=== PATIENT | female | born 1955 | race Caucasian/White ===

== ENCOUNTER → 2017-05-07 12:01 | Outpatient (CLI) | payer BC, SELFPAY ==
[2017-05-07 12:42] LABS: Absolute Lymphocyte Count 2.22 X10^3/ul (0.83-4.51); Absolute Neutrophil Count 4.2 X10^3/uL (2.0-7.7); Basophil# 0.06 X10^3/uL; Basophil% 0.8 % (0-1); Eosinophil# 0.27 X10^3/uL; Eosinophils% 3.7 % (0-5); Hematocrit 41.7 % (37-47); Hemoglobin 13.8 g/dl (12.0-15.0); Lymphocyte # 2.22 X10^3/ul (4.0); Lymphocyte % 30.3 % (19-41); Mean Corp Hgb Conc 33.1 g/gl (32-36); Mean Corpuscular Hgb 31.5 pg (27.0-32.0); Mean Corpuscular Volume 95.2 fL (81-99); Mean Platelet Vol. 8.7 fl (6.2-12.0); Monocyte% 8.2 % (0-10); Neutrophil # 4.17 X10^3/uL (2.7-7.7); Neutrophil % 56.9 % (47-70); Platelet Count 313 K/mm3 (150-450); RBC Distribution Width SD 40.8 fl (35.1-43.9); Red Blood Count 4.38 M/mm3 (4.2-5.4); White Blood Count 7.3 K/mm3 (4.4-11.0)
[2017-05-07 13:00] LABS: POSITIVE COUNT NO; POSITIVE DIFFERENTIAL NO; POSITIVE MORPHOLOGY NO
[2017-05-07 13:12] LABS: Vitamin D,25 Hydroxy 28.9 ng/mL (29.95-100.01)
[2017-05-07 13:16] LABS: ALB/GLOB Ratio 1.1 RATIO (0.9-2.4); AST(SGOT) 16 U/L (15-37); Alanine Aminotransfer ALT/SGPT 39 U/L (13-56); Albumin, Serum 4.2 g/dL (3.2-5.0); Alkaline Phosphatase 78 U/L (45-117); Anion Gap 7 (5-15); BUN 14 mg/dL (7-18); BUN/Creat Ratio 19.3 RATIO (10-20); Calcium,Total 8.7 mg/dL (8.5-10.1); Chloride 107 mmol/L (98-107); Creatinine, Serum 0.73 mg/dL (0.55-1.02); EST Glomerular Filtration Rate 86 mL/min (>60); Est Glom Filt Rate - Afr Amer 105 mL/min (>60); Globulin 3.9 g/dL (2.2-4.2); Glucose 124 mg/dL (74-106); Potassium 3.7 mmol/L (3.5-5.1); Protein, Total 8.1 g/dL (6.4-8.2); Sodium Level 140 mmol/L (136-145); Thyroid Stim Hormone (TSH) 2.26 uIU/mL (0.358-3.74)
== END ==
PROVIDERS: Family Provider Family Medicine Geriatric Medicine; PCP Family Medicine Geriatric Medicine; Visit Provider Family Medicine Geriatric Medicine
DX: I10 Essential (primary) hypertension (principal); E11.9 Type 2 diabetes mellitus without complications; E55.9 Vitamin D deficiency, unspecified
CPT/HCPCS: 36415; 80053; 82306; 84443; 85025

== ENCOUNTER → 2017-11-05 12:44 | Outpatient (CLI) | payer BC, SELFPAY ==
[2017-11-05 13:18] LABS: Absolute Lymphocyte Count 2.19 X10^3/ul (0.83-4.51); Absolute Neutrophil Count 3.5 X10^3/uL (2.0-7.7); Basophil# 0.06 X10^3/uL; Basophil% 0.9 % (0-1); Eosinophil# 0.28 X10^3/uL; Eosinophils% 4.3 % (0-5); Hemoglobin 13.1 g/dl (12.0-15.0); Lymphocyte # 2.19 X10^3/ul (4.0); Lymphocyte % 33.6 % (19-41); Mean Corp Hgb Conc 33.6 g/gl (32-36); Mean Corpuscular Hgb 32.2 pg (27.0-32.0); Mean Corpuscular Volume 95.8 fL (81-99); Mean Platelet Vol. 8.5 fl (6.2-12.0); Monocyte# 0.48 X10^3/uL; Monocyte% 7.4 % (0-10); Neutrophil # 3.49 X10^3/uL (2.7-7.7); Neutrophil % 53.6 % (47-70); Platelet Count 297 K/mm3 (150-450); RBC Distribution Width CV 11.6 % (11.6-14.6); RBC Distribution Width SD 40.1 fl (35.1-43.9); Red Blood Count 4.07 M/mm3 (4.2-5.4); White Blood Count 6.5 K/mm3 (4.4-11.0)
[2017-11-05 13:27] LABS: POSITIVE COUNT NO; POSITIVE DIFFERENTIAL NO; POSITIVE MORPHOLOGY NO
[2017-11-05 13:43] LABS: Vitamin D,25 Hydroxy 27.2 ng/mL (29.95-100.01)
[2017-11-05 13:47] LABS: ALB/GLOB Ratio 1.1 RATIO (0.9-2.4); AST(SGOT) 19 U/L (15-37); Alanine Aminotransfer ALT/SGPT 43 U/L (13-56); Albumin, Serum 4.1 g/dL (3.2-5.0); Alkaline Phosphatase 69 U/L (45-117); Anion Gap 8 (5-15); BUN 13 mg/dL (7-18); BUN/Creat Ratio 19.1 RATIO (10-20); Chloride 107 mmol/L (98-107); Creatinine, Serum 0.68 mg/dL (0.55-1.02); EST Glomerular Filtration Rate 93 mL/min (>60); Est Glom Filt Rate - Afr Amer 113 mL/min (>60); Globulin 3.8 g/dL (2.2-4.2); Glucose 94 mg/dL (74-106); Potassium 3.8 mmol/L (3.5-5.1); Protein, Total 7.9 g/dL (6.4-8.2); Sodium Level 143 mmol/L (136-145); Thyroid Stim Hormone (TSH) 2.54 uIU/mL (0.358-3.74)
== END ==
PROVIDERS: Family Provider Family Medicine Geriatric Medicine; PCP Family Medicine Geriatric Medicine; Visit Provider Family Medicine Geriatric Medicine
DX: I10 Essential (primary) hypertension (principal); E11.9 Type 2 diabetes mellitus without complications; E55.9 Vitamin D deficiency, unspecified
CPT/HCPCS: 36415; 80053; 82306; 84443; 85025

== ENCOUNTER → 2018-01-29 14:34 | Outpatient (CLI) | payer BC, SELFPAY ==
[2018-01-29 17:39] LABS: Absolute Lymphocyte Count 2.11 X10^3/ul (0.83-4.51); Absolute Neutrophil Count 3.2 X10^3/uL (2.0-7.7); Basophil# 0.06 X10^3/uL; Eosinophil# 0.32 X10^3/uL; Eosinophils% 5.1 % (0-5); Hematocrit 38.3 % (37-47); Hemoglobin 12.6 g/dl (12.0-15.0); Lymphocyte # 2.11 X10^3/ul (4.0); Lymphocyte % 33.7 % (19-41); Mean Corp Hgb Conc 32.9 g/gl (32-36); Mean Corpuscular Hgb 31.9 pg (27.0-32.0); Mean Platelet Vol. 8.6 fl (6.2-12.0); Monocyte# 0.59 X10^3/uL; Monocyte% 9.4 % (0-10); Neutrophil # 3.17 X10^3/uL (2.7-7.7); Neutrophil % 50.6 % (47-70); Platelet Count 309 K/mm3 (150-450); RBC Distribution Width CV 12.4 % (11.6-14.6); RBC Distribution Width SD 43.8 fl (35.1-43.9); Red Blood Count 3.95 M/mm3 (4.2-5.4); White Blood Count 6.3 K/mm3 (4.4-11.0)
[2018-01-29 17:43] LABS: POSITIVE COUNT NO; POSITIVE DIFFERENTIAL NO; POSITIVE MORPHOLOGY NO
[2018-01-29 18:02] LABS: Vitamin D,25 Hydroxy 56.4 ng/mL (29.95-100.01)
[2018-01-29 18:05] LABS: ALB/GLOB Ratio 1.1 RATIO (0.9-2.4); AST(SGOT) 18 U/L (15-37); Alanine Aminotransfer ALT/SGPT 38 U/L (13-56); Albumin, Serum 4.2 g/dL (3.2-5.0); Alkaline Phosphatase 68 U/L (45-117); Anion Gap 9 (5-15); BUN 13 mg/dL (7-18); BUN/Creat Ratio 17.8 RATIO (10-20); Calcium,Total 8.7 mg/dL (8.5-10.1); Chloride 104 mmol/L (98-107); Creatinine, Serum 0.73 mg/dL (0.55-1.02); EST Glomerular Filtration Rate 86 mL/min (>60); Est Glom Filt Rate - Afr Amer 104 mL/min (>60); Globulin 3.7 g/dL (2.2-4.2); Glucose 85 mg/dL (74-106); Potassium 3.6 mmol/L (3.5-5.1); Protein, Total 7.9 g/dL (6.4-8.2); Sodium Level 139 mmol/L (136-145); Thyroid Stim Hormone (TSH) 2.16 uIU/mL (0.358-3.74)
--- OUTSIDE RECORDS SUMMARY | 2018-03-26 20:12 | XMS RPT_ITS ---
:1955 Author Organization OH[facility] Care Team Providers Name Role Phone Yamil, Tarik Chi Attending Unavailable Yamil, Tarik Chi Primary Care Unavailable Yamil, Tarik Chi Attending Unavailable Yamil, Tarik Chi Referring Unavailable Yamil, Tarik Chi Primary Care Unavailable Yamil, Tarik Chi Attending Unavailable Yamil, Tarik Chi Primary Care Unavailable PROBLEMS PROBLEMS DATE TYPE CONDITION / CODE ATTENDING STATUS SOURCE 11/05/2017 Unknown E11.9 - Type 2 Yamil, Tarik Chi Active [place] diabetes mellitus Community without Hospital complications / Repository E11.9(ICD-10) 11/05/2017 Unknown E55.9 - Vitamin D Yamil, Tarik Chi Active [place] deficiency, Community unspecified / Hospital E55.9(ICD-10) Repository 11/05/2017 Unknown I10 - Essential Yamil, Tarik Chi Active [place] (primary) Community hypertension / Hospital I10(ICD-10) Repository PROCEDURES PROCEDURES No Procedure Records FoundRESULTS RESULTS CBC W/DIFF, AUTOMATED Collected: 01/29/2018 Status: F Source: [place] [facility] TYPE CODE TESTS RESULT OUT OF RANGE REFERENCE UNITS LAB L100.1000 4.4-11.0 K/mm3 Normal WBC 6.3 LAB L100.1200 4.2-5.4 M/mm3 Low RBC 3.95 LAB L100.1300 12.0-15.0 g/dl Normal HGB 12.6 LAB L100.1400 37-47 % Normal HCT 38.3 LAB L100.1500 81-99 fL Normal MCV 97.0 LAB L100.1600 27.0-32.0 pg Normal MCH 31.9 LAB L100.1700 32-36 g/gl Normal MCHC 32.9 LAB L100.1810 11.6-14.6 % Normal RDW CV 12.4 LAB L100.1820 35.1-43.9 fl Normal RDW SD 43.8 LAB L100.1900 150-450 K/mm3 Normal PLT 309 LAB L100.2000 6.2-12.0 fl Normal MPV 8.6 LAB L100.2100 47-70 % Normal NEUT% 50.6 LAB L100.2200 19-41 % Normal LY% 33.7 LAB L100.2300 0-10 % Normal MONO% 9.4 LAB L100.2400 0-5 % High EO% 5.1 LAB L100.2500 0-1 % Normal BASO% 1.0 LAB L100.2550 0.0-0.9 % Normal IM GRAN % 0.200 Result Comment: IG% - Immature Granulocytes (promyelocytes, myelocytes and metamyelocytes) > 1% indicates that a LEFT SHIFT is Present. LAB L100.2620 2.0-7.7 X10 3/uL Normal Absolute Neut 3.2 LAB L100.2720 0.83-4.51 X10 3/ul Normal Absolute Lymph 2.11 Performed By: #### L100.0100 #### [facility] [address] [place], [address] VITAMIN D,25 HYDROXY Collected: 01/29/2018 Status: F Source: [place] 2:52 PM [facility] REPOSITORY TYPE CODE TESTS RESULT OUT OF RANGE REFERENCE UNITS LAB L506.1000 29.95-100.01 ng/mL Normal Vitamin D 56.4 25-OH Result Comment: Vitamin D 25(OH) Status Range Deficiency <20 ng/mL (50nmol/L) Insuffciency 20 - 30 ng/mL (50 - 75 nmol/L) Sufficiency 30 - 100 ng/mL (75 - 250 nmol/L) Toxicity >100 ng/mL (>250 nmol/L) Performed By: #### L506.1000 #### [facility] [address] [place], [address] COMPREHENSIVE METABOLIC Collected: 01/29/2018 Status: F Source: [place] 2:52 PM [facility] REPOSITORY TYPE CODE TESTS RESULT OUT OF RANGE REFERENCE UNITS LAB L501.0100 74-106 mg/dL Normal GLU 85 Result Comment: Please note revised GLUCOSE reference range effective 2017. LAB L501.1000 7-18 mg/dL Normal BUN 13 LAB L501.1100 0.55-1.02 mg/dL Normal CREAT,SERUM 0.73 Result Comment: The validity of the calculated GFR AND GFRAA in patients over 70 years has not been determined. Clinical correlation is essential. LAB L501.1110 >60 mL/min Normal EST GFR 86 Result Comment: Non- GFR Calc LAB L501.1115 >60 mL/min Normal EST GFR - AA 104 Result Comment: GFR Calc LAB L501.1300 10-20 RATIO Normal BUN/CRE 17.8 LAB L501.1500 6.4-8.2 g/dL T Normal PROT 7.9 LAB L501.1800 3.2-5.0 g/dL Normal ALB 4.2 LAB L501.1950 2.2-4.2 g/dL Normal GLOB 3.7 LAB L501.2000 0.9-2.4 RATIO Normal A/G 1.1 LAB L501.2200 8.5-10.1 mg/dL CA Normal 8.7 LAB L501.4100 15-37 U/L Normal AST 18 LAB L501.4305 45-117 U/L Normal ALK P 68 LAB L501.4405 13-56 U/L Normal ALT 38 LAB L501.4600 0.20-1.00 mg/dL T Normal BILI 0.30 LAB L501.5300 136-145 mmol/L NA Normal 139 LAB L501.5600 3.5-5.1 mmol/L K Normal 3.6 LAB L501.5900 98-107 mmol/L CL Normal 104 LAB L501.6100 21.0-32.0 mmol/L Normal CO2 26.0 LAB L501.6200 5-15 Normal GAP 9 Performed By: #### L500.4050, L501.9520 #### [facility] [address] [place], [place], [address] THYROID STIM HORMONE Collected: 01/29/2018 Status: F Source: [place] (TSH) 2:52 PM [facility] REPOSITORY TYPE CODE TESTS RESULT OUT OF RANGE REFERENCE UNITS LAB L501.9520 0.358-3.74 uIU/mL Normal TSH 2.16 Performed By: #### L500.4050, L501.9520 #### [facility] [address] [facility] [place], [address] CBC W/DIFF, AUTOMATED Collected: 11/05/2017 Status: F Source: [place] 12:49 PM [facility] REPOSITORY TYPE CODE TESTS RESULT OUT OF RANGE REFERENCE UNITS LAB L100.1000 4.4-11.0 K/mm3 Normal WBC 6.5 LAB L100.1200 4.2-5.4 M/mm3 Low RBC 4.07 LAB L100.1300 12.0-15.0 g/dl Normal HGB 13.1 LAB L100.1400 37-47 % Normal HCT 39.0 LAB L100.1500 81-99 fL Normal MCV 95.8 LAB L100.1600 27.0-32.0 pg High MCH 32.2 LAB L100.1700 32-36 g/gl Normal MCHC 33.6 LAB L100.1810 11.6-14.6 % Normal RDW CV 11.6 LAB L100.1820 35.1-43.9 fl Normal RDW SD 40.1 LAB L100.1900 150-450 K/mm3 Normal PLT 297 LAB L100.2000 6.2-12.0 fl Normal MPV 8.5 LAB L100.2100 47-70 % Normal NEUT% 53.6 LAB L100.2200 19-41 % Normal LY% 33.6 LAB L100.2300 0-10 % Normal MONO% 7.4 LAB L100.2400 0-5 % Normal EO% 4.3 LAB L100.2500 0-1 % Normal BASO% 0.9 LAB L100.2550 0.0-0.9 % Normal IM GRAN % 0.200 Result Comment: IG% - Immature Granulocytes (promyelocytes, myelocytes and metamyelocytes) > 1% indicates that a LEFT SHIFT is Present. LAB L100.2620 2.0-7.7 X10 3/uL Normal Absolute Neut 3.5 LAB L100.2720 0.83-4.51 X10 3/ul Normal Absolute Lymph 2.19 Performed By: #### L100.0100 #### [facility] [address] [facility] [place], [place], [address] VITAMIN D,25 HYDROXY Collected: 11/05/2017 Status: F Source: [place] 12:49 PM [facility] REPOSITORY TYPE CODE TESTS RESULT OUT OF REFERENCE UNITS RANGE LAB L506.1000 29.95-100.01 ng/mL Low Vitamin D 27.2 25-OH Result Comment: Vitamin D 25(OH) Status Range Deficiency <20 ng/mL (50nmol/L) Insuffciency 20 - 30 ng/mL (50 - 75 nmol/L) Sufficiency 30 - 100 ng/mL (75 - 250 nmol/L) Toxicity >100 ng/mL (>250 nmol/L) Performed By: #### L506.1000 #### [facility] [address] [place], [place], [address] COMPREHENSIVE METABOLIC Collected: 11/05/2017 Status: F Source: [facility] 12:49 PM [facility] REPOSITORY TYPE CODE TESTS RESULT OUT OF RANGE REFERENCE UNITS LAB L501.0100 74-106 mg/dL Normal GLU 94 Result Comment: Please note revised GLUCOSE reference range effective 2017. LAB L501.1000 7-18 mg/dL Normal BUN 13 LAB L501.1100 0.55-1.02 mg/dL Normal CREAT,SERUM 0.68 Result Comment: The validity of the calculated GFR AND GFRAA in patients over 70 years has not been determined. Clinical correlation is essential. LAB L501.1110 >60 mL/min Normal EST GFR 93 Result Comment: Non- GFR Calc LAB L501.1115 >60 mL/min Normal EST GFR - AA 113 Result Comment: GFR Calc LAB L501.1300 10-20 RATIO Normal BUN/CRE 19.1 LAB L501.1500 6.4-8.2 g/dL T Normal PROT 7.9 LAB L501.1800 3.2-5.0 g/dL Normal ALB 4.1 LAB L501.1950 2.2-4.2 g/dL Normal GLOB 3.8 LAB L501.2000 0.9-2.4 RATIO Normal A/G 1.1 LAB L501.2200 8.5-10.1 mg/dL CA Normal 9.0 LAB L501.4100 15-37 U/L Normal AST 19 LAB L501.4305 45-117 U/L Normal ALK P 69 LAB L501.4405 13-56 U/L Normal ALT 43 LAB L501.4600 0.20-1.00 mg/dL T Normal BILI 0.30 LAB L501.5300 136-145 mmol/L NA Normal 143 LAB L501.5600 3.5-5.1 mmol/L K Normal 3.8 LAB L501.5900 98-107 mmol/L CL Normal 107 LAB L501.6100 21.0-32.0 mmol/L Normal CO2 28.0 LAB L501.6200 5-15 Normal GAP 8 Performed By: #### L500.4050, L501.9520 #### [facility] [address] [place], [place], [address] THYROID STIM HORMONE Collected: 11/05/2017 Status: F Source: [place] (TSH) 12:49 PM [facility] REPOSITORY TYPE CODE TESTS RESULT OUT OF RANGE REFERENCE UNITS LAB L501.9520 0.358-3.74 uIU/mL Normal TSH 2.54 Performed By: #### L500.4050, L501.9520 #### [facility] [address] [place], [address] CBC W/DIFF, AUTOMATED Collected: 05/07/2017 Status: F Source: [place] 12:08 PM [facility] REPOSITORY TYPE CODE TESTS RESULT OUT OF RANGE REFERENCE UNITS LAB L100.1000 4.4-11.0 K/mm3 Normal WBC 7.3 LAB L100.1200 4.2-5.4 M/mm3 Normal RBC 4.38 LAB L100.1300 12.0-15.0 g/dl Normal HGB 13.8 LAB L100.1400 37-47 % Normal HCT 41.7 LAB L100.1500 81-99 fL Normal MCV 95.2 LAB L100.1600 27.0-32.0 pg Normal MCH 31.5 LAB L100.1700 32-36 g/gl Normal MCHC 33.1 LAB L100.1810 11.6-14.6 % Normal RDW CV 12.0 LAB L100.1820 35.1-43.9 fl Normal RDW SD 40.8 LAB L100.1900 150-450 K/mm3 Normal PLT 313 LAB L100.2000 6.2-12.0 fl Normal MPV 8.7 LAB L100.2100 47-70 % Normal NEUT% 56.9 LAB L100.2200 19-41 % Normal LY% 30.3 LAB L100.2300 0-10 % Normal MONO% 8.2 LAB L100.2400 0-5 % Normal EO% 3.7 LAB L100.2500 0-1 % Normal BASO% 0.8 LAB L100.2550 0.0-0.9 % Normal IM GRAN % 0.100 Result Comment: IG% - Immature Granulocytes (promyelocytes, myelocytes and metamyelocytes) > 1% indicates that a LEFT SHIFT is Present. LAB L100.2620 2.0-7.7 X10 3/uL Normal Absolute Neut 4.2 LAB L100.2720 0.83-4.51 X10 3/ul Normal Absolute Lymph 2.22 Performed By: #### L100.0100 #### [facility] [place], [place], [address] VITAMIN D,25 HYDROXY Collected: 05/07/2017 Status: F Source: [place] 12:08 PM [facility] REPOSITORY TYPE CODE TESTS RESULT OUT OF REFERENCE UNITS RANGE LAB L506.1000 29.95-100.01 ng/mL Low Vitamin D 28.9 25-OH Result Comment: Vitamin D 25(OH) Status Range Deficiency <20 ng/mL (50nmol/L) Insuffciency 20 - 30 ng/mL (50 - 75 nmol/L) Sufficiency 30 - 100 ng/mL (75 - 250 nmol/L) Toxicity >100 ng/mL (>250 nmol/L) Performed By: #### L506.1000 #### [facility] [address] [place], [place], [address] COMPREHENSIVE METABOLIC Collected: 05/07/2017 Status: F Source: [place] [facility] 12:08 PM [facility] REPOSITORY TYPE CODE TESTS RESULT OUT OF RANGE REFERENCE UNITS LAB L501.0100 74-106 mg/dL High GLU 124 Result Comment: Fasting Glucose result from 100 to 125 mg/dL suggests IMPAIRED HOMEOSTASIS per A.D.A. criteria. Please note revised GLUCOSE reference range effective 2017. LAB L501.1000 7-18 mg/dL Normal BUN 14 LAB L501.1100 0.55-1.02 mg/dL Normal CREAT,SERUM 0.73 Result Comment: The validity of the calculated GFR AND GFRAA in patients over 70 years has not been determined. Clinical correlation is essential. LAB L501.1110 >60 mL/min Normal EST GFR 86 Result Comment: Non- GFR Calc LAB L501.1115 >60 mL/min Normal EST GFR - AA 105 Result Comment: GFR Calc LAB L501.1300 10-20 RATIO Normal BUN/CRE 19.3 LAB L501.1500 6.4-8.2 g/dL T Normal PROT 8.1 LAB L501.1800 3.2-5.0 g/dL Normal ALB 4.2 LAB L501.1950 2.2-4.2 g/dL Normal GLOB 3.9 LAB L501.2000 0.9-2.4 RATIO Normal A/G 1.1 LAB L501.2200 8.5-10.1 mg/dL CA Normal 8.7 LAB L501.4100 15-37 U/L Normal AST 16 LAB L501.4305 45-117 U/L Normal ALK P 78 LAB L501.4405 13-56 U/L Normal ALT 39 Result Comment: Please note revised ALT reference range effective 2017. LAB L501.4600 0.20-1.00 mg/dL Normal T BILI 0.30 LAB L501.5300 136-145 mmol/L Normal NA 140 LAB L501.5600 3.5-5.1 mmol/L Normal K 3.7 LAB L501.5900 98-107 mmol/L Normal CL 107 LAB L501.6100 21.0-32.0 mmol/L Normal CO2 26.0 LAB L501.6200 5-15 Normal GAP 7 Performed By: #### L500.4050, L501.9520 #### [facility] [address] [place], [address] THYROID STIM HORMONE Collected: 05/07/2017 Status: F Source: [place] (TSH) 12:08 PM [facility] REPOSITORY TYPE CODE TESTS RESULT OUT OF RANGE REFERENCE UNITS LAB L501.9520 0.358-3.74 uIU/mL Normal TSH 2.26 Performed By: #### L500.4050, L501.9520 #### [facility] [address] [facility] [place], [address] ALLERGIES ALLERGIES No Allergies Records FoundENCOUNTERS ENCOUNTERS ADMIT/DISCHARGE ACCOUNT ADMITTING ENCOUNTER LOCATION SOURCE NUMBER CLASS 01/29/2018 [id number] Ambulatory [place] 1 [facility] ing:POLAB3 Repository 11/05/2017 [id number] Ambulatory [place] 4 [facility] ing:LAB Repository 05/07/2017 [id number] Ambulatory [place] 2 [facility] ing:POLAB3 Repository PAYERS PAYERS ENCOUNTER GUARANTOR PAYER SUBSCRIBER SOURCE 01/29/2018 KARYN D [id number] Primary MIROSLAVA D [place] JACKI Insurance:ANTHEMPolic GOPPDOB: [place] Number: [id number] [address]Biu: 330 [id number] Repository [phone] () Date:[id number] [address]HG: 01/29/2018 Secondary NOT GIVENUNK [place] Insurance:SELF PAY [facility] Number: Effective Repository Date:2018-01-29 11/05/2017 KARYN D [id number] Primary MIROSLAVA D [place] JACKI Insurance:ANTHEMPolic GOPPDOB: [place] Number: [id number] [address]Fsa: 330 [id number] Repository [phone] () Date:[id number], [place] [address]ZP: 11/05/2017 Secondary NOT GIVENUNK [place] Insurance:SELF PAY [facility] Number: Effective Repository Date:2017-11-05 05/07/2017 KARYN Malin [id number] Primary MIROSLAVA Kimo ECHEVERRIA [facility] arturo [place] Number: [id number] [address]Dqn: (258) [id number] Repository [phone] () Date:[id number], [place] [address]RT: 05/07/2017 Secondary NOT GIVENUNK [place] Insurance:SELF PAY [facility] Number: Effective Repository Date:2017-05-07
== END ==
PROVIDERS: Family Provider Family Medicine Geriatric Medicine; PCP Family Medicine Geriatric Medicine; Visit Provider Family Medicine Geriatric Medicine
DX: I10 Essential (primary) hypertension (principal); E11.9 Type 2 diabetes mellitus without complications; E55.9 Vitamin D deficiency, unspecified
CPT/HCPCS: 36415; 80053; 82306; 84443; 85025

== ENCOUNTER → 2018-05-26 12:31 | Outpatient (CLI) | payer BC, SELFPAY ==
--- NOTE | 2018-05-26 12:34 | CT_ITS ---
STUDY: CT BRAIN WITHOUT CONTRAST REASON FOR EXAM: Female, 62 years old. Stroke, bilateral arm numbness and tingling. RADIATION DOSAGE (If Supplied By Facility): CTDIvol = ( 44.99 ) mGy, DLP = ( 779.24 ) mGycm TECHNIQUE: Transaxial CT imaging of the brain was performed without administration of intravenous contrast material. Coronal and sagittal 2-D MPR Individualized dose optimization techniques were used for this CT. COMPARISON: None. FINDINGS: Sinuses clear. Craniofacial osseous structures are intact. The bones appear to be rather dense for the patient's age. This could potentially reflect a disorder of calcium metabolism. Mild symmetric expansion of lateral ventricles and extra axial spaces consistent with mild age-related cerebral atrophy with no significant chronic changes of the white matter and with no evidence of acute intracranial bleed, mass or mass effect nor any specific evidence of acute territorial infarct. CT/Brain/Head without Contrast IMPRESSION: No acute intracranial process. Generalized hyperdensity of the calvarium. Correlate clinically for the possibility of disordered calcium metabolism. Electronically Signed: Bruno Patel MD at 12:54 EDT Tel , Service support ,
== END ==
PROVIDERS: Family Provider Family Medicine Geriatric Medicine; PCP Family Medicine Geriatric Medicine; Referring Provider Family Medicine Geriatric Medicine; Visit Provider Family Medicine Geriatric Medicine
DX: Z86.73 Personal history of transient ischemic attack (TIA), and cerebral infarction without residual deficits (principal)
CPT/HCPCS: 70450

== ENCOUNTER → 2018-06-03 13:24 | Outpatient (CLI) | payer BC, SELFPAY ==
[2018-06-03 15:02] LABS: Calcium,Total 9.1 mg/dL (8.5-10.1); Phosphorus 3.6 mg/dL (2.5-4.9)
[2018-06-03 15:14] LABS: PTHIN 42.8 pg/mL (18.4-80.1)
== END ==
PROVIDERS: Family Provider Family Medicine Geriatric Medicine; PCP Family Medicine Geriatric Medicine; Referring Provider Family Medicine Geriatric Medicine; Visit Provider Family Medicine Geriatric Medicine
DX: E83.50 Unspecified disorder of calcium metabolism (principal)
CPT/HCPCS: 36415; 82310; 83970; 84100

== ENCOUNTER → 2018-07-29 | Outpatient (CLI) | payer BC, SELFPAY ==
--- NOTE | 2018-07-29 10:27 | NEURO ---
NCS and/or EMG Patient Report Ordering Doctor: Tarik Lobo Chi DATE OF SERVICE: 07/29/18 This is a bilateral upper extremity sensory and motor nerve conduction study performed on this 62-year-old female with a history of numbness and tingling as well as pain in the elbows and shoulders present for 3 to 5 years. There is a history of diabetes but hemoglobin A1c appears well-controlled less than 7. Symptoms are worse on the left side. Bilateral upper extremity sensory motor nerve conduction studies performed demonstrate a severe prolongation of the median motor and sensory distal latencies worse on the right side, with preserved amplitudes and mildly slowed conduction velocities. The ulnar motor and sensory and radial sensory responses are normal bilaterally. The median F wave latencies are prolonged bilaterally compared to the ulnar F-wave latencies. Left upper extremity needle electromyography is performed. Muscles evaluate included the first dorsal osseous abductor pollicis brevis brachial radialis biceps triceps and deltoid muscles. The abductor pollicis brevis muscle did demonstrate large motor units with early recruitment and increased insertional activity. 1+ fibrillation potentials were also noted. All other muscles demonstrated normal insertional activity with absence of pathologic spontaneous activity, normal motor unit potential was noted otherwise. Impression: Abnormal electrophysiologic study consistent with severe carpal tunnel syndrome at the wrists bilaterally.
== END | disposition home or self-care (01) ==
LOC: PSN 06:47
PROVIDERS: Family Provider Family Medicine Geriatric Medicine; PCP Family Medicine Geriatric Medicine; Referring Provider Family Medicine Geriatric Medicine; Visit Provider Family Medicine Geriatric Medicine
DX: R20.0 Anesthesia of skin (principal)
CPT/HCPCS: 95886; 95911

== ENCOUNTER → 2018-07-30 | Outpatient (CLI) | payer BC, SELFPAY ==
[2018-07-30 16:41] LABS: Absolute Lymphocyte Count 2.04 X10^3/ul (0.83-4.51); Absolute Neutrophil Count 3.4 X10^3/uL (2.0-7.7); Basophil# 0.05 X10^3/uL; Basophil% 0.8 % (0-1); Eosinophil# 0.34 X10^3/uL; Eosinophils% 5.2 % (0-5); Hemoglobin 12.7 g/dl (12.0-15.0); Lymphocyte # 2.04 X10^3/ul (4.0); Lymphocyte % 31.3 % (19-41); Mean Corp Hgb Conc 32.6 g/gl (32-36); Mean Corpuscular Hgb 31.1 pg (27.0-32.0); Mean Corpuscular Volume 95.6 fL (81-99); Mean Platelet Vol. 9.1 fl (6.2-12.0); Monocyte# 0.68 X10^3/uL; Monocyte% 10.4 % (0-10); Neutrophil % 52.1 % (47-70); Platelet Count 294 K/mm3 (150-450); RBC Distribution Width CV 12.1 % (11.6-14.6); RBC Distribution Width SD 41.4 fl (35.1-43.9); Red Blood Count 4.08 M/mm3 (4.2-5.4); White Blood Count 6.5 K/mm3 (4.4-11.0)
[2018-07-30 16:42] LABS: POSITIVE COUNT NO; POSITIVE DIFFERENTIAL NO; POSITIVE MORPHOLOGY NO
[2018-07-30 17:09] LABS: ALB/GLOB Ratio 1.1 RATIO (0.9-2.4); AST(SGOT) 18 U/L (15-37); Alanine Aminotransfer ALT/SGPT 35 U/L (13-56); Albumin, Serum 4.1 g/dL (3.2-5.0); Alkaline Phosphatase 77 U/L (45-117); Anion Gap 7 (5-15); BUN 14 mg/dL (7-18); BUN/Creat Ratio 18.8 RATIO (10-20); Chloride 105 mmol/L (98-107); Creatinine, Serum 0.74 mg/dL (0.55-1.02); EST Glomerular Filtration Rate 84 mL/min (>60); Est Glom Filt Rate - Afr Amer 101 mL/min (>60); Globulin 3.7 g/dL (2.2-4.2); Glucose 126 mg/dL (74-106); Potassium 4.1 mmol/L (3.5-5.1); Protein, Total 7.8 g/dL (6.4-8.2); Sodium Level 139 mmol/L (136-145); Thyroid Stim Hormone (TSH) 2.65 uIU/mL (0.358-3.74)
== END | disposition home or self-care (01) ==
LOC: POLAB3 13:24
PROVIDERS: Family Provider Family Medicine Geriatric Medicine; PCP Family Medicine Geriatric Medicine; Visit Provider Family Medicine Geriatric Medicine
DX: E11.9 Type 2 diabetes mellitus without complications (principal); E55.9 Vitamin D deficiency, unspecified; I10 Essential (primary) hypertension
CPT/HCPCS: 36415; 80053; 82306; 84443; 85025

== ENCOUNTER → 2018-09-28 | Outpatient (CLI) | payer BC, SELFPAY ==
[2018-09-28 15:26] LABS: Absolute Lymphocyte Count 2.11 X10^3/uL (0.83-4.51); Basophil# 0.08 X10^3/uL; Basophil% 1.1 % (0-1); Eosinophil# 0.48 X10^3/uL; Eosinophils% 6.5 % (0-5); Hematocrit 37.9 % (37-47); Hemoglobin 12.5 g/dL (12.0-15.0); Lymphocyte # 2.11 X10^3/ul (4.0); Lymphocyte % 28.7 % (19-41); Mean Corpuscular Hgb 31.6 pg (27.0-32.0); Mean Corpuscular Volume 95.7 fL (81-99); Mean Platelet Vol. 8.8 fl (6.2-12.0); Monocyte# 0.64 X10^3/uL; Monocyte% 8.7 % (0-10); NRBC Flagged by Analyzer 0 % (0-5); Neutrophil # 4.02 X10^3/uL (2.7-7.7); Neutrophil % 54.7 % (47-70); Platelet Count 271 K/mm3 (150-450); RBC Distribution Width CV 11.6 % (11.6-14.6); RBC Distribution Width SD 40.5 fl (35.1-43.9); Red Blood Count 3.96 M/mm3 (4.2-5.4); White Blood Count 7.4 K/mm3 (4.4-11.0)
[2018-09-28 15:54] LABS: ALB/GLOB Ratio 1.1 RATIO (0.9-2.4); AST(SGOT) 15 U/L (15-37); Alanine Aminotransfer ALT/SGPT 32 U/L (13-56); Alkaline Phosphatase 82 U/L (45-117); Anion Gap 6 (5-15); BUN 13 mg/dL (7-18); BUN/Creat Ratio 19.2 RATIO (10-20); Calcium,Total 9.3 mg/dL (8.5-10.1); Chloride 105 mmol/L (98-107); Creatinine, Serum 0.68 mg/dL (0.55-1.02); EST Glomerular Filtration Rate 93 mL/min (>60); Est Glom Filt Rate - Afr Amer 113 mL/min (>60); Globulin 3.7 g/dL (2.2-4.2); Glucose 99 mg/dL (74-106); Potassium 3.7 mmol/L (3.5-5.1); Protein, Total 7.7 g/dL (6.4-8.2); Sodium Level 138 mmol/L (136-145); Thyroid Stim Hormone (TSH) 2.54 uIU/mL (0.358-3.74)
[2018-09-29 09:49] LABS: Vitamin B12 572 pg/mL (211-911)
== END | disposition home or self-care (01) ==
LOC: POLAB3 13:34
PROVIDERS: Family Provider Family Medicine Geriatric Medicine; PCP Family Medicine Geriatric Medicine; Visit Provider Family Medicine Geriatric Medicine
DX: R53.83 Other fatigue (principal)
CPT/HCPCS: 36415; 80053; 82607; 84443; 85025

== ENCOUNTER → 2019-01-04 | Outpatient (CLI) | payer BC, SELFPAY | END | disposition home or self-care (01) | LOC: PSN 15:55 | PROVIDERS: Family Provider Family Medicine Geriatric Medicine; PCP Family Medicine Geriatric Medicine; Referring Provider Family Medicine Geriatric Medicine; Visit Provider Family Medicine Geriatric Medicine | DX: R50.9 Fever, unspecified (principal) | CPT/HCPCS: 87633 ==

== ENCOUNTER → 2019-01-22 12:05 | Outpatient (CLI) | payer BC, SELFPAY | PROVIDERS: Family Provider Family Medicine Geriatric Medicine; PCP Family Medicine Geriatric Medicine; Referring Provider Family Medicine Geriatric Medicine; Visit Provider Family Medicine Geriatric Medicine | DX: R68.83 Chills (without fever) (principal) | CPT/HCPCS: 87633 ==

== ENCOUNTER → 2019-02-03 14:15 | Outpatient (CLI) | payer BC, SELFPAY ==
[2019-02-03 16:57] LABS: Absolute Lymphocyte Count 2.69 X10^3/uL (0.83-4.51); Absolute Neutrophil Count 5.6 X10^3/uL (2.0-7.7); Basophil# 0.08 X10^3/uL; Basophil% 0.9 % (0-1); Eosinophil# 0.23 X10^3/uL; Eosinophils% 2.5 % (0-5); Hematocrit 38.4 % (37-47); Hemoglobin 12.4 g/dL (12.0-15.0); Lymphocyte # 2.69 X10^3/ul (4.0); Lymphocyte % 28.8 % (19-41); Mean Corp Hgb Conc 32.3 g/dL (32-36); Mean Corpuscular Hgb 31.1 pg (27.0-32.0); Mean Corpuscular Volume 96.2 fL (81-99); Mean Platelet Vol. 8.7 fl (6.2-12.0); Monocyte# 0.76 X10^3/uL; Monocyte% 8.1 % (0-10); NRBC Flagged by Analyzer 0 % (0-5); Neutrophil # 5.56 X10^3/uL (2.7-7.7); Neutrophil % 59.4 % (47-70); Platelet Count 333 K/mm3 (150-450); RBC Distribution Width CV 12.1 % (11.6-14.6); RBC Distribution Width SD 42.7 fl (35.1-43.9); Red Blood Count 3.99 M/mm3 (4.2-5.4); White Blood Count 9.4 K/mm3 (4.4-11.0)
[2019-02-03 17:17] LABS: Vitamin D,25 Hydroxy 40.7 ng/mL (29.95-100.01)
[2019-02-03 17:18] LABS: ALB/GLOB Ratio 1.1 RATIO (0.9-2.4); AST(SGOT) 18 U/L (15-37); Alanine Aminotransfer ALT/SGPT 39 U/L (13-56); Albumin, Serum 4.2 g/dL (3.2-5.0); Alkaline Phosphatase 79 U/L (45-117); Anion Gap 8 (5-15); BUN 14 mg/dL (7-18); BUN/Creat Ratio 19.5 RATIO (10-20); Calcium,Total 8.9 mg/dL (8.5-10.1); Chloride 103 mmol/L (98-107); Creatinine, Serum 0.72 mg/dL (0.55-1.02); EST Glomerular Filtration Rate 87 mL/min (>60); Est Glom Filt Rate - Afr Amer 105 mL/min (>60); Globulin 3.7 g/dL (2.2-4.2); Glucose 109 mg/dL (74-106); Potassium 3.8 mmol/L (3.5-5.1); Protein, Total 7.9 g/dL (6.4-8.2); Sodium Level 138 mmol/L (136-145); Thyroid Stim Hormone (TSH) 1.66 uIU/mL (0.358-3.74)
== END ==
PROVIDERS: Family Provider Family Medicine Geriatric Medicine; PCP Family Medicine Geriatric Medicine; Visit Provider Family Medicine Geriatric Medicine
DX: E11.9 Type 2 diabetes mellitus without complications (principal); E55.9 Vitamin D deficiency, unspecified; I10 Essential (primary) hypertension
CPT/HCPCS: 36415; 80053; 82306; 84443; 85025

== ENCOUNTER → 2019-08-04 | Outpatient (CLI) | payer BC, SELFPAY ==
[2019-08-04 15:45] LABS: Absolute Lymphocyte Count 1.55 X10^3/uL (0.83-4.51); Absolute Neutrophil Count 3.1 X10^3/uL (2.0-7.7); Basophil# 0.08 X10^3/uL; Basophil% 1.4 % (0-1); Eosinophil# 0.42 X10^3/uL; Eosinophils% 7.4 % (0-5); Hematocrit 38.2 % (37-47); Hemoglobin 12.3 g/dL (12.0-15.0); Lymphocyte # 1.55 X10^3/ul (4.0); Lymphocyte % 27.1 % (19-41); Mean Corp Hgb Conc 32.2 g/dL (32-36); Mean Corpuscular Hgb 30.8 pg (27.0-32.0); Mean Corpuscular Volume 95.7 fL (81-99); Monocyte# 0.51 X10^3/uL; Monocyte% 8.9 % (0-10); NRBC Flagged by Analyzer 0 % (0-5); Neutrophil # 3.14 X10^3/uL (2.7-7.7); Platelet Count 308 K/mm3 (150-450); RBC Distribution Width CV 11.8 % (11.6-14.6); RBC Distribution Width SD 41.1 fl (35.1-43.9); Red Blood Count 3.99 M/mm3 (4.2-5.4); White Blood Count 5.7 K/mm3 (4.4-11.0)
[2019-08-04 15:58] LABS: Vitamin D,25 Hydroxy 33.8 ng/mL
[2019-08-04 16:03] LABS: ALB/GLOB Ratio 1.1 RATIO (0.9-2.4); AST(SGOT) 19 U/L (15-37); Alanine Aminotransfer ALT/SGPT 46 U/L (13-56); Alkaline Phosphatase 75 U/L (45-117); Anion Gap 8 (5-15); BUN 14 mg/dL (7-18); BUN/Creat Ratio 17.5 RATIO (10-20); Calcium,Total 8.9 mg/dL (8.5-10.1); Chloride 105 mmol/L (98-107); EST Glomerular Filtration Rate 77 mL/min (>60); Est Glom Filt Rate - Afr Amer 93 mL/min (>60); Globulin 3.6 g/dL (2.2-4.2); Glucose 138 mg/dL (74-106); Potassium 4.1 mmol/L (3.5-5.1); Protein, Total 7.6 g/dL (6.4-8.2); Sodium Level 142 mmol/L (136-145); Thyroid Stim Hormone (TSH) 1.69 uIU/mL (0.358-3.74)
== END | disposition home or self-care (01) ==
LOC: POLAB3 13:34
PROVIDERS: PCP Family Medicine Geriatric Medicine; Visit Provider Family Medicine Geriatric Medicine
DX: E11.9 Type 2 diabetes mellitus without complications (principal); E55.9 Vitamin D deficiency, unspecified; I10 Essential (primary) hypertension
CPT/HCPCS: 36415; 80053; 82306; 84443; 85025

== ENCOUNTER → 2019-12-28 | Outpatient (CLI) | payer OTHER, SELFPAY | END | disposition home or self-care (01) | LOC: MTDU 10:17 | PROVIDERS: PCP Family Medicine Geriatric Medicine; Referring Provider Family Medicine Geriatric Medicine; Visit Provider Family Medicine Geriatric Medicine | DX: U07.1 COVID-19 (principal) | CPT/HCPCS: 87633; 87635; C9803; U0003 ==

== ENCOUNTER → 2020-01-18 10:05 | Outpatient (CLI) | payer OTHER, SELFPAY | PROVIDERS: PCP Family Medicine Geriatric Medicine; Referring Provider Family Medicine Geriatric Medicine; Visit Provider Family Medicine Geriatric Medicine | DX: R06.89 Other abnormalities of breathing (principal) | CPT/HCPCS: 87633; 87635; C9803; U0003 ==

== ENCOUNTER → 2020-02-08 12:59 | Outpatient (CLI) | payer OTHER, SELFPAY ==
[2020-02-08 14:37] LABS: Absolute Lymphocyte Count 1.54 X10^3/uL (0.83-4.51); Absolute Neutrophil Count 4.1 X10^3/uL (2.0-7.7); Basophil# 0.04 X10^3/uL; Basophil% 0.6 % (0-1); Eosinophil# 0.04 X10^3/uL; Eosinophils% 0.6 % (0-5); Hematocrit 39.2 % (37-47); Hemoglobin 12.4 g/dL (12.0-15.0); Lymphocyte # 1.54 X10^3/ul (4.0); Lymphocyte % 24.9 % (19-41); Mean Corp Hgb Conc 31.6 g/dL (32-36); Mean Corpuscular Hgb 30.4 pg (27.0-32.0); Mean Corpuscular Volume 96.1 fL (81-99); Mean Platelet Vol. 8.7 fl (6.2-12.0); Monocyte# 0.42 X10^3/uL; Monocyte% 6.8 % (0-10); NRBC Flagged by Analyzer 0 % (0-5); Neutrophil # 4.13 X10^3/uL (2.7-7.7); Neutrophil % 66.9 % (47-70); Platelet Count 307 K/mm3 (150-450); RBC Distribution Width CV 12.3 % (11.6-14.6); RBC Distribution Width SD 43.1 fl (35.1-43.9); Red Blood Count 4.08 M/mm3 (4.2-5.4); White Blood Count 6.2 K/mm3 (4.4-11.0)
[2020-02-08 14:52] LABS: Vitamin D,25 Hydroxy 31.7 ng/mL
[2020-02-08 15:02] LABS: ALB/GLOB Ratio 1.1 RATIO (0.9-2.4); AST(SGOT) 8 U/L (15-37); Alanine Aminotransfer ALT/SGPT 22 U/L (13-56); Albumin, Serum 4.1 g/dL (3.2-5.0); Alkaline Phosphatase 74 U/L (45-117); Anion Gap 7 (5-15); BUN 13 mg/dL (7-18); BUN/Creat Ratio 12.9 RATIO (10-20); Calcium,Total 8.9 mg/dL (8.5-10.1); Chloride 109 mmol/L (98-107); Creatinine, Serum 1.01 mg/dL (0.55-1.02); EST Glomerular Filtration Rate 59 mL/min (>60); Est Glom Filt Rate - Afr Amer 71 mL/min (>60); Globulin 3.8 g/dL (2.2-4.2); Glucose 111 mg/dL (74-106); Potassium 3.4 mmol/L (3.5-5.1); Protein, Total 7.9 g/dL (6.4-8.2); Sodium Level 141 mmol/L (136-145); Thyroid Stim Hormone (TSH) 2.01 uIU/mL (0.358-3.74)
== END ==
LOC: POLAB3 13:01
PROVIDERS: PCP Family Medicine Geriatric Medicine; Visit Provider Family Medicine Geriatric Medicine
DX: E11.9 Type 2 diabetes mellitus without complications (principal); I10 Essential (primary) hypertension; E55.9 Vitamin D deficiency, unspecified
CPT/HCPCS: 36415; 80053; 82306; 84443; 85025

== ENCOUNTER → 2020-08-18 12:28 | Outpatient (CLI) | payer BC, SELFPAY ==
[2020-08-18 13:02] LABS: Absolute Lymphocyte Count 1.25 X10^3/uL (0.83-4.51); Absolute Neutrophil Count 2.2 X10^3/uL (2.0-7.7); Basophil# 0.05 X10^3/uL; Basophil% 1.2 % (0-1); Eosinophil# 0.15 X10^3/uL; Eosinophils% 3.6 % (0-5); Hematocrit 36.2 % (37-47); Hemoglobin 11.7 g/dL (12.0-15.0); Lymphocyte # 1.25 X10^3/ul (0.83-4.51); Lymphocyte % 29.9 % (19-41); Mean Corp Hgb Conc 32.3 g/dL (32-36); Mean Corpuscular Hgb 31.5 pg (27.0-32.0); Mean Corpuscular Volume 97.6 fL (81-99); Mean Platelet Vol. 8.7 fl (6.2-12.0); Monocyte# 0.54 X10^3/uL; Monocyte% 12.9 % (0-10); NRBC Flagged by Analyzer 0 % (0-5); Neutrophil # 2.18 X10^3/uL (2.7-7.7); Neutrophil % 52.2 % (47-70); Platelet Count 234 K/mm3 (150-450); RBC Distribution Width SD 42.9 fl (35.1-43.9); Red Blood Count 3.71 M/mm3 (4.2-5.4); White Blood Count 4.2 K/mm3 (4.4-11.0)
[2020-08-18 13:31] LABS: BNP,B-Type NATRIURETIC PEPTIDE 35.6 pg/mL (0-100)
[2020-08-18 13:35] LABS: Anion Gap 5 (5-15); BUN 12 mg/dL (7-18); BUN/Creat Ratio 15.3 RATIO (10-20); CPK Total, Creatine Kinase 51 U/L (26-192); Calcium,Total 8.9 mg/dL (8.5-10.1); Chloride 111 mmol/L (98-107); Creatinine, Serum 0.78 mg/dL (0.55-1.02); EST Glomerular Filtration Rate 79 mL/min (>60); Est Glom Filt Rate - Afr Amer 95 mL/min (>60); Glucose 88 mg/dL (74-106); Sodium Level 144 mmol/L (136-145)
[2020-08-19 15:04] LABS: Myoglobin, Serum 22 ng/mL (25-58)
== END ==
LOC: POLAB3 12:32
PROVIDERS: PCP Family Medicine Geriatric Medicine; Visit Provider Family Medicine Geriatric Medicine
DX: R07.9 Chest pain, unspecified (principal)
CPT/HCPCS: 36415; 80048; 82550; 83874; 83880; 84484; 85025

== ENCOUNTER → 2020-09-11 09:34 | Outpatient (CLI) | payer BC, SELFPAY ==
[2020-09-11 12:17] LABS: Absolute Lymphocyte Count 1.54 X10^3/uL (0.83-4.51); Absolute Neutrophil Count 2.5 X10^3/uL (2.0-7.7); Basophil# 0.08 X10^3/uL; Basophil% 1.6 % (0-1); Hematocrit 37.6 % (37-47); Hemoglobin 12.4 g/dL (12.0-15.0); Lymphocyte # 1.54 X10^3/ul (0.83-4.51); Lymphocyte % 30.9 % (19-41); Mean Corpuscular Hgb 31.6 pg (27.0-32.0); Mean Corpuscular Volume 95.9 fL (81-99); Monocyte# 0.42 X10^3/uL; Monocyte% 8.4 % (0-10); NRBC Flagged by Analyzer 0 % (0-5); Neutrophil # 2.53 X10^3/uL (2.7-7.7); Neutrophil % 50.9 % (47-70); Platelet Count 250 K/mm3 (150-450); RBC Distribution Width CV 11.9 % (11.6-14.6); RBC Distribution Width SD 41.3 fl (35.1-43.9); Red Blood Count 3.92 M/mm3 (4.2-5.4)
[2020-09-11 12:44] LABS: ALB/GLOB Ratio 1.1 RATIO (0.9-2.4); AST(SGOT) 14 U/L (15-37); Alanine Aminotransfer ALT/SGPT 28 U/L (13-56); Albumin, Serum 3.7 g/dL (3.2-5.0); Alkaline Phosphatase 75 U/L (45-117); Anion Gap 7 (5-15); BUN 14 mg/dL (7-18); BUN/Creat Ratio 18.9 RATIO (10-20); Calcium,Total 8.4 mg/dL (8.5-10.1); Chloride 108 mmol/L (98-107); Creatinine, Serum 0.74 mg/dL (0.55-1.02); EST Glomerular Filtration Rate 84 mL/min (>60); Est Glom Filt Rate - Afr Amer 101 mL/min (>60); Globulin 3.4 g/dL (2.2-4.2); Glucose 129 mg/dL (74-106); Potassium 3.7 mmol/L (3.5-5.1); Protein, Total 7.1 g/dL (6.4-8.2); Sodium Level 138 mmol/L (136-145); Thyroid Stim Hormone (TSH) 1.94 uIU/mL (0.358-3.74)
== END ==
LOC: POLAB3 09:34
PROVIDERS: PCP Family Medicine Geriatric Medicine; Visit Provider Family Medicine Geriatric Medicine
DX: E11.9 Type 2 diabetes mellitus without complications (principal); E55.9 Vitamin D deficiency, unspecified; I10 Essential (primary) hypertension
CPT/HCPCS: 36415; 80053; 82306; 84443; 85025

== ENCOUNTER → 2020-11-09 16:34 | Outpatient (CLI) | payer BC, SELFPAY ==
[2020-11-09 17:01] LABS: Absolute Lymphocyte Count 2.22 X10^3/uL (0.83-4.51); Absolute Neutrophil Count 4.6 X10^3/uL (2.0-7.7); Basophil# 0.07 X10^3/uL; Basophil% 0.9 % (0-1); Eosinophil# 0.15 X10^3/uL; Eosinophils% 1.9 % (0-5); Hematocrit 39.8 % (37-47); Hemoglobin 13.2 g/dL (12.0-15.0); Lymphocyte # 2.22 X10^3/ul (0.83-4.51); Lymphocyte % 28.7 % (19-41); Mean Corp Hgb Conc 33.2 g/dL (32-36); Mean Corpuscular Hgb 32.3 pg (27.0-32.0); Mean Corpuscular Volume 97.3 fL (81-99); Mean Platelet Vol. 8.5 fl (6.2-12.0); Monocyte# 0.68 X10^3/uL; Monocyte% 8.8 % (0-10); NRBC Flagged by Analyzer 0 % (0-5); Neutrophil % 59.6 % (47-70); Platelet Count 268 K/mm3 (150-450); RBC Distribution Width CV 11.9 % (11.6-14.6); RBC Distribution Width SD 42.9 fl (35.1-43.9); Red Blood Count 4.09 M/mm3 (4.2-5.4); White Blood Count 7.7 K/mm3 (4.4-11.0)
[2020-11-09 17:34] LABS: AST(SGOT) 15 U/L (15-37); Alanine Aminotransfer ALT/SGPT 27 U/L (13-56); Albumin, Serum 3.8 g/dL (3.2-5.0); Alkaline Phosphatase 78 U/L (45-117); Anion Gap 6 (5-15); BUN 19 mg/dL (7-18); BUN/Creat Ratio 28.8 RATIO (10-20); Calcium,Total 8.6 mg/dL (8.5-10.1); Chloride 110 mmol/L (98-107); Creatinine, Serum 0.66 mg/dL (0.55-1.02); EST Glomerular Filtration Rate 96 mL/min (>60); Est Glom Filt Rate - Afr Amer 116 mL/min (>60); Globulin 3.7 g/dL (2.2-4.2); Glucose 147 mg/dL (74-106); Potassium 3.7 mmol/L (3.5-5.1); Protein, Total 7.5 g/dL (6.4-8.2); Sodium Level 143 mmol/L (136-145); Thyroid Stim Hormone (TSH) 1.54 uIU/mL (0.358-3.74)
== END ==
PROVIDERS: PCP Family Medicine Geriatric Medicine; Referring Provider Family Medicine Geriatric Medicine; Visit Provider Family Medicine Geriatric Medicine
DX: I10 Essential (primary) hypertension (principal); E55.9 Vitamin D deficiency, unspecified; E11.9 Type 2 diabetes mellitus without complications
CPT/HCPCS: 36415; 80053; 82306; 84443; 85025

== ENCOUNTER → 2021-01-12 08:44 | Outpatient (CLI) | payer MEDICARE, OTHER, SELFPAY | PROVIDERS: PCP Family Medicine Geriatric Medicine; Referring Provider Family Medicine Geriatric Medicine; Visit Provider Family Medicine Geriatric Medicine | DX: R68.83 Chills (without fever) (principal) | CPT/HCPCS: 87635; 87804; 87807; C9803; U0005; U0003 ==

== ENCOUNTER → 2021-02-12 16:30 | Outpatient (CLI) | payer MEDICARE, OTHER, SELFPAY ==
[2021-02-12 18:40] LABS: Absolute Lymphocyte Count 2.37 X10^3/uL (0.83-4.51); Basophil# 0.07 X10^3/uL; Basophil% 0.8 % (0-1); Eosinophils% 1.2 % (0-5); Hematocrit 41.2 % (37-47); Hemoglobin 13.5 g/dL (12.0-15.0); Lymphocyte # 2.37 X10^3/ul (0.83-4.51); Lymphocyte % 28.2 % (19-41); Mean Corp Hgb Conc 32.8 g/dL (32-36); Mean Corpuscular Hgb 31.9 pg (27.0-32.0); Mean Corpuscular Volume 97.4 fL (81-99); Mean Platelet Vol. 8.7 fl (6.2-12.0); Monocyte# 0.81 X10^3/uL; Monocyte% 9.6 % (0-10); NRBC Flagged by Analyzer 0 % (0-5); Neutrophil # 5.02 X10^3/uL (2.7-7.7); Neutrophil % 59.8 % (47-70); Platelet Count 295 K/mm3 (150-450); RBC Distribution Width CV 11.9 % (11.6-14.6); RBC Distribution Width SD 42.8 fl (35.1-43.9); Red Blood Count 4.23 M/mm3 (4.2-5.4); White Blood Count 8.4 K/mm3 (4.4-11.0)
[2021-02-12 18:54] LABS: Vitamin D,25 Hydroxy 31.7 ng/mL
[2021-02-12 19:10] LABS: ALB/GLOB Ratio 1.1 RATIO (0.9-2.4); AST(SGOT) 14 U/L (15-37); Alanine Aminotransfer ALT/SGPT 27 U/L (13-56); Albumin, Serum 4.1 g/dL (3.2-5.0); Alkaline Phosphatase 86 U/L (45-117); Anion Gap 7 (5-15); BUN 13 mg/dL (7-18); BUN/Creat Ratio 17.9 RATIO (10-20); Calcium,Total 9.1 mg/dL (8.5-10.1); Chloride 107 mmol/L (98-107); Creatinine, Serum 0.73 mg/dL (0.55-1.02); EST Glomerular Filtration Rate 85 mL/min (>60); Est Glom Filt Rate - Afr Amer 103 mL/min (>60); Globulin 3.9 g/dL (2.2-4.2); Glucose 114 mg/dL (74-106); Potassium 3.2 mmol/L (3.5-5.1); Sodium Level 141 mmol/L (136-145)
== END ==
PROVIDERS: PCP Family Medicine Geriatric Medicine; Visit Provider Family Medicine Geriatric Medicine
DX: E11.9 Type 2 diabetes mellitus without complications (principal); E55.9 Vitamin D deficiency, unspecified; I10 Essential (primary) hypertension
CPT/HCPCS: 36415; 80053; 82306; 84443; 85025

== ENCOUNTER → 2021-02-21 13:57 | Outpatient (CLI) | payer MEDICARE, OTHER, SELFPAY | PROVIDERS: PCP Family Medicine Geriatric Medicine; Referring Provider Family Medicine Geriatric Medicine; Visit Provider Family Medicine Geriatric Medicine | DX: R68.83 Chills (without fever) (principal) | CPT/HCPCS: 87635; C9803; U0005; U0003 ==

== ENCOUNTER 2021-05-21 15:09 | Outpatient (CLI) | payer MEDICARE, OTHER, SELFPAY ==
[2021-05-21 16:42] LABS: Absolute Lymphocyte Count 2.33 X10^3/uL (0.83-4.51); Absolute Neutrophil Count 4.3 X10^3/uL (2.0-7.7); Basophil# 0.07 X10^3/uL; Basophil% 0.9 % (0-1); Eosinophil# 0.13 X10^3/uL; Eosinophils% 1.7 % (0-5); Hematocrit 39.4 % (37-47); Hemoglobin 13.6 g/dL (12.0-15.0); Lymphocyte # 2.33 X10^3/ul (0.83-4.51); Lymphocyte % 30.5 % (19-41); Mean Corp Hgb Conc 34.5 g/dL (32-36); Mean Corpuscular Hgb 33.2 pg (27.0-32.0); Mean Corpuscular Volume 96.1 fL (81-99); Mean Platelet Vol. 8.9 fl (6.2-12.0); Monocyte# 0.83 X10^3/uL; Monocyte% 10.8 % (0-10); NRBC Flagged by Analyzer 0 % (0-5); Neutrophil # 4.26 X10^3/uL (2.7-7.7); Neutrophil % 55.7 % (47-70); Platelet Count 282 K/mm3 (150-450); RBC Distribution Width CV 11.6 % (11.6-14.6); RBC Distribution Width SD 40.8 fl (35.1-43.9); White Blood Count 7.7 K/mm3 (4.4-11.0)
[2021-05-21 17:03] LABS: Vitamin D,25 Hydroxy 31.2 ng/mL
[2021-05-21 17:11] LABS: ALB/GLOB Ratio 1.1 RATIO (0.9-2.4); AST(SGOT) 15 U/L (15-37); Alanine Aminotransfer ALT/SGPT 34 U/L (13-56); Albumin, Serum 4.2 g/dL (3.2-5.0); Alkaline Phosphatase 78 U/L (45-117); Anion Gap 3 (5-15); BUN 15 mg/dL (7-18); BUN/Creat Ratio 18.1 RATIO (10-20); Calcium,Total 9.4 mg/dL (8.5-10.1); Chloride 103 mmol/L (98-107); Creatinine, Serum 0.83 mg/dL (0.55-1.02); EST Glomerular Filtration Rate 73 mL/min (>60); Est Glom Filt Rate - Afr Amer 89 mL/min (>60); Globulin 3.8 g/dL (2.2-4.2); Glucose 124 mg/dL (74-106); Potassium 3.9 mmol/L (3.5-5.1); Sodium Level 139 mmol/L (136-145); Thyroid Stim Hormone (TSH) 2.18 uIU/mL (0.358-3.74)
== END 2021-05-21 23:59 | disposition home or self-care (01) ==
LOC: POLAB3 15:10
PROVIDERS: PCP Family Medicine Geriatric Medicine; Visit Provider Family Medicine Geriatric Medicine
DX: E11.9 Type 2 diabetes mellitus without complications (principal); E55.9 Vitamin D deficiency, unspecified; I10 Essential (primary) hypertension
CPT/HCPCS: 36415; 80053; 82306; 84443; 85025

== ENCOUNTER → 2021-08-08 | Outpatient (CLI) | payer MEDICARE, OTHER, SELFPAY | END | disposition home or self-care (01) | LOC: PSN 12:28 | PROVIDERS: PCP Family Medicine Geriatric Medicine; Referring Provider Family Medicine Geriatric Medicine; Visit Provider Family Medicine Geriatric Medicine | DX: R68.83 Chills (without fever) (principal); Z20.822 Contact with and (suspected) exposure to COVID-19 | CPT/HCPCS: 87635; C9803; U0003; U0005 ==

== ENCOUNTER 2021-08-17 11:20 | Emergency (ER) | payer MEDICARE, OTHER, SELFPAY ==
[2021-08-17 11:20] VITALS: BP 139/75; PULSE 77; RESP 18; TEMP 36.4; O2SAT 98; BMI 27.4
--- NOTE | 2021-08-17 11:55 | RAD_ITS ---
STUDY: X-RAY - RIGHT ANKLE REASON FOR EXAM: Female, 65 years old. Swelling of the right foot and ankle. Recent surgery. TECHNIQUE: 3 view(s) of the ankle. COMPARISON: None. FINDINGS: Normal visualized distal tibia and fibula. Normal medial and lateral malleoli. Normal tibiotalar articulation and ankle mortise. Small calcaneal spur. The visualized subtalar, talonavicular, calcaneocuboid and tarsal articulations are normal. Mild soft tissue swelling RAD/Ankle min 3 Views IMPRESSION: Mild degree of soft tissue swelling Electronically Signed: Dominic White MD at 12:08 EDT ,
--- NOTE | 2021-08-17 12:56 | VDLE_ITS ---
Reason For Study: Swelling RIGHT GSV is normal. CFV is compressible, spontaneous, phasic, competent and demonstrates normal augmentation. FV is compressible, spontaneous, phasic, competent and demonstrates normal augmentation. POP V is compressible, spontaneous, phasic, competent and demonstrates normal augmentation. T/P Trunk is compressible. PTV is compressible. RT PerV is compressible. Procedure This is a venous duplex using B-mode, color flow and spectral Doppler. Exam performed portable in ED. A preliminary report was called and/or faxed to [facility]. VL/Venous Duplex US, Unilateral Interpretation Summary There is no evidence of right lower extremity deep vein thrombosis. Right great saphenous vein appears patent and compressible segmentally. Ordering Physician: Rei Lund Referring Physician: Tarik Lobo Chi Performed By: Anyi Faria RVT
--- NOTE | 2021-08-17 13:00 | EDS_ITS ---
HPI History of Present Illness Chief Complaint: Lower Extremity Injury Informant: patient Narrative Narrative: 65-year-old female underwent gynecologic surgery about 2 weeks ago. On Friday she was out in the yard picking up after the storm. She believes she twisted her ankle. She has been noticing some pain and swelling over the lateral aspect of the foot and ankle. She called her surgeon's office because of the swelling and they wanted her seen for possible DVT. [facility] Medical History Alcohol use Anemia Anxiety Asthma Cancer Depression Diabetes Gastric reflux High cholesterol History of IBS History of steroid therapy Hypertension Injury of head and neck Loss of consciousness Non-smoker Post-menopausal Thyroid disease Wears glasses Home Medications atorvastatin 20 mg tablet 20 mg PO DAILY 04/19/21 [History Last Taken Unknown] estradiol 1 applic vaginal .2 TIMES WEEKLY 04/19/21 [History Last Taken Unknown] famotidine 40 mg tablet 40 mg PO DAILY 04/19/21 [History Last Taken Unknown] levothyroxine 25 mcg tablet 25 mcg PO DAILY 04/19/21 [History Last Taken Unk nown] lisinopril 20 mg tablet 20 mg PO DAILY 04/19/21 [History Last Taken Unknown] metformin 500 mg tablet,extended release 24 hr 500 mg PO DAILY 04/19/21 [History Last Taken Unknown] paroxetine HCl 20 mg tablet 20 mg PO DAILY 04/19/21 [History Last Taken Unknown] potassium chloride 20 mEq tablet,extended release(part/cryst) 20 meq PO DAILY 04/19/21 [History Last Taken Unknown] Allergy/AdvReac Type Severity Reaction Status Date / Time azithromycin [From Zithromax] Allergy Swelling Verified 08/17/21 11:22 codeine Allergy Other Verified 08/17/21 11:22 minocycline [From Dynacin] Allergy Other Verified 08/17/21 11:22 Penicillins [PCN] Allergy Other Verified 08/17/21 11:22 Surgical History Hx of colonoscopy Hx of laparoscopy Hx of oral surgery Social History Smoking Status: Never smoker ROS ROS ED Constitutional Constitutional ED: Denies chills or weight loss Eyes Eyes: Denies change in vision or diplopia ENT ENT ED: Denies ear pain, rhinorrhea or sore throat Cardiovascular Cardiovascular: Denies chest pain, orthopnea, palpitations or racing heartbeat Respiratory/Chest Respiratory/Chest: Denies cough, dyspnea or orthopnea Gastrointestinal Gastrointestinal: Denies abdominal pain, diarrhea, nausea or vomiting Genitourinary Genitourinary ED: Denies dysuria, hematuria or urinary frequency Musculoskeletal Musculoskeletal: Reports other Details: See history of present illness ; Denies arthralgias or myalgias Integumentary Denies abscess or rash Neurologic Neurologic: Denies headache(s) or weakness Psychiatric Psychiatric: Denies anxiety, depression, suicidal ideation or suicidal thoughts Endocrine Endocrinology: Denies polydipsia, polyphagia or polyuria Allergic/Immunologic Allergic/Immunologic ED: Denies mouth swelling, tongue swelling or urticaria EXAM Physical Exam Const Vital Signs: 08/17/21 11:20 Temperature 97.5 F L Temperature Source Temporal Pulse Rate 77 Respiratory Rate 18 Blood Pressure 139/75 H Blood Pressure Mean 96 Pulse Ox 98 Oxygen Delivery Method Room Air Positive well nourished and well developed General Appearance ED: well developed HEENT Reports normocephalic, head/scalp atraumatic and moist mucous membranes Eyes PERRL and EOMs intact bilaterally Neck no lymphadenopathy, supple and no JVD Resp normal respiratory effort and clear to auscultation bilaterally Cardio regular rate, regular rhythm and no murmurs GI normal to inspection, nondistended, normoactive bowel sounds and non-tender Palpation: soft Back/Spine no CVA tenderness and normal ROM Extremity Extremity Narrative: There is some painless swelling over the lateral malleolus and along the fifth metatarsal. No deformities. Full range of motion. Neurovascular intact. The calf is soft nontender. There is no palpable cords. General Extremety ED: Negative for edema General Extremity: Negative for edema Neuro oriented x3 and CN's II-XII intact bilaterally Sensorium / Orientation: alert Motor Exam: strength 5/5 throughout Psych mental status grossly normal Mood & Affect: Negative for depressed or tearful Skin no rashes or lesions noted and no wounds MDM MDM MDM Narrative Medical decision making narrative: My interpretation of the plain films of the left ankle is no acute fracture. Duplex ultrasound was negative. She will use Ad wrap. Return if worsening or concerns Radiography Diagnostic Testing: Clinical Impression(s) from Imaging Studies Ankle X-Ray 08/17/21 11:55 IMPRESSION: Mild degree of soft tissue swelling Electronically Signed: Dominic White MD at 12:08 EDT , Discharge Plan Triage Chief Complaint: Lower Extremity Injury ED Provider: Rei Lund Dx/Rx/DC Orders Clinical Impression: Pain and swelling of right ankle Instructions: Understanding Ankle Sprain Prescriptions: No Action atorvastatin 20 mg tablet 20 mg PO DAILY Label Comments: TAKE 1 TABLET BY MOUTH AT BEDTIME lisinopril 20 mg tablet 20 mg PO DAILY Label Comments: Take 1 Tablet orally once per Day for 90 Days famotidine 40 mg tablet 40 mg PO DAILY Label Comments: Take 1 Tablet orally once per Day for 90 Days levothyroxine 25 mcg tablet 25 mcg PO DAILY Label Comments: TAKE 1 TABLET ORALLY ONCE PER DAY FOR 90 DAYS potassium chloride 20 mEq tablet,ER particles/crystals 20 meq PO DAILY Label Comments: TAKE 1 TABLET BY MOUTH DAILY FOR 90 DAYS paroxetine HCl 20 mg tablet 20 mg PO DAILY Label Comments: TAKE 1 TABLET BY MOUTH AT BEDTIME estradiol 0.01 % (0.1 mg/gram) cream 1 applic VAGINAL .2 TIMES WEEKLY Label Comments: Use 1 g vaginally two times a week. After using nightly for 2 weeks. metformin 500 mg tablet extended release 24 hr 500 mg PO DAILY Label Comments: TAKE 1 TABLET ORALLY ONCE PER DAY FOR 90 DAYS Primary Care Provider: Tarik Lobo Chi Referrals: Tarik Lobo Chi, MD [Primary Care Provider] - 10-14 Days if not better Disposition Disposition: Home, Self Care
== END 2021-08-17 13:55 | disposition home or self-care (01) ==
PROVIDERS: Emergency Provider Emergency Medicine; PCP Family Medicine Geriatric Medicine; Visit Provider Emergency Medicine
DX: M25.571 Pain in right ankle and joints of right foot (principal); M79.89 Other specified soft tissue disorders
CPT/HCPCS: 73610; 93971; 99282

== ENCOUNTER → 2021-08-23 | Outpatient (CLI) | payer MEDICARE, OTHER, SELFPAY ==
[2021-08-23 16:16] LABS: Absolute Lymphocyte Count 2.55 X10^3/uL (0.83-4.51); Absolute Neutrophil Count 4.9 X10^3/uL (2.0-7.7); Basophil# 0.09 X10^3/uL; Basophil% 1.1 % (0-1); Eosinophil# 0.16 X10^3/uL; Eosinophils% 1.9 % (0-5); Hematocrit 38.6 % (37-47); Lymphocyte # 2.55 X10^3/ul (0.83-4.51); Lymphocyte % 30.4 % (19-41); Mean Corp Hgb Conc 33.7 g/dL (32-36); Mean Corpuscular Hgb 31.3 pg (27.0-32.0); Mean Platelet Vol. 8.9 fl (6.2-12.0); Monocyte# 0.69 X10^3/uL; Monocyte% 8.2 % (0-10); NRBC Flagged by Analyzer 0 % (0-5); Neutrophil # 4.89 X10^3/uL (2.7-7.7); Neutrophil % 58.3 % (47-70); Platelet Count 267 K/mm3 (150-450); RBC Distribution Width CV 11.6 % (11.6-14.6); RBC Distribution Width SD 39.6 fl (35.1-43.9); Red Blood Count 4.15 M/mm3 (4.2-5.4); White Blood Count 8.4 K/mm3 (4.4-11.0)
[2021-08-23 16:31] LABS: Vitamin D,25 Hydroxy 32.5 ng/mL
[2021-08-23 16:46] LABS: AST(SGOT) 19 U/L (15-37); Alanine Aminotransfer ALT/SGPT 38 U/L (13-56); Albumin, Serum 3.9 g/dL (3.2-5.0); Alkaline Phosphatase 86 U/L (45-117); Anion Gap 7 (5-15); BUN 17 mg/dL (7-18); BUN/Creat Ratio 20.9 RATIO (10-20); Chloride 106 mmol/L (98-107); Creatinine, Serum 0.81 mg/dL (0.55-1.02); EST Glomerular Filtration Rate 75 mL/min (>60); Est Glom Filt Rate - Afr Amer 91 mL/min (>60); Globulin 3.8 g/dL (2.2-4.2); Glucose 182 mg/dL (74-106); Potassium 3.8 mmol/L (3.5-5.1); Protein, Total 7.7 g/dL (6.4-8.2); Sodium Level 138 mmol/L (136-145)
== END | disposition home or self-care (01) ==
LOC: POLAB3 13:44
PROVIDERS: PCP Family Medicine Geriatric Medicine; Visit Provider Family Medicine Geriatric Medicine
DX: I10 Essential (primary) hypertension (principal); E11.9 Type 2 diabetes mellitus without complications; E55.9 Vitamin D deficiency, unspecified
CPT/HCPCS: 36415; 80053; 82306; 84443; 85025

== ENCOUNTER → 2021-10-22 | Outpatient (CLI) | payer MEDICARE, OTHER, SELFPAY | END | disposition home or self-care (01) | LOC: PSN 08:14 | PROVIDERS: PCP Family Medicine Geriatric Medicine; Referring Provider Family Medicine Geriatric Medicine; Visit Provider Family Medicine Geriatric Medicine | DX: R68.83 Chills (without fever) (principal) | CPT/HCPCS: 87804; 87807; C9803 ==

== ENCOUNTER → 2021-11-27 | Outpatient (CLI) | payer MEDICARE, OTHER, SELFPAY ==
[2021-11-27 16:50] LABS: Absolute Lymphocyte Count 2.43 X10^3/uL (0.83-4.51); Absolute Neutrophil Count 4.1 X10^3/uL (2.0-7.7); Basophil# 0.08 X10^3/uL; Eosinophil# 0.58 X10^3/uL; Eosinophils% 7.4 % (0-5); Hematocrit 39.2 % (37-47); Hemoglobin 13.4 g/dL (12.0-15.0); Lymphocyte # 2.43 X10^3/ul (0.83-4.51); Lymphocyte % 30.8 % (19-41); Mean Corp Hgb Conc 34.2 g/dL (32-36); Mean Corpuscular Hgb 32.4 pg (27.0-32.0); Mean Corpuscular Volume 94.9 fL (81-99); Mean Platelet Vol. 8.7 fl (6.2-12.0); Monocyte# 0.67 X10^3/uL; Monocyte% 8.5 % (0-10); NRBC Flagged by Analyzer 0 % (0-5); Neutrophil # 4.12 X10^3/uL (2.7-7.7); Neutrophil % 52.2 % (47-70); Platelet Count 280 K/mm3 (150-450); RBC Distribution Width CV 11.8 % (11.6-14.6); RBC Distribution Width SD 40.9 fl (35.1-43.9); Red Blood Count 4.13 M/mm3 (4.2-5.4); White Blood Count 7.9 K/mm3 (4.4-11.0)
[2021-11-27 17:30] LABS: Vitamin D,25 Hydroxy 28.9 ng/mL
[2021-11-27 17:38] LABS: ALB/GLOB Ratio 1.1 RATIO (0.9-2.4); AST(SGOT) 21 U/L (15-37); Alanine Aminotransfer ALT/SGPT 31 U/L (13-56); Albumin, Serum 4.1 g/dL (3.2-5.0); Alkaline Phosphatase 82 U/L (45-117); Anion Gap 8 (5-15); BUN 15 mg/dL (7-18); BUN/Creat Ratio 18.1 RATIO (10-20); Calcium,Total 9.2 mg/dL (8.5-10.1); Chloride 105 mmol/L (98-107); Creatinine, Serum 0.83 mg/dL (0.55-1.02); EST Glomerular Filtration Rate 73 mL/min (>60); Est Glom Filt Rate - Afr Amer 88 mL/min (>60); Globulin 3.9 g/dL (2.2-4.2); Glucose 108 mg/dL (74-106); Potassium 3.8 mmol/L (3.5-5.1); Sodium Level 141 mmol/L (136-145); Thyroid Stim Hormone (TSH) 1.71 uIU/mL (0.358-3.74)
== END | disposition home or self-care (01) ==
LOC: POLAB3 13:57
PROVIDERS: PCP Family Medicine Geriatric Medicine; Visit Provider Family Medicine Geriatric Medicine
DX: I10 Essential (primary) hypertension (principal); E11.9 Type 2 diabetes mellitus without complications; E55.9 Vitamin D deficiency, unspecified
CPT/HCPCS: 36415; 80053; 82306; 84443; 85025

== ENCOUNTER → 2021-12-27 | Outpatient (CLI) | payer MEDICARE, OTHER, SELFPAY | END | disposition home or self-care (01) | LOC: PSN 08:30 | PROVIDERS: PCP Family Medicine Geriatric Medicine; Referring Provider Family Medicine Geriatric Medicine; Visit Provider Family Medicine Geriatric Medicine | DX: R68.83 Chills (without fever) (principal); Z20.822 Contact with and (suspected) exposure to COVID-19 | CPT/HCPCS: 87635; 87804; 87807; C9803; U0003; U0005 ==

== ENCOUNTER → 2022-03-20 | Outpatient (CLI) | payer MEDICARE, OTHER, SELFPAY ==
[2022-03-20 14:02] LABS: Absolute Lymphocyte Count 1.93 X10^3/uL (0.83-4.51); Basophil# 0.06 X10^3/uL; Basophil% 1.1 % (0-1); Eosinophil# 0.11 X10^3/uL; Hematocrit 38.2 % (37-47); Hemoglobin 12.6 g/dL (12.0-15.0); Lymphocyte # 1.93 X10^3/ul (0.83-4.51); Lymphocyte % 34.3 % (19-41); Mean Corpuscular Hgb 31.4 pg (27.0-32.0); Mean Corpuscular Volume 95.3 fL (81-99); Mean Platelet Vol. 9.2 fl (6.2-12.0); Monocyte# 0.48 X10^3/uL; Monocyte% 8.5 % (0-10); NRBC Flagged by Analyzer 0 % (0-5); Neutrophil # 3.02 X10^3/uL (2.7-7.7); Neutrophil % 53.7 % (47-70); Platelet Count 241 K/mm3 (150-450); RBC Distribution Width SD 41.9 fl (35.1-43.9); Red Blood Count 4.01 M/mm3 (4.2-5.4); Vitamin D,25 Hydroxy 29.7 ng/mL; White Blood Count 5.6 K/mm3 (4.4-11.0)
[2022-03-20 14:21] LABS: AST(SGOT) 17 U/L (15-37); Alanine Aminotransfer ALT/SGPT 30 U/L (13-56); Alkaline Phosphatase 81 U/L (45-117); Anion Gap 7 (5-15); BUN 12 mg/dL (7-18); BUN/Creat Ratio 16.7 RATIO (10-20); Calcium,Total 8.9 mg/dL (8.5-10.1); Chloride 105 mmol/L (98-107); Creatinine, Serum 0.72 mg/dL (0.55-1.02); EST Glomerular Filtration Rate 86 mL/min (>60); Est Glom Filt Rate - Afr Amer 105 mL/min (>60); Globulin 3.9 g/dL (2.2-4.2); Glucose 214 mg/dL (74-106); Potassium 3.8 mmol/L (3.5-5.1); Protein, Total 7.9 g/dL (6.4-8.2); Sodium Level 139 mmol/L (136-145); Thyroid Stim Hormone (TSH) 2.14 uIU/mL (0.358-3.74)
== END | disposition home or self-care (01) ==
LOC: POLAB3 11:00
PROVIDERS: PCP Family Medicine Geriatric Medicine; Visit Provider Family Medicine Geriatric Medicine
DX: I10 Essential (primary) hypertension (principal); E11.65 Type 2 diabetes mellitus with hyperglycemia; E55.9 Vitamin D deficiency, unspecified
CPT/HCPCS: 36415; 80053; 82306; 84443; 85025

== ENCOUNTER → 2022-04-05 | Outpatient (CLI) | payer MEDICARE, OTHER, SELFPAY | END | disposition home or self-care (01) | LOC: PSN 07:04 | PROVIDERS: PCP Family Medicine Geriatric Medicine; Visit Provider Family Medicine Geriatric Medicine | DX: R68.83 Chills (without fever) (principal) | CPT/HCPCS: 87635; 87804; 87807; C9803; U0003; U0005 ==

== ENCOUNTER → 2022-06-14 | Outpatient (CLI) | payer MEDICARE, OTHER, SELFPAY | END | disposition home or self-care (01) | LOC: PSN 11:58 | PROVIDERS: PCP Family Medicine Geriatric Medicine; Visit Provider Family Medicine Geriatric Medicine | DX: R68.83 Chills (without fever) (principal) | CPT/HCPCS: 87635; 87804; 87807; U0003; U0005 ==

== ENCOUNTER → 2022-08-06 | Outpatient (CLI) | payer MEDICARE, OTHER, SELFPAY ==
[2022-08-06 16:35] LABS: Absolute Lymphocyte Count 2.45 X10^3/uL (0.83-4.51); Absolute Neutrophil Count 2.4 X10^3/uL (2.0-7.7); Basophil# 0.06 X10^3/uL; Basophil% 1.1 % (0-1); Eosinophils% 1.8 % (0-5); Hematocrit 40.9 % (37-47); Hemoglobin 13.4 g/dL (12.0-15.0); Lymphocyte # 2.45 X10^3/ul (0.83-4.51); Lymphocyte % 44.1 % (19-41); Mean Corp Hgb Conc 32.8 g/dL (32-36); Mean Corpuscular Hgb 31.5 pg (27.0-32.0); Mean Platelet Vol. 8.7 fl (6.2-12.0); Monocyte# 0.51 X10^3/uL; Monocyte% 9.2 % (0-10); NRBC Flagged by Analyzer 0 % (0-5); Neutrophil # 2.42 X10^3/uL (2.7-7.7); Neutrophil % 43.6 % (47-70); Platelet Count 286 K/mm3 (150-450); RBC Distribution Width CV 11.9 % (11.6-14.6); RBC Distribution Width SD 41.4 fl (35.1-43.9); Red Blood Count 4.26 M/mm3 (4.2-5.4); White Blood Count 5.6 K/mm3 (4.4-11.0)
[2022-08-06 17:23] LABS: Vitamin D,25 Hydroxy 32.6 ng/mL
[2022-08-06 17:44] LABS: AST(SGOT) 16 U/L (15-37); Alanine Aminotransfer ALT/SGPT 33 U/L (13-56); Alkaline Phosphatase 99 U/L (45-117); Anion Gap 7 (5-15); BUN 13 mg/dL (7-18); BUN/Creat Ratio 18.1 RATIO (10-20); Calcium,Total 9.8 mg/dL (8.5-10.1); Chloride 105 mmol/L (98-107); Creatinine, Serum 0.72 mg/dL (0.55-1.02); EST Glomerular Filtration Rate 86 mL/min (>60); Est Glom Filt Rate - Afr Amer 105 mL/min (>60); Globulin 4.2 g/dL (2.2-4.2); Glucose 176 mg/dL (74-106); Potassium 3.9 mmol/L (3.5-5.1); Protein, Total 8.2 g/dL (6.4-8.2); Sodium Level 140 mmol/L (136-145)
== END | disposition home or self-care (01) ==
LOC: LAB 15:48
PROVIDERS: PCP Family Medicine Geriatric Medicine; Referring Provider Family Medicine Geriatric Medicine; Visit Provider Family Medicine Geriatric Medicine
DX: E11.65 Type 2 diabetes mellitus with hyperglycemia (principal); I10 Essential (primary) hypertension; E55.9 Vitamin D deficiency, unspecified
CPT/HCPCS: 36415; 80053; 82306; 84443; 85025

== ENCOUNTER → 2022-11-07 | Outpatient (CLI) | payer MEDICARE, OTHER, SELFPAY ==
[2022-11-07 15:16] LABS: Absolute Lymphocyte Count 1.84 X10^3/uL (0.83-4.51); Basophil# 0.04 X10^3/uL; Basophil% 0.6 % (0-1); Eosinophil# 0.08 X10^3/uL; Eosinophils% 1.2 % (0-5); Hematocrit 35.9 % (37-47); Hemoglobin 11.9 g/dL (12.0-15.0); Lymphocyte # 1.84 X10^3/ul (0.83-4.51); Lymphocyte % 28.5 % (19-41); Mean Corp Hgb Conc 33.1 g/dL (32-36); Mean Corpuscular Hgb 32.4 pg (27.0-32.0); Mean Corpuscular Volume 97.8 fL (81-99); Monocyte# 0.51 X10^3/uL; Monocyte% 7.9 % (0-10); NRBC Flagged by Analyzer 0 % (0-5); Neutrophil # 3.97 X10^3/uL (2.7-7.7); Neutrophil % 61.6 % (47-70); Platelet Count 235 K/mm3 (150-450); RBC Distribution Width CV 12.1 % (11.6-14.6); RBC Distribution Width SD 43.5 fl (35.1-43.9); Red Blood Count 3.67 M/mm3 (4.2-5.4); White Blood Count 6.5 K/mm3 (4.4-11.0)
[2022-11-07 15:29] LABS: Vitamin D,25 Hydroxy 31.6 ng/mL
[2022-11-07 15:37] LABS: ALB/GLOB Ratio 1.1 RATIO (0.9-2.4); AST(SGOT) 17 U/L (15-37); Alanine Aminotransfer ALT/SGPT 36 U/L (13-56); Albumin, Serum 3.7 g/dL (3.2-5.0); Alkaline Phosphatase 72 U/L (45-117); Anion Gap 5 (5-15); BUN 15 mg/dL (7-18); BUN/Creat Ratio 20.8 RATIO (10-20); Calcium,Total 8.7 mg/dL (8.5-10.1); Chloride 107 mmol/L (98-107); Creatinine, Serum 0.72 mg/dL (0.55-1.02); EST Glomerular Filtration Rate 86 mL/min (>60); Est Glom Filt Rate - Afr Amer 104 mL/min (>60); Globulin 3.5 g/dL (2.2-4.2); Glucose 206 mg/dL (74-106); Potassium 3.9 mmol/L (3.5-5.1); Protein, Total 7.2 g/dL (6.4-8.2); Sodium Level 139 mmol/L (136-145); Thyroid Stim Hormone (TSH) 2.28 uIU/mL (0.358-3.74)
== END | disposition home or self-care (01) ==
LOC: POLAB3 09:40
PROVIDERS: PCP Family Medicine Geriatric Medicine; Visit Provider Family Medicine Geriatric Medicine
DX: E11.65 Type 2 diabetes mellitus with hyperglycemia (principal); E55.9 Vitamin D deficiency, unspecified; I10 Essential (primary) hypertension
CPT/HCPCS: 36415; 80053; 82306; 84443; 85025

== ENCOUNTER → 2022-11-27 | Outpatient (CLI) | payer MEDICARE, OTHER, SELFPAY | END | disposition home or self-care (01) | LOC: PSN 08:42 | PROVIDERS: PCP Family Medicine Geriatric Medicine; Referring Provider Family Medicine Geriatric Medicine; Visit Provider Family Medicine Geriatric Medicine | DX: R68.83 Chills (without fever) (principal) | CPT/HCPCS: 87635; 87804; 87807; C9803 ==

== ENCOUNTER → 2023-01-21 | Outpatient (CLI) | payer MEDICARE, OTHER, SELFPAY | END | disposition home or self-care (01) | PROVIDERS: PCP Family Medicine Geriatric Medicine; Referring Provider Family Medicine Geriatric Medicine; Visit Provider Family Medicine Geriatric Medicine | DX: R68.83 Chills (without fever) (principal) | CPT/HCPCS: 87635; 87804; 87807 ==

== ENCOUNTER → 2023-03-25 | Outpatient (CLI) | payer MEDICARE, OTHER, SELFPAY ==
--- OUTSIDE RECORDS SUMMARY | 2023-03-25 13:26 | XMS RPT_ITS | CCD ---
Author Name Unknown Address [address] [place] [address] Organization [facility] Care Team Providers Care Block Splitter Operator Name Role Phone Tarik Lobo Chi Primary Care Provider [phone] Allergies Allergy Classification Reported Allergen(s) Allergy Type Date of Onset Reaction(s) Facility (9 sources) Azithromycin Drug Allergy 6 [facility] Work Phone: (9 sources) Codeine Drug Allergy 9 Other: See Comments [facility] (9 sources) Minocycline Drug Allergy 9 Other: See Comments [facility] (9 sources) Penicillin G Drug Allergy 6 [facility] Work Phone: Medications Current Medications Medication Drug Class(es) Dates Sig (Normalized) Sig (Original) ibuprofen 600 mg oral tablet (1 source) Nonsteroidal Anti-inflammatory Drug Start: 08-03-2021 End: 08-10-2021 take 1 tablet by mouth every six hours as needed for pain ibuprofen (MOTRIN) 600 mg tablet Indications: Postoperative pain Take 1 tablet by mouth every 6 hours as needed for pain for up to 30 doses. 30 tablet 0 08/03/2021 08/10/2021 Active Completed/Discontinued Medications Medication Drug Class(es) Dates Sig (Normalized) Sig (Original) atorvastatin 20 mg oral tablet (8 sources) HMG-CoA Reductase Inhibitor Start: 04-30-2021 take 1 tablet by mouth once daily at bedtime atorvastatin (LIPITOR) 20 mg tablet Take 20 mg by mouth daily at bedtime. 0 04/30/2021 Active Problems Problem Classification Problem Date Documented Date Episodic/Chronic Administrative/social admission (1 source) Education and/or schooling finding; Translations: [Problems related to education and literacy, unspecified] Episodic Anxiety disorders (10 sources) Anxiety state; Translations: [Generalized anxiety disorder] Onset: 03-29-2008 03-29-2008 Chronic Asthma (9 sources) Childhood asthma; Translations: [Unspecified asthma, uncomplicated] Onset: 07-23-2021 Chronic Diabetes mellitus without complication (3 sources) Diabetes mellitus; Translations: [Type 2 diabetes mellitus without complications] 08-03-2021 Chronic Disorders of lipid metabolism (9 sources) Hyperlipidemia; Translations: [Hyperlipidemia, unspecified] Onset: 04-01-2008 07-05-2008 Chronic Essential hypertension (10 sources) Essential hypertension; Translations: [Essential (primary) hypertension] Onset: 03-29-2008 10-17-2008 Chronic Menopausal disorders (10 sources) Postmenopausal bleeding; Translations: [Postmenopausal bleeding] Onset: 07-23-2021 Chronic Nutritional deficiencies (9 sources) Vitamin D deficiency; Translations: [Vitamin D deficiency, unspecified] Onset: 07-08-2008 10-06-2008 Chronic Other non-epithelial cancer of skin (9 sources) Basal cell carcinoma of skin; Translations: [Basal cell carcinoma of skin, unspecified] Onset: 07-23-2021 Episodic Other nutritional; endocrine; and metabolic disorders (9 sources) Obesity; Translations: [Obesity, unspecified] Onset: 03-29-2008 10-04-2008 Chronic Other screening for suspected conditions (not mental disorders or infectious disease) (1 source) Patient encounter status; Translations: [Encounter for screening mammogram for malignant neoplasm of breast] Episodic Residual codes; unclassified (10 sources) Sleep apnea; Translations: [Sleep apnea, unspecified] Onset: 03-29-2008 03-29-2008 Chronic Thyroid disorders (9 sources) Hypothyroidism; Translations: [Hypothyroidism, unspecified] Onset: 07-23-2021 Chronic Results Test Name Value Interpretation Reference Range Facil ity Vital Signs Date Time Vital Sign Value Performing Clinician Kristi rodriguez 07-20-2021 12:30-0400 Body height 160 cm Pacc 1 Work Phone: [facility] 07-20-2021 12:30-0400 Body temperature 97.59 [degF] Pacc 1 Work Phone: [facility] 07-20-2021 12:30-0400 Body weight 65.77 kg Pacc 1 Work Phone: [facility] 07-20-2021 12:30-0400 Diastolic blood pressure 70 mm[Hg] Pacc 1 Work Phone: [facility] 07-20-2021 12:30-0400 Heart rate 70 /min Pacc 1 Work Phone: [facility] 07-20-2021 12:30-0400 Systolic blood pressure 120 mm[Hg] Pacc 1 Work Phone: [facility] 05-23-2021 08:49-0400 Body height 160 cm Aydee Caldera MD Work Phone: [facility] 05-23-2021 08:49-0400 Body weight 65.77 kg Aydee Caldera MD Work Phone: [facility] 05-23-2021 08:49-0400 Diastolic blood pressure 74 mm[Hg] Aydee Caldera MD Work Phone: [facility] 05-23-2021 08:49-0400 Systolic blood pressure 126 mm[Hg] Aydee Caldera MD Work Phone: [facility] Encounters Encounter Date Encounter Type Care Provider Facility Start: 09-10-2021 End: 09-10-2021 ambulatory Aydee Caldera MD Work Phone: Gynecology Procedures Date Procedure Procedure Detail Performing Clinician Start: 07-20-2021 Antibody screen Plan of Treatment Date Care Activity Detail Author Start: 07-20-2024 DIABETES SCREEN DIABETES SCREEN [facility] Start: 07-20-2022 BP CONTROLLED (<130/80) BP CONTROLLE D (<130/80) [facility] Start: 05-23-2022 BP CONTROLLED (<130/80) BP CONTROLLE D (<130/80) [facility] Start: 03-23-2022 COLOGUARD (FIT-DNA) COLOGUARD (FIT-D NA) [facility] Start: 03-23-2022 COLORECTAL CANCER SCREENING COLORECTAL CANCER SCREENING [facility] Start: 11-23-2021 End: 05-23-2022 TYPE AND SCREEN,30 DAY TYPE AND SCREEN,30 DAY Blood Bank Routine PMB (postmenopausal bleeding) Expected: 11/23/2021, Expires: 05/23/2022 [facility] Work Phone: Immunizations Immunization Date Immunization Notes Care Provider Fa cility 03-29-2008 tetanus and diphther ia toxoids, adsorbed, preservative free, for adult use (2 Lf of tetanus toxoid and 2 Lf of diphtheria toxoid) Aydee Caldera MD Work Phone: [facility] Payers Date Payer Category Payer Medicare MEDICARE MEDICAR E A AND B [id number] 2020-Present [phone] [place] [address] Medicare [id number] 2020 Unknown [employer] MEDIC[employer] SUPPLEMENT [id number] 2020-Present [phone] [id number] [place] [address] [facility] [id number] Social History Date Type Detail Facility Tobacco smoking stat [facility] Never smoked tobacco [facility] Work Phone: Start: 04-20-2021 End: 09-06-2021 Alcohol intake Current drinker of alcohol (finding) [facility] Start: 1955 Sex Assigned At Not on file [facility] Start: 05-13-2021 End: 08-03-2021 Exposure to SARS-CoV-2 (event) Not sure [facility] Clinical Notes 01-26-2021 to 09-10-2021 Aydee Caldera MD - 09/10/2021 2:13 PM EDTTelephone Encounter - Yovana Campo RN - 08/17/2021 10:07 AM EDTTelephone Encounter - Yovana Campo RN - 08/17/2021 9:18 AM EDTPatient Instructions Note Date & Type Note Facility 09-10-2021 Note HNO ID: [id number] Author: Aydee Caldera MD Service: ? Author Type: Physician Type: Progress Notes Filed: 09/10/2021 4:35 PM Note Text: This is a 65-year-old who was first evaluated by me for postmenopausal bleeding and thickened endometrium. As a part of her work-up she underwent a transvaginal ultrasound revealing an endometrial echo of approximately 6.8 mm. She had had a preoperative ultrasound revealing a small 5 mm x 4 mm x 4 mm intramural fibroid. It was thought that her bleeding was due to a polyp, intracavitary. For this reason patient underwent outpatient hysteroscopy visually directed polypectomy [facility] under general anesthesia with the final results as noted below but revealing benign endometrial polyp. She had a uncomplicated intraoperative and postoperative state. 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 Of note she denies vaginal bleeding staining or spotting. Her past medical history as obtained at the first visit is as follows; This is a 65-year-old 0 para 0 referred for evaluation of thickened endometrium of 6.8 mm, abnormal uterine bleeding and cystic lesions noted on ultrasound. Patient has no family history of uterine cancer. Denies leukorrhea uses Vagifem for atrophic vaginitis. Her last episode of bleeding was several months ago. Her previous biopsy was 2014 and her previous Pap was 2019. Patient states that in the past prior to menopause she had excessively heavy menstrual cycles. Patient referred today for hysteroscopy and endometrial biopsy. ? Ultrasound 04/16/21 Indication follow up ultrasound Impression Normal appearing anteverted uterus that measures 70 mm x 30 mm x 53 mm. There is a small, intramural fibroid present: Fibroid(s): Size 5 mm x 4 mm x 4 mm. Mean 4.3 mm. Vol 0.042 cm?. Cystic, anterior. The central endometrial complex measures 6.8 mm in combined thickness. Endometrial ?pathology cannot be excluded as the endometrium appears cystic and is thickened in a postmenopausal woman with bleeding. Both ovaries are visualized and appear normal. No adnexal masses were observed. There is no free fluid visualized in the peritoneal cavity. Recommendations Recommend further evaluation of the endometrium. Clinical correlation recommended. Method Transvaginal, 3D ultrasound examination. Uterus Uterus: Visualized Uterus position: anteverted Myometrium: heterogeneous Endometrium: thickened, cystic Uterus long 70 mm Uterus ap 30 mm Uterus tr 53 mm Uterus Vol 58.1 cm? Endometrial thickness, total 6.8 mm Uterine fibroid D1 5 mm Uterine fibroid D2 4 mm Uterine fibroid D3 4 mm Uterine fibroid mean 4.3 mm Uterine fibroid vol 0.042 cm? Uterine fibroids findings: cystic, anterior Right Ovary Rt ovary: Visualized Rt ovary D1 34 mm Rt ovary D2 13 mm Rt ovary D3 15 mm Rt ovary Vol 3.4 cm? Left Ovary Lt ovary: Visualized Lt ovary D1 26 mm Lt ovary D2 23 mm Lt ovary D3 20 mm Lt ovary Vol 6.1 cm? Cul de Sac Visualized. no free fluid visualized Performed By: Annika De Souza, WILFRED, RVT Read By: ?Cinthya Sales M.D. ? Age: [age] year old LMP: Patient's last menstrual period was 11/04/2010. Contraception: none test: not needed VS: LMP 11/04/2010 ? UNIVERSAL PROTOCOL / SAFETY CHECKLIST ? Procedure to be Performed: office hysteroscopy with possible endometrial biopsy ? Sign In: A Moment of CARE was completed. Personnel directly involved with the procedure wore the appropriate PPE (Personal Protective Equipment). ? Patient/Surrogate Stated/Verified: PATIENT VERIFIED(optional for EMERGENT procedures): Patient name, Date of , Relevant allergies and The intended procedure ? Time Out Communication: Intended patient and procedure match the source documents. Consent documented and matches the intended procedure. ? Sign Out: SIGN OUT (optional for EMERGENT procedures): All specimen containers correctly labeled. ? [facility] ? OBJECTIVE: Cervix was dilated. Under sterile conditions, using 120 mL normal saline as distention, 3.1mm flexible hysteroscopy performed without incident. No endocervical lesions seen. Endometrial lining is irregular with 2 endometrial polyps noted 1 about 1-1/2 cm near the right lateral wall and a lower polyp that was clear in its appearance about 2-1/2 cm and extending to the lower uterine segment. The surrounding endometrium was atrophic the tubal ostia on the left could be seen and could not be seen on the right due to blockage from the polyp as described above. The endocervix is normal. Endometrial polyp x 2 Tubal ostia visualized and normal. Endometrial biopsy performed x 2 and pap test done ? PROCEDURE SUMMARY: Patient tolerated procedure well. ? ASSESMENT: Postmenopausal bleeding with (more content not included)... [facility] 09-10-2021 History of Present illness Narrative This is a 65-year-old who was first evaluated by me for postmenopausal bleeding and thickened endometrium. As a part of her work-up she underwent a transvaginal ultrasound revealing an endometrial echo of approximately 6.8 mm. She had had a preoperative ultrasound revealing a small 5 mm x 4 mm x 4 mm intramural fibroid. It was thought that her bleeding was due to a polyp, intracavitary. For this reason patient underwent outpatient hysteroscopy visually directed polypectomy D&C under general anesthesia with the final results as noted below but revealing benign endometrial polyp. She had a uncomplicated intraoperative and postoperative state. 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 Of note she denies vaginal bleeding staining or spotting. Her past medical history as obtained at the first visit is as follows; This is a 65-year-old 0 para 0 referred for evaluation of thickened endometrium of 6.8 mm, abnormal uterine bleeding and cystic lesions noted on ultrasound. Patient has no family history of uterine cancer. Denies leukorrhea uses Vagifem for atrophic vaginitis. Her last episode of bleeding was several months ago. Her previous biopsy was 2014 and her previous Pap was 2019. Patient states that in the past prior to menopause she had excessively heavy menstrual cycles. Patient referred today for hysteroscopy and endometrial biopsy. Ultrasound 04/16/21 Indication follow up ultrasound Impression Normal appearing anteverted uterus that measures 70 mm x 30 mm x 53 mm. There is a small, intramural fibroid present: Fibroid(s): Size 5 mm x 4 mm x 4 mm. Mean 4.3 mm. Vol 0.042 cm . Cystic, anterior. The central endometrial complex measures 6.8 mm in combined thickness. Endometrial pathology cannot be excluded as the endometrium appears cystic and is thickened in a postmenopausal woman with bleeding. Both ovaries are visualized and appear normal. No adnexal masses were observed. There is no free fluid visualized in the peritoneal cavity. Recommendations Recommend further evaluation of the endometrium. Clinical correlation recommended. Method Transvaginal, 3D ultrasound examination. Uterus Uterus: Visualized Uterus position: anteverted Myometrium: heterogeneous Endometrium: thickened, cystic Uterus long 70 mm Uterus ap 30 mm Uterus tr 53 mm Uterus Vol 58.1 cm Endometrial thickness, total 6.8 mm Uterine fibroid D1 5 mm Uterine fibroid D2 4 mm Uterine fibroid D3 4 mm Uterine fibroid mean 4.3 mm Uterine fibroid vol 0.042 cm Uterine fibroids findings: cystic, anterior Right Ovary Rt ovary: Visualized Rt ovary D1 34 mm Rt ovary D2 13 mm Rt ovary D3 15 mm Rt ovary Vol 3.4 cm Left Ovary Lt ovary: Visualized Lt ovary D1 26 mm Lt ovary D2 23 mm Lt ovary D3 20 mm Lt ovary Vol 6.1 cm Cul de Sac Visualized. no free fluid visualized Performed By: Annika De Souza, WILFRED, RVT Read By: Cinthya Sales M.D. Age: [age] year old LMP: Patient's last menstrual period was 11/04/2010. Contraception: none test: not needed VS: LMP 11/04/2010 UNIVERSAL PROTOCOL / SAFETY CHECKLIST Procedure to be Performed: office hysteroscopy with possible endometrial biopsy Sign In: A Moment of CARE was completed. Personnel directly involved with the procedure wore the appropriate PPE (Personal Protective Equipment). Patient/Surrogate Stated/Verified: PATIENT VERIFIED(optional for EMERGENT procedures): Patient name, Date of , Relevant allergies and The intended procedure Time Out Communication: Intended patient and procedure match the source documents. Consent documented and matches the intended procedure. Sign Out: SIGN OUT (optional for EMERGENT procedures): All specimen containers correctly labeled. Azra Bolivar Ma OBJECTIVE: Cervix was dilated. Under sterile conditions, using 120 mL normal saline as distention, 3.1mm flexible hysteroscopy performed without incident. No endocervical lesions seen. Endometrial lining is irregular with 2 endometrial polyps noted 1 about 1-1/2 cm near the right lateral wall and a lower polyp that was clear in its appearance about 2-1/2 cm and extending to the lower uterine segment. The surrounding endometrium was atrophic the tubal ostia on the left could be seen and could not be seen on the right due to blockage from the polyp as described above. The endocervix is normal. Endometrial polyp x 2 Tubal ostia visualized and normal. Endometrial biopsy performed x 2 and pap test done PROCEDURE SUMMARY: Patient tolerated procedure well. ASSESMENT: Postmenopausal bleeding with polyp lesions on hysteroscopy. PLAN: Hysteroscopic polypectomy, D&C in the OR. Recommend Cytotec 400 mcg by mouth to take 2 days prior to surgery and at bedtime prior to surgery. Patient should remain on primrose oil until surgery is scheduled. INFORMED CONSENT Procedure: Examination under anesthesia, hysteroscopy, polypectomy dilation and curettage Service: Gynecology Indication: Postmenopausal bleeding, thickened endometrium and suspected endometrial polyps. The risks, benefits and anticipated outcomes of the procedure, the risks and benefits of the alternatives to the procedure and the roles and tasks of the personnel to be involved were discussed with the patient and she consents to the procedure and agrees to proceed. The risks, benefits and anticipated outcomes of the hysteroscopic procedure, the risks and benefits of the alternatives to the procedure and the roles and tasks of the personnel to be involved were discussed with the patient and she additional risks benefits have also been reviewed with the patient including potential for blood transfusion, deep venous vein thrombosis, respiratory infections, infectious morbidity, anesthetic complications, injury to bowel bladder, intra-abdominal organs, and . Risk of a 2 stage procedure incomplete hysteroscopic resection, fluid overload, uterine perforation, hysterectomy, and recurrence of her current medical problem. The patient also understands that the procedure may require additional intra-operative consultation or additional intraoperative surgical procedures.The patient was also informed of the ancillary staff that would work with me which might include medical students, residents, nursing staff, and anesthesia staff.The patient consents to the procedure and agrees to proceed. I verify that I personally obtained the consent. Aydee Caldera MD Her surgical pathology revealed FINAL DIAGNOSIS A. Endometrium, polyp, excision - Benign endometrial polyp. Gross Description A. ENDOMETRIUM POLYP. Received in formalin in a sock are multiple hill-red, soft feathery segments of tissue aggregating to 2.5 x 0.5 x 0.1 cm. Totally submitted in one cassette. Her brief op note: Surgery Date: 08/03/2021 Incision/Procedure Start Time: 11:50 AM Incision Close/Procedure End Time: 12:11 PM Surgeon(s) and Plate Glass Installer Helper(s): Surgeon(s) and Role: * Aydee Caldera MD - Primary Procedure(s): Exam under anesthesia, hysteroscopy, dilation of the cervix, visually directed curettage, polypectomy Anesthesia: General Findings: Irregular right anterior polyp with bridging, variegated colors and increased vascularity. Smooth, regular sessile posterior lower uterine segment polyp Friable polypoid endometrium Estimated Blood Loss: 5 mls Hysteroscopic fluid deficit: 310 mL normal saline IV fluids: 400 mL lactated ringers Vital signs were not taken as this is a telephone postop visit Assessment; 65-year-old status post hysteroscopic lead directed and visually directed polypectomy dilation curettage for removal of the benign endometrial polyp. Vague lower abdominal discomfort today since intercourse. Plans; I reassured the patient regarding her pelvic concerns also rechecking ultrasound done prior to surgery showing no adnexal masses or intraperitoneal fluid. Reassured her about these findings and could reevaluate the patient with imaging and pelvic exam if it persisted. Patient may resume all activities. She was informed that she does not need additional Pap test and could assume her well woman checkups with her boat mechanic. This is a telephone postop visit. Aydee Caldera MD Cc: send copy to patient and requested to send to Dr. Elenita Lobo, [address] , [place] [address] documented in this encounter [facility] 08-17-2021 Miscellaneous Notes Yes, this is the correct advice to provide. I will follow up with her this weekend. Aydee Caldera MD Message text Noted. Yovana Campo RN Postop Dr. Caldera reports left ankle/foot swelling, pain. s/p 08/03/2021 Procedure(s): Exam under anesthesia, hysteroscopy, dilation of the cervix, visually directed curettage, polypectomy POD# 14 Reports that the outside of right ankle/foot is painful and swollen for last 3 days or longer. No redness or warmth. Concern for DVT being right side only, left side normal. Advised to go to local ED (lives in [place]). Advised to call office back with update. Sending to Dr. Caldera for FYI. Gives verbal understanding. Yovana Campo RN Patient of Dr. Caldera, Pain Patient status post surgery concerned one side of her body the leg and foot is swollen and painful. Please call and advise the patient at [phone] Thank you Gema Yeboah documented in this encounter [facility] 08-03-2021 Note HNO ID: [id number] Author: Mela Yang DO Service: Anesthesiology Author Type: Resident Type: Anesthesia Procedure Notes Filed: 08/03/2021 11:46 AM Note Text: ANESTHESIOLOGY PROCEDURE NOTE Airway General Information Procedure Start Time/Medication Administration: 08/03/2021 11:41 AM Patient location during procedure: OR Timeout Performed Pre-procedure: timeout performed Consent Obtained: Yes Patient identity confirmed: arm band, care team facilitator and patient Staffing Resident: Mela Yang DO Performed by: resident Indications and Patient Condition Preoxygenated: yes Patient position: sniffing Indications for airway management: anesthesia anesthesia circuit Method: asleep Final Airway Details Final airway type: supraglottic airway Number of attempts at approach: 1 Ventilation between attempts: none Final Supraglottic Airway: i-gel Size 4 Seal Adequate: yes Airway trauma: lip Airway not difficult SIGNATURE: Mela Yang DO PATIENT NAME: Kira Asif DATE: August 03, 2021 TIME: 11:46 AM CSN: [id number] [facility] 07-27-2021 Miscellaneous Notes Pre-op Dr. Caldera - hysteroscopy polypectomy 08/03. Patient on estrace cream twice weekly and primrose oil. Please advise nursing if she should stop or continue. Yovana Campo RN Triage voicemail - Has surgery with Dr. Caldera on 08/03. Is asking when or if needs to stop estrace vaginal cream. Called patient, verified name/. Informed patient that I sent information in a direct message to her my chart. Waited as patient confirmed that she received the information. Patient thankful for the call. Lacey Blackwood RN July 27, 2021 11:19 AM Pt called in stating that she had a telephone visit with Lacey Blackwood RN yesterday and was supposed to receive additional information from Lacey after the visit about her upcoming surgery. Pt claims she never received this information and is asking if it can be sent through a new [employer] message. Roslyn Barclay documented in this encounter [facility] 07-26-2021 Miscellaneous Notes Patient needs estrogen cream to be transferred to new pharmacy. Please order in Dr. Brett esqueda if appropriate. Annika Donato RN documented in this encounter [facility] 07-26-2021 Note HNO ID: [id number] Author: Lacey Blackwood RN Service: ? Author Type: Registered Nurse Type: Progress Notes Filed: 07/26/2021 2:34 PM Note Text: DATE OF SERVICE: 07/26/2021 PROBLEM: Kira Asif presents for pre-op teaching. PRE-OP DIAGNOSIS: Postmenopausal bleeding SCHEDULED SURGERY AND DATE: HYSTEROSCOPY W/ POLYPECTOMY W/ DANDC on 08/03/2021 PRIMARY SURGEON: Aydee Caldera MD NURSING PREOP ASSESSMENT: Fevers, chills, cough, or nasal congestion: No Vaginal itching, burning, discharge, or odor: No Pain with urination, frequency, urgency, cloudy or foul smelling urine: No If yes to any of the above then MD notified: Not Applicable ADVANCED CARE PLANNING: Does the patient have an advanced directive: No Does [facility] have a copy of the patient's advanced directive: No Was advanced directive given to the patient: No PATIENT LEARNING ASSESSMENT: Individual patient/family learning needs evaluated and addressed: Yes Cognitive ability: Alert and oriented Motivation to learn: Eager Interested Factors affecting learning: None Physical limitations affecting learning: None Patient learns best by: Individual Instruction Verbal Instruction Method of instruction: Teach Back asks appropraiteq eustions Individual instruction Verbal instruction Instructions provided to: Patient via telephone. Written material provided prior to education appointment. Family support: High - Very involved in pt care PRE- AND POST-OPERATIVE TEACHING Pre-operative teaching and supplemental material provided and reviewed with patient: Your Surgical Guide Book Map Written pre-op and post-op instructions Antibacterial soap: patient declined, will use own Pre-operative instructions provided and reviewed with patient/family: No eating, drinking, or smoking after midnight prior to surgery unless otherwise directed No alcohol the day before surgery Medications as prescribed by anesthesia, internal medicine, surgeon, or PHP WEBSITE DEVELOPER Stop NSAIDs, Aspirin (ASA), vitamins, herbal supplements, herbal teas, and diet pills 7-10 days prior to surgery OK to take tylenol prn pain unless otherwise directed by physician Call surgery coordinators if any other questions about surgery date or pre-op appointments Bowel prep instructions: NPO after midnight Day of surgery instructions provided and reviewed with patient/family: Arrival time (call surgical coordinators on the office day prior to surgery for verification) No jewelry, body piercing, makeup, contacts, lotions, nail samoan on fingers, or anything in hair on arrival to surgery Wear low healed shoes and loose fitting clothing Leave all valuables at home or with a family member Directions to [facility] and [facility] Parking/parking validation on the day prior to surgery Admission/check in (Report to DESK J1-9 for surgery) Holding area Placement of IV Surgical positioning Family waiting area Surgical recovery room Post-operative instructions provided and reviewed with patient/family: SEE PATIENT INSTRUCTION SECTION FOR DETAILS. SYMPTOMS TO NOTIFY MD - Fever, chills, nausea, vomiting, increased or severe pain, heavy vaginal bleeding, foul smelling vaginal drainage, pain or swelling in extremities. URGENT SYMPTOMS - Call 911 or go to ER if any shortness of breath, difficulty breathing, or chest pain. HOW TO CONTACT PHYSICIAN - Physician's office phone number given to patient, if after hours patient instructed to call routing machine operator and ask for preparation plant repairer underbaster onc resident. SATINDER program offered to patient: Yes Additional teaching as indicated by patient/family learning needs. PATIENT LEARNING EVALUATION AND FOLLOW UP PLAN: Patient and/or family express understanding of upcoming surgery, pre-operative preparation, the operative process, and post-operative instructions. Follow up plan: Patient instructed to call with any further issues Patient has a post-op appointment scheduled: Yes, 08/29/2021. Referral (recommentation): None Educator: Lacey Blackwood RN [facility] 07-26-2021 History of Present illness Narrative DATE OF SERVICE: 07/26/2021 PROBLEM: Kira Asif presents for pre-op teaching. PRE-OP DIAGNOSIS: Postmenopausal bleeding SCHEDULED SURGERY AND DATE: HYSTEROSCOPY W/ POLYPECTOMY W/ D&C on 08/03/2021 PRIMARY SURGEON: Aydee Caldera MD NURSING PREOP ASSESSMENT: Fevers, chills, cough, or nasal congestion: No Vaginal itching, burning, discharge, or odor: No Pain with urination, frequency, urgency, cloudy or foul smelling urine: No If yes to any of the above then MD notified: Not Applicable ADVANCED CARE PLANNING: Does the patient have an advanced directive: No Does [facility] have a copy of the patient's advanced directive: No Was advanced directive given to the patient: No PATIENT LEARNING ASSESSMENT: Individual patient/family learning needs evaluated and addressed: Yes Cognitive ability: Alert and oriented Motivation to learn: Eager Interested Factors affecting learning: None Physical limitations affecting learning: None Patient learns best by: Individual Instruction Verbal Instruction Method of instruction: Teach Back asks appropraiteq eustions Individual instruction Verbal instruction Instructions provided to: Patient via telephone. Written material provided prior to education appointment. Family support: High - Very involved in pt care PRE- AND POST-OPERATIVE TEACHING Pre-operative teaching and supplemental material provided and reviewed with patient: Your Surgical Guide Book Map Written pre-op and post-op instructions Antibacterial soap: patient declined, will use own Pre-operative instructions provided and reviewed with patient/family: No eating, drinking, or smoking after midnight prior to surgery unless otherwise directed No alcohol the day before surgery Medications as prescribed by anesthesia, internal medicine, surgeon, or PHP WEBSITE DEVELOPER Stop NSAIDs, Aspirin (ASA), vitamins, herbal supplements, herbal teas, and diet pills 7-10 days prior to surgery OK to take tylenol prn pain unless otherwise directed by physician Call surgery coordinators if any other questions about surgery date or pre-op appointments Bowel prep instructions: NPO after midnight Day of surgery instructions provided and reviewed with patient/family: Arrival time (call surgical coordinators on the office day prior to surgery for verification) No jewelry, body piercing, makeup, contacts, lotions, nail samoan on fingers, or anything in hair on arrival to surgery Wear low healed shoes and loose fitting clothing Leave all valuables at home or with a family member Directions to [facility] and the [facility] Parking/parking validation on the day prior to surgery Admission/check in (Report to DESK J1-9 for surgery) Holding area Placement of IV Surgical positioning Family waiting area Surgical recovery room Post-operative instructions provided and reviewed with patient/family: SEE PATIENT INSTRUCTION SECTION FOR DETAILS. SYMPTOMS TO NOTIFY MD - Fever, chills, nausea, vomiting, increased or severe pain, heavy vaginal bleeding, foul smelling vaginal drainage, pain or swelling in extremities. URGENT SYMPTOMS - Call 911 or go to ER if any shortness of breath, difficulty breathing, or chest pain. HOW TO CONTACT PHYSICIAN - Physician's office phone number given to patient, if after hours patient instructed to call routing machine operator and ask for preparation plant repairer underbaster onc resident. SATINDER program offered to patient: Yes Additional teaching as indicated by patient/family learning needs. PATIENT LEARNING EVALUATION & FOLLOW UP PLAN: Patient and/or family express understanding of upcoming surgery, pre-operative preparation, the operative process, and post-operative instructions. Follow up plan: Patient instructed to call with any further issues Patient has a post-op appointment scheduled: Yes, 08/29/2021. Referral (recommentation): None Educator: Lacey Blackwood RN [facility] documented in this encounter [facility] 07-25-2021 Instructions Lacey Blackwood RN - 07/25/2021 3:22 PM EDT Images from the original note were not included. MINIMALLY INVASIVE GYNECOLOGIC SURGERY (MIGS)/BENIGN GYNECOLOGY CONTACTS: Surgeons: Dr. Aydee Caldera Dr. Selina Nguyen Dr. Irma Stover Dr. Mitchel Mcknight Dr. Milana Peralta Dr. Tamar Lane Dr. Annika Carney [facility] Nurse Practitioners: Jenn Rankin, MANAGER PROGRAMS.AIRPLANE TECHNICIAN Abby Wright MANAGER PROGRAMS.AIRPLANE TECHNICIAN Kaycee Gore, MANAGER PROGRAMS.AIRPLANE TECHNICIAN Philly Watson, MANAGER PROGRAMS.AIRPLANE TECHNICIAN Surgery Scheduling Office: Call the day before surgery after 2pm for your surgery arrival time After hours phone number: or toll free Ask the routing machine operator to page the underbaster preparation plant repairer.' Business hours are Friday - Friday from 8:00am - 4:30pm. We are closed on weekends and major holidays. PRE-OPERATIVE CHECKLIST: PATIENT INSTRUCTIONS PRIOR TO SURGERY Our guidelines have changed, so please read these instructions carefully. Your surgery may be cancelled if you do not follow these instructions. MY ARRIVAL TIME IS: I have been instructed not to have any solid food to eat after midnight prior to my surgery (this includes no gum, mints, smoking). I am allowed to drink small amounts (up to 12 oz) of clear liquids up until 2 hours prior to my arrival time. Clear liquids include water, fruit juices without pulp, carbonated beverages (i.e. nava herminia), electrolyte beverages (i.e. Gatorade), clear tea and black coffee, clear broth, popsicles and jello. (No milk). No alcohol the day before or day of surgery. I will bring this binder to all pre and post-operative appointments AND day of surgery. MEDICATION STOPPAGE: Unless my surgeon tells me differently, I will STOP THESE MEDICATIONS 7 DAYS PRIOR TO SURGERY: (Motrin/ibuprofen/Naproxen/Aleve /Advil), Aspirin, vitamin E, herbal medications, diet pills, and wsmr-fri-yldbikp medications. Tylenol (acetaminophen) is okay. I will not wear jewelry, body piercing(s), makeup, nail samoan, hairpins, or contacts on the day of surgery. I am to leave valuables and money at home or with family members. If I am prescribed inhalers for breathing, I will use them and bring them to the hospital. Medication(s) to be taken on the morning of surgery with a few sips of water: If I am taking any of the following blood thinning medications Aspirin, clopidogrel (Plavix), ticagrelor (Brilinta), prasugrel (Efficient), ticlodipine (Ticlid), warfarin (Coumadin), dibigatran (Pradaxa) or rivaroxaban (Xarelto) - I will discuss whether or not I should stop them before surgery with my surgeon. Discuss medication changes with your record keeper or primary care physician as well. If I stopped taking my blood-thinning medication, I will ask the surgeon when to resume taking it. If I am an outpatient, a responsible person will drive me home and it was suggested that someone stay with me for 24 hours. I understand that a furnace combustion tester or cabdriver is NOT a responsible caregiver. Patients with diabetes, I will not take my morning diabetes medication (pills) on the morning of surgery. If I am on insulin, someone has gone over those instructions with me for the morning of surgery. I understand if my surgery is delayed, I will notify the check in desk that I have diabetes. See the Diabetic Guidelines Before Surgery in the patient education section. If I have Obstructive Sleep Apnea and use a CPAP/BiPAP machine, I will bring my mask, tubing, and machine with me on the day of surgery. Pain management education material found in Your Surgical Guide was reviewed with me. To find out my arrival time for surgery, I must call my boat cleaner after 2pm the day before surgery. Pre-operative instructions given by: PREOP INSTRUCTIONS THE DAY OF SURGERY/CHECK IN - [facility] [place], [address] INFECTION PREVENTION - Please notify your doctor if you have any signs of an infection (i.e. fever, severe cough, nasal congestion, pain with urination, abnormal vaginal discharge, diarrhea, etc). - Your surgeon will let you know if a bowel prep is needed before your surgery. If so, please see the attached instructions. - Shower the night before surgery AND the morning of surgery with Hibiclens (provided by your surgeon). If you are allergic to Hibiclens or unable to obtain the Hibiclens, please wash with antibacterial soap. Wash your body from the neck down, focusing on your abdomen, belly button and external genitalia. Do not forget to scrub any skin folds and creases. - No lotions, oils, creams, or powders after your shower. Underarm deodorant is okay. - No shaving (abdominal or pubic hair) or douching the day before surgery. - You may be asked to apply an antiseptic solution called Chlorhexidine Gluconate (CHG) which will be provided to you on arrival to the preop area. - Hand washing is extremely important in preventing infection (for both you as the patient and for the caregivers). HOSPITALIZATION - Before you leave the hospital, you typically need to be able to eat/drink, urinate, and have your pain controlled with oral medication. Your surgeon or other members of your surgeon s team will discuss any other specific medical issues related to your discharge with you. - Your surgeon may order intermittent compression sleeves. These are massaging leg pumps to help prevent blood clots after surgery. See Your Surgical Guide Book for more information. - It is also very important that you walk as soon as possible and as frequently as possible after surgery. This will help decrease your risk of blood clots, exercise your lungs and speed up your recovery after surgery. - If you are admitted to the hospital overnight, you will be given an incentive spirometer, which is a breathing machine that will help make sure that you are taking deep breaths and expanding your lungs while in the hospital. See Your Surgical Guide Book for more information. [facility] TEAM - At the [facility], we have a multidisciplinary team of caregivers that includes fellows, residents, nurse practitioners, physician assistants, clinical nurse specialists, nurses, medical assistants, patient care nursing assistants, social workers, case technician and many others. We all have different roles and responsibilities but we are all here to help. HYSTEROSCOPY PREOP INSTRUCTIONS PREOP - Medications to stop at least 7 days before surgery: Aspirin, over the counter pain medications (i.e. motrin, aleve, advil, etc), vitamins, supplements, herbal medications. - If you are taking any control pills, hormones or blood thinners (i.e. coumadin, plavix, etc) please discuss with your doctor to see if these need to be stopped before surgery. - You may take Tylenol (aka acetaminophen) for pain. - Please notify your doctor if you have any signs of an infection (i.e. fever, severe cough, nasal congestion, pain with urination, abnormal vaginal discharge, etc). THE DAY BEFORE SURGERY - Please call for your arrival time between 2:00 - 4:00pm on the day prior to surgery. Phone number: or ext [phone]. - No alcohol on the day before surgery. - Please take a shower the night before surgery and the morning of surgery. Use an antibacterial soap (i.e. Dial) and wash your entire body with special emphasis on your abdomen, belly button, and external genitalia. - Do not shave the day before your surgery. THE DAY OF SURGERY - Report to DESK P20 (unless instructed to go to J1-1). Map in surgical guide book. - If you were instructed to take your medication on the day of surgery you may do so with a small sip of water. - Do not wear any jewelry, nail samoan, makeup, lotions, contact lenses, or anything in your hair. POST-OP INSTRUCTIONS - You must have a responsible adult drive you home and stay with you for the first 24 hours. - Do not drive a car or drink any alcohol for 24 hours after surgery. - You may have mild nausea, a sore throat or raspy voice for a few days. - Nothing in the vagina for 1 week after surgery unless otherwise instructed by your doctor. - You may shower and/or take a bath after surgery unless otherwise instructed by your doctor. - You may resume exercise 48 hours after surgery as tolerated. WHEN TO CALL YOUR DOCTOR: - Fever (>100.4 F) or chills. - Incision redness or foul smelling drainage. - Severe nausea or persistent vomiting. - Bright red vaginal bleeding heavier than a normal period or foul smelling vaginal drainage. - Severe pain not relieved with pain medication. - Pain and swelling in your legs, especially if it is only on one side and not the other. - Pain with urination, cloudy urine, or foul smelling urine. - Or if you have any other problems or questions. CALL 911 OR GO TO THE ER IF YOU HAVE: Any shortness of breath or chest pain. documented in this encounter [facility] 07-20-2021 History and physical note HISTORY AND PHYSICAL EXAMINATION SERVICE DATE: 07/20/2021 SERVICE TIME: 10:23 AM PRIMARY CARE PHYSICIAN: Tarik Lobo MD REASON FOR VISIT: Kira Asif is a 65 year old female who is scheduled for Procedure(s): HYSTEROSCOPY W/ POLYPECTOMY W/ D&C (N/A) at the request of Dr. Aydee Caldera for consultation. My final recommendation will be communicated back to the requesting physician by way of shared medical record or letter. Subjective The patient has the following: ACTIVE PROBLEM LIST Essential hypertension, benign Obesity, Unspecified Unspecified Sleep Apnea Anxiety and Depression Other and Unspecified Hyperlipidemia Unspecified Vitamin D Deficiency Hypothyroidism Bcc (Basal Cell Carcinoma of Skin) Childhood Asthma Pmb (Postmenopausal Bleeding) COVID-19 Immunization Status Overdue - COVID-19 VACCINE (3 - Booster for Pfizer series) Overdue since 01/16/2021 08/16/2020 Imm Admin: COVID-19 vaccine, age 12+ yr (PFIZER-BIONTECH - PURPLE TOP) 07/26/2020 Imm Admin: COVID-19 vaccine, age 12+ yr (PFIZER-BIONTECH - PURPLE TOP) CHIEF COMPLAINT: Pre-op exam HPI: KG is a 65 yo seen for PAC due to scheduled above surgery because of PMB. 05/23/2021 Dr. Aydee Caldera This is a 65-year-old 0 para 0 referred for evaluation of thickened endometrium of 6.8 mm, abnormal uterine bleeding and cystic lesions noted on ultrasound. Patient has no family history of uterine cancer. Denies leukorrhea uses Vagifem for atrophic vaginitis. Her last episode of bleeding was several months ago. Her previous biopsy was 2014 and her previous Pap was 2019. Patient states that in the past prior to menopause she had excessively heavy menstrual cycles. Patient referred today for hysteroscopy and endometrial biopsy. Ultrasound 04/16/21 Indication follow up ultrasound Impression Normal appearing anteverted uterus that measures 70 mm x 30 mm x 53 mm. There is a small, intramural fibroid present: Fibroid(s): Size 5 mm x 4 mm x 4 mm. Mean 4.3 mm. Vol 0.042 cm . Cystic, anterior. The central endometrial complex measures 6.8 mm in combined thickness. Endometrial pathology cannot be excluded as the endometrium appears cystic and is thickened in a postmenopausal woman with bleeding. Both ovaries are visualized and appear normal. No adnexal masses were observed. There is no free fluid visualized in the peritoneal cavity. Recommendations Recommend further evaluation of the endometrium. Clinical correlation recommended. REVIEW OF SYSTEMS: General: No weight loss, malaise or fevers. Neurological: No history of TIA's, stroke, PAN PULLER tumor, impaired sensorium, hemiplegia, paraplegia or quadraplegia. No neurological symptoms or problems. Respiratory: Positive for: asthma (childhood). Cardiovascular: Positive for: hyperlipidemia (on rx) and hypertension (on rx) Negative for: anticoagulation therapy, arrhythmia, atrial fibrillation, CAD, chest pain, CHF, congenital heart defect, DVT/PE, recent [place], murmur/valvular heart disease, open heart surgery and valve surgery. GI: Positive for: GERD (on rx) and irritable bowel syndrome Negative for: abdominal pain, dysphagia, hepatitis, inflammatory bowel disease, liver disease, nausea, pancreatitis, vomiting and ETOH >2 drinks/day. : No history of dysuria, frequency or incontinence, stones or chronic kidney disease. No difficulty urinating, nocturia > 1 time per night or hematuria. BUCK PRESSER: See HPI. Endocrine: Positive for: diabetes mellitus and hypothyroidism (on rx). Patient's diabetes mellitus is controlled by oral agents. Hematology: No history of bleeding or clotting disorder. Patient is not taking anti-coagulation or platelet medications. No history of hematological symptoms or problems. Oncology: BCC s/p excision Psych: Positive for: anxiety (on rx) and depression (on rx). Musculoskeletal: Negative for joint pain or swelling, back pain or muscle pain. Skin: +psorasis PAST MEDICAL HISTORY Diagnosis Date Carpal tunnel syndrome Dehydration Diabetes mellitus (HCC) hypertension Mixed hyperlipidemia Hyperlipidemia PAST SURGICAL HISTORY Procedure Laterality Date LAPS ABD PRTM&OMENTUM DX W/WO SPEC BR/WA SPX 1988 Laparoscopy- to remove ovarian cysts FAMILY HISTORY Problem Relation Age of Onset Hypertension Mother Lipids Mother Stroke Mother Heart Father pace maker other (Other) Father Parkinson's disease Social History Tobacco Use Smoking status: Never Smoker Smokeless tobacco: Never Used Vaping Use Vaping Use: Never used Substance Use Topics Alcohol use: Yes Comment: rarely- one time a year approx. Drug use: No Prior to Admission medications as of 07/20/21 1022 Medication Sig Last Dose Taking calcium carbonate (TUMS 500 ORAL) Take by mouth. Yes rutin/quercetin/bioflav/bilber (BILBERRY EXTRACT ORAL) Take by mouth. Yes omega-3/dha/epa/dpa/fish oil (OMEGA-3 2100 ORAL) Take by mouth. Yes biotin 5 mg tab Take 5 mg by mouth once daily. Yes ZINC ACETATE ORAL Take by mouth. Yes BIOTIN ORAL Take 3 mg by mouth. Plus zinc Yes miSOPROStol (CYTOTEC) 200 mcg tablet Take 2 tablets by mouth at bedtime 2 nights prior to procedure and take 2 tablets by mouth at bedtime the night before procedure Taking Yes potassium chloride ER (K-DUR, KLOR-CON) 20 mEq tablet Take 1 tablet by mouth once daily. Taking Yes evening primrose oil (EVENING PRIMROSE ORAL) Take by mouth. Taking Yes estradiol (ESTRACE) 0.01 % (0.1 mg/gram) vaginal cream Use 1 g vaginally two times a week. After using nightly for 2 weeks. Taking Yes empty bottle (NASAL SPRAY BOTTLE) botl by MISCELLANEOUS route. Taking Yes cetirizine HCl (ZYRTEC ORAL) Take by mouth. Taking Yes CALCIUM-MAGNESIUM ORAL Take by mouth. Taking Yes FAMOTIDINE ORAL Take by mouth. Taking Yes PAROXETINE HCL ORAL Take 20 mg by mouth. Taking Yes levothyroxine (SYNTHROID) 25 MCG/ML susp Take 12.5 mcg by mouth once daily. Taking Yes docusate sodium (COLACE ORAL) Take by mouth. Taking Yes povidone (SOOTHE HYDRATION) 1.25 % drop Use in eyes. Taking Yes VITAMIN B COMPLEX ORAL Take by mouth. Taking Yes cholecalciferol, vitamin D3, (VITAMIN D3 ORAL) Take by mouth. Taking Yes lisinopril (ZESTRIL) 20 mg ORAL tablet Take 1 tablet by mouth once daily. Taking Yes atorvastatin (LIPITOR) 20 mg tablet Take 20 mg by mouth daily at bedtime. metFORMIN ER (GLUCOPHAGE XR) 500 mg 24 hr tablet Medication Comments documented by Mai Carpenter MA on 11/07/2009 at 1007. Patient unsure of the strenths of medcations today. Mai Alcaraz Direct Support Staff Member ALLERGIES Allergen Reactions Codeine Other: See Comments Platter out of body Dynacin [Minocyclin* Other: See Comments Seeing animal prints Penicillin G Zithromax [Azithrom* Objective PHYSICAL EXAM: General: alert and oriented (x3) and healthy appearance. Pertinent negatives noted - not distressed. Skin: normal color, no rash or lesions. HEENT: EOM intact and pupils equal round. Pertinent negatives noted - no carotid bruit. Cardiovascular: regular rate and rhythm, normal S1 and S2, no rub, murmurs, or gallop. Respiratory: normal breath sounds, no wheezes or crackles. No chest wall deformity or tenderness. Abdomen: soft. Pertinent negatives noted - not tender. Extremities: no deformity, no edema or tenderness, no joint swelling or clubbing. Neurological: normal cognition and motor skills. Gait normal. No weakness or sensory deficit. PAIN ASSESSMENT: VITALS: BP 120/70 Pulse 70 Temp 97.6 Ht 5' 3 (1.60m) Wt 145 lb (65.8kg) LMP 11/04/2010 BMI 25.69 kg/(m^2). Diagnostic tests reviewed for today's visit: Lab Value Units Date High Low HB No results within date range. HCT No results within date range. WBC No results within date range. PLT No results within date range. NA No results within date range. K No results within date range. GLUC No results within date range. BUN No results within date range. CREAT No results within date range. PTSEC No results within date range. INR No results within date range. APTT No results within date range. ALT No results within date range. AST No results within date range. TBILI No results within date range. TSH No results within date range. Lab Value Units Date High Low HCGQT No results within date range. UHCG No results within date range. HCG, BODY* No results within date range. Lab Value Units Date High Low ABORHD No results within date range. ABSCREEN No results within date range. No results found for: HBA1C No results found for this or any previous visit (from the past 8760 hour(s)). No results found for this or any previous visit (from the past 00113 hour(s)). Assessment Anxiety and depression Assessment: stable on rx per pt HYPERLIPIDEMIA NEC/NOS Assessment: c/w statin Essential hypertension, benign Assessment: controlled on rx Last 14 BP Last 14 Encounter BP Readings: Date: BP: 05/23/2021 126/74 04/20/2021 126/74 04/18/2021 128/70 01/26/2021 124/78 11/11/2019 112/60 08/14/2018 102/56 12/12/2014 140/82 08/05/2011 130/80 03/09/2010 152/80 11/07/2009 150/90 10/17/2008 154/94 07/05/2008 140/90 05/04/2008 170/96 03/29/2008 162/100 SLEEP APNEA NOS Assessment: thought to have, but declined testing Hypothyroidism Assessment: stable on rx BCC (basal cell carcinoma of skin) Assessment: s/p excision Childhood asthma Assessment: hx, no issues during adulthood Lewis Activity Status Index: METS: Climb a flight of stairs or walk up a hill (5.50 METs) DASI Score: 5.5 Patient denies any chest pain or undue shortness of breath with the above physical activity. Clinical Frailty Scale: 3. Well, with treated comorbid disease STOP-Bang Score: Patient over 50 years old Denies snoring loudly Denies feeling tired, fatigued, or sleepy during the daytime Has not been observed to stop breathing or choking/gasping during sleep Denies having high blood pressure BMI less than or equal to 35 kg/m^2 Does not have a large neck Non-male patient STOP-Bang Score: 1 [id number] Score: Age: 65-74 Sex: female CHF history: No Hypertension history: Yes Stroke/TIA/thromboembolism history: No Vascular disease history: No Diabetes history: Yes [id number] Score: 4 ARISCAT Score: Age: 51-80 Preoperative SpO2: >=96% Respiratory infection in the last month: No Preoperative anemia: No Surgical incision: peripheral Duration of surgery: <2 hrs Emergency procedure: No ARISCAT Score: 3 ASA Class: 2 ANESTHESIA FINDINGS: Intubation History: No history of difficult intubation Significant Anesthesia Considerations: none Airway History: No history of difficult airway I - PHYSICAL EVALUATION AIRWAY Tracheostomy tube not present Mallampati: II. TM distance: >3 FB. Neck ROM: full ROM without neurological symptoms. Mouth opening: adequate. Short neck: no. Thick neck: no DENTAL Dental findings: teeth intact. Additional comments: Ney/back. II - ANESTHESIA PLAN ASA Score: 2 Anesthetic Plan: other Anesthetic plan additional comments: *PACC/TCI - anesthesia choice. Informed Consent Anesthetic risks, benefits, alternatives, personnel and consent discussed: yes. Patient / Responsible Republican agrees to proceed: yes Patient / Surrogate agrees to blood products: blood products not planned Prepared for Surgery: optimally prepared for surgery, pending (see comment). Labs CONSULTS: Patient does not require consults for optimization at this time Planned Anesthetic: other anesthesia choice The Following Tests/Procedures Have Been Initiated: Orders Placed This Encounter calcium carbonate (TUMS 500 ORAL) Sig: Take by mouth. atorvastatin (LIPITOR) 20 mg tablet Sig: Take 20 mg by mouth daily at bedtime. metFORMIN ER (GLUCOPHAGE XR) 500 mg 24 hr tablet rutin/quercetin/bioflav/bilber (BILBERRY EXTRACT ORAL) Sig: Take by mouth. omega-3/dha/epa/dpa/fish oil (OMEGA-3 2100 ORAL) Sig: Take by mouth. biotin 5 mg tab Sig: Take 5 mg by mouth once daily. ZINC ACETATE ORAL Sig: Take by mouth. BIOTIN ORAL Sig: Take 3 mg by mouth. Plus zinc Instructions Given to Patient: Instructions located in the after visit summary. Patient given verbal and written preop instructions and voices comprehension and compliance. SIGNATURE: Jacinda Ramirez APRN.CNP PATIENT NAME: Kira Malin [facility] DATE: July 20, 2021 TIME: 10:23 AM PAGER/CONTACT #: documented in this encounter [facility] 07-20-2021 Instructions Jacinda Ramirez APRN.CNP - 07/20/2021 10:22 AM EDT PATIENT PREOPERATIVE INSTRUCTIONS Aydee Caldera MD has scheduled you for your procedure at this surgery center: [facility] [phone] -- [facility], [facility] [address]. Please read below carefully for your personalized instructions. Dietary Restrictions: - No solid food after midnight. - You may have 12 ounces of clear liquids (water, clear juices such as apple juice or gatorade, carbonated beverages, clear tea, black coffee, jello) until 2 hours before scheduled arrival at facility. No red/purple coloring and no creamer/sugar Medications: Unless instructed differently below, stay on all of your medications until your surgery. Approved medications to take the morning of surgery with a sip of water: Atorvastatin, Zyrtec, Famotidine, Levothyroxine, Paroxetine, Potassium Chloride Do not take Lisinopril day of surgery - No diabetic medication the morning of surgery. - Accucheck day of surgery. If you start any new medications after today's visit, please contact the surgeon's office. Blood Thinning Medications: - Stop NSAIDS (Ibuprofen, Advil, Aleve, Motrin, Celebrex, Mobic, etc.) 7 days before surgery, as directed by your surgeon. - Stop Aspirin 7 days before surgery, as directed by your surgeon. - Stop Vitamin E, ALL multi-vitamins, herbals and dietary supplements 7 days before surgery. - You may take Tylenol (Acetaminophen) or any of your pain medications that do not contain aspirin or NSAIDS as needed. Important Reminders: - If you use CPAP/BIPAP, bring the machine with you to the surgery center. - If you are prescribed inhalers for breathing, continue using them. - Candy, mints, and tobacco products are NOT permitted the morning of surgery. - Hearing aids, dentures and glasses may be worn the morning of surgery. - NO jewelry, body piercings, makeup, hairpins or contacts are to be worn the day of surgery. If you develop symptoms such as a fever, cold, or flu, or have other changes to your health within TWO DAYS of scheduled surgery or the morning of surgery, please contact the surgery center above. Personal Belongings: -Please have photo ID and insurance cards. -If you do not have a copy of advance directives on file with us, please bring a copy with you on the day of surgery. - Leave ALL valuables and money at home or with family members. For Outpatient Procedures: - YOU MUST HAVE A RESPONSIBLE ETHYLBENZENE CONVERTER HELPER TAKE YOU HOME. A MANAGER MANAGED BACKUP SERVICES OR NUTRIENT MANAGEMENT SPECIALIST CANNOT BE MADE A RESPONSIBLE ETHYLBENZENE CONVERTER HELPER. - We recommend that a responsible person stays with you overnight to take care of you. - You cannot stay in a hotel alone after outpatient surgery. You will not be permitted to have your surgery, if you do not have someone to take care of you. Arrival Time for Surgery: - The Surgery Center or hospital where you are having surgery will call the afternoon before surgery (or Friday for Friday surgery) with a scheduled arrival time. - If you have not heard by 4 pm, please contact the surgery center above. Please be aware that emergency situations arise, which may delay or change your surgical time. If this happens, we will notify you as soon as possible and regret any inconvenience. If you already have an Advance Directive, please fax a copy to [phone] or email to for it to be added to your chart. If you do not have an Advance Directive, you can find the appropriate form and more information at [email or web address]. We recommend that you complete the Advance Directive form found on the website and bring it with you the day of your surgery. It can be witnessed and scanned into your chart that day. Jacinda Ramirez APRN.BRIELLE documented in this encounter [facility] 05-23-2021 Note HNO ID: [id number] Author: Aydee Caldera MD Service: ? Author Type: Physician Type: Progress Notes Filed: 05/23/2021 10:24 AM Note Text: Kira Kimo Asif presents for hysteroscopy. Indication: Postmenopausal bleeding. This is a 65-year-old 0 para 0 referred for evaluation of thickened endometrium of 6.8 mm, abnormal uterine bleeding and cystic lesions noted on ultrasound. Patient has no family history of uterine cancer. Denies leukorrhea uses Vagifem for atrophic vaginitis. Her last episode of bleeding was several months ago. Her previous biopsy was 2014 and her previous Pap was 2019. Patient states that in the past prior to menopause she had excessively heavy menstrual cycles. Patient referred today for hysteroscopy and endometrial biopsy. Ultrasound 04/16/21 Indication follow up ultrasound Impression Normal appearing anteverted uterus that measures 70 mm x 30 mm x 53 mm. There is a small, intramural fibroid present: Fibroid(s): Size 5 mm x 4 mm x 4 mm. Mean 4.3 mm. Vol 0.042 cm?. Cystic, anterior. The central endometrial complex measures 6.8 mm in combined thickness. Endometrial ?pathology cannot be excluded as the endometrium appears cystic and is thickened in a postmenopausal woman with bleeding. Both ovaries are visualized and appear normal. No adnexal masses were observed. There is no free fluid visualized in the peritoneal cavity. Recommendations Recommend further evaluation of the endometrium. Clinical correlation recommended. Method Transvaginal, 3D ultrasound examination. Uterus Uterus: Visualized Uterus position: anteverted Myometrium: heterogeneous Endometrium: thickened, cystic Uterus long 70 mm Uterus ap 30 mm Uterus tr 53 mm Uterus Vol 58.1 cm? Endometrial thickness, total 6.8 mm Uterine fibroid D1 5 mm Uterine fibroid D2 4 mm Uterine fibroid D3 4 mm Uterine fibroid mean 4.3 mm Uterine fibroid vol 0.042 cm? Uterine fibroids findings: cystic, anterior Right Ovary Rt ovary: Visualized Rt ovary D1 34 mm Rt ovary D2 13 mm Rt ovary D3 15 mm Rt ovary Vol 3.4 cm? Left Ovary Lt ovary: Visualized Lt ovary D1 26 mm Lt ovary D2 23 mm Lt ovary D3 20 mm Lt ovary Vol 6.1 cm? Cul de Sac Visualized. no free fluid visualized Performed By: Annika De Souza RDMS, RVT Read By: ?Cinthya Sales M.D. Age: [age] year old LMP: Patient's last menstrual period was 11/04/2010. Contraception: none test: not needed VS: LMP 11/04/2010 UNIVERSAL PROTOCOL / SAFETY CHECKLIST Procedure to be Performed: office hysteroscopy with possible endometrial biopsy Sign In: A Moment of CARE was completed. Personnel directly involved with the procedure wore the appropriate PPE (Personal Protective Equipment). Patient/Surrogate Stated/Verified: PATIENT VERIFIED(optional for EMERGENT procedures): Patient name, Date of , Relevant allergies and The intended procedure Time Out Communication: Intended patient and procedure match the source documents. Consent documented and matches the intended procedure. Sign Out: SIGN OUT (optional for EMERGENT procedures): All specimen containers correctly labeled. Azra Bolivar Ma OBJECTIVE: Cervix was dilated. Under sterile conditions, using 120 mL normal saline as distention, 3.1mm flexible hysteroscopy performed without incident. No endocervical lesions seen. Endometrial lining is irregular with 2 endometrial polyps noted 1 about 1-1/2 cm near the right lateral wall and a lower polyp that was clear in its appearance about 2-1/2 cm and extending to the lower uterine segment. The surrounding endometrium was atrophic the tubal ostia on the left could be seen and could not be seen on the right due to blockage from the polyp as described above. The endocervix is normal. Endometrial polyp x 2 Tubal ostia visualized and normal. Endometrial biopsy performed x 2 and pap test done PROCEDURE SUMMARY: Patient tolerated procedure well. ASSESMENT: Postmenopausal bleeding with polyp lesions on hysteroscopy. PLAN: Hysteroscopic polypectomy, DANDC in the OR. Recommend Cytotec 400 mcg by mouth to take 2 days prior to surgery and at bedtime prior to surgery. Patient should remain on primrose oil until surgery is scheduled. INFORMED CONSENT Procedure: Examination under anesthesia, hysteroscopy, polypectomy dilation and curettage Service: Gynecology Indication: Postmenopausal bleeding, thickened endometrium and suspected endometrial polyps. The risks, benefits and anticipated outcomes of the procedure, the risks and benefits of the alternatives to the procedure and the roles and tasks of the personnel to be involved were discussed with the patient and she consents to the procedure and agrees to proceed. The risks, benefits and anticipated outcomes of the hysteroscopic procedure, the risks and benefits of the alternatives to the procedure and the roles and tasks of (more content not included)... [facility] 05-23-2021 History of Present illness Narrative Kira Asif presents for hysteroscopy. Indication: Postmenopausal bleeding. This is a 65-year-old 0 para 0 referred for evaluation of thickened endometrium of 6.8 mm, abnormal uterine bleeding and cystic lesions noted on ultrasound. Patient has no family history of uterine cancer. Denies leukorrhea uses Vagifem for atrophic vaginitis. Her last episode of bleeding was several months ago. Her previous biopsy was 2014 and her previous Pap was 2019. Patient states that in the past prior to menopause she had excessively heavy menstrual cycles. Patient referred today for hysteroscopy and endometrial biopsy. Ultrasound 04/16/21 Indication follow up ultrasound Impression Normal appearing anteverted uterus that measures 70 mm x 30 mm x 53 mm. There is a small, intramural fibroid present: Fibroid(s): Size 5 mm x 4 mm x 4 mm. Mean 4.3 mm. Vol 0.042 cm . Cystic, anterior. The central endometrial complex measures 6.8 mm in combined thickness. Endometrial pathology cannot be excluded as the endometrium appears cystic and is thickened in a postmenopausal woman with bleeding. Both ovaries are visualized and appear normal. No adnexal masses were observed. There is no free fluid visualized in the peritoneal cavity. Recommendations Recommend further evaluation of the endometrium. Clinical correlation recommended. Method Transvaginal, 3D ultrasound examination. Uterus Uterus: Visualized Uterus position: anteverted Myometrium: heterogeneous Endometrium: thickened, cystic Uterus long 70 mm Uterus ap 30 mm Uterus tr 53 mm Uterus Vol 58.1 cm Endometrial thickness, total 6.8 mm Uterine fibroid D1 5 mm Uterine fibroid D2 4 mm Uterine fibroid D3 4 mm Uterine fibroid mean 4.3 mm Uterine fibroid vol 0.042 cm Uterine fibroids findings: cystic, anterior Right Ovary Rt ovary: Visualized Rt ovary D1 34 mm Rt ovary D2 13 mm Rt ovary D3 15 mm Rt ovary Vol 3.4 cm Left Ovary Lt ovary: Visualized Lt ovary D1 26 mm Lt ovary D2 23 mm Lt ovary D3 20 mm Lt ovary Vol 6.1 cm Cul de Sac Visualized. no free fluid visualized Performed By: Annika De Souza RDMS, RVT Read By: Cinthya Sales M.D. Age: [age] year old LMP: Patient's last menstrual period was 11/04/2010. Contraception: none test: not needed VS: LMP 11/04/2010 UNIVERSAL PROTOCOL / SAFETY CHECKLIST Procedure to be Performed: office hysteroscopy with possible endometrial biopsy Sign In: A Moment of CARE was completed. Personnel directly involved with the procedure wore the appropriate PPE (Personal Protective Equipment). Patient/Surrogate Stated/Verified: PATIENT VERIFIED(optional for EMERGENT procedures): Patient name, Date of , Relevant allergies and The intended procedure Time Out Communication: Intended patient and procedure match the source documents. Consent documented and matches the intended procedure. Sign Out: SIGN OUT (optional for EMERGENT procedures): All specimen containers correctly labeled. Azra Bolivar Ma OBJECTIVE: Cervix was dilated. Under sterile conditions, using 120 mL normal saline as distention, 3.1mm flexible hysteroscopy performed without incident. No endocervical lesions seen. Endometrial lining is irregular with 2 endometrial polyps noted 1 about 1-1/2 cm near the right lateral wall and a lower polyp that was clear in its appearance about 2-1/2 cm and extending to the lower uterine segment. The surrounding endometrium was atrophic the tubal ostia on the left could be seen and could not be seen on the right due to blockage from the polyp as described above. The endocervix is normal. Endometrial polyp x 2 Tubal ostia visualized and normal. Endometrial biopsy performed x 2 and pap test done PROCEDURE SUMMARY: Patient tolerated procedure well. ASSESMENT: Postmenopausal bleeding with polyp lesions on hysteroscopy. PLAN: Hysteroscopic polypectomy, D&C in the OR. Recommend Cytotec 400 mcg by mouth to take 2 days prior to surgery and at bedtime prior to surgery. Patient should remain on primrose oil until surgery is scheduled. INFORMED CONSENT Procedure: Examination under anesthesia, hysteroscopy, polypectomy dilation and curettage Service: Gynecology Indication: Postmenopausal bleeding, thickened endometrium and suspected endometrial polyps. The risks, benefits and anticipated outcomes of the procedure, the risks and benefits of the alternatives to the procedure and the roles and tasks of the personnel to be involved were discussed with the patient and she consents to the procedure and agrees to proceed. The risks, benefits and anticipated outcomes of the hysteroscopic procedure, the risks and benefits of the alternatives to the procedure and the roles and tasks of the personnel to be involved were discussed with the patient and she additional risks benefits have also been reviewed with the patient including potential for blood transfusion, deep venous vein thrombosis, respiratory infections, infectious morbidity, anesthetic complications, injury to bowel bladder, intra-abdominal organs, and . Risk of a 2 stage procedure incomplete hysteroscopic resection, fluid overload, uterine perforation, hysterectomy, and recurrence of her current medical problem. The patient also understands that the procedure may require additional intra-operative consultation or additional intraoperative surgical procedures.The patient was also informed of the ancillary staff that would work with me which might include medical students, residents, nursing staff, and anesthesia staff.The patient consents to the procedure and agrees to proceed. I verify that I personally obtained the consent. MD Aydee Vanessa MD documented in this encounter [facility] 04-20-2021 Note HNO ID: [id number] Author: Holden West MD Service: ? Author Type: Physician Type: Progress Notes Filed: 04/26/2021 1:00 PM Note Text: Kira Asif is a 65 year old female who presents for questions, HPI: Patient presents with questions about her surgery. OB History T0 L0 SAB0 IAB0 Ectopic0 Multiple0 Live Births0 [facility] History LMP: 11/04/2010, Postmenopausal Age at Menarche: Age at First : Age at Menopause: [facility] History Comments: Sexual Activity: Not Asked; Male Contraception: No contraception data on record PAST MEDICAL HISTORY Diagnosis Date - Carpal tunnel syndrome - Dehydration - Diabetes mellitus (HCC) - hypertension - Mixed hyperlipidemia Hyperlipidemia PAST SURGICAL HISTORY Procedure Laterality Date - LAPS ABD PRTMANDOMENTUM DX W/WO SPEC BR/WA SPX 1988 Laparoscopy- to remove ovarian cysts FAMILY HISTORY Problem Relation Age of Onset - Hypertension Mother - Lipids Mother - Stroke Mother - Heart Father pace maker - other (Other) Father Parkinson's disease Social History Tobacco Use - Smoking status: Never Smoker - Smokeless tobacco: Never Used Vaping Use - Vaping Use: Never used Substance Use Topics - Alcohol use: Yes Comment: rarely- one time a year approx. - Drug use: No Current Outpatient Medications Medication Sig - potassium chloride ER (K-DUR, KLOR-CON) 20 mEq tablet Take 1 tablet by mouth once daily. - MEDICATION, NON-DATABASE Rehydration - evening primrose oil (EVENING PRIMROSE ORAL) Take by mouth. - estradiol (ESTRACE) 0.01 % (0.1 mg/gram) vaginal cream Use 1 g vaginally two times a week. After using nightly for 2 weeks. - empty bottle (NASAL SPRAY BOTTLE) botl by MISCELLANEOUS route. - cetirizine HCl (ZYRTEC ORAL) Take by mouth. - psyllium seed, with dextrose, (FIBER ORAL) Take by mouth. - MEDICATION, NON-DATABASE Greens, Digestion Plus, Herbal DeTox Tea - CALCIUM-MAGNESIUM ORAL Take by mouth. - FAMOTIDINE ORAL Take by mouth. - atorvastatin (LIPITOR) 40 mg tablet Take 40 mg by mouth once daily. - sitaGLIPtin-metFORMIN (JANUMET) 50-1,000 mg per tablet Take 1 tablet by mouth twice daily with meals. (Patient not taking: Reported on 01/26/2021 ) - dulaglutide (TRULICITY SUBCUTANEOUS) Inject subcutaneously. (Patient not taking: Reported on 01/26/2021 ) - pioglitazone (ACTOS) 30 mg tablet Take 30 mg by mouth once daily. (Patient not taking: Reported on 01/26/2021 ) - PAROXETINE HCL ORAL Take 20 mg by mouth. - levothyroxine (SYNTHROID) 25 MCG/ML susp Take 12.5 mcg by mouth once daily. - FLUTICASONE PROPIONATE NASAL Use in the nose. (Patient not taking: Reported on 01/26/2021 ) - docusate sodium (COLACE ORAL) Take by mouth. - povidone (SOOTHE HYDRATION) 1.25 % drop Use in eyes. (Patient not taking: Reported on 04/18/2021 ) - VITAMIN B COMPLEX ORAL Take by mouth. - buffers/ascorbic acid (BUFFERED C POWDER ORAL) Take by mouth. - cholecalciferol, vitamin D3, (VITAMIN D3 ORAL) Take by mouth. - nystatin (MYCOSTATIN) cream Apply 1 application to affected area four times daily. (Patient not taking: Reported on 11/11/2019 ) - triamcinolone (KENALOG) 0.025 % cream Apply 1 application to affected area twice daily. As needed for itching. (Patient not taking: Reported on 11/11/2019 ) - metroNIDAZOLE (FLAGYL) 500 mg tablet Take 1 tablet by mouth twice daily. FOR 7 DAYS. (Patient not taking: Reported on 08/14/2018 ) - dapagliflozin-metformin 5-500 mg TBph Take by mouth twice daily. Metformin ER 500 BID - RANITIDINE HCL ORAL Take by mouth. (Patient not taking: Reported on 01/26/2021 ) - MULTIVITAMIN ORAL Take by mouth. (Patient not taking: Reported on 04/18/2021 ) - MEDICATION, NON-DATABASE Vitamins B, C, D, CalMag, Caltrate + D, CO Q 10 - lisinopril (ZESTRIL) 20 mg ORAL tablet Take 1 tablet by mouth once daily. - simvastatin(ZOCOR 40 MG TAB) Take one(1) tablet daily at bedtime. (Patient not taking: No sig reported) No current facility-administered medications for this visit. Allergies As of Date: 04/20/2021 Allergen Noted Reaction CODEINE 08/14/2018 Other: See Comments DYNACIN [MINOCYCLINE] 08/14/2018 Other: See Comments PENICILLIN G 04/04/2005 ZITHROMAX [AZITHROMYCIN] 04/04/2005 Fully Assessed 04/20/2021 Allergies and current medication updated:Yes EXAM: BP 126/74 Wt 145 lb (65.8kg) LMP 11/04/2010 GENERAL: pleasant, female in no apparent distress ASSESSMENT AND PLAN: 65yo female with thickened endometrium Reviewed R/B/A of hysteroscopy. All questions answered. Patient strongly desires a hysteroscopic specialist. messaged. I spent a total of 21 minutes on the date of the service which included preparing to see the patient, [id number] patient care, completing clinical documentation, counseling and educating the patient/family/caregiver and communicating with other HCPs (not separately reported). Holden West MD [place] [facility]2021 Note HNO ID: [id number] Author: Cinthya Sales MD Service: ? Author Type: Physician Type: Progress Notes Filed: 04/19/2021 1:11 PM Note Text: Kira Asif is a 65 year old female who presents to discuss surgery. HPI: Scheduled for hysteroscopy [facility] for PMB and thickened endometrium on pelvic ultrasound. Patient presents today with a friend with questions regarding the surgical procedure. She reports a few episodes of light PMB. Pelvic US as noted below: Indication follow up ultrasound Impression Normal appearing anteverted uterus that measures 70 mm x 30 mm x 53 mm. There is a small, intramural fibroid present: Fibroid(s): Size 5 mm x 4 mm x 4 mm. Mean 4.3 mm. Vol 0.042 cm?. Cystic, anterior. The central endometrial complex measures 6.8 mm in combined thickness. Endometrial ?pathology cannot be excluded as the endometrium appears cystic and is thickened in a postmenopausal woman with bleeding. Both ovaries are visualized and appear normal. No adnexal masses were observed. There is no free fluid visualized in the peritoneal cavity. Recommendations Recommend further evaluation of the endometrium. Clinical correlation recommended. OB History T0 L0 SAB0 IAB0 Ectopic0 Multiple0 Live Births0 [facility] History LMP: 11/04/2010, Postmenopausal Age at Menarche: Age at First : Age at Menopause: [facility] History Comments: Sexual Activity: Not Asked; Male Contraception: No contraception data on record PAST MEDICAL HISTORY Diagnosis Date - Carpal tunnel syndrome - Dehydration - Diabetes mellitus (HCC) - hypertension - Mixed hyperlipidemia Hyperlipidemia PAST SURGICAL HISTORY Procedure Laterality Date - L'SCOPE DX W/WO BRUSHINGS/WASHINGS 1988 Laparoscopy- to remove ovarian cysts FAMILY HISTORY Problem Relation Age of Onset - Hypertension Mother - Lipids Mother - Stroke Mother - Heart Father pace maker - other (Other) Father Parkinson's disease Social History Tobacco Use - Smoking status: Never Smoker - Smokeless tobacco: Never Used Vaping Use - Vaping Use: Never used Substance Use Topics - Alcohol use: Yes Comment: rarely- one time a year approx. - Drug use: No Current Outpatient Medications Medication Sig - potassium chloride ER (K-DUR, KLOR-CON) 20 mEq tablet Take 1 tablet by mouth once daily. - MEDICATION, NON-DATABASE Rehydration - evening primrose oil (EVENING PRIMROSE ORAL) Take by mouth. - estradiol (ESTRACE) 0.01 % (0.1 mg/gram) vaginal cream Use 1 g vaginally two times a week. After using nightly for 2 weeks. - empty bottle (NASAL SPRAY BOTTLE) botl by MISCELLANEOUS route. - cetirizine HCl (ZYRTEC ORAL) Take by mouth. - CALCIUM-MAGNESIUM ORAL Take by mouth. - FAMOTIDINE ORAL Take by mouth. - PAROXETINE HCL ORAL Take 20 mg by mouth. - levothyroxine (SYNTHROID) 25 MCG/ML susp Take 12.5 mcg by mouth once daily. - docusate sodium (COLACE ORAL) Take by mouth. - VITAMIN B COMPLEX ORAL Take by mouth. - buffers/ascorbic acid (BUFFERED C POWDER ORAL) Take by mouth. - cholecalciferol, vitamin D3, (VITAMIN D3 ORAL) Take by mouth. - dapagliflozin-metformin 5-500 mg TBph Take by mouth twice daily. Metformin ER 500 BID - lisinopril (ZESTRIL) 20 mg ORAL tablet Take 1 tablet by mouth once daily. - psyllium seed, with dextrose, (FIBER ORAL) Take by mouth. - MEDICATION, NON-DATABASE Greens, Digestion Plus, Herbal DeTox Tea - atorvastatin (LIPITOR) 40 mg tablet Take 40 mg by mouth once daily. - sitaGLIPtin-metFORMIN (JANUMET) 50-1,000 mg per tablet Take 1 tablet by mouth twice daily with meals. (Patient not taking: Reported on 01/26/2021 ) - dulaglutide (TRULICITY SUBCUTANEOUS) Inject subcutaneously. (Patient not taking: Reported on 01/26/2021 ) - pioglitazone (ACTOS) 30 mg tablet Take 30 mg by mouth once daily. (Patient not taking: Reported on 01/26/2021 ) - FLUTICASONE PROPIONATE NASAL Use in the nose. (Patient not taking: Reported on 01/26/2021 ) - povidone (SOOTHE HYDRATION) 1.25 % drop Use in eyes. (Patient not taking: Reported on 04/18/2021 ) - nystatin (MYCOSTATIN) cream Apply 1 application to affected area four times daily. (Patient not taking: Reported on 11/11/2019 ) - triamcinolone (KENALOG) 0.025 % cream Apply 1 application to affected area twice daily. As needed for itching. (Patient not taking: Reported on 11/11/2019 ) - metroNIDAZOLE (FLAGYL) 500 mg tablet Take 1 tablet by mouth twice daily. FOR 7 DAYS. (Patient not taking: Reported on 08/14/2018 ) - RANITIDINE HCL ORAL Take by mouth. (Patient not taking: Reported on 01/26/2021 ) - MULTIVITAMIN ORAL Take by mouth. (Patient not taking: Reported on 04/18/2021 ) - MEDICATION, NON-DATABASE Vitamins B, C, D, CalMag, Caltrate + D, CO Q 10 - simvastatin(ZOCOR 40 MG TAB) Take one(1) tablet daily at bedtime. (Patient not taking: No sig reported) No current facility-administered medications for this visit. Allergie (more content not included)... [facility] 01-26-2021 Note HNO ID: [id number] Author: Holden West MD Service: ? Author Type: Physician Type: Progress Notes Filed: 01/26/2021 5:06 PM Note Text: Kira Asif is a 65 year old female who presents for concerns. HPI: Patient presents with concerns. She reports vaginal dryness AND pain. Patient had some vaginal bleeding (just a few drops) with sexual activity (denies other vaginal bleeding. Also she reports vaginal AND anal itching. She is dating a new partner and would like to be checked for STD's. (Her over a year ago.) Patient had her urine checked with her pcp 2 weeks ago. She reports intermittent pelvic pains that she's had since her last visit. OB History T0 L0 SAB0 IAB0 Ectopic0 Multiple0 Live Births0 [facility] History LMP: 11/04/2010, Postmenopausal Age at Menarche: Age at First : Age at Menopause: [facility] History Comments: Sexual Activity: Not Asked; Male Contraception: No contraception data on record PAST MEDICAL HISTORY Diagnosis Date - Carpal tunnel syndrome - Dehydration - Diabetes mellitus (HCC) - hypertension - Mixed hyperlipidemia Hyperlipidemia PAST SURGICAL HISTORY Procedure Laterality Date - L'SCOPE DX W/WO BRUSHINGS/WASHINGS 1988 Laparoscopy- to remove ovarian cysts FAMILY HISTORY Problem Relation Age of Onset - Hypertension Mother - Lipids Mother - Stroke Mother - Heart Father pace maker - other (Other) Father Parkinson's disease Social History Tobacco Use - Smoking status: Never Smoker - Smokeless tobacco: Never Used Vaping Use - Vaping Use: Never used Substance Use Topics - Alcohol use: Yes Comment: rarely- one time a year approx. - Drug use: No Current Outpatient Medications Medication Sig - MEDICATION, NON-DATABASE Rehydration - evening primrose oil (EVENING PRIMROSE ORAL) Take by mouth. - empty bottle (NASAL SPRAY BOTTLE) botl by MISCELLANEOUS route. - cetirizine HCl (ZYRTEC ORAL) Take by mouth. - psyllium seed, with dextrose, (FIBER ORAL) Take by mouth. - MEDICATION, NON-DATABASE Greens, Digestion Plus, Herbal DeTox Tea - CALCIUM-MAGNESIUM ORAL Take by mouth. - FAMOTIDINE ORAL Take by mouth. - atorvastatin (LIPITOR) 40 mg tablet Take 40 mg by mouth once daily. - PAROXETINE HCL ORAL Take 20 mg by mouth. - levothyroxine (SYNTHROID) 25 MCG/ML susp Take 12.5 mcg by mouth once daily. - docusate sodium (COLACE ORAL) Take by mouth. - povidone (SOOTHE HYDRATION) 1.25 % drop Use in eyes. - VITAMIN B COMPLEX ORAL Take by mouth. - buffers/ascorbic acid (BUFFERED C POWDER ORAL) Take by mouth. - cholecalciferol, vitamin D3, (VITAMIN D3 ORAL) Take by mouth. - dapagliflozin-metformin 5-500 mg TBph Take by mouth twice daily. Metformin ER 500 BID - MULTIVITAMIN ORAL Take by mouth. - MEDICATION, NON-DATABASE Vitamins B, C, D, CalMag, Caltrate + D, CO Q 10 - lisinopril (ZESTRIL) 20 mg ORAL tablet Take 1 tablet by mouth once daily. - sitaGLIPtin-metFORMIN (JANUMET) 50-1,000 mg per tablet Take 1 tablet by mouth twice daily with meals. (Patient not taking: Reported on 01/26/2021 ) - dulaglutide (TRULICITY SUBCUTANEOUS) Inject subcutaneously. (Patient not taking: Reported on 01/26/2021 ) - pioglitazone (ACTOS) 30 mg tablet Take 30 mg by mouth once daily. (Patient not taking: Reported on 01/26/2021 ) - FLUTICASONE PROPIONATE NASAL Use in the nose. (Patient not taking: Reported on 01/26/2021 ) - nystatin (MYCOSTATIN) cream Apply 1 application to affected area four times daily. (Patient not taking: Reported on 11/11/2019 ) - triamcinolone (KENALOG) 0.025 % cream Apply 1 application to affected area twice daily. As needed for itching. (Patient not taking: Reported on 11/11/2019 ) - metroNIDAZOLE (FLAGYL) 500 mg tablet Take 1 tablet by mouth twice daily. FOR 7 DAYS. (Patient not taking: Reported on 08/14/2018 ) - RANITIDINE HCL ORAL Take by mouth. (Patient not taking: Reported on 01/26/2021 ) - simvastatin(ZOCOR 40 MG TAB) Take one(1) tablet daily at bedtime. (Patient not taking: No sig reported) No current facility-administered medications for this visit. Allergies As of Date: 01/26/2021 Allergen Noted Reaction CODEINE 08/14/2018 Other: See Comments DYNACIN [MINOCYCLINE] 08/14/2018 Other: See Comments PENICILLIN G 04/04/2005 ZITHROMAX [AZITHROMYCIN] 04/04/2005 Fully Assessed 01/26/2021 Allergies and current medication updated:Yes EXAM: BP 124/78 Wt 139 lb 9.6 oz (63.3kg) LMP 11/04/2010 GENERAL: pleasant, female in no apparent distress CHEST: Normal inspiratory effort PELVIC: external genitalia normal, no vulvar lesions, no cervical lesions, normal appearing perineal body and perianal region; atrophic vagina ASSESSMENT AND PLAN: 65yo female with pelvic pain, vaginal itching/dryness AND STD concerns Check pelvic US Vaginitis swab AND GC/chlam with trich (declines blood STD tests) Atrophic vaginitis - discussed R/B/A of options and rx (more content not included)... [facility] Pre-operative examination- Primary Preoperative examination, unspecified PMB (postmenopausal bleeding) Postmenopausal bleeding Anxiety and depression Dysthymic disorder Essential hypertension, benign Unspecified sleep apnea Hypothyroidism, unspecified type Basal cell carcinoma (BCC), unspecified site Childhood asthma without complication, unspecified asthma severity, unspecified whether persistent PMB (postmenopausal bleeding) Postmenopausal bleeding [facility] Diagnosis Educational circumstances- Primary Educational circumstance PMB (postmenopausal bleeding) Postmenopausal bleeding [facility] Diagnosis Encounter for screening mammogram for malignant neoplasm of breast- Primary Other screening mammogram documented in this encounter [facility] for referral (narrative)* Diagnostic Procedure Only (Routine) - Pending Review Specialty Diagnoses / Procedures Referred By Will t Referred To Contact [facility] Diagnoses Encounter for screening mammogram for malignant neoplasm of breast Procedures CIERRA SCREENING W SD SCREENING DIGITAL BREAST TOMOSYNTHESIS BI SCREENING MAMMOGRAPHY BI 2-VIEW BREAST INC CAD Aydee Caldera MD [address] [place] [address] [facility] [address] [place] [address] Referral ID Status Reason Start Date Expiration Date Visits Requested Visits Authorized [id number] Pending Review Auto-Generat ed Referral 09/10/2021 10/10/2022 1 1 [facility] Advance Directives No Advanced Directives Records FoundDocuments on File Type Date Recorded Patient Bilingual Speech Language Pathologist Expl anation Advance Directive(s) 07/19/2021 10:29 AM Documents on File Type Date Recorded Patient Bilingual Speech Language Pathologist Expl anation Advance Directive(s) 07/19/2021 10:29 AM Summary Purpose Family History No Family History Records FoundNo Family History Records Found Additional Source Comments Source Comments (unrecognize d section and content) In the event this informatio n is protected by the Federal Confidentiality of Alcohol and Drug Abuse Patient Records regulations: The Federal rules restrict any use of the information to criminally investigate or prosecute any alcohol or drug abuse patient.[facility] the event this information is protected by the Federal Confidentiality of Alcohol and Drug Abuse Patient Records regulations: The Federal rules restrict any use of the information to criminally investigate or prosecute any alcohol or drug abuse patient.[facility] the event this information is protected by the Federal Confidentiality of Alcohol and Drug Abuse Patient Records regulations: The Federal rules restrict any use of the information to criminally investigate or prosecute any alcohol or drug abuse patient.[facility] the event this information is protected by the Federal Confidentiality of Alcohol and Drug Abuse Patient Records regulations: The Federal rules restrict any use of the information to criminally investigate or prosecute any alcohol or drug abuse patient.[facility] the event this information is protected by the Federal Confidentiality of Alcohol and Drug Abuse Patient Records regulations: The Federal rules restrict any use of the information to criminally investigate or prosecute any alcohol or drug abuse patient.[facility] the event this information is protected by the Federal Confidentiality of Alcohol and Drug Abuse Patient Records regulations: The Federal rules restrict any use of the information to criminally investigate or prosecute any alcohol or drug abuse patient.[facility] the event this information is protected by the Federal Confidentiality of Alcohol and Drug Abuse Patient Records regulations: The Federal rules restrict any use of the information to criminally investigate or prosecute any alcohol or drug abuse patient.[facility] the event this information is protected by the Federal Confidentiality of Alcohol and Drug Abuse Patient Records regulations: The Federal rules restrict any use of the information to criminally investigate or prosecute any alcohol or drug abuse patient.[facility] the event this information is protected by the Federal Confidentiality of Alcohol and Drug Abuse Patient Records regulations: The Federal rules restrict any use of the information to criminally investigate or prosecute any alcohol or drug abuse patient.[facility] Reason for Visit (unrecogniz ed section and content) Reason Comments Consult Reason Onset Date Comments Pre-Op Teaching 07/25/2021 Reason Onset Date Comments Refill Request 07/26/2021 Reason Comments Patient Question Reason Comments Pain Reason Comments Post Op Care Teams (unrecognized sec tion and content) Block Splitter Operator Relationship Specialty Start Date End Date Tarik Lobo Chi [address] [place] [address] PCP - General Gerontology 04/20/21 Block Splitter Operator Relationship Specialty Start Date End Date Tarik Lobo Chi [address] [place] [address] PCP - General Gerontology 04/20/21 Block Splitter Operator Relationship Specialty Start Date End Date Tarik Lobo Chi [address] [place] [address] PCP - General Gerontology 04/20/21 Block Splitter Operator Relationship Specialty Start Date End Date Tarik Lobo Chi [address] [place] [address] PCP - General Gerontology 04/20/21 Block Splitter Operator Relationship Specialty Start Date End Date Tarik Lobo Chi [address] [place] [address] PCP - General Gerontology 04/20/21 Block Splitter Operator Relationship Specialty Start Date End Date Tarik Lobo Chi [address] [place] [id number] PCP - General Gerontology 04/20/21 Block Splitter Operator Relationship Specialty Start Date End Date Tarik Lobo Chi [address] [place] [address] PCP - General Gerontology 04/20/21 INFORMATION SOURCE (unrecogn ized section and content) DATE CREATED AUTHOR AUTHOR'S CHELLY ATION 09/11/2021 [facility] FOR RECORDS PERTAINING TO PATIENTS WHO ARE OR HAVE BEEN ENROLLED IN A CHEMICAL DEPENDENCY/SUBSTANCEABUSE PROGRAM, SOME INFORMATION MAY BE OMITTED. This clinical summary was aggregated from multiple sources. Caution should be exercised in using it in the provision of clinical care. This summary normalizes information from multiple sources, and as a consequence, information in this document may materially change the coding, format and clinical context of patient data. In addition, data may be omitted in some cases. CLINICAL DECISIONS SHOULD BE BASED ON THE PRIMARY CLINICAL RECORDS. [employer] [facility]. provides no warranty or guarantee of the accuracy or completeness of information in this document.
[2023-03-25 16:02] LABS: Absolute Lymphocyte Count 1.63 X10^3/uL (0.83-4.51); Absolute Neutrophil Count 3.1 X10^3/uL (2.0-7.7); Basophil# 0.06 X10^3/uL; Basophil% 1.1 % (0-1); Eosinophil# 0.11 X10^3/uL; Hematocrit 41.3 % (37-47); Hemoglobin 13.4 g/dL (12.0-15.0); Lymphocyte # 1.63 X10^3/ul (0.83-4.51); Lymphocyte % 29.7 % (19-41); Mean Corp Hgb Conc 32.4 g/dL (32-36); Mean Corpuscular Hgb 31.5 pg (27.0-32.0); Mean Corpuscular Volume 97.2 fL (81-99); Monocyte# 0.55 X10^3/uL; NRBC Flagged by Analyzer 0 % (0-5); Neutrophil # 3.12 X10^3/uL (2.7-7.7); Platelet Count 290 K/mm3 (150-450); RBC Distribution Width CV 12.4 % (11.6-14.6); RBC Distribution Width SD 44.3 fl (35.1-43.9); Red Blood Count 4.25 M/mm3 (4.2-5.4); White Blood Count 5.5 K/mm3 (4.4-11.0)
[2023-03-25 16:13] LABS: Vitamin D,25 Hydroxy 29.3 ng/mL
[2023-03-25 16:27] LABS: ALB/GLOB Ratio 1.1 RATIO (0.9-2.4); AST(SGOT) 19 U/L (15-37); Alanine Aminotransfer ALT/SGPT 37 U/L (13-56); Alkaline Phosphatase 81 U/L (45-117); Anion Gap 8 (5-15); BUN 17 mg/dL (7-18); BUN/Creat Ratio 21.2 RATIO (10-20); Calcium,Total 9.6 mg/dL (8.5-10.1); Chloride 106 mmol/L (98-107); EST Glomerular Filtration Rate 76 mL/min (>60); Est Glom Filt Rate - Afr Amer 92 mL/min (>60); Globulin 3.6 g/dL (2.2-4.2); Glucose 251 mg/dL (74-106); Potassium 3.8 mmol/L (3.5-5.1); Protein, Total 7.6 g/dL (6.4-8.2); Sodium Level 138 mmol/L (136-145)
== END | disposition home or self-care (01) ==
LOC: POLAB3 13:05
PROVIDERS: PCP Family Medicine Geriatric Medicine; Visit Provider Family Medicine Geriatric Medicine
DX: I10 Essential (primary) hypertension (principal); E11.65 Type 2 diabetes mellitus with hyperglycemia; E55.9 Vitamin D deficiency, unspecified
CPT/HCPCS: 36415; 80053; 82306; 84443; 85025

== ENCOUNTER → 2023-06-25 | Outpatient (CLI) | payer MEDICARE, OTHER, SELFPAY ==
[2023-06-25 14:36] LABS: Absolute Neutrophil Count 4.7 X10^3/uL (2.0-7.7); Basophil# 0.07 X10^3/uL; Basophil% 0.9 % (0-1); Eosinophil# 0.09 X10^3/uL; Eosinophils% 1.2 % (0-5); Hematocrit 39.1 % (37-47); Lymphocyte % 28.3 % (19-41); Mean Corp Hgb Conc 33.2 g/dL (32-36); Mean Corpuscular Hgb 31.3 pg (27.0-32.0); Mean Corpuscular Volume 94.2 fL (81-99); Mean Platelet Vol. 8.8 fl (6.2-12.0); Monocyte# 0.64 X10^3/uL; Monocyte% 8.2 % (0-10); NRBC Flagged by Analyzer 0 % (0-5); Neutrophil # 4.74 X10^3/uL (2.7-7.7); Neutrophil % 60.9 % (47-70); Platelet Count 260 K/mm3 (150-450); RBC Distribution Width CV 11.7 % (11.6-14.6); RBC Distribution Width SD 40.3 fl (35.1-43.9); Red Blood Count 4.15 M/mm3 (4.2-5.4); White Blood Count 7.8 K/mm3 (4.4-11.0)
[2023-06-25 15:08] LABS: Vitamin D,25 Hydroxy 24.5 ng/mL
[2023-06-25 15:29] LABS: ALB/GLOB Ratio 1.1 RATIO (0.9-2.4); AST(SGOT) 17 U/L (15-37); Alanine Aminotransfer ALT/SGPT 43 U/L (13-56); Albumin, Serum 3.8 g/dL (3.2-5.0); Alkaline Phosphatase 89 U/L (45-117); Anion Gap 6 (5-15); BUN 14 mg/dL (7-18); Calcium,Total 8.6 mg/dL (8.5-10.1); Chloride 105 mmol/L (98-107); EST Glomerular Filtration Rate 59 mL/min (>60); Est Glom Filt Rate - Afr Amer 71 mL/min (>60); Globulin 3.6 g/dL (2.2-4.2); Glucose 270 mg/dL (74-106); Potassium 3.7 mmol/L (3.5-5.1); Protein, Total 7.4 g/dL (6.4-8.2); Sodium Level 138 mmol/L (136-145); Thyroid Stim Hormone (TSH) 2.41 uIU/mL (0.358-3.74)
== END | disposition home or self-care (01) ==
LOC: POLAB3 13:41
PROVIDERS: PCP Family Medicine Geriatric Medicine; Visit Provider Family Medicine Geriatric Medicine
DX: E11.65 Type 2 diabetes mellitus with hyperglycemia (principal); E55.9 Vitamin D deficiency, unspecified; I10 Essential (primary) hypertension
CPT/HCPCS: 36415; 80053; 82306; 84443; 85025

== ENCOUNTER 2023-08-05 11:30 | Outpatient (RCR) | payer MEDICARE, OTHER, SELFPAY ==
--- NOTE | 2023-06-12 12:26 | HP.PTEVAL ---
Patient's Visit Information Visit Information Visit Information: MIROSLAVA URIBE is a 67 year old F referred to Physical Therapy by Dr. Rei Kramer DPM with a diagnosis of R peroneal tendonitis. Date of Evaluation: 05/19/23 Physical Therapist: Rafal Contreras, PT, ATC Visit Plan Frequency: 2x /Week Duration: 3 Weeks Plan: R ankle strengthening, R ankle stretching, mobs, balance and proprio, bike, and HEP Subjective Subjective: Pt reports she rolled her R ankle while working in her yard approximately 22 months ago. Pt notes she didn't really notice any major swelling or pain at the time, but notes she has an area of swelling now which is why she is here today. Pt notes she goes to the doctor to get her nails cut, and her doctor noticed the swelling present and thought she should get some therapy for her ankle. Pt reports very minimal pain today. Pt denies tingling or numbness in her R LE at this time. No sleep difficulty at this time secondary to pain. Pt reports she is an avid hiker, and was limited for a while after her injury. Pt notes she was able to hike last summer a couple times. Pt reports she is not really limited with IADL's a this time, but wants to make sure she doesnt have limitations in the future. 1/10 pain while sitting here at rest (Less than one, but not a zero), 3/10 at worst (a brief episode of pain that she experiences once a day.) Pain R foot/ankle: Pain Intensity (Out of 10): 1 Pain Intensity Range: 3 Objective Objective: Neuro: B LE sensation is WNL to light touch. B patellar reflex= 2/3 Palpation: Minor swelling on R lateral foot, superior to the head of the fifth metatarsal. No pain with palpation Girth: R ankle 51 cm, L ankle 48 cm ankle ROM: L ankle DF= 8, PF= 60 degrees; R ankle DF= -2, PF= 45 degrees ankle MMT: L ankle DF= 26, PF= 26, ever= 14 #F; R ankle DF= 24, PF= 28, ever= 24 Balance/Special Test Scores Lower Extremity Functional Score: 71 Goals Goal 1:: Decrease R ankle pain x 50% to aid with ambulation Goal Time Frame: 2-4 Weeks Goal 2:: Increase R ankle DF ROM x 8 degrees to aid with preventing future ankle sprains Goal Time Frame: 2-4 Weeks Goal 3:: I with HEP Goal Time Frame: 2-4 Weeks Rehabilitation Potential Physical Therapy Diagnosis: Pt has R ankle pain, weakness, and limited ROM secondary to chronic R ankle instability Rehabilitation Potential: Good Anticipated Interventions Patient/Client Instruction: Educate patient on: Condition and Plan of Care For the Purpose of:: To improve self management Therapeutic Exercise to Include: Strength training, Endurance training, Balance training, Flexibilty training and Passive ROM For the Purpose of:: To decrease pain, To increase ROM and To improve muscle performance and motor function Cryotherapy (ice pack, ice massage): Yes For the Purpose of:: To decrease pain Text: Thank you for the opportunity to evaluate your patient. For Medicare and Medicare HMO plans, please review the plan of care and approve it. It will need to be FAXED BACK to us at [phone] for Medicare purposes. For Medicare only, by signing this I certify the plan of care. Please let me know if there are questions or concerns regarding this plan of care. Physician Signature: Date:
--- NOTE | 2023-06-12 12:54 | HP.PTREVAL ---
Re-Evaluation Intro: Dr. Rei Kramer, DPM, It has been my pleasure to treat MIROSLAVA URIBE over the last 7 visits for R peroneal tendonitis. Please see the progress note below for an update on the physical therapy plan of care! Subjective Subjective: Pt feels like she has made some improvements. Still limited with hiking type of activity Objective Objective/Function: R lateral ankle pain is 1/10 R ankle DF ROM 2 degrees Pt is progressing well but is still limited functionally with IADL's Plan Plan Plan: R ankle strengthening, R ankle stretching, mobs, balance and proprio, bike, and HEP Balance/Gait/Functional tests Balance/Special Test Scores Lower Extremity Functional Score: 71 Goals Goals Goal 1:: Decrease R ankle pain x 50% to aid with ambulation Goal Time Frame: 2-4 Weeks Goal Progress: Goal Met Goal 2:: Increase R ankle DF ROM x 8 degrees to aid with preventing future ankle sprains Goal Time Frame: 2-4 Weeks Goal Progress: Progressing Goal 3:: I with HEP Goal Time Frame: 2-4 Weeks Goal Progress: Progressing Anticipated Interventions Anticipated Interventions Patient/Client Instruction: Educate patient on: Condition and Plan of Care For the Purpose of:: To improve self management Therapeutic Exercise to Include: Strength training, Endurance training, Balance training, Flexibilty training and Passive ROM For the Purpose of:: To decrease pain, To increase ROM and To improve muscle performance and motor function Cryotherapy (ice pack, ice massage): Yes For the Purpose of:: To decrease pain Re-Evaluation Ending Re-evaluation ending: Please do not hesitate to contact me at [phone] by phone or if you have questions or concerns regarding this new plan of care! Sincerely, Rafal Contreras, PT, ATC
--- NOTE | 2023-07-22 08:38 | HP.PTDCSUM ---
Discharge Summary D/C summary: It has been my pleasure to treat MIROSLAVA URIBE referred by Dr. Rei Kramer DPM, with the diagnosis of R peroneal tendonitis for a total of 11 visit(s). Discharge Date: Please see the following information for a summary of their discharge status. Subjective Subjective: Patient had pain in her foot getting out of the car and when reaching for something at her house. Pain R foot/ankle: Pain Intensity (Out of 10): 1 Overall Improvement % Improvement: 50 Objective Objective/Function: Patient stated less stiffness following manual interventions. Did well with all strengthening with good effort and tolerance t/o. Goals Goal 1:: Decrease R ankle pain x 50% to aid with ambulation Goal Progress: Goal Met Goal 2:: Increase R ankle DF ROM x 8 degrees to aid with preventing future ankle sprains Goal Progress: Progressing Goal 3:: I with HEP Goal Progress: Progressing Plan Plan: R ankle strengthening, R ankle stretching, mobs, balance and proprio, bike, and HEP D/C Information d/c sentence: If there are questions or concerns regarding this patient's physical therapy, please feel free to call me at [phone]. Thank you for the referral of this patient. Sincerely, Hannah Quiroz, PT, Cert MDT Balance/Gait/Functional tests Balance/Special Test Scores Lower Extremity Functional Score: 71 Quick DASH Score: 25.0000 Improvement % Improvement: 50
--- NOTE | 2023-08-05 12:16 | HP.PTDCSUM ---
Discharge Summary D/C summary: It has been my pleasure to treat MIROSLAVA URIBE referred by Dr. Rei Kramer DPM, with the diagnosis of R peroneal tendonitis for a total of 12 visit(s). Discharge Date: 08/05/23 Please see the following information for a summary of their discharge status. Subjective Subjective: Pt. reports feeling stronger, but still has some issues with prolonged walking. She went [place] the zoo and did well. Pain R foot/ankle: Pain Intensity (Out of 10): 0 Overall Improvement % Improvement: 75 Objective Objective/Function: B ankle ROM: DF 20deg RLE and 19deg LLE no pain with over pressure. MMT: 5/5 throughout. Pt. reports no pain with testing. GAIT: pt. has pretty normal gait pattern without increase in symptoms. STAIRS: reciprocal pattern without increase in R ankle pain. Pt. reports overall not much R foot pain, occasional but not consistent with activities. She still feels some soreness with prolonged walking, but not that bad. Pt. does still have marked swelling at R lateral foot. mostly distal to lateral peroneal retinaculum. This is very pliable area. Overall she reports being stronger and has better ROM, but not a marked change in her swelling. I recommended that she continue with her strengthening and stretching, but to follow up with physician to determine if there is any other interventions to aide with her swelling. Goals Goal 1:: Decrease R ankle pain x 50% to aid with ambulation Goal Progress: Goal Met Goal 2:: Increase R ankle DF ROM x 8 degrees to aid with preventing future ankle sprains Goal Progress: Goal Met Goal 3:: I with HEP Goal Progress: Goal Met Plan Plan: pt. to be DC from PT at this point in time. D/C Information d/c sentence: If there are questions or concerns regarding this patient's physical therapy, please feel free to call me at [phone]. Thank you for the referral of this patient. Sincerely, Mumtaz Pedraza, DANYELT Balance/Gait/Functional tests Balance/Special Test Scores Lower Extremity Functional Score: 77 Quick DASH Score: 25.0000 Improvement % Improvement: 75
--- NOTE | 2023-08-05 13:19 | HP.PTDCS(2) ---
Discharge Summary D/C Summary: It has been my pleasure to treat MIROSLAVA URIBE referred by Dr. Rei Kramer DPM, with the diagnosis of Neck and R shoulder pain for a total of 9 visit(s). Discharge Date: 07/22/23 Please see the following information for a summary of their discharge status. Subjective Subjective: PATIENT REPORTS DR. EVANS REFERRED HER TO PT FOR HER NECK AND SHLD PAIN AND ALSO TO DR. BOWIE FOR HER NECK PAIN. SHE REPORTS DR. BOWIE TOLD HER THAT HER NECK WILL NOT GET BETTER. OVER-ALL SHE STATES HER SHLD IS ABOUT 80% BETTER SINCE STARTING PT AND HER NECK IS ABOUT 50% BETTER. SHE REPORTS SHE SAW THE TWO CONNECTED WHEN SHE STARTED THERAPY. SHE REPORTS INTERMITTENT R NECK AND SHLD PAIN RANGING 0-3/10. PATIENT REPORTS STIFFNESS HAS BEEN THE MAIN PROBLEM IN HER NECK. FOLLOW UP PLANNED WITH DR. EVANS IN A FEW WEEKS. STATES SHE HAS DONE HER HEP A COUPLE TIMES BUT NOT CONSISTENTLY - STATES IT IS JUST HARD TO DISCIPLINE HERSELF TO DO IT AT HOME. STATES IT IS STILL HARD TO REACH TO WASH HER BACK WITH HER R HAND IN THE SHOWER BUT OTHERWISE SHE CAN DO PRETTY MUCH EVERYTHING. Overall Improvement % Improvement: 50 Objective Objective/Function/Assessment: THIS PATIENT HAS RESPONDED WELL TO THIS EPISODE OF CARE OF PT FOR HER NECK AND R SHOULDER. UPON EXAM TODAY SHE HAS FULL ACTIVE ROM OF HER R SHLD ALL PLANES AND NECK ROM WNL ALL PLANES. R SHLD STRENGTH IS 5/5 WITH MMT'ING AND SHE IS INDEP WITH A HOME TBAND EX ROUTINE. SHE HOWEVER SELF SCORES HERSELF ONE POINT WORSE ON THE QUICK DASH QUESTIONNAIRE WHILE REPORTING 80% IMPROVEMENT IN HER R SHLD AND 50% IMPROVEMENT IN HER NECK. SHE REPORTS NON COMPLIANCE WITH HER HEP UP TO THIS POINT HOWEVER DEMONSTRATED GOOD TECHNIQUE AND TOLERANCE TO HER HEP TODAY WITH RE-INSTRUCTION AND HAS BEEN EDUCATED ON THE IMPORTANCE OF CONTINUING IT AT HOME TOLERATED. ALL CURRENT GOALS HAVE BEEN MET AND WE WILL DISCHARGE HER AT THIS TIME BUT WOULD BE HAPPY TO RESUME PT IN THE FUTURE NEEDED. Goals Patient Goals: Improve Mobility, Improve Function, Decrease Pain, Improve ROM and Sleep Normal Goal 1:: Decrease R shoulder and neck pain x 50% to aid with sleep Goal Progress: Goal Met Goal 2:: Increase R shoulder flexion and abduction ROM x 20 degrees to aid with overhead activity Goal Progress: Goal Met Goal 3:: Increase R shoulder strength x 5-10 #F to aid with IADL's Goal Progress: Goal Met Goal 4:: I with HEP Goal Progress: Goal Met Plan Plan: R shoulder: rot cuff strengthening, scap stab ex's, UBE, and HEP Cervical spine: DTR, mobs, manual distraction D/C Information d/c sentence: If there are questions or concerns regarding this patient's physical therapy, please feel free to call me at [phone]. Thank you for the referral of this patient. Sincerely, Hannah Quiroz, PT, Cert MDT Balance/Special Test Scores Improvement % Improvement: 50
== END 2023-08-05 17:34 | disposition home or self-care (01) ==
LOC: PT 11:30
PROVIDERS: PCP Family Medicine Geriatric Medicine; Referring Provider Podiatrist; Visit Provider Podiatrist
DX: M76.71 Peroneal tendinitis, right leg (principal)
CPT/HCPCS: 97110; 97112; 97140; 97161; 97530

== ENCOUNTER 2023-08-20 11:31 | Outpatient (RCR) | payer MEDICARE, OTHER, SELFPAY ==
--- NOTE | 2023-08-20 12:20 | HP.PT.NRP ---
Patient Information Patient Information: MIROSLAVA URBIE was seen in my office for initial evaluation on . The following Plan of Care was established for this patient: Last Seen Last Seen: This patient was last seen in our office . Pertinent comments regarding their Physical therapy will appear below: At this point I will be discontinuing this patient from physical therapy. I would be happy to see this patient again in the future if found appropriate by the physician. Thank you! DANYEL MoonT
== END 2023-08-20 19:00 | disposition home or self-care (01) ==
LOC: PT 11:31
PROVIDERS: PCP Family Medicine Geriatric Medicine; Referring Provider Student in an Organized Health Care Education/Training Program; Visit Provider Student in an Organized Health Care Education/Training Program
DX: M75.41 Impingement syndrome of right shoulder (principal); M25.511 Pain in right shoulder; M47.892 Other spondylosis, cervical region
CPT/HCPCS: 97530

== ENCOUNTER → 2023-10-02 | Outpatient (CLI) | payer MEDICARE, OTHER, SELFPAY ==
[2023-10-02 16:20] LABS: Absolute Lymphocyte Count 2.13 X10^3/uL (0.83-4.51); Absolute Neutrophil Count 3.9 X10^3/uL (2.0-7.7); Basophil# 0.05 X10^3/uL; Basophil% 0.7 % (0-1); Eosinophil# 0.09 X10^3/uL; Eosinophils% 1.3 % (0-5); Hemoglobin 12.7 g/dL (12.0-15.0); Lymphocyte # 2.13 X10^3/ul (0.83-4.51); Lymphocyte % 31.2 % (19-41); Mean Corp Hgb Conc 32.6 g/dL (32-36); Mean Corpuscular Hgb 31.4 pg (27.0-32.0); Mean Corpuscular Volume 96.3 fL (81-99); Mean Platelet Vol. 8.7 fl (6.2-12.0); Monocyte# 0.62 X10^3/uL; Monocyte% 9.1 % (0-10); NRBC Flagged by Analyzer 0 % (0-5); Neutrophil # 3.91 X10^3/uL (2.7-7.7); Neutrophil % 57.4 % (47-70); Platelet Count 270 K/mm3 (150-450); RBC Distribution Width CV 11.9 % (11.6-14.6); RBC Distribution Width SD 41.5 fl (35.1-43.9); Red Blood Count 4.05 M/mm3 (4.2-5.4); White Blood Count 6.8 K/mm3 (4.4-11.0)
[2023-10-02 16:46] LABS: Vitamin D,25 Hydroxy 30.5 ng/mL
[2023-10-02 16:54] LABS: ALB/GLOB Ratio 0.9 RATIO (0.9-2.4); AST(SGOT) 29 U/L (15-37); Alanine Aminotransfer ALT/SGPT 52 U/L (13-56); Albumin, Serum 3.7 g/dL (3.2-5.0); Alkaline Phosphatase 81 U/L (45-117); Anion Gap 5 (5-15); BUN 15 mg/dL (7-18); BUN/Creat Ratio 17.5 RATIO (10-20); Calcium,Total 8.8 mg/dL (8.5-10.1); Chloride 107 mmol/L (98-107); Creatinine, Serum 0.86 mg/dL (0.55-1.02); EST Glomerular Filtration Rate 70 mL/min (>60); Est Glom Filt Rate - Afr Amer 85 mL/min (>60); Globulin 3.9 g/dL (2.2-4.2); Glucose 161 mg/dL (74-106); Potassium 4.1 mmol/L (3.5-5.1); Protein, Total 7.6 g/dL (6.4-8.2); Sodium Level 139 mmol/L (136-145); Thyroid Stim Hormone (TSH) 2.36 uIU/mL (0.358-3.74)
== END | disposition home or self-care (01) ==
LOC: LAB 15:28
PROVIDERS: PCP Family Medicine Geriatric Medicine; Referring Provider Family Medicine Geriatric Medicine; Visit Provider Family Medicine Geriatric Medicine
DX: E11.65 Type 2 diabetes mellitus with hyperglycemia (principal); I10 Essential (primary) hypertension; E55.9 Vitamin D deficiency, unspecified
CPT/HCPCS: 36415; 80053; 82306; 84443; 85025

== ENCOUNTER → 2024-02-05 | Outpatient (CLI) | payer MEDICARE, OTHER, SELFPAY ==
[2024-02-05 14:40] LABS: Basophil# 0.07 X10^3/uL; Eosinophil# 0.12 X10^3/uL; Eosinophils% 1.7 % (0-5); Hematocrit 40.2 % (37-47); Hemoglobin 13.4 g/dL (12.0-15.0); Lymphocyte % 30.8 % (19-41); Mean Corp Hgb Conc 33.3 g/dL (32-36); Mean Corpuscular Hgb 31.3 pg (27.0-32.0); Mean Corpuscular Volume 93.9 fL (81-99); Mean Platelet Vol. 8.7 fl (6.2-12.0); Monocyte# 0.73 X10^3/uL; Monocyte% 10.2 % (0-10); NRBC Flagged by Analyzer 0 % (0-5); Neutrophil # 4.01 X10^3/uL (2.7-7.7); Platelet Count 280 K/mm3 (150-450); RBC Distribution Width CV 11.9 % (11.6-14.6); Red Blood Count 4.28 M/mm3 (4.2-5.4); White Blood Count 7.2 K/mm3 (4.4-11.0)
[2024-02-05 15:40] LABS: Vitamin D,25 Hydroxy 25.3 ng/mL
[2024-02-05 16:11] LABS: ALB/GLOB Ratio 1.1 RATIO (0.9-2.4); AST(SGOT) 32 U/L (15-37); Alanine Aminotransfer ALT/SGPT 52 U/L (13-56); Alkaline Phosphatase 82 U/L (45-117); Anion Gap 8 (5-15); BUN 11 mg/dL (7-18); BUN/Creat Ratio 14.6 RATIO (10-20); Calcium,Total 9.5 mg/dL (8.5-10.1); Chloride 103 mmol/L (98-107); Creatinine, Serum 0.75 mg/dL (0.55-1.02); EST Glomerular Filtration Rate 81 mL/min (>60); Est Glom Filt Rate - Afr Amer 99 mL/min (>60); Globulin 3.8 g/dL (2.2-4.2); Glucose 243 mg/dL (74-106); Potassium 3.9 mmol/L (3.5-5.1); Protein, Total 7.8 g/dL (6.4-8.2); Sodium Level 135 mmol/L (136-145)
== END | disposition home or self-care (01) ==
LOC: POLAB3 14:31
PROVIDERS: PCP Family Medicine Geriatric Medicine; Visit Provider Family Medicine Geriatric Medicine
DX: I10 Essential (primary) hypertension (principal); E11.65 Type 2 diabetes mellitus with hyperglycemia; E55.9 Vitamin D deficiency, unspecified
CPT/HCPCS: 36415; 80053; 82306; 84443; 85025

== ENCOUNTER 2024-02-18 15:20 | Outpatient (CLI) | payer MEDICARE, OTHER, SELFPAY | END 2024-02-18 23:59 | disposition home or self-care (01) | LOC: POLAB3 15:21 | PROVIDERS: PCP Family Medicine Geriatric Medicine; Visit Provider Family Medicine Geriatric Medicine | DX: R68.83 Chills (without fever) (principal) | CPT/HCPCS: 87631 ==

== ENCOUNTER → 2024-03-29 | Outpatient (CLI) | payer MEDICARE, OTHER, SELFPAY ==
[2024-03-29 15:26] LABS: Absolute Lymphocyte Count 1.99 X10^3/uL (0.83-4.51); Absolute Neutrophil Count 3.7 X10^3/uL (2.0-7.7); Basophil# 0.04 X10^3/uL; Basophil% 0.6 % (0-1); Eosinophil# 0.11 X10^3/uL; Eosinophils% 1.7 % (0-5); Hematocrit 39.5 % (37-47); Hemoglobin 13.3 g/dL (12.0-15.0); Lymphocyte # 1.99 X10^3/ul (0.83-4.51); Lymphocyte % 31.4 % (19-41); Mean Corp Hgb Conc 33.7 g/dL (32-36); Mean Corpuscular Volume 95.2 fL (81-99); Mean Platelet Vol. 8.8 fl (6.2-12.0); Monocyte# 0.47 X10^3/uL; Monocyte% 7.4 % (0-10); NRBC Flagged by Analyzer 0 % (0-5); Neutrophil % 58.6 % (47-70); Platelet Count 272 K/mm3 (150-450); RBC Distribution Width CV 11.9 % (11.6-14.6); RBC Distribution Width SD 41.3 fl (35.1-43.9); Red Blood Count 4.15 M/mm3 (4.2-5.4); White Blood Count 6.3 K/mm3 (4.4-11.0)
[2024-03-29 15:59] LABS: Vitamin D,25 Hydroxy 29.9 ng/mL
[2024-03-29 16:05] LABS: AST(SGOT) 36 U/L (15-37); Alanine Aminotransfer ALT/SGPT 52 U/L (13-56); Albumin, Serum 3.8 g/dL (3.2-5.0); Alkaline Phosphatase 76 U/L (45-117); Anion Gap 6 (5-15); BUN 15 mg/dL (7-18); BUN/Creat Ratio 15.6 RATIO (10-20); Calcium,Total 9.2 mg/dL (8.5-10.1); Chloride 106 mmol/L (98-107); Creatinine, Serum 0.96 mg/dL (0.55-1.02); EST Glomerular Filtration Rate 61 mL/min (>60); Est Glom Filt Rate - Afr Amer 74 mL/min (>60); Globulin 3.9 g/dL (2.2-4.2); Glucose 256 mg/dL (74-106); Potassium 3.9 mmol/L (3.5-5.1); Protein, Total 7.7 g/dL (6.4-8.2); Sodium Level 137 mmol/L (136-145)
== END | disposition home or self-care (01) ==
LOC: LAB 14:42
PROVIDERS: PCP Family Medicine Geriatric Medicine; Referring Provider Family Medicine Geriatric Medicine; Visit Provider Family Medicine Geriatric Medicine
DX: I10 Essential (primary) hypertension (principal); E11.65 Type 2 diabetes mellitus with hyperglycemia; E55.9 Vitamin D deficiency, unspecified
CPT/HCPCS: 36415; 80053; 82306; 84443; 85025

== ENCOUNTER → 2024-05-25 | Outpatient (CLI) | payer MEDICARE, OTHER, SELFPAY | END | disposition home or self-care (01) | LOC: POLAB3 11:43 | PROVIDERS: PCP Family Medicine Geriatric Medicine; Referring Provider Family Medicine Geriatric Medicine; Visit Provider Family Medicine Geriatric Medicine | DX: J98.8 Other specified respiratory disorders (principal) | CPT/HCPCS: 87631 ==

== ENCOUNTER → 2024-06-02 | Outpatient (CLI) | payer MEDICARE, OTHER, SELFPAY | END | disposition home or self-care (01) | LOC: LABSPEC 16:35 | PROVIDERS: PCP Family Medicine Geriatric Medicine; Visit Provider Family Medicine Geriatric Medicine | DX: N39.0 Urinary tract infection, site not specified (principal) | CPT/HCPCS: 87086 ==

== ENCOUNTER → 2024-06-14 | Outpatient (CLI) | payer MEDICARE, OTHER, SELFPAY ==
--- NOTE | 2024-06-14 16:25 | RAD_ITS ---
PROCEDURE: THORACIC SPINE 3 VIEWS 06/14/2024 REASON FOR EXAM: RADICULOPATHY, THORACIC REGION TECHNIQUE: Two views of the thoracic spine. COMPARISON: None. FINDINGS: Mild reverse S shaped scoliosis. Moderate diffuse spondylosis. Mildly increased dorsal kyphosis. No fracture or dislocation is seen. No lytic or blastic bone lesion. RAD/Thoracic Spine 3 Views IMPRESSION: Diffuse spondylosis. No acute bone abnormality is identified. [place] [facility] [address] [facility] [address]
== END | disposition home or self-care (01) ==
LOC: RAD 16:13
PROVIDERS: PCP Family Medicine Geriatric Medicine; Referring Provider Family Medicine Geriatric Medicine; Visit Provider Family Medicine Geriatric Medicine
DX: M54.14 Radiculopathy, thoracic region (principal)
CPT/HCPCS: 72072

== ENCOUNTER → 2024-06-30 | Outpatient (CLI) | payer MEDICARE, OTHER, SELFPAY ==
[2024-06-30 16:00] LABS: Absolute Lymphocyte Count 2.19 X10^3/uL (0.83-4.51); Absolute Neutrophil Count 3.2 X10^3/uL (2.0-7.7); Basophil# 0.08 X10^3/uL; Basophil% 1.3 % (0-1); Eosinophils% 1.6 % (0-5); Hematocrit 38.9 % (37-47); Hemoglobin 13.2 g/dL (12.0-15.0); Lymphocyte # 2.19 X10^3/ul (0.83-4.51); Lymphocyte % 35.2 % (19-41); Mean Corp Hgb Conc 33.9 g/dL (32-36); Mean Corpuscular Hgb 31.9 pg (27.0-32.0); Mean Platelet Vol. 8.8 fl (6.2-12.0); Monocyte# 0.61 X10^3/uL; Monocyte% 9.8 % (0-10); NRBC Flagged by Analyzer 0 % (0-5); Neutrophil # 3.22 X10^3/uL (2.7-7.7); Neutrophil % 51.8 % (47-70); Platelet Count 275 K/mm3 (150-450); RBC Distribution Width CV 11.6 % (11.6-14.6); RBC Distribution Width SD 39.8 fl (35.1-43.9); Red Blood Count 4.14 M/mm3 (4.2-5.4); White Blood Count 6.2 K/mm3 (4.4-11.0)
[2024-06-30 17:57] LABS: Vitamin D,25 Hydroxy 26.9 ng/mL (30-100)
[2024-06-30 18:05] LABS: ALB/GLOB Ratio 1.4 RATIO (0.9-2.4); AST(SGOT) 36 U/L (<=31); Alanine Aminotransfer ALT/SGPT 55 U/L (<=34); Albumin, Serum 4.5 g/dL (3.4-4.8); Alkaline Phosphatase 90 U/L (35-104); Anion Gap 13 (5-15); BUN 14 mg/dL (4-19); BUN/Creat Ratio 18.3 RATIO (10-20); Calcium,Total 9.9 mg/dL (7.6-11.0); Carbon Dioxide 22.8 mmol/L (21.0-32.0); Chloride 101 mmol/L (98-108); Creatinine, Serum 0.74 mg/dL (0.70-1.20); EST Glomerular Filtration Rate 88 (>60); Globulin 3.2 g/dL (2.2-4.2); Glucose 194 mg/dL (70-99); Protein, Total 7.8 g/dL (5.9-8.4); Sodium Level 136 mmol/L (133-145); Total Bilirubin 0.22 mg/dL (0.00-1.30)
== END | disposition home or self-care (01) ==
LOC: LAB 14:41
PROVIDERS: PCP Family Medicine Geriatric Medicine; Referring Provider Family Medicine Geriatric Medicine; Visit Provider Family Medicine Geriatric Medicine
DX: E11.65 Type 2 diabetes mellitus with hyperglycemia (principal); E55.9 Vitamin D deficiency, unspecified; I10 Essential (primary) hypertension
CPT/HCPCS: 36415; 80053; 82306; 84443; 85025

== ENCOUNTER 2024-09-21 13:00 | Outpatient (RCR) | payer MEDICARE, OTHER, SELFPAY ==
--- NOTE | 2024-06-21 14:03 | HP.PTEVAL_ITS ---
Patient's Visit Information Visit Information Visit Information: MIROSLAVA URIBE is a 68 year old F referred to Physical Therapy by Dr. Tarik Lobo MD with a diagnosis of THORACIC BACK PAIN ,THORACIC DISC DISEASE. Date of Evaluation: 06/21/24 Physical Therapist: Brett Renee, PT, Cert MDT, OCS Visit Plan Frequency: 2x /Week Duration: 4 Weeks Plan: PT INTERVENTIONS POSTURAL EX'S ,THORACIC ROM ,STRENGTHENING ,ACTIVITY MODIFICATION AND MODALITIES Subjective Subjective: This 68 y/o female presents to physical therapy thoracic pain . Patient thoracic pain intermittent for many years. Patient sees chiropractor for ribs.Patient had episodes of increase symptoms after seen chiropractror pain was worse. Patient seen DR recommended PT and provided medication baclofen ,and pain medication. X-rays showed Mild reverse S shaped scoliosis.Moderate diffuse spondylosis.Mildly increased dorsal kyphosis. Location of pain right side . Pain described as sharp. Deep breathing -.Aggravating twisting ,reaching ,bending ,lifting. Alleviating factors medioactions. Coughing/sneezing +. Bowel/bladder- Paresthesia/tingling- Sleeping okay. Patient condition affects QOL and function. Patient goals to decrease pain Pain Right Back: Pain Intensity (Out of 10): 2 Pain Intensity Range: 10 Objective Objective: POSTURE: mild forward posture GAIT: reciprocal pattern PALAPTION: thoracic paraspinals AROM: BUE WFL MMT: grossly 4/5 quads/hams 4/5 ,hip 4-/5 ,ankle 5/5 THORACIC ROM: flexion mod loss pain ,extension min loss pain ,rotation min loss Special Tests Thoracic Sitting: Flexion - Mechanical Response: No effect Thoracic Sitting: Flexion - Symptoms During Testing: Increases Thoracic Sitting: Flexion - Symptoms After Testing: Worse Thoracic Sitting: Extension - Mechanical Response: No effect Thoracic Sitting: Extension - Symptoms During Testing: Decreases Thoracic Sitting: Extension - Symptoms After Testing: Better Thoracic Sitting: Right rotation - Mechanical Response: No effect Thoracic Sitting: Right Rotation - Symptoms During Testing: Increases Thoracic Sitting: Right Rotation - Symptoms After Testing: No effect Thoracic Sitting: Left rotation - Mechanical Response: No effect Thoracic Sitting: Left Rotation - Symptoms During Testing: No effect Thoracic Sitting: Left Rotation - Symptoms After Testing: No effect L/S Slump test left side: Negative L/S Slump test right side: Negative L/S Left Straight Leg Raise: Negative L/S Right Straight Leg Raise: Negative Balance/Special Test Scores Oswestry Low Back Score: 24 Goals Goal 1:: Patient to be I with HEP for thoracic Goal Time Frame: 4-6 Weeks Goal 2:: Patient to improve lumbar ROM for function of recovery for ADLS and housework Goal Time Frame: 4-6 Weeks Goal 3:: Patient to demonstrate 50 % improvement with less pain and improved function Goal Time Frame: 4-6 Weeks Goal 4:: Patient to improve back oswestry score by 5 points to improve QOL and function. Goal Time Frame: 4-6 Weeks Rehabilitation Potential Physical Therapy Diagnosis: This patient has thoracic pain with pain with positioning and motion testing worse with flexion ,lifting and sitting thus benefit from skilled PT Rehabilitation Potential: Good Anticipated Interventions Patient/Client Instruction: Educate patient on: Condition and Plan of Care For the Purpose of:: To decrease pain, To increase ROM, To increase tolerance to activity/condition/position, To decrease level of supervision to perform tasks, To improve health of tissue, To decrease soft tissue restriction, To increase flexibility/ROM, To reduce risk of recurrence and To improve tolerance to ADL's Therapeutic Exercise to Include: Strength training, Body mechanics, Postural training, Flexibilty training, Dynamic Lumbar Stabilization and Scapular Strength/Stabilization Comment: THORACIC For the Purpose of:: To decrease pain, To increase ROM, To improve muscle performance and motor function, To increase tolerance to activity/condition/position, To improve ability of physical actions for home/community/work/leisure, To improve health of tissue, To decrease soft tissue restriction and To increase flexibility/ROM TENS: Yes IF ES: Yes Cryotherapy (ice pack, ice massage): Yes Thermo therapy (hot pack): Yes Ultrasound (thermal/non thermal): Yes For the Purpose of:: To decrease pain, To increase ROM, To improve nutrient delivery to tissue, To increase oxygenation perfusion, To improve health of tissue and To decrease soft tissue restriction Text: Thank you for the opportunity to evaluate your patient. For Medicare and Medicare HMO plans, please review the plan of care and approve it. It will need to be FAXED BACK to us at [phone] for Medicare purposes. For Medicare only, by signing this I certify the plan of care. Please let me know if there are questions or concerns regarding this plan of care. Physician Signature: Date:
--- NOTE | 2024-07-19 12:29 | HP.PTREVAL ---
Re-Evaluation Intro: Dr. Tarik Lobo MD, It has been my pleasure to treat MIROSLAVA URIBE over the last 9 visits for THORACIC BACK PAIN ,THORACIC DISC DISEASE. Please see the progress note below for an update on the physical therapy plan of care! Subjective Subjective: Doing some better , the anti inflammatory helped My flexibility improved Most difficulty with vacuuming Objective Objective/Function: Patient has progressed with decreasing pain and improve function thus goals are appropriate POSTURE: mild forward posture GAIT: reciprocal pattern PALAPTION: mild thoracic paraspinals AROM: BUE WFL MMT: grossly BUE 4/5 quads/hams 4/5 ,hip 4-/5 ,ankle 5/5 THORACIC ROM: flexion min loss ,extension min ,rotation WFL Plan Plan Plan: PT INTERVENTIONS POSTURAL EX'S ,THORACIC ROM ,STRENGTHENING ,ACTIVITY MODIFICATION AND MODALITIES Balance/Gait/Functional tests Balance/Special Test Scores Oswestry Low Back Score: 19 Goals Goals Goal 1:: Patient to be I with HEP for thoracic Goal Time Frame: 4-6 Weeks Goal Progress: Progressing Goal 2:: Patient to improve lumbar ROM for function of recovery for ADLS and housework Goal Time Frame: 4-6 Weeks Goal Progress: Progressing Goal 3:: Patient to demonstrate 50 % improvement with less pain and improved function Goal Time Frame: 4-6 Weeks Goal Progress: Progressing Goal 4:: Patient to improve back oswestry score by 5 points to improve QOL and function.( NEW GOALS) Goal Time Frame: 4-6 Weeks Anticipated Interventions Anticipated Interventions Patient/Client Instruction: Educate patient on: Condition and Plan of Care For the Purpose of:: To decrease pain, To increase ROM, To increase tolerance to activity/condition/position, To decrease level of supervision to perform tasks, To improve health of tissue, To decrease soft tissue restriction, To increase flexibility/ROM, To reduce risk of recurrence and To improve tolerance to ADL's Therapeutic Exercise to Include: Strength training, Body mechanics, Postural training, Flexibilty training, Dynamic Lumbar Stabilization and Scapular Strength/Stabilization Comment: THORACIC For the Purpose of:: To decrease pain, To increase ROM, To improve muscle performance and motor function, To increase tolerance to activity/condition/position, To improve ability of physical actions for home/community/work/leisure, To improve health of tissue, To decrease soft tissue restriction and To increase flexibility/ROM TENS: Yes IF ES: Yes Cryotherapy (ice pack, ice massage): Yes Thermo therapy (hot pack): Yes Ultrasound (thermal/non thermal): Yes For the Purpose of:: To decrease pain, To increase ROM, To improve nutrient delivery to tissue, To increase oxygenation perfusion, To improve health of tissue and To decrease soft tissue restriction Re-Evaluation Ending Re-evaluation ending: Please do not hesitate to contact me at [phone] by phone or if you have questions or concerns regarding this new plan of care! Sincerely, Brett Renee, PT, Cert MDT, OCS
--- NOTE | 2024-08-17 13:51 | HP.PTREVAL_ITS ---
Re-Evaluation Intro: Dr. Tarik Lobo MD, It has been my pleasure to treat MIROSLAVA URIBE over the last 17 visits for THORACIC BACK PAIN ,THORACIC DISC DISEASE. Please see the progress note below for an update on the physical therapy plan of care! Subjective Subjective: Patient reports PT is helping Vacuuming is unable to vacuum Difficulty reaching behind back Able to carry laundry basket Patient has not seen for PCP Objective Objective/Function: Patient has progressed with decreasing pain and improve function thus goals are appropriate POSTURE: mild forward posture GAIT: reciprocal pattern PALAPTION: mild thoracic paraspinals AROM: BUE WFL MMT: grossly BUE 4/5 quads/hams 4/5 ,hip flexion 4-/5 ,ankle 5/5 THORACIC ROM: flexion WFL ,extension min-nil ,rotation WFL pull to left Plan Plan Plan: PT INTERVENTIONS POSTURAL EX'S, THORACIC ROM, STRENGTHENING, ACTIVITY MODIFICATION AND MODALITIES Balance/Gait/Functional tests Balance/Special Test Scores Oswestry Low Back Score: 19 Goals Goals Goal 1:: Patient to be I with HEP for thoracic Goal Time Frame: 4-6 Weeks Goal Progress: Progressing Goal 2:: Patient to improve lumbar ROM for function of recovery for ADLS and housework Goal Time Frame: 4-6 Weeks Goal Progress: Progressing Goal 3:: Patient to demonstrate 60 % improvement with less pain and improved function ( new goal) Goal Time Frame: 4-6 Weeks Goal Progress: Progressing Goal 4:: Patient to improve back oswestry score by 5 points to improve QOL and function.( NEW GOALS) Goal Time Frame: 4-6 Weeks Goal Progress: Progressing Anticipated Interventions Anticipated Interventions Patient/Client Instruction: Educate patient on: Condition and Plan of Care For the Purpose of:: To decrease pain, To increase ROM, To increase tolerance to activity/condition/position, To decrease level of supervision to perform tasks, To improve health of tissue, To decrease soft tissue restriction, To increase flexibility/ROM, To reduce risk of recurrence and To improve tolerance to ADL's Therapeutic Exercise to Include: Strength training, Body mechanics, Postural training, Flexibilty training, Dynamic Lumbar Stabilization and Scapular Strength/Stabilization Comment: THORACIC For the Purpose of:: To decrease pain, To increase ROM, To improve muscle performance and motor function, To increase tolerance to activ ity/condition/position, To improve ability of physical actions for home/community/work/leisure, To improve health of tissue, To decrease soft tissue restriction and To increase flexibility/ROM TENS: Yes IF ES: Yes Cryotherapy (ice pack, ice massage): Yes Thermo therapy (hot pack): Yes Ultrasound (thermal/non thermal): Yes For the Purpose of:: To decrease pain, To increase ROM, To improve nutrient delivery to tissue, To increase oxygenation perfusion, To improve health of tissue and To decrease soft tissue restriction Re-Evaluation Ending Re-evaluation ending: Please do not hesitate to contact me at [phone] by phone or if you have questions or concerns regarding this new plan of care! Sincerely, Brett Renee, PT, Cert MDT, OCS
--- NOTE | 2024-09-21 13:53 | HP.PTDCSUM ---
Discharge Summary D/C summary: It has been my pleasure to treat MIROSLAVA URIBE referred by Dr. Tarik Lobo MD, with the diagnosis of THORACIC BACK PAIN ,THORACIC DISC DISEASE for a total of 24 visit(s). Discharge Date: 09/21/24 Please see the following information for a summary of their discharge status. Subjective Subjective: About 3 weeks ago I had more back pain. Not lifting heavy Able to do most housework not vacuuming Pain Right Back: Pain Intensity (Out of 10): 0 Overall Improvement % Improvement: 50 Objective Objective/Function: POSTURE: mild forward posture GAIT: reciprocal pattern PALAPTION: mild thoracic paraspinals AROM: BUE WFL MMT: grossly BUE 4/5 quads/hams 4/5 ,hip flexion 4-/5 ,ankle 5/5 THORACIC ROM: flexion WFL ,extension min-nil ,rotation WFL pull to left Goals Goal 1:: Patient to be I with HEP for thoracic Goal Progress: Goal Met Goal 2:: Patient to improve lumbar ROM for function of recovery for ADLS and housework Goal Progress: Goal Met Goal 3:: Patient to demonstrate 60 % improvement with less pain and improved function ( new goal) Goal Progress: Progressing Goal 4:: Patient to improve back oswestry score by 5 points to improve QOL and function.( NEW GOALS) Goal Progress: Goal Met Plan Plan: D/C TO HEP D/C Information Discharge Comments: HEP d/c sentence: If there are questions or concerns regarding this patient's physical therapy, please feel free to call me at [phone]. Thank you for the referral of this patient. Sincerely, Brett Renee, PT, Cert MDT, OCS Balance/Gait/Functional tests Balance/Special Test Scores Oswestry Low Back Score: 10 Improvement % Improvement: 50
== END 2024-09-21 19:00 | disposition home or self-care (01) ==
LOC: PT 13:00
PROVIDERS: PCP Family Medicine Geriatric Medicine; Referring Provider Family Medicine Geriatric Medicine; Visit Provider Family Medicine Geriatric Medicine
DX: M54.6 Pain in thoracic spine (principal)
CPT/HCPCS: 97110; 97140; 97162; 97530

== ENCOUNTER → 2024-10-20 | Outpatient (CLI) | payer MEDICARE, OTHER, SELFPAY ==
[2024-10-20 15:23] LABS: Hematocrit 39.1 % (37-47); Hemoglobin 13.6 g/dL (12.0-15.0); Immature Granulocytes Count 0.020 X10^3/uL (0.0-0.0); Mean Corp Hgb Conc 34.8 g/dL (32-36); Mean Corpuscular Volume 93.5 fL (81-99); Mean Platelet Vol. 8.7 fl (6.2-12.0); NRBC Flagged by Analyzer 0 % (0-5); Platelet Count 283 K/mm3 (150-450); RBC Distribution Width CV 11.4 % (11.6-14.6); RBC Distribution Width SD 39.2 fl (35.1-43.9); Red Blood Count 4.18 M/mm3 (4.2-5.4); White Blood Count 7.3 K/mm3 (4.4-11.0)
[2024-10-20 17:31] LABS: AST(SGOT) 34 U/L (<=31); Alanine Aminotransfer ALT/SGPT 53 U/L (<=34); Albumin, Serum 4.5 g/dL (3.4-4.8); Alkaline Phosphatase 81 U/L (35-104); Anion Gap 15 (5-15); BUN 12 mg/dL (4-19); BUN/Creat Ratio 16.1 RATIO (10-20); Calcium,Total 9.6 mg/dL (7.6-11.0); Carbon Dioxide 22.0 mmol/L (21.0-32.0); Chloride 103 mmol/L (98-108); Globulin 3.0 g/dL (2.2-4.2); Glucose 199 mg/dL (70-99); Potassium 3.8 mmol/L (3.3-5.1); Vitamin D,25 Hydroxy 28.1 ng/mL (30-100)
--- OUTSIDE RECORDS SUMMARY | 2024-10-20 20:06 | XMS RPT_ITS | CCD ---
Author Organization [facility] Care Team Providers Care Manager Actuarial Name Role Phone Tarik Lobo Chi Primary Care Provider Dr. Tarik Lobo Chi Primary Care Provider Dr. Gaudencio Méndez Attending Provider [phone]([phone] Dr. Rei Lund Referring Provider [phone]([phone] Dr. Tarik Lobo Chi Primary Care Provider [phone]([phone] Dr. Tarik Lobo Chi Referring Provider [phone]([phone] NAVDEEP Dsouza Attending Provider [phone] Dr. Tarik Lobo MD, Chi Primary Care Provider [phone] Dr. Tarik Lobo MD, Chi Attending Provider Dr. Tarik Lobo MD, Chi Referring Provider [phone] Kaia Benitez Attending Provider [phone] Dr. Tarik Lobo MD, Chi Primary Care Provider [phone]([facility] [phone] Dr. Tarik Lobo MD, Chi Attending Provider [phone] Tarik Lobo Chi Primary Care Provider [phone] TARIK LOBO CHI Primary Care Unavailable Dr. Tarik Lobo MD, Chi Primary Care Provider [phone] Dr. Tarik Loob MD, Chi Attending Provider Dr. Tarik Lobo MD, Chi Referring Provider [phone] Kiaa Benitez Attending Provider [phone] Dr. Heath Pettit MD Attending Provider Tarik Lobo Chi Attending Unavailable Yamil, Tarik Chi Referring Unavailable Yamil, Tarik Chi Primary Care Unavailable Yamil Tarik Chi Attending Unavailable Yamil, Tarik Chi Referring Unavailable Yamil, Tarik Chi Primary Care Unavailable Yamil, Tarik Chi Primary Care Unavailable Yamil, Tarik Chi Attending Unavailable Yamil, Tarik Chi Referring Unavailable Yamil, Tarik Chi Attending Unavailable Yamil, Tarik Chi Primary Care Unavailable Yamil, Tarik Chi Attending Unavailable Yamil, Tarik Chi Referring Unavailable Yamil, Tarik Chi Primary Care Unavailable Yamil, Tarik Chi Attending Unavailable Yamil, Tarik Chi Primary Care Unavailable Yamil, Tarik Chi Referring Unavailable Yamil, Tarik Chi Primary Care Unavailable Kaia Moore Attending Unavailable Yamil, Tarik Chi Referring Unavailable Yamil, Tarik Chi Primary Care Unavailable Kaia Moore Attending Unavailable Yamil, Tarik Chi Referring Unavailable Yamil, Tarik Chi Referring Unavailable Yamil, Tarik Chi Primary Care Unavailable Kaia Moore Attending Unavailable Heath Pettit Attending Unavailable Yamil, Tarik Chi Referring Unavailable [...] Unavailable Yamil, Tarik Chi Primary Care Unavailable Allergies Allergy Classification Reported Allergen(s) Allergy Type Date of Onset Reaction(s) Facility (20 sources) Azithromycin; Translations: [AZITHROMYCIN] Drug Allergy 6 Swelling [facility] Work Phone: (20 sources) Codeine; Translations: [CODEINE] Drug Allergy 9 Other: See Comments [facility] (20 sources) Minocycline; Translations: [MINOCYCLINE] Drug Allergy 9 Other: See Comments [facility] Comment on above: HALLUCINATIONS (11 sources) Penicillin G; Translations: [PENICILLIN G] Drug Allergy 6 [facility] Work Phone: (15 sources) Penicillins; Translations: [Penicillins] Allergy to substance 2 Other [facility] Comment on above: TESTED (+) FOR A CHILD (6 sources) cefdinir Drug Allergy 5 Other: See Comments [facility] (1 source) Azithromycin Drug Allergy 5 [facility] Repository (1 source) cefdinir Drug Allergy 5 [facility] Repository (1 source) Codeine Drug Allergy 5 [facility] Repository (1 source) Minocycline Drug Allergy 5 [facility] Repository Medications Current Medications Medication Drug Class(es) Dates Sig (Normalized) Sig (Original) acetaminophen 500 mg oral capsule (1 source) Start: 08-31-2024 take 1 capsule by mouth every six hours as needed Acetaminophen 500 mg capsule Active 500 mg PO EVERY 6 HOURS as needed August 31, 2024 12:00am albuterol 0.21 mg/ml inhalation solution (5 sources) beta2-Adrenergic Agonist Start: 04-05-2024 take 0.63 mg by inhalation every four to six hours as needed Albuterol Sulfate 0.63 mg/3 mL solution for nebulization Active 0.63 mg INHALATION EVERY 4-6 HOURS as needed April 05, 2024 1:00am ascorbic acid 1500 mg extended release oral tablet (5 sources) Vitamin C Start: 04-05-2024 take 1 tablet by mouth every twelve hours Ascorbic Acid (Vitamin C) 1,500 mg tablet extended release Active 1500 mg PO Q12H April 05, 2024 1:00am atorvastatin 20 mg oral tablet (20 sources) HMG-CoA Reductase Inhibitor Start: 04-19-2021 End: 08-31-2024 take 1 tablet by mouth at bedtime Atorvastatin 20 mg tablet Active 20 mg PO AT BEDTIME August 31, 2024 2:46pm Comment on above: Take 20 mg by mouth daily at bedtime. azelastine hydrochloride 0.137 mg/actuat metered dose nasal spray (6 sources) Histamine-1 Receptor Antagonist Start: 04-05-2024 Azelastine 137 mcg (0.1 %) spray,non-aerosol Active 1 NMA INTRANASAL TWICE A DAY as needed April 05, 2024 1:00am administer into each nostril bacitracin 0.5 unt/mg ophthalmic ointment (5 sources) Start: 04-05-2024 Bacitracin 500 unit/gram ointment Active 1 NMA OPHTHALMIC Q8H April 05, 2024 1:00am biotin 5 mg oral tablet (18 sources) BIOTIN ORAL Take 3 mg by mouth. Plus zinc Active take 1 tablet by mouth once mariluz y biotin 5 mg tab Take 5 mg by mouth once daily. Active Comment on above: Take 5 mg by mouth o nce daily. Take 3 mg by mouth. Plus zinc Blood-Glucose Sensor (Freestyle Rodney 3 Plus Sensor) device (2 sources) Start: 06-22-2024 Blood-Glucose Sensor (Freestyle Rodney 3 Plus Sensor) device Active 0 .Route 2 5 June 22, 2024 12:00am As directed Start: 06-22-2024 Blood-Glucose Sensor (Freestyle Rodney 3 Plus Sensor) device Active 0 .Route 2 June 22, 2024 12:00am As directed calcium acetate 667 mg oral tablet (5 sources) Start: 04-05-2024 take 1 tablet by mouth once Calcium Acetate 667 mg tablet Active 667 mg PO ONCE April 05, 2024 1:00am Calcium Carbonate (9 sources) calcium carbonat e (TUMS 500 ORAL) Take by mouth. Active calcium carbonat e (TUMS 500 ORAL) Take by mouth. 0 Active Comment on above: Take by mouth. CALCIUM-MAGNESIUM ORAL (10 sources) CALCIUM-MAGNESIU M ORAL Take by mouth. Active CALCIUM-MAGNESIU M ORAL Take by mouth. 0 Active Comment on above: Take by mouth. Cetirizine (10 sources) Histamine-1 Receptor Antagonist cetirizine HCl (ZYRTEC ORAL) Take by mouth. Active cetirizine HCl ( ZYRTEC ORAL) Take by mouth. 0 Active Comment on above: Take by mouth. cholecalciferol 0.025 mg oral capsule (5 sources) Vitamin D Start: 04-05-19 take 1 capsule by mouth once daily Cholecalciferol (Vitamin D3) 25 mcg (1,000 unit) capsule Active 25 ug PO daily April 05, 2024 1:00am cholecalciferol, vitamin D3, (VITAMIN D3 ORAL) (10 sources) cholecalciferol, vitamin D3, (VITAMIN D3 ORAL) Take by mouth. Active cholecalciferol, vitamin D3, (VITAMIN D3 ORAL) Take by mouth. 0 Active Comment on above: Take by mouth. clotrimazole 10 mg/ml topical cream (4 sources) Azole Antifungal Start: 06-09-2024 clotrimazole (LOTRIMIN) 1 % cream apply topically 3 times a day 06/09/2024 Active Start: 06-09-2024 Clotrimazole 1 % cream Active 1 NMA TOPICAL THREE TIMES A DAY 45 0 June 09, 2024 12:00am Candidiasis of vagina Acute candidiasis of vulva and vagina Docusate (10 sources) docusate sodium (COLACE ORAL) Take by mouth. Active docusate sodium (COLACE ORAL) Take by mouth. 0 Active Comment on above: Take by mouth. Dulaglutide (13 sources) GLP-1 Receptor Agonist Start: 08-12-2024 Dulaglutide (Trulicity) 3 mg/0.5 mL pen injector Active 3 mg SC EVERY WEEK 2 4 August 12, 2024 12:00am Diabetes mellitus Type 2 diabetes mellitus with hyperglycemia Start: 08-12-2024 Dulaglutide (T rulicity) 3 mg/0.5 mL pen injector Active 3 mg SC EVERY WEEK 2 August 12, 2024 12:00am Start: 04-05-2024 End: 04-05-2024 Dulaglutide (Trulicity) 0.75 mg/0.5 mL pen injector Discontinued 0.75 mg SC EVERY WEEK April 05, 2024 1:00am April 05, 2024 3:48pm Start: 04-05-2024 End: 08-12-2024 Dulaglutide (Trulicity) 1.5 mg/0.5 mL pen injector Discontinued 1.5 mg SC EVERY WEEK 2 4 April 05, 2024 1:00am August 12, 2024 11:06am Diabetes mellitus Type 2 diabetes mellitus without complications econazole nitrate 10 mg/ml topical cream (5 sources) Azole Antifungal Start: 04-05-2024 Econazole Nit rate 1 % cream Active 1 NMA TOPICAL daily April 05, 2024 1:00am empty bottle (NASAL SPRAY BOTTLE) botl (10 sources) empty bottle (NA PARVEZ SPRAY BOTTLE) botl by MISCELLANEOUS route. Active empty bottle (NA PARVEZ SPRAY BOTTLE) botl by MISCELLANEOUS route. 0 Active Comment on above: by MISCELLANEOUS rou te. evening primrose oil (EVENIN G PRIMROSE ORAL) (10 sources) evening primrose oil (EVENING PRIMROSE ORAL) Take by mouth. Active evening primrose oil (EVENING PRIMROSE ORAL) Take by mouth. 0 Active Comment on above: Take by mouth. famotidine 40 mg oral tablet (20 sources) Histamine-2 Receptor Antagonist Start: 04-19-2021 take 1 tablet by mouth once daily Famotidine 40 mg tablet Active 40 mg PO DAILY April 19, 2021 1:00am FAMOTIDINE ORAL Take by mouth. 0 Active Comment on above: Take by mouth. ibuprofen 600 mg oral tablet (1 source) Nonsteroidal Anti-inflammatory Drug Start: 08-04-19 End: 08-11-19 take 1 tablet by mouth every six hours as needed for pain ibuprofen (MOTRIN) 600 mg tablet Indications: Postoperative pain Take 1 tablet by mouth every 6 hours as needed for pain for up to 30 doses. 30 tablet 0 08/03/2021 08/10/2021 Active Comment on above: Take 1 tablet by jj th every 6 hours as needed for pain for up to 30 doses. levothyroxine sodium 0.025 mg oral tablet (14 sources) l-Thyroxine Start: 04-19-19 take 1 tablet by mouth once daily Levothyroxine 25 mcg tablet Active 25 ug PO DAILY April 19, 2021 1:00am levothyroxine (SYNTHROID) 25 MCG/ML susp (10 sources) take 12.5 ug by mouth once daily levothyroxine (SYNTHROID) 25 MCG/ML susp Take 12.5 mcg by mouth once daily. Active take 12.5 ug by mouth once daily levothyroxine (SYNTHROID) 25 MCG/ML susp Take 12.5 mcg by mouth once daily. 0 Active Comment on above: Take 12.5 mcg by jj th once daily. lisinopril 20 mg oral tablet (20 sources) Angiotensin Converting Enzyme Inhibitor Start: 02-08-2011 take 1 tablet by mouth once daily Lisinopril 20 mg tablet Active 20 mg PO DAILY April 19, 2021 1:00am Comment on above: Take 1 tablet by jj th once daily. omega-3/dha/epa/dpa/ fish oil (OMEGA-3 2099 ORAL) (9 sources) omega-3/dha/epa/ dpa /fish oil (OMEGA-3 2099 ORAL) Take by mouth. Active omega-3/dha/epa/ dpa/fish oil (OMEGA-3 2099 ORAL) Take by mouth. 0 Active Comment on above: Take by mouth. potassium chloride 10 meq extended release oral tablet (20 sources) Start: 08-31-2024 take 2 tablets by mouth once daily Potassium Chloride 10 mEq tablet extended release Active 20 meq PO daily August 31, 2024 12:00am Start: 02-27-2021 End: 08-31-2024 take 1 tablet by mouth once daily Potassium Chloride 20 mEq tablet,ER particles/crystals Discontinued 20 meq PO DAILY April 19, 2021 1:00am August 31, 2024 2:48pm Comment on above: Take 1 tablet by jj th once daily. Povidone (10 sources) povidone (SOOTHE HYDRATION) 1.25 % drop Use in eyes. Active povidone (SOOTHE HYDRATION) 1.25 % drop Use in eyes. 0 Active Comment on above: Use in eyes. rutin/quercetin/bioflav/bilb er (BILBERRY EXTRACT ORAL) (9 sources) rutin/quercetin/ bioflav/bilber (BILBERRY EXTRACT ORAL) Take by mouth. Active rutin/quercetin/ bioflav/bilber (BILBERRY EXTRACT ORAL) Take by mouth. 0 Active Comment on above: Take by mouth. VITAMIN B COMPLEX ORAL (10 sources) VITAMIN B COMPLE X ORAL Take by mouth. Active VITAMIN B COMPLE X ORAL Take by mouth. 0 Active Comment on above: Take by mouth. Vitamin B Complex tablet (5 sources) Start: 04-05-2024 Vitamin B Comp wali tablet Active 1 {tbl} PO daily April 05, 2024 1:00am Zinc Acetate (9 sources) ZINC ACETATE ORA L Take by mouth. Active ZINC ACETATE ORA L Take by mouth. 0 Active Comment on above: Take by mouth. Completed/Discontinued Medications Medication Drug Class(es) Dates Sig (Normalized) Sig (Original) buffers/ascorbic acid (BUFFERED C POWDER ORAL) (2 sources) End: 07-20-2021 buffers/ascorbic acid (BUFFERED C POWDER ORAL) Take by mouth. 0 07/20/2021 Discontinued buffers/ascorbic acid (BUFFERED C POWDER ORAL) Take by mouth. 0 Active Comment on above: Take by mouth. citalopram 20 mg oral tablet (6 sources) Serotonin Reuptake Inhibitor Start: 04-05-19 End: 09-01-19 take 1 tablet by mouth once daily Citalopram 20 mg tablet Discontinued 20 mg PO daily April 05, 2024 1:00am August 31, 2024 2:43pm 24 hr dapagliflozin 5 mg / metFORMIN hydrochloride 500 mg extended release oral tablet (1 source) Biguanide, Sodium-Glucose Cotransporter 2 Inhibitor End: 05-24-19 dapagliflozin-metfor min 5-500 mg TBph Take by mouth twice daily. Metformin ER 500 BID 0 05/23/2021 Discontinued Comment on above: Take by mouth twice daily. Metformin ER 500 BID estradiol 0.1 mg/ml vaginal cream (20 sources) Estrogen Start: 04-19-19 End: 04-05-19 Estradiol 0.01 % (0.1 mg/gram) cream Discontinued 1 NMA VAGINAL .2 TIMES WEEKLY April 19, 2021 1:00am April 05, 2024 2:47pm Start: 04-19-2021 Estradiol Acti ve 1 APPLIC VAGINAL .2 TIMES WEEKLY April 19, 2021 1:00am Start: 01-26-2021 End: 06-12-2024 estradiol (ESTRACE) 0.01 % ( 0.1 mg/gram) vaginal cream Use 1 g vaginally two times a week. After using nightly for 2 weeks. 42.5 g 3 07/26/2021 06/12/2024 Discontinued Comment on above: Use 1 g vaginally tw o times a week. After using nightly for 2 weeks. fluconazole 200 mg oral tablet (4 sources) Azole Antifungal Start: End: take 1 tablet by mouth once daily Fluconazole 200 mg tablet Discontinued 200 mg PO daily 2 0 June 09, 2024 12:00am August 31, 2024 2:49pm Candidiasis of vagina Acute candidiasis of vulva and vagina 1 tablet, repeat in 72 hours MEDICATION, NON-DATABASE (2 sources) End: 2 MEDICATION, NON-DATABASE Rehydration 0 07/20/2021 Discontinued MEDICATION, NON- DATABASE Rehydration 0 Active Comment on above: Rehydration 24 hr metFORMIN hydrochlorid e 500 mg extended release oral tablet (20 sources) Biguanide Start: 07-20-2021 End: 09-10-2021 metFORMIN ER (GLUCOPHAGE XR) 500 mg 24 hr tablet Start: 04-19-2021 End: 04-05-2024 take 1 tablet by mouth once daily Metformin 500 mg tablet extended release 24 hr Discontinued 500 mg PO DAILY April 19, 2021 1:00am April 05, 2024 2:48pm miSOPROStol 0.2 mg oral tablet (10 sources) Prostaglandin E1 Analog Start: 04-26-2021 End: 09-10-2021 miSOPROStol (CYTOTEC) 200 mcg tablet Take 2 tablets by mouth at bedtime 2 nights prior to procedure and take 2 tablets by mouth at bedtime the night before procedure 4 tablet 0 05/23/2021 09/10/2021 Discontinued Comment on above: Take 2 tablets by mo uth at bedtime 2 nights prior to procedure and take 2 tablets by mouth at bedtime the night before procedure Take 2 tablets by mo uth at bedtime the night before procedure PARoxetine hydrochloride 20 mg oral tablet (20 sources) Serotonin Reuptake Inhibitor Start: 04-19-2021 End: 04-05-2024 take 1 tablet by mouth once daily Paroxetine Hcl 20 mg tablet Discontinued 20 mg PO DAILY April 19, 2021 1:00am April 05, 2024 2:48pm End: 09-10-2021 PAROXETINE HCL ORAL Take 20 mg by mouth. 0 09/10/2021 Discontinued Comment on above: Take 20 mg by mouth. pioglitazone 30 mg oral tablet (5 sources) Peroxisome Proliferator Receptor alpha Agonist, Peroxisome Proliferator Receptor gamma Agonist, Thiazolidinedione Start: 04-05-19 End: 04-05-19 take 1 tablet by mouth once daily Pioglitazone 30 mg tablet Discontinued 30 mg PO daily April 05, 2024 1:00am April 05, 2024 3:48pm Problems Active Problems Problem Classification Problem Date Documented Date Episodic/Chronic Administrative/social admission (1 source) Education and/or schooling finding; Translations: [Problems related to education and literacy, unspecified] Episodic Anxiety disorders (11 sources) Anxiety state; Translations: [Generalized anxiety disorder] Onset: 03-29-2008 03-29-2008 Chronic Asthma (10 sources) Childhood asthma; Translations: [Unspecified asthma, uncomplicated] Onset: 07-23-2021 Chronic Diabetes mellitus with complications (1 source) Type 2 diabetes mellitus with hyperglycemia; Translations: [Type 2 diabetes mellitus with hyperglycemia] Onset: 08-31-2024 Chronic Diabetes mellitus without complication (18 sources) Diabetes mellitus; Translations: [Type 2 diabetes mellitus without complications] Onset: 04-05-2024 08-03-2021 Chronic Diabetes mellitus without complication (1 source) Glycosuria; Translations: [Glycosuria] 06-12-2024 Episodic Disorders of lipid metabolism (20 sources) Hyperlipidemia; Translations: [Hyperlipidemia, unspecified] Onset: 04-01-2008 07-05-2008 Chronic Essential hypertension (20 sources) Essential hypertension; Translations: [Essential (primary) hypertension] Onset: 03-29-2008 10-17-2008 Chronic Genitourinary symptoms and ill-defined conditions (2 sources) Increased frequency of urination; Translations: [Frequency of micturition] 06-12-2024 Episodic Influenza (10 sources) Influenza due to Influenza A virus; Translations: [Influenza due to other identified influenza virus with other respiratory manifestations] 02-25-2022 Episodic Menopausal disorders (11 sources) Postmenopausal bleeding; Translations: [Postmenopausal bleeding] Onset: 07-23-2021 Chronic Mycoses (6 sources) Candidiasis of vagina; Translations: [Candidiasis of vagina] 06-09-2024 Episodic Nonspecific chest pain (11 sources) Chest pain; Translations: [Chest pain, unspecified] Onset: 08-31-2024 04-08-2024 Episodic Nutritional deficiencies (18 sources) Vitamin D deficiency; Translations: [Vitamin D deficiency, unspecified] Onset: 07-08-2008 10-06-2008 Chronic Other non-traumatic joint disorders (12 sources) Ankle pain; Translations: [Pain in right ankle and joints of right foot] 08-25-2021 Episodic Other nutritional; endocrine; and metabolic disorders (18 sources) Obesity; Translations: [Obesity, unspecified] Onset: 03-29-2008 10-04-2008 Chronic Other nutritional; endocrine; and metabolic disorders (7 sources) Overweight; Translations: [Overweight] 06-09-2024 Episodic Other screening for suspected conditions (not mental disorders or infectious disease) (1 source) Patient encounter status; Translations: [Encounter for screening mammogram for malignant neoplasm of breast] Episodic Residual codes; unclassified (11 sources) Sleep apnea; Translations: [Sleep apnea, unspecified] Onset: 03-29-2008 03-29-2008 Chronic Spondylosis; intervertebral disc disorders; other back problems (1 source) Unspecified thoracic, thoracolumbar and lumbosacral intervertebral disc disorder; Translations: [Unspecified thoracic, thoracolumbar and lumbosacral intervertebral disc disorder] Onset: 09-21-2024 Chronic Spondylosis; intervertebral disc disorders; other back problems (3 sources) Thoracic back pain; Translations: [Dorsalgia, unspecified] Onset: 06-17-2024 06-12-2024 Episodic Thyroid disorders (12 sources) Hypothyroidism; Translations: [Hypothyroidism, unspecified] Onset: 07-23-2021 Chronic Unclassified (1 source) Acute candidiasis of vulva and vagina; Translations: [Acute candidiasis of vulva and vagina] Onset: 06-09-2024 Past or Other Problems Problem Classification Problem Date Documented Da te Episodic/Chronic Other gastrointestinal disorders (1 source) Dysphagia, unspecified; Translations: [Dysphagia, unspecified] Onset: 10-03-2023 Episodic Other lower respiratory disease (1 source) Other specified respiratory disorders; Translations: [Other specified respiratory disorders] Onset: 05-29-2024 Episodic Other non-epithelial cancer of skin (10 sources) Basal cell carcinoma of skin; Translations: [Basal cell carcinoma of skin, unspecified] Onset: 07-23-2021 Episodic Residual codes; unclassified (1 source) Chills (without fever); Translations: [Chills (without fever)] Onset: 04-02-2024 Episodic Urinary tract infections (1 source) Urinary tract infection, site not specified; Translations: [Urinary tract infection, site not specified] Onset: 06-05-2024 Episodic Results Test Name Value Interpretation Reference Range Facility Cardiology Visit Reporton Cardiology Visit Report [facility] [place] [id number] [facility] [place] [address] OFFICE VISIT Date of Service: 08/31/24 MR#: [id number] Acct: [id number] Name: KIRA URIBE Rep #: [id number] 15 : 1955 Provider: Dr. Heath lou MD Age/Sex: 68/F Location: [facility] Status: Signed HPI HPI History of Present Illness Details: Patient is a 68-year-old white female that comes today for new patient visit. The patient is referred for chest discomfort. She describes this as her heart feeling weak at times associated with some tightness in her neck and tingling down her left arm. The left arm tingling is primarily when she is in the recumbent position lying on her left side. But then she says it does occasionally occur when she is up doing things. She also describes the stiffness in her chest and that her heart feels tired at times. Patient is diabetic, she is hypertensive and hyperlipidemic. She does not smoke and she does not have an early family history of coronary disease. The patient's EKG shows normal sinus rhythm at 80 bpm there is a possible old inferior wall infarct pattern which makes it abnormal. There is no prior history of an infarct. The patient is very reluctant to pursue any type of invasive evaluation. We did discuss various options including coronary CTA, heart catheterization, and stress testing. Intake Vital Signs 06/09/24 11:17 08/12/24 10:08/31/24 14:41 Height 5 ft 3 in 5 ft 3 in 5 ft 3 in Weight: 162 lb BMI 28.7 BP 133/90 H Blood Pressure Location Lt brachial Position Sitting Respiration 18 Pulse 95 Pulse Source Monitor Pulse Oximetry (%) 94 Oxygen Delivery Method room air Intake Visit Reasons: RE-EST (Yamil) Cashier Required: No Accompanied by: Self Is patient in pain?: No Allergies cefdinir Allergy (Intermediate, Verified 08/31/24 14:42) Bleeding azithromycin (From Zithromax) Allergy (Verified 08/31/24 14:42) Swelling codeine Allergy (Verified 08/31/24 14:42) Other minocycline (From Dynacin) Allergy (Verified 08/31/24 14:42) Other Penicillins (PCN) Allergy (Verified 08/31/24 14:42) Other Medications ???Medication ???Instructions ???Recorded ???Confirmed ???Type famotidine 40 mg tablet 40 mg PO DAILY 04/19/21 08/31/24 H istory levothyroxine 25 mcg tablet 25 mcg PO DAILY 04/19/21 08/31/24 History lisinopril 20 mg tablet 20 mg PO DAILY 04/19/21 08/31/24 H istory albuterol sulfate 0.63 mg/3 mL 0.63 mg inhalation Q4-6H PRN 04/0508/31/24 History solution for nebulization ascorbic acid (vitamin C) 1,500 mg 1,500 mg PO Q12H 04/05/24 History tablet,extended release azelastine 137 mcg (0.1 %) nasal 1 spray intranasal BID PRN 04/05/2 5 08/31/24 History spray bacitracin 500 unit/gram eye 1 applic ophthalmic (eye) Q8H /05/2508/31/24 History ointment calcium acetate 667 mg tablet 667 mg PO ONCE 04/05/24 08/31/24 H istory cholecalciferol (vitamin D3) 25 25 mcg PO QDAY 04/05/24 08/31/24 H istory mcg (1,000 unit) capsule econazole nitrate 1 % topical cream 1 applic topical QDAY 04/05/24 08/31/24 History vitamin B complex 1 tab PO QDAY 04/05/24 08/31/24 Hi story clotrimazole 1 % topical cream 1 applic topical TID #45 grams 11/2508/31/24 Rx blood-glucose sensor (FreeStyle #2 ea 06/22/24 08/12/24 Rx Rodney 3 Plus Sensor device) dulaglutide 3 mg/0.5 mL 3 mg (0.5 mL) subcut QWEEK #2 mL 0 08/12/24 08/31/24 Rx subcutaneous pen injector (Trulicity) acetaminophen 500 mg capsule 500 mg PO Q6H PRN 08/31/24 5 History atorvastatin 20 mg tablet 20 mg PO QHS 08/31/24 08/31/24 His tory potassium chloride 10 mEq 20 meq PO QDAY 08/31/24 08/31/24 H istory tablet,extended release Have you fallen in the past year?: No PFSH Medical History Wears glasses Post-menopausal Cancer Depression Anxiety Alcohol use History of steroid therapy Thyroid disease Diabetes Anemia High cholesterol Injury of head and neck Loss of consciousness History of IBS Gastric reflux Non-smoker Asthma Hypertension Surgical History Hx of colonoscopy Hx of oral surgery Hx of laparoscopy Family History Mother Anemia Anesthesia complication Asthma Arthritis Diabetes Depression Hyperlipidemia Hypertension CVA (cerebral vascular accident) Thyroid disorder Father Parkinson disease Heart disease Depression Grandmother Depression Heart disease Hypertension CVA (cerebral vascular accident) Grandfather Lung cancer Social History [place] (more content not included)... Normal [facility] Re-Evaluation - PT (1)on Re-Evaluation - PT (1) [facility] Physical Therapy [facility] [address] [place] [address] / REEVALUATION / MEDICARE RECERTIFICATION PHYSICAL THERAPY MR#: [id number] Acct: [id number] Name: KIRA URIBE Rep #: [id number] : 1955 68 From: Brett Renee PT, Cert. T, OCS Referring Dr.: Dr. Tarik Lobo MD Status:REG RCR Insurance: MEDICARE PART A B [facility] [facility] [employer] Re-Evaluation Intro: Dr. Tarik Lobo MD, It has been my pleasure to treat KIRA URIBE over the last 17 visits for THORACIC BACK PAIN ,THORACIC DISC DISEASE. Please see the progress note below for an update on the physical therapy plan of care! Subjective Subjective: Patient reports PT is helping Vacuuming is unable to vacuum Difficulty reaching behind back Able to carry laundry basket Patient has not seen for PCP Objective Objective/Function: Patient has progressed with decreasing pain and improve function thus goals are appropriate POSTURE: mild forward posture GAIT: reciprocal pattern PALAPTION: mild thoracic paraspinals AROM: BUE WFL MMT: grossly BUE 4/5 quads/hams 4/5 ,hip flexion 4-/5 ,ankle 5/5 THORACIC ROM: flexion WFL ,extension min-nil ,rotation WFL pull to left Plan Plan Plan: PT INTERVENTIONS POSTURAL EX'S, THORACIC ROM, STRENGTHENING, ACTIVITY MODIFICATION AND MODALITIES Balance/Gait/Functi onal tests Balance/Special Test Scores Oswestry Low Back Score: 19 Goals Goals Goal 1:: Patient to be I with HEP for thoracic Goal Time Frame: 4-6 Weeks Goal Progress: Progressing Goal 2:: Patient to improve lumbar ROM for function of recovery for ADLS and housework Goal Time Frame: 4-6 Weeks Goal Progress: Progressing Goal 3:: Patient to demonstrate 60 % improvement with less pain and improved function ( new goal) Goal Time Frame: 4-6 Weeks Goal Progress: Progressing Goal 4:: Patient to improve back oswestry score by 5 points to improve QOL and function.( NEW GOALS) Goal Time Frame: 4-6 Weeks Goal Progress: Progressing Anticipated Interventions Anticipated Interventions Patient/Client Instruction: Educate patient on: Condition and Plan of Care For the Purpose of:: To decrease pain, To increase ROM, To increase tolerance to activity/condition/ position, To decrease level of supervision to perform tasks, To improve health of tissue, To decrease soft tissue restriction, To increase flexibility/ROM, To reduce risk of recurrence and To improve tolerance to ADL's Therapeutic Exercise to Include: Strength training, Body mechanics, Postural training, Flexibilty training, Dynamic Lumbar Stabilization and Scapular Strength/Stabilizat ion Comment: THORACIC For the Purpose of:: To decrease pain, To increase ROM, To improve muscle performance and motor function, To increase tolerance to activity/condition/ position, To improve ability of physical actions for home/community/work /leisure, To improve health of tissue, To decrease soft tissue restriction and To increase flexibility/ROM TENS: Yes IF ES: Yes Cryotherapy (ice pack, ice massage): Yes Thermo therapy (hot pack): Yes Ultrasound (thermal/non thermal): Yes For the Purpose of:: To decrease pain, To increase ROM, To improve nutrient delivery to tissue, To increase oxygenation perfusion, To improve health of tissue and To decrease soft tissue restriction Re-Evaluation Ending Re-evaluation ending: Please do not hesitate to contact me at [phone] by phone or if you have questions or concerns regarding this new plan of care! Sincerely, Brett Renee PT, Cert MDT, OCS 08/17/24 7837 CC: Dr. Tarik Lobo MD POLO Signed For Medicare only, by signing this I certify the plan of care. _ Physicians Signature Date Normal [facility] Endocrinology Visit Reporton 08-12-2024 Endocrinology Visit Report [facility] [facility] [place] [address] OFFICE VISIT Date of Service: 08/12/24 MR#: [id number] Acct: [id number] Name: KIRA URIBE Rep #: [id number] : 1955 Provider: MIGUEL fink Age/Sex: 68/F Location[place] [facility] [place] Status: Signed Intake Vital Signs 06/09/24 11:17 08/12/24 10:16 08/12/24 10:17 Height 5 ft 3 in 5 ft 3 in 5 ft 3 in Weight: 164 lb BMI 29.0 BP 147/76 H Blood Pressure Location Lt brachial Position Sitting Pulse 82 Pulse Source Monitor Pulse Oximetry (%) 95 Oxygen Delivery Method room air Intake Visit Reasons: 8 Wk FU Chief Complaint: f/u diabetes Cashier Required: No Accompanied by: Self Is patient in pain?: No Allergies cefdinir Allergy (Intermediate, Verified 08/12/24 10:17) Bleeding azithromycin (From Zithromax) Allergy (Verified 08/12/24 10:17) Swelling codeine Allergy (Verified 08/12/24 10:17) Other minocycline (From Dynacin) Allergy (Verified 08/12/24 10:17) Other Penicillins (PCN) Allergy (Verified 08/12/24 10:17) Other Medications ???Medication ???Instructions ???Recorded ???Confirmed ???Type atorvastatin 20 mg tablet 20 mg PO DAILY 04/19/21 08/12/24 H istory famotidine 40 mg tablet 40 mg PO DAILY 04/19/21 08/12/24 H istory levothyroxine 25 mcg tablet 25 mcg PO DAILY 04/19/21 08/12/24 History lisinopril 20 mg tablet 20 mg PO DAILY 04/19/21 08/12/24 H istory potassium chloride 20 mEq 20 meq PO DAILY 04/19/21 08/12/24 History tablet,extended release(part/cryst) albuterol sulfate 0.63 mg/3 mL 0.63 mg inhalation Q4-6H PRN 04/0508/12/24 History solution for nebulization ascorbic acid (vitamin C) 1,500 mg 1,500 mg PO Q12H 04/05/24 History tablet,extended release azelastine 137 mcg (0.1 %) nasal 1 spray intranasal BID PRN 04/05/2 5 08/12/24 History spray bacitracin 500 unit/gram eye 1 applic ophthalmic (eye) Q8H 02/0 05/2508/12/24 History ointment calcium acetate 667 mg tablet 667 mg PO ONCE 04/05/24 08/12/24 H istory cholecalciferol (vitamin D3) 25 25 mcg PO QDAY 04/05/24 08/12/24 H istory mcg (1,000 unit) capsule citalopram 20 mg tablet 20 mg PO QDAY 04/05/24 08/12/24 Hi story econazole nitrate 1 % topical cream 1 applic topical QDAY 04/05/24 08/12/24 History vitamin B complex 1 tab PO QDAY 04/05/24 08/12/24 Hi story clotrimazole 1 % topical cream 1 applic topical TID #45 grams 11/2508/12/24 Rx fluconazole 200 mg tablet 200 mg PO QDAY #2 tabs 06/09/24 Rx blood-glucose sensor (FreeStyle #2 ea 06/22/24 08/12/24 Rx Rodney 3 Plus Sensor device) dulaglutide 3 mg/0.5 mL 3 mg (0.5 mL) subcut QWEEK #2 mL 0 08/12/24 08/12/24 Rx subcutaneous pen injector (Trulicity) Have you fallen in the past year?: No PFSH Medical History Wears glasses Post-menopausal Cancer Depression Anxiety Alcohol use History of steroid therapy Thyroid disease Diabetes Anemia High cholesterol Injury of head and neck Loss of consciousness History of IBS Gastric reflux Non-smoker Asthma Hypertension Surgical History Hx of colonoscopy Hx of oral surgery Hx of laparoscopy Family History Mother Anemia Anesthesia complication Asthma Arthritis Diabetes Depression Hyperlipidemia Hypertension CVA (cerebral vascular accident) Thyroid disorder Father Parkinson disease Heart disease Depression Grandmother Depression Heart disease Hypertension CVA (cerebral vascular accident) Grandfather Lung cancer Social History Smoking Status: Never smoker HPI HPI Chief Complaint: f/u diabetes Details: KIRA URIBE, is a 68 F who presents to the office today for evaluation and management of diabetes. A1C on 06/02/24 was 9.8%, GMI today is 8.6%. She has lot 4 lbs since her lat appt here on 06/09/24. Currently taking Trulicity 1.5 mg qweek- tolerating well. She continues to be hesitant with use of medication, she feels it is dehydrating to her. CGM tracings reviewed in detail- she is having sustained elevations. She has made dietary modifications, she admits that there is still room for improvement in her diet. BP controlled. Currently taking lisinopril 20 mg once daily. She is hypothyroid and taking levothyroxine 25 mcg once daily. She is taking atorvastatin 20 mg a coupe times/week. She is concerned with tightly controlled cholesterol. She has an appt to see cardiology. She complains of continued symptoms of her heart feeling tired. Labs are up to date with PCP (more content not included)... Normal [facility] Re-Evaluation - PT (1)on Re-Evaluation - PT (1) [facility] Physical Therapy [facility] [address] [place] [address] / REEVALUATION / MEDICARE RECERTIFICATION PHYSICAL THERAPY MR#: [id number] Acct: [id number] Name: KIRA URIBE Rep #: [id number] : 1955 68 From: Brett Renee PT, Cert. T, [facility] Referring Dr.: Dr. Tarik Lobo MD Status:REG RCR Insurance: MEDICARE PART A B [facility] Re-Evaluation Intro: Dr. Tarik Lobo MD, It has been my pleasure to treat KIRA URIBE over the last 9 visits for THORACIC BACK PAIN ,THORACIC DISC DISEASE. Please see the progress note below for an update on the physical therapy plan of care! Subjective Subjective: Doing some better , the anti inflammatory helped My flexibility improved Most difficulty with vacuuming Objective Objective/Function: Patient has progressed with decreasing pain and improve function thus goals are appropriate POSTURE: mild forward posture GAIT: reciprocal pattern PALAPTION: mild thoracic paraspinals AROM: BUE WFL MMT: grossly BUE 4/5 quads/hams 4/5 ,hip 4-/5 ,ankle 5/5 THORACIC ROM: flexion min loss ,extension min ,rotation WFL Plan Plan Plan: PT INTERVENTIONS POSTURAL EX'S ,THORACIC ROM ,STRENGTHENING ,ACTIVITY MODIFICATION AND MODALITIES Balance/Gait/Functi onal tests Balance/Special Test Scores Oswestry Low Back Score: 19 Goals Goals Goal 1:: Patient to be I with HEP for thoracic Goal Time Frame: 4-6 Weeks Goal Progress: Progressing Goal 2:: Patient to improve lumbar ROM for function of recovery for ADLS and housework Goal Time Frame: 4-6 Weeks Goal Progress: Progressing Goal 3:: Patient to demonstrate 50 % improvement with less pain and improved function Goal Time Frame: 4-6 Weeks Goal Progress: Progressing Goal 4:: Patient to improve back oswestry score by 5 points to improve QOL and function.( NEW GOALS) Goal Time Frame: 4-6 Weeks Anticipated Interventions Anticipated Interventions Patient/Client Instruction: Educate patient on: Condition and Plan of Care For the Purpose of:: To decrease pain, To increase ROM, To increase tolerance to activity/condition/ position, To decrease level of supervision to perform tasks, To improve health of tissue, To decrease soft tissue restriction, To increase flexibility/ROM, To reduce risk of recurrence and To improve tolerance to ADL's Therapeutic Exercise to Include: Strength training, Body mechanics, Postural training, Flexibilty training, Dynamic Lumbar Stabilization and Scapular Strength/Stabilizat ion Comment: THORACIC For the Purpose of:: To decrease pain, To increase ROM, To improve muscle performance and motor function, To increase tolerance to activity/condition/ position, To improve ability of physical actions for home/community/work /leisure, To improve health of tissue, To decrease soft tissue restriction and To increase flexibility/ROM TENS: Yes IF ES: Yes Cryotherapy (ice pack, ice massage): Yes Thermo therapy (hot pack): Yes Ultrasound (thermal/non thermal): Yes For the Purpose of:: To decrease pain, To increase ROM, To improve nutrient delivery to tissue, To increase oxygenation perfusion, To improve health of tissue and To decrease soft tissue restriction Re-Evaluation Ending Re-evaluation ending: Please do not hesitate to contact me at [phone] by phone or if you have questions or concerns regarding this new plan of care! Sincerely, Brett Renee, PT, Cert MDT, OCS 07/19/24 1229 CC: Dr. Tarik Lobo MD POLO Signed For Medicare only, by signing this I certify the plan of care. _ Physicians Signature Date Normal [facility] Absolute lymphocyte countOrd ered By: Tarik Lobo on 06-30-2024 Lymphocytes Auto (Unsp spec) [#/Vol] 2.19 10*3/uL 0.83-4.51 [facility] Absolute neutrophil countOrd ered By: Tarik Lobo on 06-30-2024 Neutrophils (Bld) [#/Vol] 3.2 10*3/uL 2.0-7.7 [facility] Anion gap in Serum or Plasma Ordered By: Tarik Lobo on 06-30-2024 Anion gap [Moles/Vol] 13 mmol/L 5-15 [facility] Automated blood erythrocyte countOrdered By: Tarik Lobo on 06-30-2024 RBC (Bld) [#/Vol] 4.14 10*6/uL Low 4.2-5.4 [facility] Comment on above: Performed By: #### L 501.9520, L506.1001, L500.4050, L100.0100 #### [facility] Laboratory [address] [place], [address] Automated blood hematocrit ( percentage)Ordered By: Tarik Lobo on 06-30-2024 Hematocrit (Bld) [Volume fraction] 38.9 % Normal 37-47 [facility] Comment on above: Performed By: #### L 501.9520, L506.1001, L500.4050, L100.0100 #### [facility] [address] [place], [address] Automated lymphocyte count a s percentage of total leukocytesOrdered By: Tarik Lobo on 06-30-2024 Lymphocytes/100 WBC Auto (Unsp spec) 35.2 % [facility] BUN/creatinine ratioOrdered By: Tarik Lobo on 06-30-2024 Urea nitrogen/Creatinine [Mass ratio] 18.3 mg/mg 10- [facility] Basophil percentageOrdered B y: Tarik Lobo on 06-30-2024 Basophils/100 WBC (Bld) 1.3 % High 0-1 [facility] Comment on above: Performed By: #### L 501.9520, L506.1001, L500.4050, L100.0100 #### [facility] [address] [place], [address] Bilirubin, totalOrdered By: Tarik Lobo on 06-30-2024 Bilirubin [Mass/Vol] 0.22 mg/dL 0.00-1.30 [facility] CBC W/Diff, Automatedon 06-03 Absolute Lymph 2.19 X10 3/uL Normal 0.83-4.51 [facility] Comment on above: Performed By: #### L 501.9520, L506.1001, L500.4050, L100.0100 #### [facility] [address] [place], [address] Absolute Neut 3.2 X10 3/uL Normal 2.0-7.7 [facility] Comment on above: Performed By: #### L 501.9520, L506.1001, L500.4050, L100.0100 #### [facility] [address] [place], [address] IG% 0.300 Normal 0.0-0.9 [facility] Comment on above: Result Comment: IG% - Immature Granulocytes (promyelocytes, myelocytes and metamyelocytes) > 1% indicates that a LEFT SHIFT is Present. Performed By: #### L 501.9520, L506.1001, L500.4050, L100.0100 #### [facility] [address] [place], [address] Lymphocytes/100 WBC (Bld) 35.2 % Normal 19-41 [facility] Comment on above: Performed By: #### L 501.9520, L506.1001, L500.4050, L100.0100 #### [facility] [address] [place], [address] Nucleated RBC (Bld) [#/Vol] 0 10*3/uL Normal 0-5 [facility] Comment on above: Performed By: #### L 501.9520, L506.1001, L500.4050, L100.0100 #### [facility] [address] [place], [address] RDW SD 39.8 fl Normal 35.1-43.9 [facility] Comment on above: Performed By: #### L 501.9520, L506.1001, L500.4050, L100.0100 #### [facility] [address] [place], [address] Carbon dioxide, total [Moles /volume] in Central venous bloodOrdered By: Tarik Lobo on 06-30-2024 CO2 [Moles/Vol] 22.8 mmol/L 21.0-32.0 [facility] Chloride assayOrdered By: Joby Lobo on 06-30-2024 Chloride [Moles/Vol] 101 mmol/L 98-108 [facility] Comprehensive Metabolic Prof ilon 06-30-2024 Albumin [Mass/Vol] 4.5 g/dL Normal 3.4-4.8 [place] Comment on above: Performed By: #### L 501.9520, L506.1001, L500.4050, L100.0100 #### [facility] [address] [place], [address] Albumin/Globulin [Mass ratio] 1.4 {ratio} Normal 0.9-2.4 [facility] Comment on above: Performed By: #### L 501.9520, L506.1001, L500.4050, L100.0100 #### [facility] [address] [place], [address] ALK PHOS 90 U/L Normal 35-104 [facility] Comment on above: Performed By: #### L 501.9520, L506.1001, L500.4050, L100.0100 #### [facility] [address] [place], [address] ALT [Catalytic activity/Vol] 55 U/L High <=34 [facility] Comment on above: Performed By: #### L 501.9520, L506.1001, L500.4050, L100.0100 #### [facility] [address] [place], [address] AST [Catalytic activity/Vol] 36 U/L High <=31 [facility] Comment on above: Result Comment: Hemo lysis present, Results??could be affected. ?? Performed By: #### L 501.9520, L506.1001, L500.4050, L100.0100 #### [facility] [address] [place], [address] Bilirubin [Mass/Vol] 0.22 mg/dL Normal 0.00-1.30 [facility] Comment on above: Performed By: #### L 501.9520, L506.1001, L500.4050, L100.0100 #### [facility] [address] [place], [address] BUN/CRE 18.3 RATIO Normal 10-20 [facility] Comment on above: Performed By: #### L 501.9520, L506.1001, L500.4050, L100.0100 #### [facility] [address] [place], [address] Calcium [Mass/Vol] 9.9 mg/dL Normal 7.6-11.0 [place] Comment on above: Performed By: #### L 501.9520, L506.1001, L500.4050, L100.0100 #### [facility] [address] [place], [address] Chloride [Moles/Vol] 101 mmol/L Normal 98-108 [facility] Comment on above: Performed By: #### L 501.9520, L506.1001, L500.4050, L100.0100 #### [facility] [address] [place], [address] CO2 [Moles/Vol] 22.8 mmol/L Normal 21.0-32.0 [facility] Comment on above: Performed By: #### L 501.9520, L506.1001, L500.4050, L100.0100 #### [facility] [address] [place], [address] Creatinine [Mass/Vol] 0.74 mg/dL Normal 0.70-1.20 [facility] Comment on above: Performed By: #### L 501.9520, L506.1001, L500.4050, L100.0100 #### [facility] [address] [place], [address] GAP 13 Normal 5-15 [facility] Comment on above: Performed By: #### L 501.9520, L506.1001, L500.4050, L100.0100 #### [facility] [address] [place], [address] GFR/1.73 sq M.predicted among non-blacks MDRD (S/P/Bld) [Vol rate/Area] 88 mL/min/{1.73_m2} Normal >60 [facility] Comment on above: Result Comment: mL/m in/1.73m2 CKD-EPI Creatinine Equation (2020) Performed By: #### L 501.9520, L506.1001, L500.4050, L100.0100 #### [facility] [address] [place], [address] Globulin (S) [Mass/Vol] 3.2 g/dL Normal 2.2-4.2 [facility] Comment on above: Performed By: #### L 501.9520, L506.1001, L500.4050, L100.0100 #### [facility] [address] [place], [address] Glucose [Mass/Vol] 194 mg/dL High 70-99 [place] Comment on above: Performed By: #### L 501.9520, L506.1001, L500.4050, L100.0100 #### [facility] [address] [place], [address] Potassium [Moles/Vol] 4.0 mmol/L Normal 3.3-5.1 [facility] Comment on above: Result Comment: Hemo lysis present, Results??could be affected. ?? Performed By: #### L 501.9520, L506.1001, L500.4050, L100.0100 #### [facility] [address] [place], [address] Sodium [Moles/Vol] 136 mmol/L Normal 133-145 [place] Comment on above: Performed By: #### L 501.9520, L506.1001, L500.4050, L100.0100 #### [facility] [address] [place], [address] T PROT 7.8 g/dL Normal 5.9-8.4 [facility] Comment on above: Performed By: #### L 501.9520, L506.1001, L500.4050, L100.0100 #### [facility] [address] [place], [address] Urea nitrogen [Mass/Vol] 14 mg/dL Normal 4-19 [facility] Comment on above: Performed By: #### L 501.9520, L506.1001, L500.4050, L100.0100 #### [facility] [address] [place], [address] Eosinophil percentageOrdered By: Tarik Lobo on 06-30-2024 Eosinophils/100 WBC (Bld) 1.6 % Normal 0-5 [facility] Comment on above: Performed By: #### L 501.9520, L506.1001, L500.4050, L100.0100 #### [facility] [address] [place], [address] Erythrocyte distribution wid th ratioOrdered By: Tarik Lobo on 06-30-2024 Erythrocyte distribution width (RBC) [Ratio] 11.6 % Normal 11.6-14.6 [facility] Comment on above: Performed By: #### L 501.9520, L506.1001, L500.4050, L100.0100 #### [facility] [address] [place], [address] Erythrocyte distribution wid th standard deviationOrdered By: Tarik Lobo on 06-30-2024 Erythrocyte distribution width (RBC) [Ratio] 39.8 fl 35.1-43.9 [facility] Glomerular filtration rate ( GFR) estimation/1.73 sq m using serum, plasma, or whole bOrdered By: Tarik Lobo on 06-30-2024 GFR/1.73 sq M.predicted among non-blacks MDRD (S/P/Bld) [Vol rate/Area] 88 mL/min/{1.73_m2} >60 [facility] Comment on above: mL/min/1.73m2 CKD-EP I Creatinine Equation (2020) Hemoglobin measurementOrdere d By: Tarik Lobo on 06-30-2024 Hemoglobin (Bld) [Mass/Vol] 13.2 g/dL Normal 12.0-15.0 [facility] Comment on above: Performed By: #### L 501.9520, L506.1001, L500.4050, L100.0100 #### [facility] [address] [place], [address] Immature granulocytes/100 WB C Auto (Bld)Ordered By: Tarik Lobo on 06-30-2024 Immature granulocytes/100 WBC (Bld) 0.300 % 0.0-0.9 [facility] Comment on above: IG% - Immature Granu locytes (promyelocytes, myelocytes and metamyelocytes) > 1% indicates that a LEFT SHIFT is Present. Laboratory - Chemistry and C hemistry - challengeOrdered By: Tarik Lobo on 06-30-2024 AST [Catalytic activity/Vol] 36 U/L High <32 [facility] Comment on above: Hemolysis present, R esults could be affected. MCV (mean corpuscular volume ) determinationOrdered By: Tarik Lobo on 06-30-2024 MCV (RBC) [Entitic vol] 94.0 fL Normal 81-99 [facility] Comment on above: Performed By: #### L 501.9520, L506.1001, L500.4050, L100.0100 #### [facility] [address] [place], [address] Mean corpuscular hemoglobin (MCH) determinationOrdered By: Tarik Lobo on 06-30-2024 MCH (RBC) [Entitic mass] 31.9 pg Normal 27.0-32.0 [facility] Comment on above: Performed By: #### L 501.9520, L506.1001, L500.4050, L100.0100 #### [facility] [address] [place], [address] Mean corpuscular hemoglobin concentration (MCHC) determinationOrdered By: Tarik Lobo on 06-30-2024 MCHC (RBC) [Mass/Vol] 33.9 g/dL Normal 32-36 [facility] Comment on above: Performed By: #### L 501.9520, L506.1001, L500.4050, L100.0100 #### [facility] [address] [place], [address] Mean platelet volume determi nationOrdered By: Tarik Lobo on 06-30-2024 Platelet mean volume (Bld) [Entitic vol] 8.8 fL Normal 6.2-12.0 [facility] Comment on above: Performed By: #### L 501.9520, L506.1001, L500.4050, L100.0100 #### [facility] [address] [place], [address] Monocyte percentageOrdered B y: Tarik Lobo on 06-30-2024 Monocytes/100 WBC (Bld) 9.8 % Normal 0-10 [facility] Comment on above: Performed By: #### L 501.9520, L506.1001, L500.4050, L100.0100 #### [facility] [address] [place], [address] Neutrophil percentageOrdered By: Tarik Lobo on 06-30-2024 Neutrophils/100 WBC (Bld) 51.8 % Normal 47-70 [facility] Comment on above: Performed By: #### L [id number], L506.1001, L500.4050, L100.0100 #### [facility] [address] [place], [address] Nucleated red blood cell per centageOrdered By: Tarik Lobo on 06-30-2024 Nucleated RBC/100 WBC (Bld) [Ratio] 0 % 0-5 [facility] Platelet countOrdered By: Joby Lobo on 06-30-2024 Platelets (Bld) [#/Vol] 275 10*3/uL Normal 150-450 [facility] Comment on above: Performed By: #### L [id number], L506.1001, L500.4050, L100.0100 #### [facility] [address] [place], [address] Potassium measurement (mass/ volume)Ordered By: Tarik Lobo on 06-30-2024 Potassium (Unsp spec) [Mass/Vol] 4.0 mmol/L 3.3-5.1 [facility] Comment on above: Hemolysis present, R esults could be affected. Serum creatinine measurement (mass/volume)Ordered By: Tarik Lobo on 06-30-2024 Creatinine [Mass/Vol] 0.74 mg/dL 0.70-1.20 [facility] Serum globulin measurementOr dered By: Tarik Lobo on 06-30-2024 Globulin (S) [Mass/Vol] 3.2 g/dL 2.2-4.2 [facility] Serum glucose measurement (m ass/volume)Ordered By: Tarik Lobo 06-30-2024 Glucose [Mass/Vol] 194 mg/dL High 70-99 [place] Serum or plasma alanine taveras otransferase (ALT) measurementOrdered By: Tarik Lobo 06-30-2024 ALT [Catalytic activity/Vol] 55 U/L High <35 [facility] Serum or plasma albumin christopher urement (mass/volume)Ordered By: Tarik Lobo 06-30-2024 Albumin [Mass/Vol] 4.5 g/dL 3.4-4.8 [place] Serum or plasma albumin/glob ulin mass ratioOrdered By: Tarik Lobo 06-30-2024 Albumin/Globulin [Mass ratio] 1.4 {ratio} 0.9-2.4 [facility] Serum or plasma alkaline sobia sphatase measurementOrdered By: Tarik Lobo 06-30-2024 ALP [Catalytic activity/Vol] 90 U/L 35-104 [facility] Serum or plasma calcium christopher urement (mass/volume)Ordered By: Tarik Lobo 06-30-2024 Calcium [Mass/Vol] 9.9 mg/dL 7.6-11.0 [place] Serum or plasma urea nitroge n measurement (mass/volume)Ordered By: Tarik Lobo 06-30-2024 Urea nitrogen [Mass/Vol] 14 mg/dL 4-19 [facility] Sodium levelOrdered By: Tarik Lobo 06-30-2024 Sodium [Moles/Vol] 136 mmol/L 133-145 [place] TSH DL <= 0.005 mIU/L QnOrde red By: Tarik Lobo on 06-30-2024 TSH Qn 3.160 uIU/mL 0.300-4.200 [facility] Thyroid Stim Hormone (TSH)on 06-30-2024 TSH 3.160 uIU/mL Normal 0.300-4.200 [facility] Comment on above: Performed By: #### L [id number], L506.1001, L500.4050, L100.0100 #### [facility] [address] [place], [address] Total proteinOrdered By: Tarik Lobo on 06-30-2024 Protein [Mass/Vol] 7.8 g/dL 5.9-8.4 [place] Vitamin D,25 Hydroxyon 06-30 Vitamin D 25-OH 26.9 ng/mL Low 30-100 [facility] Comment on above: Result Comment: Adrienne min D Status Deficiency: <20 ng/mL (50nmol/L) Insufficiency: 20-30 ng/mL (50-75 nmol/L) Sufficiency: 30-100 ng/mL (75-250 nmol/L) Toxicity: >100 ng/mL (>250 nmol/L) Performed By: #### L [id number], L506.1001, L500.4050, L100.0100 #### [facility] [address] [place], [address] White blood cell (WBC) count Ordered By: Tarik Lobo on 06-30-2024 WBC (Bld) [#/Vol] 6.2 10*3/uL Normal 4.4-11.0 [place] Comment on above: Performed By: #### L [id number], L506.1001, L500.4050, L100.0100 #### [facility] [address] [place], [address] Inital Evaluation (1) - PTon 06-21-2024 Inital Evaluation (1) - PT [facility] [address] [place] [address] / REHABILITATION SERVICES INITIAL EVALUATION MR#: [id number] Acct: [id number] Name: KIRA URIBE Rep #: [id number] : 1955 68 From: Brett Renee PT, Cert. T, OCS Referring Dr.: Dr. Tarik Lobo MD Status: REG RCR Insurance: MEDICARE PART A B [facility] Patient's Visit Information Visit Information Visit Information: KIRA URIBE is a 68 year old F referred to Physical Therapy by Dr. Tarik Lobo MD with a diagnosis of THORACIC BACK PAIN ,THORACIC DISC DISEASE. Date of Evaluation: 06/21/24 Physical Therapist: Brett Renee PT, Cert T, OCS Visit Plan Frequency: 2x /Week Duration: 4 Weeks Plan: PT INTERVENTIONS POSTURAL EX'S ,THORACIC ROM ,STRENGTHENING ,ACTIVITY MODIFICATION AND MODALITIES Subjective Subjective: This 68 y/o female presents to physical therapy thoracic pain . Patient thoracic pain intermittent for many years. Patient sees chiropractor for ribs.Patient had episodes of increase symptoms after seen chiropractror pain was worse. Patient seen DR recommended PT and provided medication baclofen ,and pain medication. X-rays showed Mild reverse S shaped scoliosis.Moderate diffuse spondylosis.Mildly increased dorsal kyphosis. Location of pain right side . Pain described as sharp. Deep breathing -.Aggravating twisting ,reaching ,bending ,lifting. Alleviating factors medioactions. Coughing/sneezing +. Bowel/bladder- Paresthesia/tinglin g- Sleeping okay. Patient condition affects QOL and function. Patient goals to decrease pain Pain Right Back: Pain Intensity (Out of 10): 2 Pain Intensity Range: 10 Objective Objective: POSTURE: mild forward posture GAIT: reciprocal pattern PALAPTION: thoracic paraspinals AROM: BUE WFL MMT: grossly 4/5 quads/hams 4/5 ,hip 4-/5 ,ankle 5/5 THORACIC ROM: flexion mod loss pain ,extension min loss pain ,rotation min loss Special Tests Thoracic Sitting: Flexion - Mechanical Response: No effect Thoracic Sitting: Flexion - Symptoms During Testing: Increases Thoracic Sitting: Flexion - Symptoms After Testing: Worse Thoracic Sitting: Extension - Mechanical Response: No effect Thoracic Sitting: Extension - Symptoms During Testing: Decreases Thoracic Sitting: Extension - Symptoms After Testing: Better Thoracic Sitting: Right rotation - Mechanical Response: No effect Thoracic Sitting: Right Rotation - Symptoms During Testing: Increases Thoracic Sitting: Right Rotation - Symptoms After Testing: No effect Thoracic Sitting: Left rotation - Mechanical Response: No effect Thoracic Sitting: Left Rotation - Symptoms During Testing: No effect Thoracic Sitting: Left Rotation - Symptoms After Testing: No effect L/S Slump test left side: Negative L/S Slump test right side: Negative L/S Left Straight Leg Raise: Negative L/S Right Straight Leg Raise: Negative Balance/Special Test Scores Oswestry Low Back Score: 24 Goals Goal 1:: Patient to be I with HEP for thoracic Goal Time Frame: 4-6 Weeks Goal 2:: Patient to improve lumbar ROM for function of recovery for ADLS and housework Goal Time Frame: 4-6 Weeks Goal 3:: Patient to demonstrate 50 % improvement with less pain and improved function Goal Time Frame: 4-6 Weeks Goal 4:: Patient to improve back oswestry score by 5 points to improve QOL and function. Goal Time Frame: 4-6 Weeks Rehabilitation Potential Physical Therapy Diagnosis: This patient has thoracic pain with pain with positioning and motion testing worse with flexion ,lifting and sitting thus benefit from skilled PT Rehabilitation Potential: Good Anticipated Interventions Patient/Client Instruction: Educate patient on: Condition and Plan of Care For the Purpose of:: To decrease pain, To increase ROM, To increase tolerance to activity/condition/ position, To decrease level of supervision to perform tasks, To improve health of tissue, To decrease soft tissue restriction, To increase flexibility/ROM, To reduce risk of recurrence and To improve tolerance to ADL's Therapeutic Exercise to Include: Strength training, Body mechanics, Postural training, Flexibilty training, Dynamic Lumbar Stabilization and Scapular Strength/Stabilizat ion Comment: THORACIC For the Purpose of:: To decrease pain, To increase ROM, To improve muscle performance and motor function, To increase tolerance to activity/condition/ position, To improve ability of physical actions for home/community/work /leisure, To improve health of tissue, To decrease soft tissue restriction and To increase flexibility/ROM TENS: Yes IF ES: Yes Cryotherapy (ice pack, ice massage): Yes Thermo therapy (hot pack): Yes Ultrasound (thermal/non thermal): Yes For the Purpose of:: To decrease pain, To increase ROM, To improve nutrient delivery to tissue, To increa (more content not included)... Normal [facility] Thoracic Spine 3 Viewson Thoracic Spine 3 Views [facility] Services [address] [place] [address] Thoracic Spine 3 Views MR#: [id number] Acct: [id number] Name: KIRA URIBE Rep #: [id number] : 1955 F 68 From: Colleen dudley MD PCP: Dr. Tarik Lobo MD Status: REG CLI Study: Thoracic Spine 3 Views Date of Exam: 06/14/24 Exam# [id number] Ordering Dr: Tarik Lobo MD PROCEDURE: THORACIC SPINE 3 VIEWS 06/14/2024 REASON FOR EXAM: RADICULOPATHY, THORACIC REGION TECHNIQUE: Two views of the thoracic spine. COMPARISON: None. FINDINGS: Mild reverse S shaped scoliosis. Moderate diffuse spondylosis. Mildly increased dorsal kyphosis. No fracture or dislocation is seen. No lytic or blastic bone lesion. RAD/Thoracic Spine 3 Views IMPRESSION: Diffuse spondylosis. No acute bone abnormality is identified. Reading Location: [place] [address] CC: Dr. Tarik Lobo MD Ambulatory Analyst: Signed Normal [facility] CNOVon 06-12-2024 CNOV Office Visit (UCWSTR) ---- KIRA URIBE ([id number]) 1955 F Date Time Provider Department 06/12/24 12:00 PM GAURANG CAR [facility] During your visit today, we recorded the following information about you: Temperature Pulse Respiration Blood pressure 98.1 degrees 78/minute 16/minute 154/76 Weight 76.5 kg Gaurang Car MD 06/12/2024 1:36 PM Signed [facility] Subjective Kira Uribe is a 68 year old female. Patient presents with: Back Pain: X2 days Patient presents to the [facility] with multiple concerns. She primarily decided to come because she had significant right mid back pain last night. The pain was sharp and intense enough to make her yell out in pain. It subsided with taking acetaminophen. She was unable to attend a today out of concern she might have the pain returned. Pain radiates out to her right rib. She has had similar pain multiple times throughout the years and has been bothering her for few weeks. She had chiropractic adjustment 2 days ago for this out of place rib issue; chiropractor felt she might have a problem with her right shoulder blade also. She has also had treatment for multiple issues with her primary physician over the last few weeks. She has been treated for sinusitis, bronchitis, and dysuria. She was placed on Cipro for urinary frequency 06/01. She then developed a yeast infection. She was informed that her urine culture did not end up showing an infection. She did have glucose in her urine and is scheduled to start a continuous glucose monitor. She has no known history of kidney stones. Denies shortness of breath, abdominal pain, fever, chills, or cough. Back Pain Review of Systems Musculoskeletal: Positive for back pain. Objective BP 154/76 Pulse 78 Temp 36.7 ?C (98.1 ?F) (Right Tympanic) Resp 16 Wt 76.5 kg (168 lb 10.4 oz) LMP 11/04/2010 SpO2 99% BMI 29.88 kg/m? Physical Exam Constitutional: General: She is not in acute distress. HENT: Mouth/Throat: Mouth: Mucous membranes are moist. Eyes: Extraocular Movements: Extraocular movements intact. Conjunctiva/sclera: Conjunctivae normal. Pupils: Pupils are equal, round, and reactive to light. Cardiovascular: Rate and Rhythm: Normal rate and regular rhythm. Heart sounds: No murmur heard. Pulmonary: Effort: No respiratory distress. Breath sounds: No wheezing, rhonchi or rales. Comments: No midline spinous pain. Tenderness along the right lower ribs from paraspinal to lateral. Abdominal: Palpations: There is no mass. Tenderness: There is no abdominal tenderness. There is no right CVA tenderness or left CVA tenderness. Musculoskeletal: Cervical back: Neck supple. Neurological: Mental Status: She is alert. {ASSESSMENT/PLAN: 1. Mid back pain on right side - ICD9: 724.5, ICD10: M54.9 (primary diagnosis) Suspect musculoskeletal right rib pain. Last night's spasm may be secondary to recent chiropractic adjustment. Continue acetaminophen as needed for pain since it was effective. Differential includes renal calculus. Proceed to the emergency room with persistent severe pain, fever, or shortness of breath. 2. Urinary frequency - ICD9: 788.41, ICD10: R35.0 3. Glycosuria - ICD9: 791.5, ICD10: R81 4. Microhematuria - ICD9: 599.72, ICD10: R31.29 - UA DIP, URINE (POC) -greater than 1000 glucose, trace blood, trace ketone. Urinary frequency is related to glycosuria. Advised symptom improvement would require improved sugar control. She is starting a continuous glucose monitor. I did recommend follow-up with primary care for recheck of blood in the urine. Gaurang Car MD Differential Diagnoses - Musculoskeletal mid back pain is more likely for the following reason(s): suggested by HANDP - Glycosuria secondary to uncontrolled diabetes mellitus is more likely for the following reason(s): suggested by HANDP and consistent with laboratory studies - possible renal calculus is more likely for the following reason(s): Unable to be evaluated without imaging - Pyelonephritis is less likely for the following reason(s): laboratory studies not suggestive and HANDP not suggestive - Cholecystitis is less likely for the following reason(s): No abdominal pain, normal abdominal exam Procedures Allergies As of Date: 06/12/2024 Noted Allergy Reaction CEFDINIR 04/05/2024 14 - Other: See Comments Comments: Derm bleeding CODEINE 08/14/2018 14 - Other: See Comments Comments: [place] out of body DYNACIN (MINOCYCLINE) 08/14/2018 14 - Other: See Comments Comments: Seeing animal prints PENICILLIN G 04/04/2005 ZITHROMAX (AZITHROMYCIN) 04/04/2005 Date Reviewed: 06/12/2024 Reviewed by: Danika Berry MA - Fully Assessed Reason for Visit: Back Pain [12] Cmt: X2 days Primary Visit Diagnosis:Mid back pain on right side [M54.9] Other Visit (more content not included)... Normal [facility] UA DIP, URINE (POC)on 2024 BILIRUBIN UA (POCT) Negative Negative [facility] CLARITY UA (POCT) Clear [facility] COLOR UA (POCT) Dark yellow [facility] GLUCOSE UA (POCT) >=1000 Abnormal Negative mg/dL [facility] Hemoglobin Ql (U) Trace-intact Abnormal Negative [facility] Interpretation and review of laboratory results Abnormal [facility] KETONE UA (POCT) Trace Negative mg/dL [facility] LEUKOCYTES UA (POCT) Negative Negative [facility] NITRITE UA (POCT) Negative Negative [facility] PH UA (POCT) 5.5 4.5 - 8.0 [facility] Protein Ql (U) Negative Negative mg/dL [facility] SPECIFIC GRAVITY UA (POCT) >=1.030 1.005 - 1.030 [facility] UROBILINOGEN UA (POCT) 0.2 Charo l E.U./dL [facility] Location:[address], [place], [place], [address] [place] [address] POINT OF CARE [facility] Endocrinology Visit Reporton 06-09-2024 Endocrinology Visit Report [facility] [address] [facility] [place] [address] OFFICE VISIT Date of Service: 06/09/24 MR#: [id number] Acct: [id number] Name: KIRA URIBE QUIANA Rep #: [id number] : 1955 Provider: MIGUEL fink Age/Sex: 68/F [facility] Status: Signed Intake Vital Signs 04/05/24 13:38 06/09/24 11:17 Height 5 ft 3 in 5 ft 3 in Weight: 173 lb 2 oz 168 lb BMI 30.7 29.7 BP 132/82 H 133/75 H Blood Pressure Location Lt brachial Lt brachial Position Sitting Sitting Pulse 78 88 Pulse Source Monitor Monitor Pulse Oximetry (%) 96 95 Oxygen Delivery Method room air room air Intake Visit Reasons: 9 Wk FU, 06/02 Chief Complaint: f/u diabetes Cashier Required: No Accompanied by: Self Is patient in pain?: Yes (Right shoulder and ribs ) Pain scale (1-10): 1 Allergies cefdinir Allergy (Intermediate, Verified 06/09/24 11:20) Bleeding azithromycin (From Zithromax) Allergy (Verified 06/09/24 11:20) Swelling codeine Allergy (Verified 06/09/24 11:20) Other minocycline (From Dynacin) Allergy (Verified 06/09/24 11:20) Other Penicillins (PCN) Allergy (Verified 06/09/24 11:20) Other Medications ???Medication ???Instructions ???Recorded ???Confirmed ???Type atorvastatin 20 mg tablet 20 mg PO DAILY 04/19/21 06/09/24 H istory famotidine 40 mg tablet 40 mg PO DAILY 04/19/21 06/09/24 H istory levothyroxine 25 mcg tablet 25 mcg PO DAILY 04/19/21 06/09/24 History lisinopril 20 mg tablet 20 mg PO DAILY 04/19/21 06/09/24 H istory potassium chloride 20 mEq 20 meq PO DAILY 04/19/21 06/09/24 History tablet,extended release(part/cryst) albuterol sulfate 0.63 mg/3 mL 0.63 mg inhalation Q4-6H PRN 04/0506/09/24 History solution for nebulization ascorbic acid (vitamin C) 1,500 mg 1,500 mg PO Q12H 04/05/24 History tablet,extended release azelastine 137 mcg (0.1 %) nasal 1 spray intranasal BID PRN 2 5 06/09/24 History spray bacitracin 500 unit/gram eye 1 applic ophthalmic (eye) Q8H /05/2506/09/24 History ointment calcium acetate 667 mg tablet 667 mg PO ONCE 04/05/24 06/09/24 H istory cholecalciferol (vitamin D3) 25 25 mcg PO QDAY 04/05/24 06/09/24 H istory mcg (1,000 unit) capsule citalopram 20 mg tablet 20 mg PO QDAY 04/05/24 06/09/24 Hi story dulaglutide 1.5 mg/0.5 mL 1.5 mg (0.5 mL) subcut QWEEK #2 mL 04/05/24 06/09/24 Rx subcutaneous pen injector (Trulicity) econazole nitrate 1 % topical cream 1 applic topical QDAY 04/05/24 06/09/24 History vitamin B complex 1 tab PO QDAY 04/05/24 06/09/24 Hi story clotrimazole 1 % topical cream 1 applic topical TID #45 grams 11/2506/09/24 Rx fluconazole 200 mg tablet 200 mg PO QDAY #2 tabs 06/09/24 Rx Have you fallen in the past year?: No PFSH Medical History Wears glasses Post-menopausal Cancer Depression Anxiety Alcohol use History of steroid therapy Thyroid disease Diabetes Anemia High cholesterol Injury of head and neck Loss of consciousness History of IBS Gastric reflux Non-smoker Asthma Hypertension Surgical History Hx of colonoscopy Hx of oral surgery Hx of laparoscopy Family History Mother Anemia Anesthesia complication Asthma Arthritis Diabetes Depression Hyperlipidemia Hypertension CVA (cerebral vascular accident) Thyroid disorder Father Parkinson disease Heart disease Depression Grandmother Depression Heart disease Hypertension CVA (cerebral vascular accident) Grandfather Lung cancer Social History Smoking Status: Never smoker HPI HPI Chief Complaint: f/u diabetes Details: KIRA URIBE, is a 68 F who presents to the office today for evaluation and management of diabetes. Patient has multiple questions/concerns to address. A1C with PCP on 06/02/24 was 9.8%. Essentially unchanged from 03/29/24. She has lost 5 lbs since that time. She states that when she was recently at PCP's office, she had UA completed and was told that she had significant amount of glucose in her urine. She is taking Trulicity 1.5 mg qweek- tolerating well. She continues to have reservations concerning Trulicity as she feels it is dehydrating to her. She reports she felt dizzy directly following giving the injection. Reports when she wakes up, she feels hungry, shaky, and emotional. She will eat and symptoms will resolve. She is not currently checking her blood sugars. She is hesitant to start any medications that may cause true hypoglycemia. She does not want to (more content not included)... Normal [facility] Urine Cultureon 06-03-2024 URC Culture exhibits no growth. Normal [facility] Comment on above: Performed By: #### M 100.2200 ####[facility] [id number] [place], [address] Urine cultureOrdered By: Tarik Lobo on 06-02-2024 Bacteria identified Cx Nom (U) Culture exhibits no growth. [facility] Influenza virus A and B and SARS-CoV-2 (COVID-19) and Respiratory syncytial virus RNAOrdered By: Tarik Yamil on 05-25-2024 SARS-CoV-2 (COVID-19) RNA SHEILA+probe Ql (Unsp spec) [facility] M100.678on 05-25-2024 M100.678 Pending SARS-CoV-2 (COVID 19) Negative INFLUENZA A Negative INFLUENZA B Negative RSV PCR Negative Normal [facility] Comment on above: Performed By: #### M 100.678 #### [facility] [address] [place], [place], [address] Endocrinology Visit Reporton 04-05-2024 Endocrinology Visit Report [facility] [address] [facility] [place] [address] OFFICE VISIT Date of Service: 04/05/24 MR#: [id number] Acct: [id number] Name: KIRA URIBE Rep #: [id number] : 1955 Provider: MIGUEL fink Age/Sex: 68/F Location[facility] Status: Signed Intake Vital Signs 02/25/22 09:58 04/05/24 13:38 Height 5 ft 3 in 5 ft 3 in Weight: 173 lb 2 oz BMI 30.7 BP 132/82 H Blood Pressure Location Lt brachial Position Sitting Pulse 78 Pulse Source Monitor Pulse Oximetry (%) 96 Oxygen Delivery Method room air Intake Visit Reasons: Diabetes Chief Complaint: establish care- diabetes Is patient in pain?: No Allergies cefdinir Allergy (Intermediate, Verified 04/05/24 13:33) Bleeding azithromycin (From Zithromax) Allergy (Verified 04/05/24 13:33) Swelling codeine Allergy (Verified 04/05/24 13:33) Other minocycline (From Dynacin) Allergy (Verified 04/05/24 13:33) Other Penicillins (PCN) Allergy (Verified 04/05/24 13:33) Other Medications ???Medication ???Instructions ???Recorded ???Confirmed ???Type atorvastatin 20 mg tablet 20 mg PO DAILY 04/19/21 04/05/24 H istory famotidine 40 mg tablet 40 mg PO DAILY 04/19/21 04/05/24 H istory levothyroxine 25 mcg tablet 25 mcg PO DAILY 04/19/21 04/05/24 History lisinopril 20 mg tablet 20 mg PO DAILY 04/19/21 04/05/24 H istory potassium chloride 20 mEq 20 meq PO DAILY 04/19/21 02/25/22 History tablet,extended release(part/cryst) albuterol sulfate 0.63 mg/3 mL 0.63 mg inhalation Q4-6H PRN 04/0504/05/24 History solution for nebulization ascorbic acid (vitamin C) 1,500 mg 1,500 mg PO Q12H 04/05/24 History tablet,extended release azelastine 137 mcg (0.1 %) nasal 1 spray intranasal BID PRN 5 04/05/24 History spray bacitracin 500 unit/gram eye 1 applic ophthalmic (eye) Q8H /05/2504/05/24 History ointment calcium acetate 667 mg tablet 667 mg PO ONCE 04/05/24 04/05/24 H istory cholecalciferol (vitamin D3) 25 25 mcg PO QDAY 04/05/24 04/05/24 H istory mcg (1,000 unit) capsule citalopram 20 mg tablet 20 mg PO QDAY 04/05/24 04/05/24 Hi story dulaglutide 1.5 mg/0.5 mL 1.5 mg (0.5 mL) subcut QWEEK #2 mL 04/05/24 04/05/24 Rx subcutaneous pen injector (Trulicity) econazole 1 % topical cream 1 applic topical QDAY 04/05/2405/25 History vitamin B complex 1 tab PO QDAY 04/05/24 04/05/24 Hi story Have you fallen in the past year?: No PFSH Medical History (Updated 04/08/24 @ 08:36 by Kaia Moore NP-C) Wears glasses Post-menopausal Cancer Depression Anxiety Alcohol use History of steroid therapy Thyroid disease Diabetes Anemia High cholesterol Injury of head and neck Loss of consciousness History of IBS Gastric reflux Non-smoker Asthma Hypertension Surgical History Hx of colonoscopy Hx of oral surgery Hx of laparoscopy Family History Mother Anemia Anesthesia complication Asthma Arthritis Diabetes Depression Hyperlipidemia Hypertension CVA (cerebral vascular accident) Thyroid disorder Father Parkinson disease Heart disease Depression Grandmother Depression Heart disease Hypertension CVA (cerebral vascular accident) Grandfather Lung cancer Social History Smoking Status: Never smoker HPI HPI Chief Complaint: establish care- diabetes Details: KIRA URIBE, is a 68 F who presents to the office today for evaluation and management of diabetes. Referred by PCP for uncontrolled diabetes. She diagnosed in during routine labs. + family history of diabetes. She denies any known complications of diabetes. In 2019 she made significant dietary changes and lost 40+ lbs. She has since gained weight. A1C on 03/29/24 was 7.8%. She states this is potentially the highest A1C she has had. Currently taking pioglitazone 30 mg once daily and Trulicity 0.75 mg qweek- tolerating well. PCP increased dose; however, she continued 0.75 mg as she feels it is dehydrating to her. Her diet contains a fair amount of processed carbohydrates, she drinks specialty coffees routinely, and also consumes juice, regular pop, and milk throughout the week. She is hesitant with medications as she is fearful of potential side effects. She is resistant to starting insulin. She takes atorvastatin 20 mg qod. Hx of poorly controlled cholesterol. She is on an ACEI. She has vitamin D insufficiency. Currently taking vitamin D3 1,000 iu once daily. Labs are up to date with PCP. I do have access to labs with the exception of lipid panel. She sees (more content not included)... Normal [facility] [id number] DOrdered By: iBndu Lobo on 03-29-2024 Vitamin D 25-Hydroxy 29.9 ng/mL [facility] Comment on above: Vitamin D 25(OH) Sta tus Range Deficiency <20 ng/mL (50nmol/L) Insufficiency 20 - 30 ng/mL (50 - 75 nmol/L) Sufficiency 30 - 100 ng/mL (75 - 250 nmol/L) Toxicity >100 ng/mL (>250 nmol/L) Absolute neutrophil countOrd ered By: Tarik Lobo on 03-29-2024 Neutrophils (Bld) [#/Vol] 3.7 10*3/uL 2.0-7.7 [facility] Albumin to globulin ratioOrd ered By: Tarik Lobo on 03-29-2024 Albumin/Globulin [Mass ratio] 1.0 {ratio} 0.9-2.4 [facility] Basophil percentageOrdered B y: Tarik Lobo on 03-29-2024 Basophils/100 WBC (Bld) 0.6 % 0-1 [facility] Bilirubin, totalOrdered By: Tarik Lobo on 03-29-2024 Bilirubin [Mass/Vol] 0.40 mg/dL 0.20-1.00 [facility] Comment on above: For patients on eltr ombopag therapy, use of Dimension Howe TBIL is not recommended. Blood urea nitrogen (BUN)/cr eatinine ratioOrdered By: Tarik Lobo on 03-29-2024 Urea nitrogen/Creatinine [Mass ratio] 15.6 mg/mg 10-20 [facility] CBC W/Diff, Automatedon 03-04 Absolute Lymph 1.99 X10 3/uL Normal 0.83-4.51 [facility] Comment on above: Performed By: #### M 100.348 #### [facility] [address] [place], [address] Absolute Neut 3.7 X10 3/uL Normal 2.0-7.7 [facility] Comment on above: Performed By: #### [id number] #### [facility] [address] [place], [address] Basophils/100 WBC (Bld) 0.6 % Normal 0-1 [facility] Comment on above: Performed By: #### M [id number] #### [facility] [address] [place], [address] Eosinophils/100 WBC (Bld) 1.7 % Normal 0-5 [facility] Comment on above: Performed By: #### M [id number] #### [facility] [address] [place], [address] Erythrocyte distribution width (RBC) [Ratio] 11.9 % Normal 11.6-14.6 [facility] Comment on above: Performed By: #### M [id number] #### [facility] [address] [place], [address] Hematocrit (Bld) [Volume fraction] 39.5 % Normal 37-47 [facility] Comment on above: Performed By: #### M [id number] #### [facility] [address] [place], [address] Hemoglobin (Bld) [Mass/Vol] 13.3 g/dL Normal 12.0-15.0 [facility] Comment on above: Performed By: #### M [id number] #### [facility] [address] [place], [address] IG% 0.300 Normal 0.0-0.9 [facility] Comment on above: Result Comment: IG% - Immature Granulocytes (promyelocytes, myelocytes and metamyelocytes) > 1% indicates that a LEFT SHIFT is Present. Performed By: #### M [id number] #### [facility] [address] [place], [address] Lymphocytes/100 WBC (Bld) 31.4 % Normal 19-41 [facility] Comment on above: Performed By: #### M [id number] #### [facility] [address] [place], [address] MCH (RBC) [Entitic mass] 32.0 pg Normal 27.0-32.0 [facility] Comment on above: Performed By: #### M [id number] #### [facility] [address] [place], [address] MCHC (RBC) [Mass/Vol] 33.7 g/dL Normal 32-36 [facility] Comment on above: Performed By: #### M [id number] #### [facility] [address] [place], [address] MCV (RBC) [Entitic vol] 95.2 fL Normal 81-99 [facility] Comment on above: Performed By: #### M [id number] #### [facility] [address] [place], [address] Monocytes/100 WBC (Bld) 7.4 % Normal 0-10 [facility] Comment on above: Performed By: #### M [id number] #### [facility] [address] [place], [address] Neutrophils/100 WBC (Bld) 58.6 % Normal 47-70 [facility] Comment on above: Performed By: #### M [id number] #### [facility] [address] [place], [address] Nucleated RBC (Bld) [#/Vol] 0 10*3/uL Normal 0-5 [facility] Comment on above: Performed By: #### M [id number] #### [facility] [address] [place], [address] Platelet mean volume (Bld) [Entitic vol] 8.8 fL Normal 6.2-12.0 [facility] Comment on above: Performed By: #### M [id number] #### [facility] [address] [place], [address] Platelets (Bld) [#/Vol] 272 10*3/uL Normal 150-450 [facility] Comment on above: Performed By: #### M [id number] #### [facility] [address] [place], [address] RBC (Bld) [#/Vol] 4.15 10*6/uL Low 4.2-5.4 [facility] Comment on above: Performed By: #### M 100.678 #### [facility] [address] [place], [address] RDW SD 41.3 fl Normal 35.1-43.9 [facility] Comment on above: Performed By: #### M 100.678 #### [facility] [address] [place], [address] WBC (Bld) [#/Vol] 6.3 10*3/uL Normal 4.4-11.0 [place] Comment on above: Performed By: #### M [id number] #### [facility] [address] [place], [address] Carbon dioxide measurementOr dered By: Tarik Lobo on 03-29-2024 CO2 [Moles/Vol] 25.0 mmol/L 21.0-32.0 [facility] Chloride measurementOrdered By: Tarik Lobo on 03-29-2024 Chloride [Moles/Vol] 106 mmol/L 98-107 [facility] Comprehensive Metabolic Prof ilon 03-29-2024 Albumin [Mass/Vol] 3.8 g/dL Normal 3.2-5.0 [place] Comment on above: Performed By: #### M 100.678 #### [facility] [address] [place], [address] Albumin/Globulin [Mass ratio] 1.0 {ratio} Normal 0.9-2.4 [facility] Comment on above: Performed By: #### M 100.678 #### [facility] [address] [place], [address] ALK P 76 U/L Normal 45-117 [facility] Comment on above: Performed By: #### M [id number] #### [facility] [address] [place], [address] ALT [Catalytic activity/Vol] 52 U/L Normal 13-56 [facility] Comment on above: Performed By: #### M [id number] #### [facility] [address] [place], [address] AST [Catalytic activity/Vol] 36 U/L Normal 15-37 [facility] Comment on above: Performed By: #### M [id number] #### [facility] [address] [place], [address] Bilirubin [Mass/Vol] 0.40 mg/dL Normal 0.20-1.00 [facility] Comment on above: Result Comment: For patients on eltrombopag therapy, use of Dimension Howe TBIL is not recommended. Performed By: #### M 100.678 #### [facility] [address] [place], [address] BUN/CRE 15.6 RATIO Normal 10-20 [facility] Comment on above: Performed By: #### M [id number] #### [facility] [address] [place], [address] CA,Total 9.2 mg/dL Normal 8.5-10.1 [facility] Comment on above: Performed By: #### M [id number] #### [facility] [address] [place], [address] Chloride [Moles/Vol] 106 mmol/L Normal 98-107 [facility] Comment on above: Performed By: #### M [id number] #### [facility] [address] [place], [address] CO2 [Moles/Vol] 25.0 mmol/L Normal 21.0-32.0 [facility] Comment on above: Performed By: #### M 100.678 #### [facility] [address] [place], [address] Creatinine [Mass/Vol] 0.96 mg/dL Normal 0.55-1.02 [facility] Comment on above: Result Comment: The validity of the calculated GFR GFRAA in patients over 70 years has not been determined. Clinical correlation is essential. Performed By: #### M 100.678 #### [facility] [address] [place], [address] EST GFR - AA 74 mL/min Normal >60 [facility] Comment on above: Result Comment: Afri can Prydeinig GFR Calc Performed By: #### M 100.678 #### [facility] [address] [place], [address] GAP 6 Normal 5-15 [facility] Comment on above: Performed By: #### M 100.678 #### [facility] [address] [place], [address] GFR/1.73 sq M.predicted among non-blacks MDRD (S/P/Bld) [Vol rate/Area] 61 mL/min/{1.73_m2} Normal >60 [facility] Comment on above: Result Comment: Non- GFR Calc Performed By: #### M 100.678 #### [facility] [address] [place], [address] Globulin (S) [Mass/Vol] 3.9 g/dL Normal 2.2-4.2 [facility] Comment on above: Performed By: #### M 100.678 #### [facility] [address] [place], [address] Glucose [Mass/Vol] 256 mg/dL High 74-106 [place] Comment on above: Result Comment: Gluc ose result greater than or equal to 200 mg/dL suggests DIABETES MELLITUS per A.D.A. criteria. Performed By: #### M 100.678 #### [facility] [address] [place], [address] Potassium [Moles/Vol] 3.9 mmol/L Normal 3.5-5.1 [facility] Comment on above: Performed By: #### M [id number] #### [facility] [address] [place], [address] Sodium [Moles/Vol] 137 mmol/L Normal 136-145 [place] Comment on above: Performed By: #### M [id number] #### [facility] [address] [place], [address] T PROT 7.7 g/dL Normal 6.4-8.2 [facility] Comment on above: Performed By: #### M [id number] #### [facility] [address] [place], [address] Urea nitrogen [Mass/Vol] 15 mg/dL Normal 7-18 [facility] Comment on above: Performed By: #### M 100.678 #### [facility] [address] [place], [address] Eosinophil percentageOrdered By: Tarik Lobo on 03-29-2024 Eosinophils/100 WBC (Bld) 1.7 % 0-5 [facility] Erythrocyte distribution wid th ratioOrdered By: Tarik Lobo on 03-29-2024 Erythrocyte distribution width (RBC) [Ratio] 11.9 % 11.6-14.6 [facility] Erythrocyte distribution wid th standard deviationOrdered By: Tarik Lobo on 03-29-2024 Erythrocyte distribution width (RBC) [Entitic vol] 41.3 fL 35.1-43.9 [place] Estimated glomerular filtrat ion rate (GFR) AmericanOrdered By: Tarik Lobo on 03-29-2024 Estimated GFR (MDRD) Amer 74 mL/min >60 [facility] Comment on above: GFR Calc Glomerular filtration rate ( GFR) estimationOrdered By: Tarik Lobo on 03-29-2024 Estimated GFR (MDRD) Non-Af Amer 61 mL/min >60 [facility] Comment on above: Non- GFR Calc Glucose measurementOrdered B y: Tarik Lobo on 03-29-2024 Glucose [Mass/Vol] 256 mg/dL High 74-106 [place] Comment on above: Glucose result great er than or equal to 200 mg/dLsuggests DIABETES MELLITUS per A.D.A. criteria. Hematocrit Auto (Bld) [Volum e fraction]Ordered By: Tarik Lobo 03-29-2024 Hematocrit (Bld) [Volume fraction] 39.5 % 37-47 [facility] Hemoglobin measurementOrdere d By: Tarik Lobo on 03-29-2024 Hemoglobin (Bld) [Mass/Vol] 13.3 g/dL 12.0-15.0 [facility] Immature granulocytes/100 WB C Auto (Bld)Ordered By: Tarik Lobo 03-29-2024 Immature granulocytes/100 WBC (Bld) 0.300 % 0.0-0.9 [facility] Comment on above: IG% - Immature Granu locytes (promyelocytes, myelocytes and metamyelocytes) > 1% indicates that a LEFT SHIFT is Present. Laboratory - Chemistry and C hemistry - challengeOrdered By: Tarik Lobo 03-29-2024 AST [Catalytic activity/Vol] 36 U/L 15-37 [facility] Lymphocytes Auto (Unsp spec) [#/Vol]Ordered By: Tarik Lobo 03-29-2024 Lymphocytes (Bld) [#/Vol] 1.99 10*3/uL 0.83-4.5 1 [facility] Lymphocytes/100 WBC Auto (Un sp spec)Ordered By: Tarik Lobo on 03-29-2024 Lymphocytes/100 WBC (Bld) 31.4 % 19-41 [facility] MCV (mean corpuscular volume ) determinationOrdered By: aTrik Lobo on 03-29-2024 MCV (RBC) [Entitic vol] 95.2 fL 81-99 [facility] Mean corpuscular hemoglobin (MCH) determinationOrdered By: Tarik Lobo on 03-29-2024 MCH (RBC) [Entitic mass] 32.0 pg 27.0-32.0 [facility] Mean corpuscular hemoglobin concentration (MCHC) determinationOrdered By: Tarik Lobo on 03-29-2024 MCHC (RBC) [Mass/Vol] 33.7 g/dL 32-36 [facility] Mean platelet volume determi nationOrdered By: Tarik Lobo on 03-29-2024 Platelet mean volume (Bld) [Entitic vol] 8.8 fL 6.2-12.0 [facility] Monocyte percentageOrdered B y: Tairk Lobo on 03-29-2024 Monocytes/100 WBC (Bld) 7.4 % 0-10 [facility] Neutrophil percentageOrdered By: Tarik Lobo on 03-29-2024 Neutrophils/100 WBC (Bld) 58.6 % 47-70 [facility] Nucleated red blood cell per centageOrdered By: Tarik Lobo on 03-29-2024 Nucleated RBC/100 WBC (Bld) [Ratio] 0 % 0-5 [facility] Platelet countOrdered By: Joby Lobo on 03-29-2024 Platelets (Bld) [#/Vol] 272 10*3/uL 150-450 [facility] Potassium measurementOrdered By: Tarik Lobo on 03-29-2024 Potassium [Moles/Vol] 3.9 mmol/L 3.5-5.1 [facility] RBC Auto (Bld) [#/Vol]Ordere d By: Tarik Lobo on 03-29-2024 RBC (Bld) [#/Vol] 4.15 10*6/uL Low 4.2-5.4 [facility] Serum anion gap measurementO rdered By: Tarik Lobo on 03-29-2024 Anion gap [Moles/Vol] 6 mmol/L 5-15 [facility] Serum globulin measurementOr dered By: Tarik Lobo on 03-29-2024 Globulin (S) [Mass/Vol] 3.9 g/dL 2.2-4.2 [facility] Serum or plasma alanine taveras otransferase (ALT) measurementOrdered By: Tarik Lobo 03-29-2024 ALT [Catalytic activity/Vol] 52 U/L 13-56 [facility] Serum or plasma albumin christopher urement (mass/volume)Ordered By: Tarik Lobo on 03-29-2024 Albumin [Mass/Vol] 3.8 g/dL 3.2-5.0 [place] Serum or plasma alkaline sobia sphatase measurementOrdered By: Tarik Lobo 03-29-2024 ALP [Catalytic activity/Vol] 76 U/L 45-117 [facility] Serum or plasma calcium christopher urement (mass/volume)Ordered By: Tarik Lobo 03-29-2024 Calcium [Mass/Vol] 9.2 mg/dL 8.5-10.1 [place] Serum or plasma creatinine m easurement (mass/volume)Ordered By: Tarik Lobo on 03-29-2024 Creatinine [Mass/Vol] 0.96 mg/dL 0.55-1.02 [facility] Comment on above: The validity of the calculated GFR & GFRAA in patients over 70 years has not been determined. Clinical correlation is essential. Serum or plasma urea nitroge n measurement (mass/volume)Ordered By: Tarik Lobo 03-29-2024 Urea nitrogen [Mass/Vol] 15 mg/dL 7-18 [facility] Sodium levelOrdered By: Tarik Lobo 03-29-2024 Sodium [Moles/Vol] 137 mmol/L 136-145 [place] TSH QnOrdered By: Tarik Lobo o n 03-29-2024 Thyroid Stimulating Hormone (TSH) 1.860 uIU/mL 0.358-3.740 [facility] Thyroid Stim Hormone (TSH)on 03-29-2024 TSH 1.860 uIU/mL Normal 0.358-3.740 [facility] Comment on above: Performed By: #### M 100.492 #### [facility] [address] [place], [place], [id number] Total proteinOrdered By: Tarik Lobo on 03-29-2024 Protein [Mass/Vol] 7.7 g/dL 6.4-8.2 [place] Vitamin D,25 Hydroxyon 03-29 Vitamin D 25-OH 29.9 ng/mL Normal [facility] Comment on above: Result Comment: Adrienne min D 25(OH) Status Range Deficiency <20 ng/mL (50nmol/L) Insufficiency 20 - 30 ng/mL (50 - 75 nmol/L) Sufficiency 30 - 100 ng/mL (75 - 250 nmol/L) Toxicity >100 ng/mL (>250 nmol/L) Performed By: #### M 100.678 #### [facility] [address] [facility], [address] White blood cell (WBC) count Ordered By: Tarik Lobo on 03-29-2024 WBC (Bld) [#/Vol] 6.3 10*3/uL 4.4-11.0 [place] Influenza virus A and B and SARS-CoV-2 (COVID-19) and Respiratory syncytial virus RNAOrdered By: Tarik Lobo on 02-18-2024 SARS-CoV-2 (COVID-19) RNA SHEILA+probe Ql (Unsp spec) [facility] M100.678on 02-18-2024 M100.678 Pending SARS-CoV-2 (COVID 19) Negative INFLUENZA A Negative INFLUENZA B Negative RSV PCR Negative Normal [facility] Comment on above: Performed By: #### M 100.678 #### [facility] [address] [place], [place], [id number] 81-CT-Fbeuzrp DOrdered By: Bindu Lobo on 02-05-2024 Vitamin D 25-Hydroxy 25.3 ng/mL [facility] Comment on above: Vitamin D 25(OH) Sta tus Range Deficiency <20 ng/mL (50nmol/L) Insufficiency 20 - 30 ng/mL (50 - 75 nmol/L) Sufficiency 30 - 100 ng/mL (75 - 250 nmol/L) Toxicity >100 ng/mL (>250 nmol/L) Absolute neutrophil countOrd ered By: Tarik Lobo on 02-05-2024 Neutrophils (Bld) [#/Vol] 4.0 10*3/uL 2.0-7.7 [facility] Albumin to globulin ratioOrd ered By: Tarik Lobo on 02-05-2024 Albumin/Globulin [Mass ratio] 1.1 {ratio} 0.9-2.4 [facility] Basophil percentageOrdered B y: Tarik Yamil on 02-05-2024 Basophils/100 WBC (Bld) 1.0 % 0-1 [facility] Bilirubin, totalOrdered By: Tarik Lobo on 02-05-2024 Bilirubin [Mass/Vol] 0.30 mg/dL 0.20-1.00 [facility] Comment on above: For patients on eltr ombopag therapy, use of Dimension Howe TBIL is not recommended. Blood urea nitrogen (BUN)/cr eatinine ratioOrdered By: Tarik Lobo on 02-05-2024 Urea nitrogen/Creatinine [Mass ratio] 14.6 mg/mg 10-20 [facility] CBC W/Diff, Automatedon Absolute Lymph 2.20 X10 3/uL Normal 0.83-4.51 [facility] Comment on above: Performed By: #### M 100.678 #### [facility] [address] [place], [address] Absolute Neut 4.0 X10 3/uL Normal 2.0-7.7 [facility] Comment on above: Performed By: #### M [id number] #### [facility] [address] [place], [address] Basophils/100 WBC (Bld) 1.0 % Normal 0-1 [facility] Comment on above: Performed By: #### M 100.678 #### [facility] [address] [facility], [address] Eosinophils/100 WBC (Bld) 1.7 % Normal 0-5 [facility] Comment on above: Performed By: #### M 100.678 #### [facility] [address] [place], [address] Erythrocyte distribution width (RBC) [Ratio] 11.9 % Normal 11.6-14.6 [facility] Comment on above: Performed By: #### M 100.678 #### [facility] [address] [place], [address] Hematocrit (Bld) [Volume fraction] 40.2 % Normal 37-47 [facility] Comment on above: Performed By: #### M 100.678 #### [facility] [address] [place], [address] Hemoglobin (Bld) [Mass/Vol] 13.4 g/dL Normal 12.0-15.0 [facility] Comment on above: Performed By: #### M 100.678 #### [facility] [address] [place], [address] IG% 0.300 Normal 0.0-0.9 [facility] Comment on above: Result Comment: IG% - Immature Granulocytes (promyelocytes, myelocytes and metamyelocytes) > 1% indicates that a LEFT SHIFT is Present. Performed By: #### M 100.678 #### [facility] [address] [place], [address] Lymphocytes/100 WBC (Bld) 30.8 % Normal 19-41 [facility] Comment on above: Performed By: #### M 100.678 #### [facility] [address] [place], [address] MCH (RBC) [Entitic mass] 31.3 pg Normal 27.0-32.0 [facility] Comment on above: Performed By: #### M 100.678 #### [facility] [address] [place], [address] MCHC (RBC) [Mass/Vol] 33.3 g/dL Normal 32-36 [facility] Comment on above: Performed By: #### M 100.678 #### [facility] [address] [place], [address] MCV (RBC) [Entitic vol] 93.9 fL Normal 81-99 [facility] Comment on above: Performed By: #### M 100.678 #### [facility] [address] [place], [address] Monocytes/100 WBC (Bld) 10.2 % High 0-10 [facility] Comment on above: Performed By: #### M 100.678 #### [facility] [address] [place], [address] Neutrophils/100 WBC (Bld) 56.0 % Normal 47-70 [facility] Comment on above: Performed By: #### M 100.678 #### [facility] [address] [place], [address] Nucleated RBC (Bld) [#/Vol] 0 10*3/uL Normal 0-5 [facility] Comment on above: Performed By: #### M 100.678 #### [facility] [address] [place], [address] Platelet mean volume (Bld) [Entitic vol] 8.7 fL Normal 6.2-12.0 [facility] Comment on above: Performed By: #### M 100.678 #### [facility] [address] [place], [address] Platelets (Bld) [#/Vol] 280 10*3/uL Normal 150-450 [facility] Comment on above: Performed By: #### M 100.678 #### [facility] [address] [place], [address] RBC (Bld) [#/Vol] 4.28 10*6/uL Normal 4.2-5.4 [facility] Comment on above: Performed By: #### M 100.678 #### [facility] [address] [place], [address] RDW SD 41.0 fl Normal 35.1-43.9 [facility] Comment on above: Performed By: #### M 100.678 #### [facility] [address] [place], [address] WBC (Bld) [#/Vol] 7.2 10*3/uL Normal 4.4-11.0 [place] Comment on above: Performed By: #### M 100.678 #### [facility] [address] [place], [place], [id number] Carbon dioxide measurementOr dered By: Tarik Lobo on 02-05-2024 CO2 [Moles/Vol] 24.0 mmol/L 21.0-32.0 [facility] Chloride measurementOrdered By: Tarik Lobo on 02-05-2024 Chloride [Moles/Vol] 103 mmol/L 98-107 [facility] Comprehensive Metabolic Prof ilon 02-05-2024 Albumin [Mass/Vol] 4.0 g/dL Normal 3.2-5.0 [place] Comment on above: Performed By: #### M 100.678 #### [facility] [address] [place], [address] Albumin/Globulin [Mass ratio] 1.1 {ratio} Normal 0.9-2.4 [facility] Comment on above: Performed By: #### M 100.678 #### [facility] [address] [place], [address] ALK P 82 U/L Normal 45-117 [facility] Comment on above: Performed By: #### M 100.678 #### [facility] [address] [place], [address] ALT [Catalytic activity/Vol] 52 U/L Normal 13-56 [facility] Comment on above: Performed By: #### M 100.678 #### [facility] [address] [place], [address] AST [Catalytic activity/Vol] 32 U/L Normal 15-37 [facility] Comment on above: Result Comment: Slig ht Hemolysis, Result may be falsely increased. Performed By: #### M 100.678 #### [facility] [address] [place], [address] Bilirubin [Mass/Vol] 0.30 mg/dL Normal 0.20-1.00 [facility] Comment on above: Result Comment: For patients on eltrombopag therapy, use of Dimension Howe TBIL is not recommended. Performed By: #### M 100.678 #### [facility] [address] [place], [address] BUN/CRE 14.6 RATIO Normal 10-20 [facility] Comment on above: Performed By: #### M 100.678 #### [facility] [address] [place], [address] CA,Total 9.5 mg/dL Normal 8.5-10.1 [facility] Comment on above: Performed By: #### M 100.678 #### [facility] [address] [place], [address] Chloride [Moles/Vol] 103 mmol/L Normal 98-107 [facility] Comment on above: Performed By: #### M 100.678 #### [facility] [address] [place], [address] CO2 [Moles/Vol] 24.0 mmol/L Normal 21.0-32.0 [facility] Comment on above: Performed By: #### M 100.678 #### [facility] [address] [place], [address] Creatinine [Mass/Vol] 0.75 mg/dL Normal 0.55-1.02 [facility] Comment on above: Result Comment: The validity of the calculated GFR GFRAA in patients over 70 years has not been determined. Clinical correlation is essential. Performed By: #### M 100.678 #### [facility] [address] [place], [address] EST GFR - AA 99 mL/min Normal >60 [facility] Comment on above: Result Comment: Afri can Prydeinig GFR Calc Performed By: #### M 100.678 #### [facility] [address] [place], [address] GAP 8 Normal 5-15 [facility] Comment on above: Performed By: #### M 100.678 #### [facility] [address] [place], [address] GFR/1.73 sq M.predicted among non-blacks MDRD (S/P/Bld) [Vol rate/Area] 81 mL/min/{1.73_m2} Normal >60 [facility] Comment on above: Result Comment: Non- GFR Calc Performed By: #### M 100.678 #### [facility] [address] [place], [address] Globulin (S) [Mass/Vol] 3.8 g/dL Normal 2.2-4.2 [facility] Comment on above: Performed By: #### M 100.678 #### [facility] [address] [place], [address] Glucose [Mass/Vol] 243 mg/dL High 74-106 [place] Comment on above: Result Comment: Gluc ose result greater than or equal to 200 mg/dL suggests DIABETES MELLITUS per A.D.A. criteria. Performed By: #### M 100.678 #### [facility] [address] [place], [address] Potassium [Moles/Vol] 3.9 mmol/L Normal 3.5-5.1 [facility] Comment on above: Result Comment: Slig ht Hemolysis, Result may be falsely increased. Performed By: #### M 100.678 #### [facility] [address] [place], [address] Sodium [Moles/Vol] 135 mmol/L Low 136-145 [place] Comment on above: Performed By: #### M 100.678 #### [facility] [address] [place], [address] T PROT 7.8 g/dL Normal 6.4-8.2 [facility] Comment on above: Performed By: #### M 100.678 #### [facility] [address] [place], [address] Urea nitrogen [Mass/Vol] 11 mg/dL Normal 7-18 [facility] Comment on above: Performed By: #### M 100.678 #### [facility] [address] [place], [address] Eosinophil percentageOrdered By: Tarik Lobo on 02-05-2024 Eosinophils/100 WBC (Bld) 1.7 % 0-5 [facility] Erythrocyte distribution wid th ratioOrdered By: Tarik Lobo on 02-05-2024 Erythrocyte distribution width (RBC) [Ratio] 11.9 % 11.6-14.6 [facility] Erythrocyte distribution wid th standard deviationOrdered By: Tarik Lobo on 02-05-2024 Erythrocyte distribution width (RBC) [Entitic vol] 41.0 fL 35.1-43.9 [place] Estimated glomerular filtrat ion rate (GFR) AmericanOrdered By: Tarik Lobo on 02-05-2024 Estimated GFR (MDRD) Amer 99 mL/min >60 [facility] Comment on above: GFR Calc Glomerular filtration rate ( GFR) estimationOrdered By: Tarik Lobo on 02-05-2024 Estimated GFR (MDRD) Non-Af Amer 81 mL/min >60 [facility] Comment on above: Non- GFR Calc Glucose measurementOrdered B y: Tarik Navarreteok on 02-05-2024 Glucose [Mass/Vol] 243 mg/dL High 74-106 [place] Comment on above: Glucose result great er than or equal to 200 mg/dLsuggests DIABETES MELLITUS per A.D.A. criteria. Hematocrit Auto (Bld) [Volum e fraction]Ordered By: Tarik Lobo on 02-05-2024 Hematocrit (Bld) [Volume fraction] 40.2 % 37-47 [facility] Hemoglobin measurementOrdere d By: Tarik Lobo on 02-05-2024 Hemoglobin (Bld) [Mass/Vol] 13.4 g/dL 12.0-15.0 [facility] Immature granulocytes/100 WB C Auto (Bld)Ordered By: Tarik Lobo on 02-05-2024 Immature granulocytes/100 WBC (Bld) 0.300 % 0.0-0.9 [facility] Comment on above: IG% - Immature Granu locytes (promyelocytes, myelocytes and metamyelocytes) > 1% indicates that a LEFT SHIFT is Present. Laboratory - Chemistry and C hemistry - challengeOrdered By: Tarik Lobo on 02-05-2024 AST [Catalytic activity/Vol] 32 U/L 15-37 [facility] Comment on above: Slight Hemolysis, Re sult may be falsely increased. Lymphocytes Auto (Unsp spec) [#/Vol]Ordered By: Tarik Lobo on 02-05-2024 Lymphocytes (Bld) [#/Vol] 2.20 10*3/uL 0.83-4.5 1 [facility] Lymphocytes/100 WBC Auto (Un sp spec)Ordered By: Tarik Lobo on 02-05-2024 Lymphocytes/100 WBC (Bld) 30.8 % 19-41 [facility] MCV (mean corpuscular volume ) determinationOrdered By: Tarik Lobo on 02-05-2024 MCV (RBC) [Entitic vol] 93.9 fL 81-99 [facility] Mean corpuscular hemoglobin (MCH) determinationOrdered By: Tarik Lobo 02-05-2024 MCH (RBC) [Entitic mass] 31.3 pg 27.0-32.0 [facility] Mean corpuscular hemoglobin concentration (MCHC) determinationOrdered By: Tarik Lobo on 02-05-2024 MCHC (RBC) [Mass/Vol] 33.3 g/dL 32-36 [facility] Mean platelet volume determi nationOrdered By: Tarik Lobo on 02-05-2024 Platelet mean volume (Bld) [Entitic vol] 8.7 fL 6.2-12.0 [facility] Monocyte percentageOrdered B y: Tarik Lobo on 02-05-2024 Monocytes/100 WBC (Bld) 10.2 % High 0-10 [facility] Neutrophil percentageOrdered By: Tarik Lobo on 02-05-2024 Neutrophils/100 WBC (Bld) 56.0 % 47-70 [facility] Nucleated red blood cell per centageOrdered By: Tarik Lobo on 02-05-2024 Nucleated RBC/100 WBC (Bld) [Ratio] 0 % 0-5 [facility] Platelet countOrdered By: Joby Lobo on 02-05-2024 Platelets (Bld) [#/Vol] 280 10*3/uL 150-450 [facility] Potassium measurementOrdered By: Tarik Lobo on 02-05-2024 Potassium [Moles/Vol] 3.9 mmol/L 3.5-5.1 [facility] Comment on above: Slight Hemolysis, Re sult may be falsely increased. RBC Auto (Bld) [#/Vol]Ordere d By: Tarik Lobo on 02-05-2024 RBC (Bld) [#/Vol] 4.28 10*6/uL 4.2-5.4 [facility] Serum anion gap measurementO rdered By: Tarik Lobo on 02-05-2024 Anion gap [Moles/Vol] 8 mmol/L 5-15 [facility] Serum globulin measurementOr dered By: Tarik Lobo 02-05-2024 Globulin (S) [Mass/Vol] 3.8 g/dL 2.2-4.2 [facility] Serum or plasma alanine taveras otransferase (ALT) measurementOrdered By: Tarik Lobo 02-05-2024 ALT [Catalytic activity/Vol] 52 U/L 13-56 [facility] Serum or plasma albumin christopher urement (mass/volume)Ordered By: Tarik Lobo on 02-05-2024 Albumin [Mass/Vol] 4.0 g/dL 3.2-5.0 [place] Serum or plasma alkaline sobia sphatase measurementOrdered By: Tarik Lobo on 02-05-2024 ALP [Catalytic activity/Vol] 82 U/L 45-117 [facility] Serum or plasma calcium christopher urement (mass/volume)Ordered By: Tarik Lobo on 02-05-2024 Calcium [Mass/Vol] 9.5 mg/dL 8.5-10.1 [place] Serum or plasma creatinine m easurement (mass/volume)Ordered By: Tarik Lobo on 02-05-2024 Creatinine [Mass/Vol] 0.75 mg/dL 0.55-1.02 [facility] Comment on above: The validity of the calculated GFR & GFRAA in patients over 70 years has not been determined. Clinical correlation is essential. Serum or plasma urea nitroge n measurement (mass/volume)Ordered By: Tarik Lobo on 02-05-2024 Urea nitrogen [Mass/Vol] 11 mg/dL 7-18 [facility] Sodium levelOrdered By: Tarik Lobo on 02-05-2024 Sodium [Moles/Vol] 135 mmol/L Low 136-145 [place] TSH QnOrdered By: Tarik Lobo o n 02-05-2024 Thyroid Stimulating Hormone (TSH) 3.640 uIU/mL 0.358-3.740 [facility] Thyroid Stim Hormone (TSH)on 02-05-2024 TSH 3.640 uIU/mL Normal 0.358-3.740 [facility] Comment on above: Performed By: #### M 100.678 #### [facility] [address] [place], [place] [address], [place], [address] Total proteinOrdered By: Tarik Lobo on 02-05-2024 Protein [Mass/Vol] 7.8 g/dL 6.4-8.2 [place] Vitamin D,25 Hydroxyon 02-04 Vitamin D 25-OH 25.3 ng/mL Normal [facility] Comment on above: Result Comment: Adrienne min D 25(OH) Status Range Deficiency <20 ng/mL (50nmol/L) Insufficiency 20 - 30 ng/mL (50 - 75 nmol/L) Sufficiency 30 - 100 ng/mL (75 - 250 nmol/L) Toxicity >100 ng/mL (>250 nmol/L) Performed By: #### M 100.678 #### [facility] [address] [place], [address] White blood cell (WBC) count Ordered By: Tarik Lobo on 02-05-2024 WBC (Bld) [#/Vol] 7.2 10*3/uL 4.4-11.0 [place] CBC W/Diff, Automatedon Absolute Lymph 2.13 X10 3/uL Normal 0.83-4.51 [facility] Comment on above: Performed By: #### L 500.4050, L100.0100, L501.9520, L506.1000 #### [facility] [address] [place], [address] Absolute Neut 3.9 X10 3/uL Normal 2.0-7.7 [facility] Comment on above: Performed By: #### L 500.4050, L100.0100, L501.9520, L506.1000 #### [facility] [address] [place], [address] Basophils/100 WBC (Bld) 0.7 % Normal 0-1 [facility] Comment on above: Performed By: #### L 500.4050, L100.0100, L501.9520, L506.1000 #### [facility] [address] [place], [address] Eosinophils/100 WBC (Bld) 1.3 % Normal 0-5 [facility] Comment on above: Performed By: #### L 500.4050, L100.0100, L501.9520, L506.1000 #### [facility] [address] [place], [address] Erythrocyte distribution width (RBC) [Ratio] 11.9 % Normal 11.6-14.6 [facility] Comment on above: Performed By: #### L 500.4050, L100.0100, L501.9520, L506.1000 #### [facility] [address] [place], [address] Hematocrit (Bld) [Volume fraction] 39.0 % Normal 37-47 [facility] Comment on above: Performed By: #### L 500.4050, L100.0100, L501.9520, L506.1000 #### [facility] [address] [place], [address] Hemoglobin (Bld) [Mass/Vol] 12.7 g/dL Normal 12.0-15.0 [facility] Comment on above: Performed By: #### L 500.4050, L100.0100, L501.9520, L506.1000 #### [facility] [address] [place], [address] IG% 0.300 Normal 0.0-0.9 [facility] Comment on above: Result Comment: IG% - Immature Granulocytes (promyelocytes, myelocytes and metamyelocytes) > 1% indicates that a LEFT SHIFT is Present. Performed By: #### L 500.4050, L100.0100, L501.9520, L506.1000 #### [facility] [address] [place], [address] Lymphocytes/100 WBC (Bld) 31.2 % Normal 19-41 [facility] Comment on above: Performed By: #### L 500.4050, L100.0100, L501.9520, L506.1000 #### [facility] [address] [place], [address] MCH (RBC) [Entitic mass] 31.4 pg Normal 27.0-32.0 [facility] Comment on above: Performed By: #### L 500.4050, L100.0100, L501.9520, L506.1000 #### [facility] [address] [place], [address] MCHC (RBC) [Mass/Vol] 32.6 g/dL Normal 32-36 [facility] Comment on above: Performed By: #### L 500.4050, L100.0100, L501.9520, L506.1000 #### [facility] [address] [place], [address] MCV (RBC) [Entitic vol] 96.3 fL Normal 81-99 [facility] Comment on above: Performed By: #### L 500.4050, L100.0100, L501.9520, L506.1000 #### [facility] [address] [place], [address] Monocytes/100 WBC (Bld) 9.1 % Normal 0-10 [facility] Comment on above: Performed By: #### L 500.4050, L100.0100, L501.9520, L506.1000 #### [facility] [address] [place], [address] Neutrophils/100 WBC (Bld) 57.4 % Normal 47-70 [facility] Comment on above: Performed By: #### L 500.4050, L100.0100, [id number], L506.1000 #### [facility] [address] [place], [address] Nucleated RBC (Bld) [#/Vol] 0 10*3/uL Normal 0-5 [facility] Comment on above: Performed By: #### L 500.4050, L100.0100, L501.9520, L506.1000 #### [facility] [address] [place], [address] Platelet mean volume (Bld) [Entitic vol] 8.7 fL Normal 6.2-12.0 [facility] Comment on above: Performed By: #### L 500.4050, L100.0100, L501.9520, L506.1000 #### [facility] [address] [place], [address] Platelets (Bld) [#/Vol] 270 10*3/uL Normal 150-450 [facility] Comment on above: Performed By: #### L 500.4050, L100.0100, [id number], L506.1000 #### [facility] [address] [place], [address] RBC (Bld) [#/Vol] 4.05 10*6/uL Low 4.2-5.4 [facility] Comment on above: Performed By: #### L 500.4050, L100.0100, [id number], L506.1000 #### [facility] [address] [place], [address] RDW SD 41.5 fl Normal 35.1-43.9 [facility] Comment on above: Performed By: #### L 500.4050, L100.0100, [id number], L506.1000 #### [facility] [address] [place], [address] WBC (Bld) [#/Vol] 6.8 10*3/uL Normal 4.4-11.0 [place] Comment on above: Performed By: #### L 500.4050, L100.0100, [id number], L506.1000 #### [facility] [address] [place], [address] Comprehensive Metabolic Prof ilon 10-02-2023 Albumin [Mass/Vol] 3.7 g/dL Normal 3.2-5.0 [place] Comment on above: Performed By: #### L 500.4050, L100.0100, L501.9520, L506.1000 #### [facility] [address] [place], [address] Albumin/Globulin [Mass ratio] 0.9 {ratio} Normal 0.9-2.4 [facility] Comment on above: Performed By: #### L 500.4050, L100.0100, L501.9520, L506.1000 #### [facility] [address] [place], [address] ALK P 81 U/L Normal 45-117 [facility] Comment on above: Performed By: #### L 500.4050, L100.0100, [id number], L506.1000 #### [facility] [address] [place], [address] ALT [Catalytic activity/Vol] 52 U/L Normal 13-56 [facility] Comment on above: Performed By: #### L 500.4050, L100.0100, L501.9520, L506.1000 #### [facility] [address] [place], [address] AST [Catalytic activity/Vol] 29 U/L Normal 15-37 [facility] Comment on above: Performed By: #### L 500.4050, L100.0100, [id number], L506.1000 #### [facility] [address] [place], [address] Bilirubin [Mass/Vol] 0.20 mg/dL Normal 0.20-1.00 [facility] Comment on above: Result Comment: For patients on eltrombopag therapy, use of Dimension Howe TBIL is not recommended. Performed By: #### L 500.4050, L100.0100, L501.9520, L506.1000 #### [facility] [address] [place], [address] BUN/CRE 17.5 RATIO Normal 10-20 [facility] Comment on above: Performed By: #### L 500.4050, L100.0100, [id number], L506.1000 #### [facility] [address] [place], [address] CA,Total 8.8 mg/dL Normal 8.5-10.1 [facility] Comment on above: Performed By: #### L 500.4050, L100.0100, L501.9520, L506.1000 #### [facility] [address] [place], [address] Chloride [Moles/Vol] 107 mmol/L Normal 98-107 [facility] Comment on above: Performed By: #### L 500.4050, L100.0100, L501.9520, L506.1000 #### [facility] [address] [place], [address] CO2 [Moles/Vol] 27.0 mmol/L Normal 21.0-32.0 [facility] Comment on above: Performed By: #### L 500.4050, L100.0100, L501.9520, L506.1000 #### [facility] [address] [place], [address] Creatinine [Mass/Vol] 0.86 mg/dL Normal 0.55-1.02 [facility] Comment on above: Result Comment: The validity of the calculated GFR GFRAA in patients over 70 years has not been determined. Clinical correlation is essential. Performed By: #### L 500.4050, L100.0100, L501.9520, L506.1000 #### [facility] [address] [place], [address] EST GFR - AA 85 mL/min Normal >60 [facility] Comment on above: Result Comment: Afri can Prydeinig GFR Calc Performed By: #### L 500.4050, L100.0100, L501.9520, L506.1000 #### [facility] [address] [place], [address] GAP 5 Normal 5-15 [facility] Comment on above: Performed By: #### L 500.4050, L100.0100, L501.9520, L506.1000 #### [facility] [address] [place], [address] GFR/1.73 sq M.predicted among non-blacks MDRD (S/P/Bld) [Vol rate/Area] 70 mL/min/{1.73_m2} Normal >60 [facility] Comment on above: Result Comment: Non- GFR Calc Performed By: #### L 500.4050, L100.0100, L501.9520, L506.1000 #### [facility] [address] [place], [address] Globulin (S) [Mass/Vol] 3.9 g/dL Normal 2.2-4.2 [facility] Comment on above: Performed By: #### L 500.4050, L100.0100, L501.9520, L506.1000 #### [facility] [address] [place], [address] Glucose [Mass/Vol] 161 mg/dL High 74-106 [place] Comment on above: Result Comment: Fast ing Glucose result greater than or equal to 126 mg/dL suggests DIABETES MELLITUS per A.D.A. criteria. Performed By: #### L 500.4050, L100.0100, L501.9520, L506.1000 #### [facility] [address] [place], [address] Potassium [Moles/Vol] 4.1 mmol/L Normal 3.5-5.1 [facility] Comment on above: Performed By: #### L 500.4050, L100.0100, L501.9520, L506.1000 #### [facility] [address] [place], [address] Sodium [Moles/Vol] 139 mmol/L Normal 136-145 [place] Comment on above: Performed By: #### L 500.4050, L100.0100, L501.9520, L506.1000 #### [facility] [address] [place], [address] T PROT 7.6 g/dL Normal 6.4-8.2 [facility] Comment on above: Performed By: #### L 500.4050, L100.0100, L501.9520, L506.1000 #### [facility] [address] [place], [address] Urea nitrogen [Mass/Vol] 15 mg/dL Normal 7-18 [facility] Comment on above: Performed By: #### L 500.4050, L100.0100, L501.9520, L506.1000 #### [facility] [address] [place], [address] Thyroid Stim Hormone (TSH)on 10-02-2023 TSH 2.36 uIU/mL Normal 0.358-3.74 [facility] Comment on above: Performed By: #### M 100.678 #### [facility] [address] [place], [address] Vitamin D,25 Hydroxyon 10-01 Vitamin D 25-OH 30.5 ng/mL Normal [facility] Comment on above: Result Comment: Adrienne min D 25(OH) Status Range Deficiency <20 ng/mL (50nmol/L) Insufficiency 20 - 30 ng/mL (50 - 75 nmol/L) Sufficiency 30 - 100 ng/mL (75 - 250 nmol/L) Toxicity >100 ng/mL (>250 nmol/L) Performed By: #### L 500.4050, L100.0100, L501.9520, L506.1000 #### [facility] [address] [place], [address] Absolute lymphocyte countOrd ered By: Tarik Lobo on 06-25-2023 Lymphocytes Auto (Unsp spec) [#/Vol] 2.20 10*3/uL 0.83-4.51 [facility] Automated lymphocyte count a s percentage of total leukocytesOrdered By: Tarik Lobo on 06-25-2023 Lymphocytes/100 WBC Auto (Unsp spec) 28.3 % 19-41 [facility] Basophil percentageOrdered B y: Tarik Lobo on 06-25-2023 Basophils/100 WBC (Bld) 0.9 % 0-1 [facility] Bilirubin [Mass/Vol] 0.20 mg/dL 0.20-1.00 [facility] Comment on above: For patients on eltr ombopag therapy, use of Dimension Howe TBIL is not recommended. Chloride [Moles/Vol] 105 mmol/L 98-107 [facility] Eosinophils/100 WBC (Bld) 1.2 % 0-5 [facility] Glucose [Mass/Vol] 270 mg/dL 74-106 [place] Comment on above: Glucose result great er than or equal to 200 mg/dLsuggests DIABETES MELLITUS per A.D.A. criteria. Hemoglobin (Bld) [Mass/Vol] 13.0 g/dL 12.0-15.0 [facility] Monocytes/100 WBC (Bld) 8.2 % 0-10 [facility] Neutrophils (Bld) [#/Vol] 4.7 10*3/uL 2.0-7.7 [facility] Neutrophils/100 WBC (Bld) 60.9 % 47-70 [facility] Potassium [Moles/Vol] 3.7 mmol/L 3.5-5.1 [facility] Protein [Mass/Vol] 7.4 g/dL 6.4-8.2 [place] Sodium [Moles/Vol] 138 mmol/L 136-145 [place] WBC (Bld) [#/Vol] 7.8 10*3/uL 4.4-11.0 [place] Determination of erythrocyte mean corpuscular volume (MCV)Ordered By: Tarik Yamil on 06-25-2023 MCV (RBC) [Entitic vol] 94.2 fL 81-99 [facility] Erythrocyte distribution wid th ratioOrdered By: [facility] 06-25-2023 Erythrocyte distribution width (RBC) [Ratio] 11.7 % 11.6-14.6 [facility] Erythrocyte distribution wid th standard deviationOrdered By: [facility] on 06-25-2023 Erythrocyte distribution width (RBC) [Entitic vol] 40.3 fL 35.1-43.9 [place] Hematocrit Auto (Bld) [Volum e fraction]Ordered By: [facility] on 06-25-2023 Hematocrit (Bld) [Volume fraction] 39.1 % 37-47 [facility] Immature granulocytes/100 WB C Auto (Bld)Ordered By: [facility] 06-25-2023 Immature granulocytes/100 WBC (Bld) 0.500 % 0.0-0.9 [facility] Comment on above: IG% - Immature Granu locytes (promyelocytes, myelocytes and metamyelocytes) > 1% indicates that a LEFT SHIFT is Present. Laboratory - Chemistry and C hemistry - challengeOrdered By: [facility] 06-25-2023 Albumin/Globulin [Mass ratio] 1.1 {ratio} 0.9-2.4 [facility] ALP [Catalytic activity/Vol] 89 U/L 45-117 [facility] ALT [Catalytic activity/Vol] 43 U/L 13-56 [facility] CO2 [Moles/Vol] 27.0 mmol/L 21.0-32.0 [facility] Globulin (S) [Mass/Vol] 3.6 g/dL 2.2-4.2 [facility] Urea nitrogen/Creatinine [Mass ratio] 14.0 mg/mg 10-20 [facility] Laboratory - Hematology and Cell countsOrdered By: [facility] 06-25-2023 MCH (RBC) [Entitic mass] 31.3 pg 27.0-32.0 [facility] MCHC (RBC) [Mass/Vol] 33.2 g/dL 32-36 [facility] Nucleated RBC/100 WBC (Bld) [Ratio] 0 % 0-5 [facility] Platelet mean volume (Bld) [Entitic vol] 8.8 fL 6.2-12.0 [facility] Platelets (Bld) [#/Vol] 260 10*3/uL 150-450 [facility] No Panel InformationOrdered By: Tarik Lobo on 06-25-2023 Estimated GFR (MDRD) Amer 71 mL/min >60 [facility] Comment on above: GFR Calc Estimated GFR (MDRD) Non-Af Amer 59 mL/min >60 [facility] Comment on above: Non- GFR Calc Vitamin D 25-Hydroxy 24.5 ng/mL [facility] Comment on above: Vitamin D 25(OH) Sta tus Range Deficiency <20 ng/mL (50nmol/L) Insufficiency 20 - 30 ng/mL (50 - 75 nmol/L) Sufficiency 30 - 100 ng/mL (75 - 250 nmol/L) Toxicity >100 ng/mL (>250 nmol/L) RBC Auto (Bld) [#/Vol]Ordere d By: Tarik Lobo on 06-25-2023 RBC (Bld) [#/Vol] 4.15 10*6/uL 4.2-5.4 [facility] Serum or plasma calcium christopher urement (mass/volume)Ordered By: Tarik Lobo on 06-25-2023 Calcium [Mass/Vol] 8.6 mg/dL 8.5-10.1 [place] Serum or plasma creatinine m easurement (mass/volume)Ordered By: Tarik Lobo on 06-25-2023 Creatinine [Mass/Vol] 1.00 mg/dL 0.55-1.02 [facility] Comment on above: The validity of the calculated GFR & GFRAA in patients over 70 years has not been determined. Clinical correlation is essential. Serum or plasma thyroid stim ulating hormone (TSH) measurement (units/volume)Ordered By: Tarik Lobo on 06-25-2023 TSH Qn 2.41 uIU/mL 0.358-3.74 [facility] Serum or plasma urea nitroge n measurement (mass/volume)Ordered By: Tarik Lobo on 06-25-2023 Urea nitrogen [Mass/Vol] 14 mg/dL 7-18 [facility] Thin prep Papanicolaou smear with manual screeningOrdered By: Tarik Lobo 06-25-2023 Thin prep Papanicolaou smear with manual screening 3.8 g/dL 3.2-5.0 [facility] Thin prep Papanicolaou smear with manual screening 17 U/L 15-37 [facility] Thin prep Papanicolaou smear with manual screening 6 5-15 [facility] Absolute lymphocyte countOrd ered By: Tarik Lobo on 03-25-2023 Lymphocytes Auto (Unsp spec) [#/Vol] 1.63 10*3/uL 0.83-4.51 [facility] Automated lymphocyte count a s percentage of total leukocytesOrdered By: Tarik Lobo on 03-25-2023 Lymphocytes/100 WBC Auto (Unsp spec) 29.7 % 19-41 [facility] Basophil percentageOrdered B y: Tarik Lobo on 03-25-2023 Basophils/100 WBC (Bld) 1.1 % 0-1 [facility] Bilirubin [Mass/Vol] 0.50 mg/dL 0.20-1.00 [facility] Comment on above: For patients on eltr ombopag therapy, use of Dimension Howe TBIL is not recommended. Chloride [Moles/Vol] 106 mmol/L 98-107 [facility] Eosinophils/100 WBC (Bld) 2.0 % 0-5 [facility] Glucose [Mass/Vol] 251 mg/dL 74-106 [place] Comment on above: Glucose result great er than or equal to 200 mg/dLsuggests DIABETES MELLITUS per A.D.A. criteria. Hemoglobin (Bld) [Mass/Vol] 13.4 g/dL 12.0-15.0 [facility] Monocytes/100 WBC (Bld) 10.0 % 0-10 [facility] Neutrophils (Bld) [#/Vol] 3.1 10*3/uL 2.0-7.7 [facility] Neutrophils/100 WBC (Bld) 57.0 % 47-70 [facility] Potassium [Moles/Vol] 3.8 mmol/L 3.5-5.1 [facility] Protein [Mass/Vol] 7.6 g/dL 6.4-8.2 [place] Sodium [Moles/Vol] 138 mmol/L 136-145 [place] WBC (Bld) [#/Vol] 5.5 10*3/uL 4.4-11.0 [place] Determination of erythrocyte mean corpuscular volume (MCV)Ordered By: Tarik Lobo on 03-25-2023 MCV (RBC) [Entitic vol] 97.2 fL 81-99 [facility] Erythrocyte distribution wid th ratioOrdered By: Tarik Lobo on 03-25-2023 Erythrocyte distribution width (RBC) [Ratio] 12.4 % 11.6-14.6 [facility] Erythrocyte distribution wid th standard deviationOrdered By: Tarik Yamil on 03-25-2023 Erythrocyte distribution width (RBC) [Entitic vol] 44.3 fL 35.1-43.9 [place] Hematocrit Auto (Bld) [Volum e fraction]Ordered By: Tarik Lobo on 03-25-2023 Hematocrit (Bld) [Volume fraction] 41.3 % 37-47 [facility] Immature granulocytes/100 WB C Auto (Bld)[facility] Immature granulocytes/100 WBC (Bld) 0.200 % 0.0-0.9 [facility] Comment on above: IG% - Immature Granu locytes (promyelocytes, myelocytes and metamyelocytes) > 1% indicates that a LEFT SHIFT is Present. Laboratory - Chemistry and C hemistry - challengeOrdered By: [facility] Yamil 03-25-2023 Albumin/Globulin [Mass ratio] 1.1 {ratio} 0.9-2.4 [facility] ALP [Catalytic activity/Vol] 81 U/L 45-117 [facility] ALT [Catalytic activity/Vol] 37 U/L 13-56 [facility] CO2 [Moles/Vol] 24.0 mmol/L 21.0-32.0 [facility] Globulin (S) [Mass/Vol] 3.6 g/dL 2.2-4.2 [facility] Urea nitrogen/Creatinine [Mass ratio] 21.2 mg/mg 10-20 [facility] Laboratory - Hematology and Cell countsOrdered By: Tarik Lobo 03-25-2023 MCH (RBC) [Entitic mass] 31.5 pg 27.0-32.0 [facility] MCHC (RBC) [Mass/Vol] 32.4 g/dL 32-36 [facility] Nucleated RBC/100 WBC (Bld) [Ratio] 0 % 0-5 [facility] Platelets (Bld) [#/Vol] 290 10*3/uL 150-450 [facility] No Panel InformationOrdered By: Tarik Lobo on 03-25-2023 Estimated GFR (MDRD) Amer 92 mL/min >60 [facility] Comment on above: GFR Calc Estimated GFR (MDRD) Non-Af Amer 76 mL/min >60 [facility] Comment on above: Non- GFR Calc Vitamin D 25-Hydroxy 29.3 ng/mL [facility] Comment on above: Vitamin D 25(OH) Sta tus Range Deficiency <20 ng/mL (50nmol/L) Insufficiency 20 - 30 ng/mL (50 - 75 nmol/L) Sufficiency 30 - 100 ng/mL (75 - 250 nmol/L) Toxicity >100 ng/mL (>250 nmol/L) Platelet mean volume Cyrus-Ec ker (Bld) [Entitic vol]Ordered By: Tarik Lobo on 03-25-2023 Platelet mean volume (Bld) [Entitic vol] 9.0 fL 6.2-12.0 [facility] RBC Auto (Bld) [#/Vol]Ordere d By: Tarik Lobo on 03-25-2023 RBC (Bld) [#/Vol] 4.25 10*6/uL 4.2-5.4 [facility] Serum or plasma calcium christopher urement (mass/volume)Ordered By: Tarik Lobo on 03-25-2023 Calcium [Mass/Vol] 9.6 mg/dL 8.5-10.1 [place] Serum or plasma creatinine m easurement (mass/volume)Ordered By: Tarik Lobo on 03-25-2023 Creatinine [Mass/Vol] 0.80 mg/dL 0.55-1.02 [facility] Comment on above: The validity of the calculated GFR & GFRAA in patients over 70 years has not been determined. Clinical correlation is essential. Serum or plasma thyroid stim ulating hormone (TSH) measurement (units/volume)Ordered By: Tarik Lobo on 03-25-2023 TSH Qn 2.10 uIU/mL 0.358-3.74 [facility] Serum or plasma urea nitroge n measurement (mass/volume)Ordered By: Tarik Lobo on 03-25-2023 Urea nitrogen [Mass/Vol] 17 mg/dL 7-18 [facility] Thin prep Papanicolaou smear with manual screeningOrdered By: Tarik Lobo on 03-25-2023 Thin prep Papanicolaou smear with manual screening 4.0 g/dL 3.2-5.0 [facility] Thin prep Papanicolaou smear with manual screening 19 U/L 15-37 [facility] Thin prep Papanicolaou smear with manual screening 8 5-15 [facility] Laboratory - Microbiology an d Antimicrobial susceptibilityOrdered By: Tarik Lobo on 01-21-2023 SARS-CoV-2 (COVID-19) RNA SHEILA+probe Ql (Unsp spec) SARS-CoV-2 (COVID 19 PCR) [facility] No Panel InformationOrdered By: Tarik Lobo on 01-21-2023 Influenza Types A,B Direct FA (SWETA) [facility] RSV Ag EIAOrdered By: Tarik hill on 01-21-2023 RSV Ag Immune stain Ql (Tiss) [facility] Laboratory - Microbiology an d Antimicrobial susceptibilityOrdered By: Tarik Lobo on 11-27-2022 SARS-CoV-2 (COVID-19) RNA SHEILA+probe Ql (Unsp spec) [facility] No Panel InformationOrdered By: Tarik Lobo on 11-27-2022 Influenza Types A,B Direct FA (SWETA) [facility] RSV Ag EIAOrdered By: Tarik hill on 11-27-2022 RSV Ag Immune stain Ql (Tiss) [facility] Absolute lymphocyte countOrd ered By: Tarik Lobo on 11-07-2022 Lymphocytes Auto (Unsp spec) [#/Vol] 1.84 10*3/uL 0.83-4.51 [facility] Basophil percentageOrdered B y: Tarik Lobo on 11-07-2022 Basophils/100 WBC (Bld) 0.6 % 0-1 [facility] Bilirubin [Mass/Vol] 0.20 mg/dL 0.20-1.00 [facility] Comment on above: For patients on eltr ombopag therapy, use of Dimension Howe TBIL is not recommended. Chloride [Moles/Vol] 107 mmol/L 98-107 [facility] Eosinophils/100 WBC (Bld) 1.2 % 0-5 [facility] Glucose [Mass/Vol] 206 mg/dL 74-106 [place] Comment on above: Glucose result great er than or equal to 200 mg/dLsuggests DIABETES MELLITUS per A.D.A. criteria. Neutrophils (Bld) [#/Vol] 4.0 10*3/uL 2.0-7.7 [facility] Neutrophils/100 WBC (Bld) 61.6 % 47-70 [facility] Potassium [Moles/Vol] 3.9 mmol/L 3.5-5.1 [facility] Protein [Mass/Vol] 7.2 g/dL 6.4-8.2 [place] Sodium [Moles/Vol] 139 mmol/L 136-145 [place] WBC (Bld) [#/Vol] 6.5 10*3/uL 4.4-11.0 [place] Blood erythrocytes count (nu mber/volume)Ordered By: Tarik Lboo on 11-07-2022 RBC (Bld) [#/Vol] 3.67 10*6/uL 4.2-5.4 [facility] Blood hemoglobin measurement (mass/volume)Ordered By: Tarik Lobo on 11-07-2022 Hemoglobin (Bld) [Mass/Vol] 11.9 g/dL 12.0-15.0 [facility] Blood lymphocytes/100 leukoc ytesOrdered By: Tarik Lobo on 11-07-2022 Lymphocytes/100 WBC (Bld) 28.5 % 19-41 [facility] Blood monocytes/100 leukocyt esOrdered By: Tarik Lobo on 11-07-2022 Monocytes/100 WBC (Bld) 7.9 % 0-10 [facility] Blood platelet mean volumeOr dered By: Tarik Lobo on 11-07-2022 Platelet mean volume (Bld) [Entitic vol] 9.0 fL 6.2-12.0 [facility] Determination of erythrocyte mean corpuscular volume (MCV)Ordered By: Tarik Lobo on 11-07-2022 MCV (RBC) [Entitic vol] 97.8 fL 81-99 [facility] Hematocrit Auto (Bld) [Volum e fraction]Ordered By: Tarik Lobo on 11-07-2022 Hematocrit (Bld) [Volume fraction] 35.9 % 37-47 [facility] Laboratory - Chemistry and C hemistry - challengeOrdered By: Tarik Lobo on 11-07-2022 ALP [Catalytic activity/Vol] 72 U/L 45-117 [facility] ALT [Catalytic activity/Vol] 36 U/L 13-56 [facility] CO2 [Moles/Vol] 27.0 mmol/L 21.0-32.0 [facility] Globulin (S) [Mass/Vol] 3.5 g/dL 2.2-4.2 [facility] Urea nitrogen/Creatinine [Mass ratio] 20.8 mg/mg 10-20 [facility] Laboratory - Hematology and Cell countsOrdered By: Tarik Lobo on 11-07-2022 Erythrocyte distribution width (RBC) [Entitic vol] 43.5 fL 35.1-43.9 [place] Erythrocyte distribution width (RBC) [Ratio] 12.1 % 11.6-14.6 [facility] Immature granulocytes/100 WBC (Bld) 0.200 % 0.0-0.9 [facility] Comment on above: IG% - Immature Granu locytes (promyelocytes, myelocytes and metamyelocytes) > 1% indicates that a LEFT SHIFT is Present. MCH (RBC) [Entitic mass] 32.4 pg 27.0-32.0 [facility] Nucleated RBC/100 WBC (Bld) [Ratio] 0 % 0-5 [facility] MCHC Auto (RBC) [Mass/Vol]Or dered By: Tarik Lobo on 11-07-2022 MCHC (RBC) [Mass/Vol] 33.1 g/dL 32-36 [facility] No Panel InformationOrdered By: Tarik Lobo on 11-07-2022 Estimated GFR (MDRD) Amer 104 mL/min >60 [facility] Comment on above: GFR Calc Estimated GFR (MDRD) Non-Af Amer 86 mL/min >60 [facility] Comment on above: Non- GFR Calc Thyroid Stimulating Hormone (TSH) 2.28 uIU/mL 0.358-3.74 [facility] Vitamin D 25-Hydroxy 31.6 ng/mL [facility] Comment on above: Vitamin D 25(OH) Sta tus Range Deficiency <20 ng/mL (50nmol/L) Insufficiency 20 - 30 ng/mL (50 - 75 nmol/L) Sufficiency 30 - 100 ng/mL (75 - 250 nmol/L) Toxicity >100 ng/mL (>250 nmol/L) Platelets bldOrdered By: Tarik Lobo on 11-07-2022 Platelets (Bld) [#/Vol] 235 10*3/uL 150-450 [facility] Serum or plasma albumin christopher urement (mass/volume)Ordered By: Tarik Lobo on 11-07-2022 Albumin [Mass/Vol] 3.7 g/dL 3.2-5.0 [place] Serum or plasma albumin/glob ulin mass ratioOrdered By: Tarik Lobo on 11-07-2022 Albumin/Globulin [Mass ratio] 1.1 {ratio} 0.9-2.4 [facility] Serum or plasma calcium christopher urement (mass/volume)Ordered By: Tarik Lobo on 11-07-2022 Calcium [Mass/Vol] 8.7 mg/dL 8.5-10.1 [place] Serum or plasma creatinine m easurement (mass/volume)Ordered By: Tarik Lobo on 11-07-2022 Creatinine [Mass/Vol] 0.72 mg/dL 0.55-1.02 [facility] Comment on above: The validity of the calculated GFR & GFRAA in patients over 70 years has not been determined. Clinical correlation is essential. Serum or plasma urea nitroge n measurement (mass/volume)Ordered By: Tarik Lobo on 11-07-2022 Urea nitrogen [Mass/Vol] 15 mg/dL 7-18 [facility] Thin prep Papanicolaou smear with manual screeningOrdered By: Tarik Lobo on 11-07-2022 Thin prep Papanicolaou smear with manual screening 17 U/L 15-37 [facility] Thin prep Papanicolaou smear with manual screening 5 5-15 [facility] COVID-19 virus antigen assay Ordered By: Dr. Lobo on 04-05-2022 SARS-CoV-2 (COVID-19) Ag IA.rapid Ql (Resp) Not detected Not Detect [facility] Comment on above: Normal Reference Ran ge: Not DetectedMethod:(RT-PCR) real-time reverse transcriptase PCRLuminex GERMÁN Instrument*The Food and Drug Administration (FDA) has issued an Emergency Use Authorization (EAU) for the GERM[employer]N SARS-CoV-2 Assay for the rapid detection of the virus that causes COVID-19. This test has been validated, but the FDAs independent review of this validation is pending.*Negative results do not preclude infection and should not be used as the sole basis for treatment or patient management. Optimum specimen types and timing for peak viral levels during infections caused by SARS-CoV-2 have not been determined. Collection of multiple specimens from the same patient may be necessary to detect the virus. The possibility of a false negative result should be considered if the patient has clinical presentation or has had recent exposure. No Panel InformationOrdered By: Dr. Lobo on 04-05-2022 Influenza Types A,B Direct FA (SWETA) [facility] RSV Ag EIAOrdered By: Dr. Rosalba hill on 04-05-2022 RSV Ag Immune stain Ql (Tiss) [facility] Absolute lymphocyte countOrd ered By: Dr. Lobo on 03-20-2022 Lymphocytes Auto (Unsp spec) [#/Vol] 1.93 10*3/uL 0.83-4.51 [facility] Basophil percentageOrdered B y: Dr. Lobo on 03-20-2022 Basophils/100 WBC (Bld) 1.1 % 0-1 [facility] Bilirubin [Mass/Vol] 0.30 mg/dL 0.20-1.00 [facility] Comment on above: For patients on eltr ombopag therapy, use of Dimension Howe TBIL is not recommended. Chloride [Moles/Vol] 105 mmol/L 98-107 [facility] Eosinophils/100 WBC (Bld) 2.0 % 0-5 [facility] Glucose [Mass/Vol] 214 mg/dL 74-106 [place] Comment on above: Glucose result great er than or equal to 200 mg/dLsuggests DIABETES MELLITUS per A.D.A. criteria. Neutrophils (Bld) [#/Vol] 3.0 10*3/uL 2.0-7.7 [facility] Neutrophils/100 WBC (Bld) 53.7 % 47-70 [facility] Potassium [Moles/Vol] 3.8 mmol/L 3.5-5.1 [facility] Protein [Mass/Vol] 7.9 g/dL 6.4-8.2 [place] Sodium [Moles/Vol] 139 mmol/L 136-145 [place] WBC (Bld) [#/Vol] 5.6 10*3/uL 4.4-11.0 [place] Blood erythrocytes count (nu mber/volume)Ordered By: Dr. Lobo on 03-20-2022 RBC (Bld) [#/Vol] 4.01 10*6/uL 4.2-5.4 [facility] Blood hemoglobin measurement (mass/volume)Ordered By: Dr. Lobo on 03-20-2022 Hemoglobin (Bld) [Mass/Vol] 12.6 g/dL 12.0-15.0 [facility] Blood lymphocytes/100 leukoc ytesOrdered By: Dr. Lobo on 03-20-2022 Lymphocytes/100 WBC (Bld) 34.3 % 19-41 [facility] Blood monocytes/100 leukocyt esOrdered By: Dr. Lobo on 03-20-2022 Monocytes/100 WBC (Bld) 8.5 % 0-10 [facility] Blood platelet mean volumeOr dered By: Dr. Lobo on 03-20-2022 Platelet mean volume (Bld) [Entitic vol] 9.2 fL 6.2-12.0 [facility] Determination of erythrocyte mean corpuscular volume (MCV)Ordered By: Dr. Lobo on 03-20-2022 MCV (RBC) [Entitic vol] 95.3 fL 81-99 [facility] Hematocrit Auto (Bld) [Volum e fraction]Ordered By: Dr. Lobo on 03-20-2022 Hematocrit (Bld) [Volume fraction] 38.2 % 37-47 [facility] Laboratory - Chemistry and C hemistry - challengeOrdered By: Dr. Lobo on 03-20-2022 ALP [Catalytic activity/Vol] 81 U/L 45-117 [facility] ALT [Catalytic activity/Vol] 30 U/L 13-56 [facility] CO2 [Moles/Vol] 27.0 mmol/L 21.0-32.0 [facility] Globulin (S) [Mass/Vol] 3.9 g/dL 2.2-4.2 [facility] Urea nitrogen/Creatinine [Mass ratio] 16.7 mg/mg 10-20 [facility] Laboratory - Hematology and Cell countsOrdered By: Dr. Lobo on 03-20-2022 Erythrocyte distribution width (RBC) [Entitic vol] 41.9 fL 35.1-43.9 [place] Erythrocyte distribution width (RBC) [Ratio] 12.0 % 11.6-14.6 [facility] Immature granulocytes/100 WBC (Bld) 0.400 % 0.0-0.9 [facility] Comment on above: IG% - Immature Granu locytes (promyelocytes, myelocytes and metamyelocytes) > 1% indicates that a LEFT SHIFT is Present. MCH (RBC) [Entitic mass] 31.4 pg 27.0-32.0 [facility] Nucleated RBC/100 WBC (Bld) [Ratio] 0 % 0-5 [facility] MCHC Auto (RBC) [Mass/Vol]Or dered By: Dr. Lobo on 03-20-2022 MCHC (RBC) [Mass/Vol] 33.0 g/dL 32-36 [facility] No Panel InformationOrdered By: Dr. Lobo on 03-20-2022 Estimated GFR (MDRD) Amer 105 mL/min >60 [facility] Comment on above: GFR Calc Estimated GFR (MDRD) Non-Af Amer 86 mL/min >60 [facility] Comment on above: Non- GFR Calc Thyroid Stimulating Hormone (TSH) 2.14 uIU/mL 0.358-3.74 [facility] Vitamin D 25-Hydroxy 29.7 ng/mL [facility] Comment on above: Vitamin D 25(OH) Sta tus Range Deficiency <20 ng/mL (50nmol/L) Insufficiency 20 - 30 ng/mL (50 - 75 nmol/L) Sufficiency 30 - 100 ng/mL (75 - 250 nmol/L) Toxicity >100 ng/mL (>250 nmol/L) Platelets bldOrdered By: Dr. Lobo on 01-18-2023 Platelets (Bld) [#/Vol] 241 10*3/uL 150-450 [facility] Serum or plasma albumin christopher urement (mass/volume)Ordered By: Dr. Lobo on 03-20-2022 Albumin [Mass/Vol] 4.0 g/dL 3.2-5.0 [place] Serum or plasma albumin/glob ulin mass ratioOrdered By: Dr. Lobo on 03-20-2022 Albumin/Globulin [Mass ratio] 1.0 {ratio} 0.9-2.4 [facility] Serum or plasma calcium christopher urement (mass/volume)Ordered By: Dr. Lobo on 03-20-2022 Calcium [Mass/Vol] 8.9 mg/dL 8.5-10.1 [place] Serum or plasma creatinine m easurement (mass/volume)Ordered By: Dr. Lobo on 03-20-2022 Creatinine [Mass/Vol] 0.72 mg/dL 0.55-1.02 [facility] Comment on above: The validity of the calculated GFR & GFRAA in patients over 70 years has not been determined. Clinical correlation is essential. Serum or plasma urea nitroge n measurement (mass/volume)Ordered By: Dr. Lobo on 03-20-2022 Urea nitrogen [Mass/Vol] 12 mg/dL 7-18 [facility] Thin prep Papanicolaou smear with manual screeningOrdered By: Dr. Lobo on 03-20-2022 Thin prep Papanicolaou smear with manual screening 17 U/L 15-37 [facility] Thin prep Papanicolaou smear with manual screening 7 5-15 [facility] Laboratory - Microbiology an d Antimicrobial susceptibilityon 02-25-2022 SARS-CoV-2 (COVID-19) RNA SHEILA+probe Ql (Unsp spec) Not detected [facility] No Panel Informationon 02-25 Influenza Types A,B Rapid (Clinic) Detected [facility] Laboratory - Microbiology an d Antimicrobial susceptibilityOrdered By: Dr. Lobo on 12-27-2021 SARS-CoV-2 (COVID-19) RNA SHEILA+probe Ql (Unsp spec) Not detected Not Detect [facility] Comment on above: Normal Reference Ran ge: Not DetectedMethod:(RT-PCR) real-time reverse transcriptase PCRLuminex [place] Instrument*The Food and Drug Administration (FDA) has issued an Emergency Use Authorization (EAU) for the GERM[place] SARS-CoV-2 Assay for the rapid detection of the virus that causes COVID-19. This test has been validated, but the FDAs independent review of this validation is pending.*Negative results do not preclude infection and should not be used as the sole basis for treatment or patient management. Optimum specimen types and timing for peak viral levels during infections caused by SARS-CoV-2 have not been determined. Collection of multiple specimens from the same patient may be necessary to detect the virus. The possibility of a false negative result should be considered if the patient has clinical presentation or has had recent exposure. No Panel InformationOrdered By: Dr. Lobo on 12-27-2021 Influenza Types A,B Direct FA (SWETA) [facility] RSV Ag EIAOrdered By: Dr. Rosalba hill on 12-27-2021 RSV Ag Immune stain Ql (Tiss) [facility] Absolute lymphocyte counton 11-27-2021 Lymphocytes Auto (Unsp spec) [#/Vol] 2.43 10*3/uL 0.83-4.51 [facility] Work Phone: Basophil percentageon 2021 Basophils/100 WBC (Bld) 1.0 % 0-1 [facility] Work Phone: Bilirubin [Mass/Vol] 0.20 mg/dL 0.20-1.00 [facility] Work Phone: Comment on above: For patients on eltr ombopag therapy, use of Dimension Howe TBIL is not recommended. Chloride [Moles/Vol] 105 mmol/L 98-107 [facility] Work Phone: Eosinophils/100 WBC (Bld) 7.4 % 0-5 [facility] Work Phone: Glucose [Mass/Vol] 108 mg/dL 74-106 [place] Work Phone: Comment on above: Fasting Glucose resu lt from 100 to 125 mg/dL suggests IMPAIRED HOMEOSTASIS per A.D.A. criteria. Neutrophils (Bld) [#/Vol] 4.1 10*3/uL 2.0-7.7 [facility] Work Phone: Neutrophils/100 WBC (Bld) 52.2 % 47-70 [facility] Work Phone: Potassium [Moles/Vol] 3.8 mmol/L 3.5-5.1 [facility] Work Phone: Protein [Mass/Vol] 8.0 g/dL 6.4-8.2 [place] Work Phone: Sodium [Moles/Vol] 141 mmol/L 136-145 [place] Work Phone: WBC (Bld) [#/Vol] 7.9 10*3/uL 4.4-11.0 [place] Work Phone: Blood erythrocytes count (nu mber/volume)on 11-27-2021 RBC (Bld) [#/Vol] 4.13 10*6/uL 4.2-5.4 [facility] Work Phone: Blood hemoglobin measurement (mass/volume)on 11-27-2021 Hemoglobin (Bld) [Mass/Vol] 13.4 g/dL 12.0-15.0 [facility] Work Phone: Blood lymphocytes/100 leukoc yteson 11-27-2021 Lymphocytes/100 WBC (Bld) 30.8 % 19-41 [facility] Work Phone: Blood monocytes/100 leukocyt eson 11-27-2021 Monocytes/100 WBC (Bld) 8.5 % 0-10 [facility] Work Phone: Blood platelet mean volumeon 11-27-2021 Platelet mean volume (Bld) [Entitic vol] 8.7 fL 6.2-12.0 [facility] Work Phone: Determination of erythrocyte mean corpuscular volume (MCV)on 11-27-2021 MCV (RBC) [Entitic vol] 94.9 fL 81-99 [facility] Work Phone: Hematocrit Auto (Bld) [Volum e fraction]on 11-27-2021 Hematocrit (Bld) [Volume fraction] 39.2 % 37-47 [facility] Work Phone: Laboratory - Chemistry and C hemistry - challengeon 11-27-2021 ALP [Catalytic activity/Vol] 82 U/L 45-117 [facility] Work Phone: ALT [Catalytic activity/Vol] 31 U/L 13-56 [facility] Work Phone: CO2 [Moles/Vol] 28.0 mmol/L 21.0-32.0 [facility] Work Phone: Globulin (S) [Mass/Vol] 3.9 g/dL 2.2-4.2 [facility] Work Phone: Urea nitrogen/Creatinine [Mass ratio] 18.1 mg/mg 10-20 [facility] Work Phone: Laboratory - Hematology and Cell countson 11-27-2021 Erythrocyte distribution width (RBC) [Entitic vol] 40.9 fL 35.1-43.9 [place] Work Phone: Erythrocyte distribution width (RBC) [Ratio] 11.8 % 11.6-14.6 [facility] Work Phone: Immature granulocytes/100 WBC (Bld) 0.100 % 0.0-0.9 [facility] Work Phone: Comment on above: IG% - Immature Granu locytes (promyelocytes, myelocytes and metamyelocytes) > 1% indicates that a LEFT SHIFT is Present. MCH (RBC) [Entitic mass] 32.4 pg 27.0-32.0 [facility] Work Phone: Nucleated RBC/100 WBC (Bld) [Ratio] 0 % 0-5 [facility] Work Phone: MCHC Auto (RBC) [Mass/Vol]on 11-27-2021 MCHC (RBC) [Mass/Vol] 34.2 g/dL 32-36 [facility] Work Phone: No Panel Informationon 11-27 Estimated GFR (MDRD) Amer 88 mL/min >60 [facility] Work Phone: Comment on above: GFR Calc Estimated GFR (MDRD) Non-Af Amer 73 mL/min >60 [facility] Work Phone: Comment on above: Non- GFR Calc Thyroid Stimulating Hormone (TSH) 1.71 uIU/mL 0.358-3.74 [facility] Work Phone: Vitamin D 25-Hydroxy 28.9 ng/mL [facility] Work Phone: Comment on above: Vitamin D 25(OH) Sta tus Range Deficiency <20 ng/mL (50nmol/L) Insufficiency 20 - 30 ng/mL (50 - 75 nmol/L) Sufficiency 30 - 100 ng/mL (75 - 250 nmol/L) Toxicity >100 ng/mL (>250 nmol/L) Platelets bldon 11-27-2021 Platelets (Bld) [#/Vol] 280 10*3/uL 150-450 [facility] Work Phone: Serum or plasma albumin christopher urement (mass/volume)on 11-27-2021 Albumin [Mass/Vol] 4.1 g/dL 3.2-5.0 [place] Work Phone: Serum or plasma albumin/glob ulin mass ratioon 11-27-2021 Albumin/Globulin [Mass ratio] 1.1 {ratio} 0.9-2.4 [facility] Work Phone: Serum or plasma calcium christopher urement (mass/volume)on 11-27-2021 Calcium [Mass/Vol] 9.2 mg/dL 8.5-10.1 [place] Work Phone: Serum or plasma creatinine m easurement (mass/volume)on 11-27-2021 Creatinine [Mass/Vol] 0.83 mg/dL 0.55-1.02 [facility] Work Phone: Comment on above: The validity of the calculated GFR & GFRAA in patients over 70 years has not been determined. Clinical correlation is essential. Serum or plasma urea nitroge n measurement (mass/volume)on 11-27-2021 Urea nitrogen [Mass/Vol] 15 mg/dL 7-18 [facility] Work Phone: Thin prep Papanicolaou smear with manual screeningon 11-27-2021 Thin prep Papanicolaou smear with manual screening 21 U/L 15-37 [facility] Work Phone: Thin prep Papanicolaou smear with manual screening 8 5-15 [facility] Work Phone: Absolute lymphocyte counton 08-23-2021 Lymphocytes Auto (Unsp spec) [#/Vol] 2.55 10*3/uL 0.83-4.51 [facility] Work Phone: Basophil percentageon 2021 Basophils/100 WBC (Bld) 1.1 % 0-1 [facility] Work Phone: Bilirubin [Mass/Vol] 0.10 mg/dL 0.20-1.00 [facility] Work Phone: Comment on above: For patients on eltr ombopag therapy, use of Dimension Howe TBIL is not recommended. Chloride [Moles/Vol] 106 mmol/L 98-107 [facility] Work Phone: Eosinophils/100 WBC (Bld) 1.9 % 0-5 [facility] Work Phone: Glucose [Mass/Vol] 182 mg/dL 74-106 [place] Work Phone: Comment on above: Fasting Glucose resu lt greater than or equal to 126 mg/dL suggests DIABETES MELLITUS per A.D.A. criteria. Neutrophils (Bld) [#/Vol] 4.9 10*3/uL 2.0-7.7 [facility] Work Phone: Neutrophils/100 WBC (Bld) 58.3 % 47-70 [facility] Work Phone: Potassium [Moles/Vol] 3.8 mmol/L 3.5-5.1 [facility] Work Phone: Protein [Mass/Vol] 7.7 g/dL 6.4-8.2 [facility] Work Phone: Sodium [Moles/Vol] 138 mmol/L 136-145 [facility] Work Phone: WBC (Bld) [#/Vol] 8.4 10*3/uL 4.4-11.0 [place] Work Phone: Blood erythrocytes count (nu mber/volume)on 08-23-2021 RBC (Bld) [#/Vol] 4.15 10*6/uL 4.2-5.4 [facility] Work Phone: Blood hemoglobin measurement (mass/volume)on 08-23-2021 Hemoglobin (Bld) [Mass/Vol] 13.0 g/dL 12.0-15.0 [facility] Work Phone: Blood lymphocytes/100 leukoc yteson 08-23-2021 Lymphocytes/100 WBC (Bld) 30.4 % 19-41 [facility] Work Phone: Blood monocytes/100 leukocyt eson 08-23-2021 Monocytes/100 WBC (Bld) 8.2 % 0-10 [facility] Work Phone: Blood platelet mean volumeon 08-23-2021 Platelet mean volume (Bld) [Entitic vol] 8.9 fL 6.2-12.0 [facility] Work Phone: Determination of erythrocyte mean corpuscular volume (MCV)on 08-23-2021 MCV (RBC) [Entitic vol] 93.0 fL 81-99 [facility] Work Phone: Hematocrit Auto (Bld) [Volum e fraction]on 08-23-2021 Hematocrit (Bld) [Volume fraction] 38.6 % 37-47 [facility] Work Phone: Laboratory - Chemistry and C hemistry - challengeon 08-23-2021 ALP [Catalytic activity/Vol] 86 U/L 45-117 [facility] Work Phone: ALT [Catalytic activity/Vol] 38 U/L 13-56 [facility] Work Phone: CO2 [Moles/Vol] 25.0 mmol/L 21.0-32.0 [facility] Work Phone: Globulin (S) [Mass/Vol] 3.8 g/dL 2.2-4.2 [facility] Work Phone: Urea nitrogen/Creatinine [Mass ratio] 20.9 mg/mg 10-20 [facility] Work Phone: Laboratory - Hematology and Cell countson 08-23-2021 Erythrocyte distribution width (RBC) [Entitic vol] 39.6 fL 35.1-43.9 [place] Work Phone: Erythrocyte distribution width (RBC) [Ratio] 11.6 % 11.6-14.6 [facility] Work Phone: Immature granulocytes/100 WBC (Bld) 0.100 % 0.0-0.9 [facility] Work Phone: Comment on above: IG% - Immature Granu locytes (promyelocytes, myelocytes and metamyelocytes) > 1% indicates that a LEFT SHIFT is Present. MCH (RBC) [Entitic mass] 31.3 pg 27.0-32.0 [facility] Work Phone: Nucleated RBC/100 WBC (Bld) [Ratio] 0 % 0-5 [facility] Work Phone: MCHC Auto (RBC) [Mass/Vol]on 08-23-2021 MCHC (RBC) [Mass/Vol] 33.7 g/dL 32-36 [facility] Work Phone: No Panel Informationon 08-23 Estimated GFR (MDRD) Amer 91 mL/min >60 [facility] Work Phone: Comment on above: GFR Calc Estimated GFR (MDRD) Non-Af Amer 75 mL/min >60 [facility] Work Phone: Comment on above: Non- GFR Calc Thyroid Stimulating Hormone (TSH) 2.20 uIU/mL 0.358-3.74 [facility] Work Phone: Vitamin D 25-Hydroxy 32.5 ng/mL [facility] Work Phone: Comment on above: Vitamin D 25(OH) Sta tus Range Deficiency <20 ng/mL (50nmol/L) Insufficiency 20 - 30 ng/mL (50 - 75 nmol/L) Sufficiency 30 - 100 ng/mL (75 - 250 nmol/L) Toxicity >100 ng/mL (>250 nmol/L) Platelets bldon 08-23-2021 Platelets (Bld) [#/Vol] 267 10*3/uL 150-450 [facility] Work Phone: Serum or plasma albumin christopher urement (mass/volume)on 08-23-2021 Albumin [Mass/Vol] 3.9 g/dL 3.2-5.0 [place] Work Phone: Serum or plasma albumin/glob ulin mass ratioon 08-23-2021 Albumin/Globulin [Mass ratio] 1.0 {ratio} 0.9-2.4 [facility] Work Phone: Serum or plasma calcium christopher urement (mass/volume)on 08-23-2021 Calcium [Mass/Vol] 9.0 mg/dL 8.5-10.1 [place] Work Phone: Serum or plasma creatinine m easurement (mass/volume)on 08-23-2021 Creatinine [Mass/Vol] 0.81 mg/dL 0.55-1.02 [facility] Work Phone: Comment on above: The validity of the calculated GFR & GFRAA in patients over 70 years has not been determined. Clinical correlation is essential. Serum or plasma urea nitroge n measurement (mass/volume)on 08-23-2021 Urea nitrogen [Mass/Vol] 17 mg/dL 7-18 [facility] Work Phone: Thin prep Papanicolaou smear with manual screeningon 08-23-2021 Thin prep Papanicolaou smear with manual screening 19 U/L 15-37 [facility] Work Phone: Thin prep Papanicolaou smear with manual screening 7 5-15 [facility] Work Phone: Laboratory - Microbiology an d Antimicrobial susceptibilityon 08-08-2021 SARS-CoV-2 (COVID-19) RNA SHEILA+probe Ql (Unsp spec) Not detected Not Detect [facility] Work Phone: Comment on above: Normal Reference Ran ge: Not DetectedMethod:(RT-PCR) real-time reverse transcriptase PCRLuminex GERMÁN Instrument*The Food and Drug Administration (FDA) has issued an Emergency Use Authorization (EAU) for the [employer] SARS-CoV-2 Assay for the rapid detection of the virus that causes COVID-19. This test has been validated, but the FDAs independent review of this validation is pending.*Negative results do not preclude infection and should not be used as the sole basis for treatment or patient management. Optimum specimen types and timing for peak viral levels during infections caused by SARS-CoV-2 have not been determined. Collection of multiple specimens from the same patient may be necessary to detect the virus. The possibility of a false negative result should be considered if the patient has clinical presentation or has had recent exposure. ANES POSTPROC EVALon 022 ANES POSTPROC EVAL HNO ID: [id number] Author: Brock Barraza DO Service: Anesthesiology Author Type: Anesthesiologist Type: Anesthesia Postprocedure Evaluation Filed: 08/03/2021 1:39 PM Note Text: POST ANESTHESIA EVALUATION NOTE : 1955 Procedure Summary Date: 08/03/21 Room / Location: SP OR10 / SP OR Anesthesia Start: 1131 Anesthesia Stop: 1233 Procedure: HYSTEROSCOPY W/ POLYPECTOMY W/ DANDC (N/A Pelvis) Diagnosis: PMB (postmenopausal bleeding) (PMB (postmenopausal bleeding) [N95.0]) Surgeons: Aydee Caldera MD Responsible Provider: Brock Barraza DO Anesthesia Type: general ASA Status: 2 Anesthesia Type: general Airway Type: LMA Last Vitals Vitals Value Taken Time BP 120/67 08/03/21 1330 Temp 36.1 ?C (97 ?F) 08/03/21 1230 Pulse 57 08/03/21 1338 Resp 10 08/03/21 1338 SpO2 99 % 08/03/21 1338 Vitals shown include unvalidated device data. Post Anesthesia Patient Status Patient Evaluation: PACU. PACU/ICU Patient Condition: stable. Anticipated Disposition: phase 2 then home. Neurological Status: aware and responsive. Pulmonary Status: breathing comfortably on room air Airway Control: returned to baseline unsupported. Cardiovascular Status: stable. Pain Management: satisfactory to patient Postoperative Hydration: acceptable. Intraoperative Events: no significant anesthesia events Post Operative Nausea/Vomiting Status: no significant post operative nausea or vomiting Anesthetic Observations: Recommendation: continue current plan of care. Anesthesia Observations No Documentation SIGNATURE: Brock Barraza DO PATIENT NAME: Kira Uribe DATE: August 03, 2021 TIME: 1:39 PM CSN: [id number] [facility] ANES PRE-OPon 08-03-2021 ANES PRE-OP HNO ID: [id number] Author: Brock Barraza DO Service: Anesthesiology Author Type: Anesthesiologist Type: Anesthesia Preprocedure Evaluation Filed: 08/03/2021 10:15 AM Note Text: ANESTHESIOLOGY DAY OF SURGERY NOTE : 1955 Procedure Information Date/Time: 08/03/21 1030 Procedure: HYSTEROSCOPY W/ POLYPECTOMY W/ DANDC (N/A Pelvis) Location: OR / OR Surgeons: Aydee Caldera MD Estimated body mass index is 27.46 kg/m? as calculated from the following: Height as of this encounter: 160 cm (5' 3). Weight as of this encounter: 70.3 kg (155 lb). Most recent hematocrit and potassium results: Hematocrit 38.3 07/20/2021 Potassium 4.0 07/20/2021 Relevant Problems ANESTHESIA (+) Unspecified sleep apnea CARDIO (+) Essential hypertension, benign ENDO (+) Hypothyroidism PULMONARY (+) Childhood asthma (+) Unspecified sleep apnea Other (+) Diabetes mellitus (HCC) I - PHYSICAL EVALUATION AIRWAY Patient intubated: No. Tracheostomy tube not present Mallampati: II. TM distance: >3 FB. Neck ROM: full ROM without neurological symptoms. Mouth opening: adequate. Short neck: no. Thick neck: no DENTAL Dental findings: teeth intact. Additional exam findings: no II - ANESTHESIA PLAN ASA Score: 2 Anesthetic Plan: general The patient is not a current smoker. NPO Status: adequate Monitoring plan: standard ASA. Postoperative analgesic plan: parenteral or oral opioids and per surgical service. Informed Consent Anesthetic risks, benefits, alternatives, personnel and consent discussed: yes. Patient / Responsible Republican agrees to proceed: yes Patient / Surrogate agrees to blood products: Yes Significant changes in the patient condition since the History and Physical, not otherwise documented in primary service progress note: no. Potential Anesthesia issues that may suggest increased risk of complications or contraindication to planned procedure: none. Somatic Dysfunctions Correlate With: Viscero-Somatic and Genitourinary General Anesthesia OPP Administration of a combination of medications to put the patient in a sleep-like state before and through the duration of a surgical procedure. This is usually done with a combination of IV and inhaled medications. General anesthesia is accomplished by inducing, maintaining, and emerging from adequate anesthesia with a goal to minimize movement, minimize perceived pain, decrease response to surgical stimuli, and maintenance/balance of physiologic processes. The combination of pharmacology given blunts the allostatic load due to surgical stressors, thus requiring less compensation in order for a patient's body to maintain homeostasis. The medications also decrease the body's metabolic demand. By achieving analgesia and amnesia, general anesthesia prevents what could otherwise be a traumatic experience to the patient, thus maintaining a healthy [id number] balance. Vitals Value Taken Time BP 150/70 08/03/21905 Pulse 65 08/03/21905 Resp 20 08/03/21905 Temp 36.3 ?C (97.3 ?F) 08/03/21905 SpO2 98 % 08/03/21905 Facility-Administer ed Medications as of 08/03/2021 Medication Dose Route Frequency - lidocaine 10 mg/mL (1 %) 1-2 mg injection (XYLOCAINE) 0.1-0.2 mL INTRADERMAL PRN - lactated ringers iv infusion 5-30 mL/hr INTRAVENOUS CONTINUOUS - [COMPLETED] acetaminophen 1,000 mg tab(s) (TYLENOL) 1,000 mg ORAL ONCE Outpatient Medications as of 08/03/2021 Medication Sig - FAMOTIDINE ORAL Take by mouth. - docusate sodium (COLACE ORAL) Take by mouth. - lisinopril (ZESTRIL) 20 mg ORAL tablet Take 1 tablet by mouth once daily. - atorvastatin (LIPITOR) 20 mg tablet Take 20 mg by mouth daily at bedtime. - potassium chloride ER (K-DUR, KLOR-CON) 20 mEq tablet Take 1 tablet by mouth once daily. - evening primrose oil (EVENING PRIMROSE ORAL) Take by mouth. - empty bottle (NASAL SPRAY BOTTLE) botl by MISCELLANEOUS route. - cetirizine HCl (ZYRTEC ORAL) Take by mouth. - CALCIUM-MAGNESIUM ORAL Take by mouth. - PAROXETINE HCL ORAL Take 20 mg by mouth. - levothyroxine (SYNTHROID) 25 MCG/ML susp Take 12.5 mcg by mouth once daily. - povidone (SOOTHE HYDRATION) 1.25 % drop Use in eyes. - VITAMIN B COMPLEX ORAL Take by mouth. - cholecalciferol, vitamin D3, (VITAMIN D3 ORAL) Take by mouth. I have interviewed and examined the patient. I have reviewed the medical record and/or the pre-anesthesia evaluation, pertinent labs, and test results. This contains updated information obtained within 48 hours of Surgery/Procedure. SIGNATURE: Brock Barraza DO PATIENT NAME: Kira Uribe DATE: August 03, 2021 TIME: 10:10 AM CSN: [id number] [facility] HISTORY PHYSICALon HISTORY PHYSICAL HNO ID: [id number] Author: Anand Monroy PA-C Service: Gynecology Author Type: Physician Videographer Type: HANDP Filed: 08/03/2021 9:28 AM Note Text: UPDATED HISTORY AND PHYSICAL EXAMINATION SERVICE DATE: 08/03/2021 SERVICE TIME: 9:12 AM SERVICE: Gynecology PHYSICAL EXAM MUST BE COMPLETED ON ADMISSION The History and Physical (completed in the past 30 days) has been reviewed and the patient has been examined. The contents accurately reflect the patient's condition with the following additions or revisions since the HANDP was completed. Patient denies any changes to health since last examination. Planned procedure for today is HYSTEROSCOPY W/ POLYPECTOMY W/ DANDC Medication reconciliation list reviewed in Parchment. Past medical history, past surgical history, social history and family history reviewed and updated in [facility]. ALLERGIES Allergen Reactions - Codeine Other: See Comments [place] out of body - Dynacin [Minocyclin* Other: See Comments Seeing animal prints - Penicillin G - Zithromax [Azithrom* BP 150/70 Pulse 65 Temp 36.3 ?C (97.3 ?F) (Temporal) Resp 20 Ht 160 cm (5' 3) Wt 70.3 kg (155 lb) LMP 11/04/2010 SpO2 98% BMI 27.46 kg/m? Examination indicates no changes. On examination today: Lungs: Clear to auscultation bilaterally. Heart: RRR, Normal S1/S2, No murmurs, rubs, gallops or thrills appreciated. Abdomen: BS+ in all quadrants, abdomen is soft, non tender, and without guarding. Assessment: PMB (postmenopausal bleeding) Plan: HYSTEROSCOPY W/ POLYPECTOMY W/ DANDC This HANDP can be found in the Electronic Medical Record dated 07/20/2021 by Jacinda Ramirez APRN.HULL [employer]DER. SIGNATURE: Anand Monroy PA-C PATIENT NAME: Kira Malin Rony DATE: August 03, 2021 TIME: 9:12 AM Normal [facility] OPERATIVE NOon 08-03-2021 OPERATIVE NO HNO ID: [id number] Author: Aydee Caldera MD Service: Gynecology Author Type: Physician Type: Operative Report Filed: 08/06/2021 8:19 AM Note Text: [facility] - Operative Report KIRA URIBE : 1955 AGE: 65. SEX: F PATIENT TYPE: A HOSP SVC: OBGYN LOCATION: [facility] ATTENDING PHYSICIAN: MARCO ANTONIO NUMBER: [id number] DATE OF SURGERY/PROCEDURE: 08/03/2021 INCISION/PROCEDURE START TIME: Incision start time 11:50 am. INCISION CLOSE/PROCEDURE END TIME: Incision close time 12:11 pm. PREOPERATIVE DIAGNOSIS: Thickened endometrium and postmenopausal bleeding. POSTOPERATIVE DIAGNOSIS: Thickened endometrium and postmenopausal bleeding, pending pathology. SURGEON: Aydee Caldera MD BROADCAST DIRECTOR OPERATIONS: America Wolfe MD, Resident Assisting. SURGERY/PROCEDURE: Examination under anesthesia, hysteroscopy, dilation of the cervix, visually directed curettage, and polypectomy. ANESTHESIA: General. FINDINGS: External genitalia are normal. Uterus was mid position, mobile. No adnexal masses. Uterus with Pipelle sounded to approximately 6.5 cm and hysteroscopic findings included a normal endocervix. There was irregular right anterior polypoid tissue with bridging in variegated colors with increased vascularity. There was on the posterior wall approximately 1.5 cm regular appearing sessile leiomyoma, friable polypoid endometrium. ESTIMATED BLOOD LOSS: 5 mL. HYSTEROSCOPIC FLUID DEFICIT: 310 mL. URINE OUTPUT: Not measured. INTRAVENOUS FLUIDS: Lactated Ringer's 400 mL deficit. SPECIMENS: Endometrial polyp and curettings. COMPLICATIONS: None. NARRATIVE REPORT: This is a 65-year-old, 0, para 0, who had been referred for postmenopausal bleeding, thickened endometrium of 6.8 mm, and no family history of uterine cancer. She has had episodic bleeding. Due to these findings on ultrasound and also in the office with negative endometrial biopsy, the above procedure was recommended. DESCRIPTION OF PROCEDURE: The patient was brought to the operating room. The team huddle undertaken and PAS stockings placed. Induction of general anesthesia after the time-out had been obtained. Her legs were appropriately positioned and padded in Dez stirrups and she was examined. The normal-appearing external genitalia cervix. Uterus small, mobile, mid position. No adnexal masses. She was prepped with Betadine and draped. Open-sided speculum placed in the vagina. Anterior lip of the cervix grasped with a single-tooth tenaculum. Using the Pipelle, uterus sounded to approximately 6.5 cm and then the cervix was dilated with Hegar dilators to a #6-Kyrgyz. Then the TrNSC tissue retrieval system with the Thermedx infusion pump was utilized as well as saline as the distention medium. The hysteroscope was inserted under direct visualization. No endocervical lesions. The background endometrium appeared atrophic. However, there were several polypoid focal irregular appearing lesions as described as above. Using the #536 tissue retrieval system, all of the identified and atypical appearing polypoid tissue under direct visualization was removed. Intermittent uterine decompression facilitated removal of this abnormal tissue. At the completion of the procedure, there was no active bleeding. All instruments were removed. The sponge, tape, needle, and instrument counts were correct and the vaginal sweep was negative. The patient was then awakened, taken to the recovery room in stable condition. This procedure was performed entirely by Dr. Caldera, resident was present for teaching purposes. Aydee Caldera MD LDB:[id number] /[id number] [facility] OPERATIVE NO HNO ID: [id number] Author: Aydee Caldera MD Service: Obstetrics Author Type: Physician Type: Operative Report Filed: 08/03/2021 12:50 PM Note Text: BRIEF OPERATIVE NOTE LOG ID: [id number] Surgery Date: 08/03/2021 Incision/Procedure Start Time: 11:50 AM Incision Close/Procedure End Time: 12:11 PM Surgeon(s) and Videographer(s): Surgeon(s) and Role: * Aydee Caldera MD - Primary * America Wolfe I, MD - Resident - Assisting Procedure(s): Exam under anesthesia, hysteroscopy, dilation of the cervix, visually directed curettage, polypectomy Anesthesia: General Findings: Irregular right anterior polyp with bridging, variegated colors and increased vascularity. Smooth, regular sessile posterior lower uterine segment polyp Friable polypoid endometrium Estimated Blood Loss: 5 mls Hysteroscopic fluid deficit: 310 mL normal saline IV fluids: 400 mL lactated ringers Specimens: ID Type Source Tests Collected by Time A : Endometrium curettings Tissue ENDOMETRIUM POLYP SURGICAL PATHOLOGY Aydee Caldera MD 08/03/2021 12:03 PM Complications: None Preop Diagnosis: PMB (postmenopausal bleeding) [N95.0], endometrial polyps POST-OP/POST-PROCED URE DIAGNOSIS: Same as Preop SIGNATURE: America Wolfe MD PATIENT NAME: Kira Uribe DATE: August 03, 2021 TIME: 12:23 PM [facility] SURGICAL PATHOLOGYon 022 CASE REPORT [facility] Comment on above: Order Comment: Speci men Type: TISSUE SPECIMEN Ordering Facility: [facility] Address: [facility] [place] [address] Result Comment: Surg ica Pathology Report Case: [id number] Authorizing Provider: Aydee Caldera MD Collected: 08/03/2021 12:03 PM Ordering Location: [facility] Received: 08/03/2021 03:57 PM Surgical Services Pathologist: Maureen Samayoa MD Specimen: ENDOMETRIUM POLYP, Endometrium curettings Performed By: #### S #### [facility] CLIA [id number] [address] [place] [address] OF [facility] FINAL DIAGNOSIS Normal [facility] Comment on above: Order Comment: Speci men Type: TISSUE SPECIMEN Ordering Facility: [facility] Address: [address] [place] [address] Result Comment: A. E ndometrium, polyp, excision - Benign endometrial polyp. Performed By: #### S #### [facility] CLIA [id number] [address] [place] [address] OF [facility] FINAL PERFORMING LAB [facility] Comment on above: Order Comment: Speci men Type: TISSUE SPECIMEN Ordering Facility: [facility] Address: [address] [place] [address] Result Comment: Diag nostic interpretation performed at [facility], [address] [facility], [place] [address] CLIA# [id number] Farm Mechanic: Yovana Knight M.D. Performed By: #### S #### [facility] CLIA [id number] [address] [place] [address] OF [facility] GROSS DESCRIPTION [facility] Comment on above: Order Comment: Speci men Type: TISSUE SPECIMEN Ordering Facility: [facility] Address: [address] [place] [address] Result Comment: A. E NDOMETRIUM POLYP. Received in formalin in a sock are multiple hill-red, soft feathery segments of tissue aggregating to 2.5 x 0.5 x 0.1 cm. Totally submitted in one cassette. JTS August 03, 2021 7:54 PM Gross examination performed at [facility], [address] [place] [address] Performed By: #### S #### [facility] CLIA [id number] [address] [facility] [facility] [place] [id number] [place] Absolute lymphocyte counton 05-21-2021 Lymphocytes Auto (Unsp spec) [#/Vol] 2.33 10*3/uL 0.83-4.51 [facility] Work Phone: Basophil percentageon 2021 Basophils/100 WBC (Bld) 0.9 % 0-1 [facility] Work Phone: Bilirubin [Mass/Vol] 0.30 mg/dL 0.20-1.00 [facility] Work Phone: Comment on above: For patients on eltr ombopag therapy, use of Dimension Howe TBIL is not recommended. Chloride [Moles/Vol] 103 mmol/L 98-107 [facility] Work Phone: Eosinophils/100 WBC (Bld) 1.7 % 0-5 [facility] Work Phone: Glucose [Mass/Vol] 124 mg/dL 74-106 [place] Work Phone: Comment on above: Fasting Glucose resu lt from 100 to 125 mg/dL suggests IMPAIRED HOMEOSTASIS per A.D.A. criteria. Neutrophils (Bld) [#/Vol] 4.3 10*3/uL 2.0-7.7 [facility] Work Phone: Neutrophils/100 WBC (Bld) 55.7 % 47-70 [facility] Work Phone: Potassium [Moles/Vol] 3.9 mmol/L 3.5-5.1 [facility] Work Phone: Protein [Mass/Vol] 8.0 g/dL 6.4-8.2 [place] Work Phone: Sodium [Moles/Vol] 139 mmol/L 136-145 [facility] Work Phone: WBC (Bld) [#/Vol] 7.7 10*3/uL 4.4-11.0 [place] Work Phone: Blood erythrocytes count (nu mber/volume)on 05-21-2021 RBC (Bld) [#/Vol] 4.10 10*6/uL 4.2-5.4 [facility] Work Phone: Blood hemoglobin measurement (mass/volume)on 05-21-2021 Hemoglobin (Bld) [Mass/Vol] 13.6 g/dL 12.0-15.0 [facility] Work Phone: Blood lymphocytes/100 leukoc yteson 05-21-2021 Lymphocytes/100 WBC (Bld) 30.5 % 19-41 [facility] Work Phone: Blood monocytes/100 leukocyt eson 05-21-2021 Monocytes/100 WBC (Bld) 10.8 % 0-10 [facility] Work Phone: Blood platelet mean volumeon 05-21-2021 Platelet mean volume (Bld) [Entitic vol] 8.9 fL 6.2-12.0 [facility] Work Phone: Determination of erythrocyte mean corpuscular volume (MCV)on 05-21-2021 MCV (RBC) [Entitic vol] 96.1 fL 81-99 [facility] Work Phone: Hematocrit Auto (Bld) [Volum e fraction]on 05-21-2021 Hematocrit (Bld) [Volume fraction] 39.4 % 37-47 [facility] Work Phone: Laboratory - Chemistry and C hemistry - challengeon 05-21-2021 ALP [Catalytic activity/Vol] 78 U/L 45-117 [facility] Work Phone: ALT [Catalytic activity/Vol] 34 U/L 13-56 [facility] Work Phone: CO2 [Moles/Vol] 33.0 mmol/L 21.0-32.0 [facility] Work Phone: Globulin (S) [Mass/Vol] 3.8 g/dL 2.2-4.2 [facility] Work Phone: Urea nitrogen/Creatinine [Mass ratio] 18.1 mg/mg 10-20 [facility] Work Phone: Laboratory - Hematology and Cell countson 05-21-2021 Erythrocyte distribution width (RBC) [Entitic vol] 40.8 fL 35.1-43.9 [place] Work Phone: Erythrocyte distribution width (RBC) [Ratio] 11.6 % 11.6-14.6 [facility] Work Phone: Immature granulocytes/100 WBC (Bld) 0.400 % 0.0-0.9 [facility] Work Phone: Comment on above: IG% - Immature Granu locytes (promyelocytes, myelocytes and metamyelocytes) > 1% indicates that a LEFT SHIFT is Present. MCH (RBC) [Entitic mass] 33.2 pg 27.0-32.0 [facility] Work Phone: Nucleated RBC/100 WBC (Bld) [Ratio] 0 % 0-5 [facility] Work Phone: MCHC Auto (RBC) [Mass/Vol]on 05-21-2021 MCHC (RBC) [Mass/Vol] 34.5 g/dL 32-36 [facility] Work Phone: No Panel Informationon 05-21 Estimated GFR (MDRD) Amer 89 mL/min >60 [facility] Work Phone: Comment on above: GFR Calc Estimated GFR (MDRD) Non-Af Amer 73 mL/min >60 [facility] Work Phone: Comment on above: Non- GFR Calc Thyroid Stimulating Hormone (TSH) 2.18 uIU/mL 0.358-3.74 [facility] Work Phone: Vitamin D 25-Hydroxy 31.2 ng/mL [facility] Work Phone: Comment on above: Vitamin D 25(OH) Sta tus Range Deficiency <20 ng/mL (50nmol/L) Insufficiency 20 - 30 ng/mL (50 - 75 nmol/L) Sufficiency 30 - 100 ng/mL (75 - 250 nmol/L) Toxicity >100 ng/mL (>250 nmol/L) Platelets bldon 05-21-2021 Platelets (Bld) [#/Vol] 282 10*3/uL 150-450 [facility] Work Phone: Serum or plasma albumin christopher urement (mass/volume)on 05-21-2021 Albumin [Mass/Vol] 4.2 g/dL 3.2-5.0 [place] Work Phone: Serum or plasma albumin/glob ulin mass ratioon 05-21-2021 Albumin/Globulin [Mass ratio] 1.1 {ratio} 0.9-2.4 [facility] Work Phone: Serum or plasma calcium christopher urement (mass/volume)on 05-21-2021 Calcium [Mass/Vol] 9.4 mg/dL 8.5-10.1 [place] Work Phone: Serum or plasma creatinine m easurement (mass/volume)on 05-21-2021 Creatinine [Mass/Vol] 0.83 mg/dL 0.55-1.02 [facility] Work Phone: Comment on above: The validity of the calculated GFR & GFRAA in patients over 70 years has not been determined. Clinical correlation is essential. Serum or plasma urea nitroge n measurement (mass/volume)on 05-21-2021 Urea nitrogen [Mass/Vol] 15 mg/dL 7-18 [facility] Work Phone: Thin prep Papanicolaou smear with manual screeningon 05-21-2021 Thin prep Papanicolaou smear with manual screening 15 U/L 15-37 [facility] Work Phone: Thin prep Papanicolaou smear with manual screening 3 5-15 [facility] Work Phone: Laboratory - Microbiology an d Antimicrobial susceptibilityon 02-21-2021 SARS-CoV-2 (COVID-19) RNA SHEILA+probe Ql (Unsp spec) Not detected Not Detect [facility] Work Phone: Comment on above: Normal Reference Ran ge: Not DetectedMethod:(RT-PCR) real-time reverse transcriptase PCRLuminex GERMÁN Instrument*The Food and Drug Administration (FDA) has issued an Emergency Use Authorization (EAU) for the GERMÁN SARS-CoV-2 Assay for the rapid detection of the virus that causes COVID-19. This test has been validated, but the FDAs independent review of this validation is pending.*Negative results do not preclude infection and should not be used as the sole basis for treatment or patient management. Optimum specimen types and timing for peak viral levels during infections caused by SARS-CoV-2 have not been determined. Collection of multiple specimens from the same patient may be necessary to detect the virus. The possibility of a false negative result should be considered if the patient has clinical presentation or has had recent exposure. Absolute lymphocyte counton 02-12-2021 Lymphocytes Auto (Unsp spec) [#/Vol] 2.37 10*3/uL 0.83-4.51 [facility] Work Phone: Basophil percentageon 2020 Bilirubin [Mass/Vol] 0.40 mg/dL 0.20-1.00 [facility] Work Phone: Comment on above: For patients on eltr ombopag therapy, use of Dimension Howe TBIL is not recommended. Chloride [Moles/Vol] 107 mmol/L 98-107 [facility] Work Phone: Eosinophils/100 WBC (Bld) 1.2 % 0-5 [facility] Work Phone: Glucose [Mass/Vol] 114 mg/dL 74-106 [place] Work Phone: Comment on above: Fasting Glucose resu lt from 100 to 125 mg/dL suggests IMPAIRED HOMEOSTASIS per A.D.A. criteria.Please note revised GLUCOSE reference range effective 2017. Neutrophils (Bld) [#/Vol] 5.0 10*3/uL 2.0-7.7 [facility] Work Phone: Potassium [Moles/Vol] 3.2 mmol/L 3.5-5.1 [facility] Work Phone: Protein [Mass/Vol] 8.0 g/dL 6.4-8.2 [facility] Work Phone: Sodium [Moles/Vol] 141 mmol/L 136-145 [facility] Work Phone: WBC (Bld) [#/Vol] 8.4 10*3/uL 4.4-11.0 [facility] Work Phone: Blood erythrocytes count (nu mber/volume)on 02-12-2021 RBC (Bld) [#/Vol] 4.23 10*6/uL 4.2-5.4 [facility] Work Phone: Blood hemoglobin measurement (mass/volume)on 02-12-2021 Hemoglobin (Bld) [Mass/Vol] 13.5 g/dL 12.0-15.0 [facility] Work Phone: Blood lymphocytes/100 leukoc yteson 02-12-2021 Lymphocytes/100 WBC (Bld) 28.2 % 19-41 [facility] Work Phone: Blood monocytes/100 leukocyt eson 02-12-2021 Monocytes/100 WBC (Bld) 9.6 % 0-10 [facility] Work Phone: Blood platelet mean volumeon 02-12-2021 Platelet mean volume (Bld) [Entitic vol] 8.7 fL 6.2-12.0 [facility] Work Phone: Determination of erythrocyte mean corpuscular volume (MCV)on 02-12-2021 MCV (RBC) [Entitic vol] 97.4 fL 81-99 [facility] Work Phone: Hematocrit Auto (Bld) [Volum e fraction]on 02-12-2021 Hematocrit (Bld) [Volume fraction] 41.2 % 37-47 [facility] Work Phone: Laboratory - Chemistry and C hemistry - challengeon 02-12-2021 ALP [Catalytic activity/Vol] 86 U/L 45-117 [facility] Work Phone: ALT [Catalytic activity/Vol] 27 U/L 13-56 [facility] Work Phone: CO2 [Moles/Vol] 27.0 mmol/L 21.0-32.0 [facility] Work Phone: Globulin (S) [Mass/Vol] 3.9 g/dL 2.2-4.2 [facility] Work Phone: Urea nitrogen/Creatinine [Mass ratio] 17.9 mg/mg 10-20 [facility] Work Phone: Laboratory - Hematology and Cell countson 02-12-2021 Basophils/100 WBC (Unsp spec) 0.8 % 0-1 [facility] Work Phone: Erythrocyte distribution width (RBC) [Entitic vol] 42.8 fL 35.1-43.9 [facility] Work Phone: Erythrocyte distribution width (RBC) [Ratio] 11.9 % 11.6-14.6 [facility] Work Phone: Immature granulocytes/100 WBC (Bld) 0.400 % 0.0-0.9 [facility] Work Phone: Comment on above: IG% - Immature Granu locytes (promyelocytes, myelocytes and metamyelocytes) > 1% indicates that a LEFT SHIFT is Present. MCH (RBC) [Entitic mass] 31.9 pg 27.0-32.0 [facility] Work Phone: Neutrophils/100 WBC (Bld) 59.8 % 47-70 [facility] Work Phone: Nucleated RBC/100 WBC (Bld) [Ratio] 0 % 0-5 [facility] Work Phone: MCHC Auto (RBC) [Mass/Vol]on 02-12-2021 MCHC (RBC) [Mass/Vol] 32.8 g/dL 32-36 [facility] Work [facility]: No Panel Informationon 02-12 Estimated GFR (MDRD) Amer 103 mL/min >60 [facility] Work Phone: Comment on above: GFR Calc Estimated GFR (MDRD) Non-Af Amer 85 mL/min >60 [facility] Work Phone: Comment on above: Non- GFR Calc Thyroid Stimulating Hormone (TSH) 1.80 uIU/mL 0.358-3.74 [facility] Work Phone: Vitamin D 25-Hydroxy 31.7 ng/mL [facility] Work Phone: Comment on above: Vitamin D 25(OH) Sta tus Range Deficiency <20 ng/mL (50nmol/L) Insufficiency 20 - 30 ng/mL (50 - 75 nmol/L) Sufficiency 30 - 100 ng/mL (75 - 250 nmol/L) Toxicity >100 ng/mL (>250 nmol/L) Platelets bldon 02-12-2021 Platelets (Bld) [#/Vol] 295 10*3/uL 150-450 [facility] Work Phone: Serum or plasma albumin christopher urement (mass/volume)on 02-12-2021 Albumin [Mass/Vol] 4.1 g/dL 3.2-5.0 [facility] Work Phone: Serum or plasma albumin/glob ulin mass ratioon 02-12-2021 Albumin/Globulin [Mass ratio] 1.1 {ratio} 0.9-2.4 [facility] Work Phone: Serum or plasma calcium christopher urement (mass/volume)on 02-12-2021 Calcium [Mass/Vol] 9.1 mg/dL 8.5-10.1 [facility] Work Phone: Serum or plasma creatinine m easurement (mass/volume)on 02-12-2021 Creatinine [Mass/Vol] 0.73 mg/dL 0.55-1.02 [facility] Work Phone: Comment on above: The validity of the calculated GFR & GFRAA in patients over 70 years has not been determined. Clinical correlation is essential. Serum or plasma urea nitroge n measurement (mass/volume)on 02-12-2021 Urea nitrogen [Mass/Vol] 13 mg/dL 7-18 [facility] Work Phone: Thin prep Papanicolaou smear with manual screeningon 02-12-2021 Thin prep Papanicolaou smear with manual screening 14 U/L 15-37 [facility] Work Phone: Thin prep Papanicolaou smear with manual screening 7 5-15 [facility] Work Phone: No Panel Information Influenza Types A,B Direct FA (SWETA) [facility] Work Phone: Vital Signs Date Time Vital Sign Value Performing Clinician Facility 08-31-2024 14:41-0400 Body height 160.[address] Tarik Lobo MD Work Phone: [facility] 08-31-2024 14:41-0400 Body mass index (BMI) [Ratio] 28.7 kg/m2 Dr. Tarik Lobo MD Work Phone: [facility] 08-31-2024 14:41-0400 Body weight 73.[address] Tarik Lobo MD Work Phone: [facility] 08-31-2024 14:41-0400 Diastolic blood pressure 90 mm[Hg] Dr. Tarik Lobo MD Work Phone: [facility] 08-31-2024 14:41-0400 Heart rate 95 /min Dr. Tarik Lobo MD Work Phone: [facility] 08-31-2024 14:41-0400 Respiratory rate 18 /min Dr. Tarik Lobo MD Work Phone: [facility] 08-31-2024 14:41-0400 SaO2% (BldA) [Mass fraction] 94 % Dr. Tarik Lobo MD Work Phone: [facility] 08-31-2024 14:41-0400 Systolic blood pressure 133 mm[Hg] Dr. Tarik Lobo MD Work Phone: [facility] 08-12-2024 10:17-0400 Body height 160.[address] Tarik Lobo MD Work Phone: [facility] 08-12-2024 10:17-0400 Body mass index (BMI) [Ratio] 29 kg/m2 Dr. Tarik Lobo MD Work Phone: [facility] 08-12-2024 10:17-0400 Body weight 74.[address] Tarik Lobo MD Work Phone: [facility] 08-12-2024 10:17-0400 Diastolic blood pressure 76 mm[Hg] Dr. Tarik Lobo MD Work Phone: [facility] 08-12-2024 10:17-0400 Heart rate 82 /min Dr. Tarik Lobo MD Work Phone: [facility] 08-12-2024 10:17-0400 SaO2% (BldA) [Mass fraction] 95 % Dr. Tarik Lobo MD Work Phone: [facility] 08-12-2024 10:17-0400 Systolic blood pressure 147 mm[Hg] Dr. Tarik Lobo MD Work Phone: [facility] 06-12-2024 12:17-0400 Body mass index (BMI) [Ratio] 29.88 kg/m2 Gaurang Car MD Work Phone: [facility] 06-12-2024 12:17-0400 Body temperature 98.1 [degF] Gaurang Car MD Work Phone: [facility] 06-12-2024 12:17-0400 Body weight 76.5 kg Gaurang Car MD Work Phone: [facility] 06-12-2024 12:17-0400 Diastolic blood pressure 76 mm[Hg] Gaurang Car MD Work Phone: [facility] 06-12-2024 12:17-0400 Heart rate 78 /min Gaurang Car MD Work Phone: [facility] 06-12-2024 12:17-0400 Respiratory rate 16 /min Gaurang Car MD Work Phone: [facility] 06-12-2024 12:17-0400 SaO2% (BldA) [Mass fraction] 99 % Gaurang Car MD Work Phone: [facility] 06-12-2024 12:17-0400 Systolic blood pressure 154 mm[Hg] Gaurang Car MD Work Phone: [facility] 06-09-2024 11:17-0400 Body height 160.[address] Tarik Lobo MD Work Phone: [facility] 06-09-2024 11:17-0400 Body mass index (BMI) [Ratio] 29.7 kg/m2 Dr. Tarik Lobo MD Work Phone: [facility] 06-09-2024 11:17-0400 Body weight 76.[address] Tarik Lobo MD Work Phone: [facility] 06-09-2024 11:17-0400 Diastolic blood pressure 75 mm[Hg] Dr. Tarik Lobo MD Work Phone: [facility] 06-09-2024 11:17-0400 Heart rate 88 /min Dr. Tarik Lobo MD Work Phone: [facility] 06-09-2024 11:17-0400 SaO2% (BldA) [Mass fraction] 95 % Dr. Tarik Lobo MD Work Phone: [facility] 06-09-2024 11:17-0400 Systolic blood pressure 133 mm[Hg] Dr. Tarik Lobo MD Work Phone: [facility] 04-05-2024 13:38-0500 Body height 160.[address] Tarik Lobo MD Work Phone: [facility] 04-05-2024 13:38-0500 Body mass index (BMI) [Ratio] 30.7 kg/m2 Dr. Tarik Lobo MD Work Phone: [facility] 04-05-2024 13:38-0500 Body weight 78.[address] Tarik Lobo MD Work Phone: [facility] 04-05-2024 13:38-0500 Diastolic blood pressure 82 mm[Hg] Dr. Tarik Lobo MD Work Phone: [facility] 04-05-2024 13:38-0500 Heart rate 78 /min Dr. Tarik Lobo MD Work Phone: [facility] 04-05-2024 13:38-0500 SaO2% (BldA) [Mass fraction] 96 % Dr. Tarik Lobo MD Work Phone: [facility] 04-05-2024 13:38-0500 Systolic blood pressure 132 mm[Hg] Dr. Tarik Lobo MD Work Phone: 2(224)903-311854 [place] [address] 02-25-2022 09:58-0500 Body height 160.[address] Tarik Lobo Work Phone: 2(208)303-185936 [address] 02-25-2022 09:58-0500 Body mass index (BMI) [Ratio] 26.2 kg/m2 Dr. Tarik Lobo Work Phone: 1(931)660-411954 [place] [address] 02-25-2022 09:58-0500 Body temperature 98.6 [degF] Dr. Tarik Lobo Work Phone: 4(610)387-711354 [place] [address] 02-25-2022 09:58-0500 Body weight 67.[address] Tarik Lobo Work Phone: 8(916)372-101454 [place] [address] 02-25-2022 09:58-0500 Diastolic blood pressure 60 mm[Hg] Dr. Tarik Lobo Work Phone: [facility] 02-25-2022 09:58-0500 Heart rate 108 /min Dr. Tarik Lobo Work Phone: [facility] 02-25-2022 09:58-0500 Respiratory rate 16 /min Dr. Tarik Lobo Work Phone: [facility] 02-25-2022 09:58-0500 SaO2% (BldA) [Mass fraction] 97 % Dr. Tarik Lobo Work Phone: [facility] 02-25-2022 09:58-0500 Systolic blood pressure 118 mm[Hg] Dr. Tarik Lobo Work Phone: [facility] 08-17-2021 11:20-0400 Body height 160.02 cm [facility] Work Phone: 08-17-2021 11:20-0400 Body mass index (BMI) [Ratio] 27.4 kg/m2 [facility] Work Phone: 08-17-2021 11:20-0400 Body temperature 97.5 [degF] [facility] Work Phone: 08-17-2021 11:20-0400 Body weight 70.3 kg [facility] Work Phone: 08-17-2021 11:20-0400 Diastolic blood pressure 75 mm[Hg] [facility] Work Phone: 08-17-2021 11:20-0400 Heart rate 77 /min [facility] Work Phone: 08-17-2021 11:20-0400 Respiratory rate 18 /min [facility] Work Phone: 08-17-2021 11:20-0400 SaO2% (BldA) [Mass fraction] 98 % [facility] Work Phone: 08-17-2021 11:20-0400 Systolic blood pressure 139 mm[Hg] [facility] Work Phone: 07-20-2021 12:30-0400 Body height 160 cm Pacc 1 Work Phone: [facility] 07-20-2021 12:30-0400 Body temperature 97.59 [degF] [facility] 1 Work Phone: [facility] 07-20-2021 12:30-0400 Body weight 65.77 kg Pacc 1 Work Phone: [facility] 07-20-2021 12:30-0400 Diastolic blood pressure 70 mm[Hg] Pacc 1 Work Phone: [facility] 07-20-2021 12:30-0400 Heart rate 70 /min Pacc 1 Work Phone: [facility] 07-20-2021 12:30-0400 Systolic blood pressure 120 mm[Hg] Pacc 1 Work Phone: [facility] 05-23-2021 08:49-0400 Body height 160 cm Aydee Caldera MD Work Phone: [facility] 05-23-2021 08:49-0400 Body weight 65.77 kg Aydee Caldera MD Work Phone: [facility] 05-23-2021 08:49-0400 Diastolic blood pressure 74 mm[Hg] Aydee Caldera MD Work Phone: [facility] 05-23-2021 08:49-0400 Systolic blood pressure 126 mm[Hg] Aydee Caldera MD Work Phone: [facility] Encounters Encounter Date Encounter Type Care Provider Facility Start: 09-21-2024 ambulatory Traik Lobo Facility:[facility] Start: 08-31-2024 End: 08-31-[address] Heath Pettit MD -[facility] Work Phone: Start: 08-31-2024 End: 08-31-[address] Tarik Lobo MD Work Phone: -[facility] Start: 08-31-[address] Tarik horne MD -Physical Therapy Work Phone: Start: 08-12-2024 End: 08-12-2024 Patient encounter procedure Kaia RIVERA -[facility] Work Phone: Start: 08-12-2024 End: 08-12-[address] Tarik Lobo MD Work Phone: [facility] Work Phone: Start: 08-10-[address] Tarik horne MD -Physical Therapy Work Phone: Start: 06-30-2024 End: 06-30-[address] Tarik Lobo MD -Laboratory Work Phone: Start: 06-30-2024 End: 06-30-2024 ambulatory Tarik Lobo Facility:[facility] Start: 06-14-2024 End: 06-14-[address] Tarik Lobo MD Work Phone: [facility] Work Phone: Start: 06-14-2024 End: 06-14-[address] Tarik Lobo MD -Radiology, [facility] Work Phone: Start: 06-14-2024 End: 06-14-2024 ambulatory Tarik Lobo Facility:[facility] Start: 06-12-2024 End: 06-12-2024 ambulatory TARIK LOBO Facility:[facility] Start: 06-12-2024 End: 06-12-2024 Office outpatient visit 25 minutes Gaurang Car MD Work Phone: [facility] Comment on above: Mid back pain on rig ht side (Primary Dx); Urinary frequency; Glycosuria; Microhematuria Start: 06-09-2024 End: 06-09-2024 Patient encounter procedure Kaia RIVERA -[facility] Work Phone: Start: 06-09-2024 End: 06-09-2024 ambulatory Tarik Lobo Facility:[facility] Start: 06-02-2024 End: 06-02-[address] Tarik Lobo MD Work Phone: [facility] Work Phone: Start: 06-02-2024 End: 06-02-[address] Tarik Lobo MD -Laboratory, Specimen Work Phone: Start: 06-02-2024 End: 06-02-2024 ambulatory Tarik Lobo Facility:[facility] Start: 05-25-2024 End: 05-25-[address] Tarik Lobo MD Work Phone: [facility] Work Phone: Start: 05-25-2024 End: 05-25-[address] Tarik Lobo MD -Laboratory, Phy Office 3rd Flr Start: 05-25-2024 End: 05-25-2024 ambulatory Tarik Chi Yamil Facility:[facility] Start: 04-05-2024 End: 04-05-2024 Patient encounter procedure Kaia Moore NP-C -[facility] Work Phone: Start: 04-05-2024 End: 04-05-2024 ambulatory Tarik Chi Yamil Facility:[facility] Start: 03-29-2024 End: 03-29-[address] Tarik Lobo MD -Laboratory Work Phone: Start: 03-29-2024 End: 03-29-2024 ambulatory Tarik Chi Yamil Facility:[facility] Start: 02-18-2024 End: 02-18-[address] Tarik Lobo MD -Laboratory, Phy Office 3rd Flr Start: 02-18-2024 End: 02-18-2024 ambulatory Tarik Chi Yamil Facility:[facility] Start: 02-05-2024 End: 02-05-[address] Tarik Lobo MD -Laboratory, Phy Office 3rd Flr Start: 02-05-2024 End: 02-05-2024 ambulatory Tarik Chi Yamil Facility:[facility] Start: 10-09-2023 ambulatory Tarik Chi Yamil Facility:[facility] Start: 10-02-2023 End: 10-02-2023 ambulatory Tarik Chi Yamil Facility:[facility] Start: 06-30-2023 Registered Recurring [facility]-Physical Therapy Work Phone: Start: 06-25-2023 End: 06-25-2023 ambulatory [facility] Work Phone: Start: 06-25-2023 End: 06-25-2023 Patient encounter procedure [facility]-Laboratory, Phy Office 3rd Flr Start: 03-25-2023 End: 03-25-2023 ambulatory [facility] Work Phone: Start: 03-25-2023 End: 03-25-2023 [facility] Start: 01-21-2023 End: 01-21-2023 ambulatory [facility] Work Phone: Start: 01-21-2023 End: 01-21-2023 [facility] Work [facility]: Start: 11-27-2022 End: 11-27-2022 [facility] Work [facility]: Start: 11-07-2022 End: 11-07-[address] [facility], y Office 3rd Flr Start: 04-05-2022 End: 04-05-[address] Tarik Lobo Work Phone: [facility] Work Phone: Start: 04-05-2022 End: 04-05-[address] Tarik Lobo [facility] Start: 03-20-2022 End: 03-20-[address] Tarik Lobo Work Phone: [facility], y Office 3rd Flr Start: 02-25-2022 End: 02-25-[address] [facility]obo [facility] Start: 12-27-2021 End: 12-27-[address] Tarik Lobo [facility] Start: 11-27-2021 End: 11-27-[address] Tarik Lobo Work Phone: [facility] Work Phone: Start: 11-27-2021 End: 11-27-[address] Tarik Lobo [facility] Start: 10-22-2021 End: 10-22-[address] Tarik Lobo [facility] Start: 09-10-2021 End: 09-10-2021 ambulatory Aydee Caldera MD Work Phone: Gynecology Comment on above: Encounter for screen ing mammogram for malignant neoplasm of breast (Primary Dx) Start: 09-10-2021 End: 09-10-2021 Telemedicine consultation with patient Aydee Caldera MD Work Phone: [facility] Start: 08-23-2021 End: 08-23-[address] Tarik Lobo Work Phone: [facility], [facility] Office 3rd Flr Start: 08-17-2021 Telephone encounter Aydee hein MD Work Phone: Gynecology Comment on above: Pain Start: 08-17-2021 Non-patient / Non-visit Dr. Joby Lobo Work Phone: [facility] Start: 08-17-2021 End: 08-17-2021 Emergency department patient visit [facility]-Emergency Department Start: 08-08-2021 End: 08-08-2021 Patient encounter procedure [facility]-Pulmonary Services/Neurology Start: 08-07-2021 ambulatory Aydee adams MD Work Phone: Gynecology Comment on above: results Start: 08-07-2021 E-mail encounter fro m caregiver Aydee Caldera MD Work Phone: [facility] Start: 07-27-2021 Telephone encounter Aydee hein MD Work Phone: [facility] Comment on above: Patient Question Start: 07-26-2021 End: 07-26-2021 ambulatory Nurse [employer] Techn[employer] Work Phone: Gynecology Comment on above: Educational circumst ances (Primary Dx) Refill Request Start: 07-26-2021 End: 07-26-2021 Telemedicine consultation with patient Nurse [employer] Techn[employer] Work Phone: [facility] Start: 07-23-2021 Admission to [facility] Aydee Caldera MD Work Phone: Gynecology Comment on above: Taking Evening Primr ose Oil Before Surgery Start: 07-23-2021 ambulatory Aydee adams MD Work Phone: [facility] Start: 07-20-2021 End: 07-20-2021 Admission [facility] 1 Work Phone: [facility] Start: 07-20-2021 End: 07-20-2021 ambulatory [facility] 1 Work Phone: Pre Anesthesia Comment on above: Pre-operative examin ation (Primary Dx); PMB (postmenopausal bleeding); Anxiety and depression; Essential hypertension, benign; Unspecified sleep apnea; Hypothyroidism, unspecified type; Basal cell carcinoma (BCC), unspecified site; Childhood asthma without complication, unspecified asthma severity, unspecified whether persistent Start: 07-20-2021 End: 07-20-2021 Preprocedural examination done [facility] 1 Work Phone: Pre Anesthesia Start: 05-23-2021 End: 05-23-2021 Patient encounter procedure Aydee Caldera MD Work Phone: Gynecology Comment on above: PMB (postmenopausal bleeding) (Primary Dx); Encounter for gynecological examination (general) (routine) without abnormal findings Start: 05-23-2021 End: 05-23-2021 Patient encounter status Aydee Caldera MD Work Phone: Gynecology Start: 05-21-2021 End: 05-21-2021 Patient encounter procedure [facility]-Laboratory, Phy Office 3rd Flr Start: 02-21-2021 Patient encounter procedure [facility]-Pulmonary Services/Neurology Start: 02-12-2021 Patient encounter procedure [facility]-Laboratory, Phy Office 3rd Flr Procedures Date Procedure Procedure Detail Performing Clinician Start: 06-30-2024 Vitamin D, 25-hydrox y measurement Dr. Tarik Lobo MD Work Phone: Comment on above: Vitamin D StatusDefi ciency: <20 ng/mL (50nmol/L)Insufficiency: 20-30 ng/mL (50-75 nmol/L)Sufficiency: 30-100 ng/mL (75-250 nmol/L)Toxicity: >100 ng/mL (>250 nmol/L) Start: 06-14-2024 X-ray of thoracic sp ine, three views Dr. Tarik Lobo MD Work Phone: Start: 06-12-2024 Urnls dip stick/tabl et rgnt auto w/o microscopy Gaurang Car MD Work Phone: Start: 06-02-[address] Tarik polanco MD Work Phone: Start: 05-25-2024 SARS-CoV-2, Influenz a & RSV (PCR) Dr. Tarik Lobo MD Work Phone: Start: 02-18-2024 SARS-CoV-2, Influenz a & RSV (PCR) Dr. Tarik Lobo MD Work Phone: Start: 01-21-2023 Coronavirus COVID-19 PCR Start: 01-21-2023 Influenza Types A,B Direct FA (SWETA) Start: 01-21-2023 Respiratory syncytia l virus antigen assay Start: 11-27-2022 Coronavirus COVID-19 PCR Start: 11-27-2022 Influenza Types A,B Direct FA (SWETA) Start: 11-27-2022 Respiratory syncytia l virus antigen assay Start: 08-17-2021 Radiography of ankle Start: 03-09-2010 [facility] Aydee camacho MD Work Phone: Start: 03-03-1997 [facility] Aydee camacho MD Work Phone: Influenza Types A,B Direct FA (SWETA) Dr. Tarik Lobo Work Phone: Influenza Types A,B Direct FA (SWETA) Dr. Tarik Lobo Work Phone: Influenza Types A,B Direct FA (SWETA) Dr. Tarik Lobo Work Phone: Respiratory syncytia l virus antigen assay Dr. Tarik Lobo Work Phone: Respiratory syncytia l virus antigen assay Dr. Tarik Lobo Work Phone: Respiratory syncytia l virus antigen assay Dr. Tarik Lobo Work Phone: Plan of Treatment Date Care Activity Detail Author Start: 08-31-2024 Evaluation of diagno stic study results [facility] Start: 07-20-2024 DIABETES SCREEN DIABETES SCREEN [facility] Start: 03-03-2024 Advance Directive Discussion Advance Directive Discussion [facility] Start: 11-02-2023 Covid-19 Vaccine () Covid-19 Vaccine () [facility] Start: 11-02-2023 Influenza vaccination Influenza Vacc ine (#1) [facility] Start: 07-20-2022 BP CONTROLLED (<130/80) BP CONTROLLE D (<130/80) [facility] Start: 05-23-2022 BP CONTROLLED (<130/80) BP CONTROLLE D (<130/80) [facility] Start: 03-23-2022 COLOGUARD (FIT-DNA) COLOGUARD (FIT-D NA) [facility] Start: 03-23-2022 COLORECTAL CANCER SCREENING COLORECTAL CANCER SCREENING [facility] Start: 03-23-2022 Screening for malign ant neoplasm of colon [facility] Start: 02-12-2022 Pneumococcal Vaccine : 50+ (2 of 2 - PCV) Pneumococcal Vaccine: 50+ (2 of 2 - PCV) [facility] Start: 11-23-2021 End: 05-23-2022 TYPE AND SCREEN,30 DAY TYPE AND SCREEN,30 DAY Blood Bank Routine PMB (postmenopausal bleeding) Expected: 11/23/2021, Expires: 05/23/2022 [facility] Work Phone: Comment on above: Expected: 11/23/2021 , Expires: 05/23/2022 Start: 11-01-2021 Influenza vaccination INFLUENZA (#1) [facility] Start: 06-23-2021 End: 05-23-2022 Basic metabolic 2000 panel - Serum or Plasma BASIC METABOLIC PNL Lab Routine PMB (postmenopausal bleeding) Expected: 06/23/2021, Expires: 05/23/2022 [facility] Work Phone: Comment on above: Expected: 06/23/2021 , Expires: 05/23/2022 Start: 06-23-2021 End: 05-23-2022 CBC W Auto Differential panel - Blood CBC + DIFF Lab Routine PMB (postmenopausal bleeding) Expected: 06/23/2021, Expires: 05/23/2022 [facility] Work Phone: Comment on above: Expected: 06/23/2021 , Expires: 05/23/2022 Start: 06-23-2021 End: 05-23-2022 CONFIRM BLOOD TYPE CONFIRM BLOOD TYPE Blood Bank Routine PMB (postmenopausal bleeding) Expected: 06/23/2021, Expires: 05/23/2022 [facility] Work Phone: Comment on above: Expected: 06/23/2021 , Expires: 05/23/2022 Start: 03-03-2021 ADVANCE DIRECTIVE DISCUSSION ADVANCE DIRECTIVE DISCUSSION [facility] Start: 01-16-2021 COVID-19 VACCINE (3 - Booster for Pfizer series) COVID-19 VACCINE (3 - Booster for Pfizer series) [facility] Start: 12-03-2020 BONE DENSITY BONE DENSITY [facility] Start: 12-03-2020 PNEUMOVAX AGE 65 AND OVER WITH 5YR LOOKBACK (#1) PNEUMOVAX AGE 65 AND OVER WITH 5YR LOOKBACK (#1) [facility] Start: 12-03-2020 Screening for osteoporosis Bone Dens ity Screening [facility] Start: 2015 RSV Vaccine (1 - Ris k 60-74 years 1-dose series) RSV Vaccine (1 - Risk 60-74 years 1-dose series) [facility] Start: 11-18-2014 LIPID SCREEN LIPID SCREEN [facility] Start: 11-18-2012 DIABETES SCREEN DIABETES SCREEN [facility] Start: 03-09-2011 Mammography MAMMOGRAM [facility] Start: 03-09-2011 Screening for malign ant neoplasm of breast Mammogram Screening [facility] Start: 11-18-2010 Hepatitis B surface antibody level LDL CHOLESTEROL [facility] Start: 03-30-2008 Urine microalbumin profile [facility] Start: 12-03-2005 SHINGRIX VACCINE (1 of 2) HERNANDES GRIX VACCINE (1 of 2) [facility] Start: 12-03-2000 COLOGUARD (FIT-DNA) COLOGUARD (FIT-D NA) [facility] Start: 12-03-2000 Colonoscopy COLONOSCOPY [facility] Start: 12-03-2000 COLORECTAL CANCER SCREENING COLORECTAL CANCER SCREENING [facility] Start: 12-03-[address] COLONOGRAPHY [facility] Start: 12-03-2000 FECAL OCCULT BLOOD FECAL OCCULT BLOO D [facility] Start: 12-03-2000 Screening for malign ant neoplasm of colon [facility] Start: 12-03-2000 SIGMOIDOSCOPY SIGMOIDOSCOPY [facility] Start: 12-03-1974 SHINGRIX VACCINE (1 of 2) HERNANDES GRIX VACCINE (1 of 2) [facility] Start: 12-03-1973 ANNUAL PCP TEAM FACILITIES ENGINEERING MANAGER RENÉ DISEASE VISIT ANNUAL PCP TEAM CHRONIC DISEASE VISIT [facility] Start: 12-03-1973 BP Controlled (<130/80) BP Controlle d (<130/80) [facility] Start: 12-03-1973 HEPATITIS C SCREENING HEPATITIS C [facility] Start: 12-03-1973 Hepatitis C screening Hepatitis C [facility] Start: 12-03-1973 HIV SCREENING HIV SCREENING [facility] Start: 12-03-1973 SPIROMETRY SPIROMETRY [facility] Start: 1967 Adult depression scr eening assessment DEPRESSION SCREENING [facility] Start: 12-03-1965 3 comp foot exam completed DIABETIC FOOT EXAM [facility] Start: 12-03-1965 Diabetic foot examination Diabetic F oot Exam [facility] Start: 12-03-1965 Glaucoma screening Dilated Retinal E xam [facility] Start: 12-03-1965 Hepatitis B screening URINE ALBUMIN:CREATININE RATIO [facility] Start: 12-03-1965 Hepatitis C antibody , confirmatory test DILATED RETINAL EXAM [facility] Start: 12-03-1961 PNEUMOCOCCAL: 65+ (1 - PCV) PNEUMOCOCCAL: 65+ (1 - PCV) [facility] Start: 12-03-1960 Hemoglobin A1c measurement HbA1C [facility] Start: 12-03-1960 Hemoglobin A1c/Hemoglobin.total in Blood HBA1C [facility] Evaluation of diagno stic study results [facility] End: 10-10-2022 CIERRA SCREENING W SD CIERRA SCREENING W SD Radiology Routine Encounter for screening mammogram for malignant neoplasm of breast 1 Occurrences starting 09/10/2021 until 10/10/2022 [facility] Work Phone: Comment on above: 1 Occurrences starti ng 09/10/2021 until 10/10/2022 PAP FLUID CERVICAL SCREENING PAP FLUID CERVICAL SCREENING Lab Routine PMB (postmenopausal bleeding) Encounter for gynecological examination (general) (routine) without abnormal findings Ordered: 05/23/2021 [facility] Work Phone: Comment on above: Ordered: 05/23/2021 Patient Education Understanding Ankle Sprain [facility] Work Phone: Patient referral [facility] Work Phone: Stress echocardiography [facility] SURGICAL PATHOLOGY SURGICAL PATH OLOGY Lab Routine PMB (postmenopausal bleeding) 05/23/2021 10:18 AM EDT [facility] Work Phone[facility] Immun[facility] Immunization Date Immunization Notes Care Provider [facility] 01-18-2023 influenza virus vacc ine, unspecified formulation Gaurang Car MD Work Phone: [facility] 03-29-2008 tetanus and diphther ia toxoids, adsorbed, preservative free, for adult use (2 Lf of tetanus toxoid and 2 Lf of diphtheria toxoid) Aydee Caldera MD Work Phone: [facility] Payers Date Payer Category Payer Unknown [id number] 2023 Self-pay [id number] 2020 Medicare MEDICARE MEDICAR E A AND B [id number] 2020-Present [phone] [place] [address] Medicare [id number] 2020 Medicare MEDICARE [id number] 2020 Private Health Insurance [facility] [id number] 2020 Unknown [facility] [place] [place]IC[place] SUPPLE[place] [id number] 2020-Present [phone] [place] [id number] Indemnity [id number] 2020 Medicare [id number] 2020 Unknown [id number] Unknown [id number] Unknown [id number] Unknown [id number] Unknown [id number] Unknown [id number] Unknown [id number] Unknown [id number] Unknown [id number] Unknown [id number] Unknown [id number] Unknown [id number] Unknown [id number] Unknown [id number] Unknown [id number] Unknown [id number] Social History Date Type Detail Facility Start: 02-25-2022 End: 08-31-2024 Tobacco smoking status NHIS Never smoked tobacco [facility] Work Phone: Start: 04-20-2021 End: 06-12-2024 Alcohol intake Current drinker of alcohol (finding) [facility] Start: 1955 Sex Assigned At Not on file [facility] Start: 05-13-2021 End: 08-03-2021 Exposure to SARS-CoV-2 (event) Not sure [facility] Start: 04-19-2021 End: 02-25-2022 Tobacco smoking status NHIS Unknown if ever smoked [facility] Start: 1955 Sex Assigned At Female [facility] Start: 05-29-2024 End: 06-17-2024 Sex Female (finding) [facility] Start: 06-12-2024 Tobacco use and exposure Smokeless tobacco non-user [facility] Start: 03-22-2022 End: 06-12-2024 History of Social function [facility] Start: 03-22-2022 End: 06-12-2024 Tobacco use panel [facility] National Score (1-100), lower number is lower risk 50 [facility] Clinical Notes 05-23-2021 to 06-15-2024 Gaurang Car MD - 06/12/2024 1:25 PM EDT Note Date & Type Note Facility 06-15-2024 Radiology Diagnostic study note [facility] Imaging Services [address] [place], [place] [address] Thoracic Spine 3 Views MR#: [id number] Acct: [id number] Name: KIRA URIBE Rep #: [id number] : 1955 F 68 From: Richa Humphreys MD PCP: Dr. Tarik Lobo MD Status: LINA FLORES Study:Thoracic Spine 3 Views Date of Exam: 06/14/24 Exam# [id number] Ordering Dr: Tarik Lobo MD PROCEDURE: THORACIC SPINE 3 VIEWS 06/14/2024 REASON FOR EXAM: RADICULOPATHY, THORACIC REGION TECHNIQUE: Two views of the thoracic spine. COMPARISON: None. FINDINGS: Mild reverse S shaped scoliosis. Moderate diffuse spondylosis. Mildly increased dorsal kyphosis. No fracture or dislocation is seen. No lytic or blastic bone lesion. RAD/Thoracic Spine 3 Views IMPRESSION: Diffuse spondylosis. No acute bone abnormality is identified. Reading Location: [place] [address] CC: Dr. Tarik Lobo MD ~ Ambulatory Analyst: Signed [facility] 06-12-2024 Note HNO ID: [id number] Author: GAURANG CAR MD Service: ? Author Type: Physician Type: Progress Notes Filed: 06/12/2024 13:36 Note Text: [facility] Subjective Kira Uribe is a 68 year old female. Patient presents with: Back Pain: X2 days Patient presents to the [facility] with multiple concerns. She primarily decided to come because she had significant right mid back pain last night. The pain was sharp and intense enough to make her yell out in pain. It subsided with taking acetaminophen. She was unable to attend a today out of concern she might have the pain returned. Pain radiates out to her right rib. She has had similar pain multiple times throughout the years and has been bothering her for few weeks. She had chiropractic adjustment 2 days ago for this out of place rib issue; chiropractor felt she might have a problem with her right shoulder blade also. She has also had treatment for multiple issues with her primary physician over the last few weeks. She has been treated for sinusitis, bronchitis, and dysuria. She was placed on Cipro for urinary frequency 06/01. She then developed a yeast infection. She was informed that herurine culture did not end up showing an infection. She did have glucose in her urine and is scheduled to start a continuous glucose monitor. She has no known history of kidney stones. Denies shortness of breath, abdominal pain, fever, chills, or cough. Back Pain Review of Systems Musculoskeletal: Positive for back pain. Objective BP 154/76 Pulse 78 Temp 36.7 ?C (98.1 ?F) (Right Tympanic) Resp 16 Wt 76.5 kg (168 lb 10.4 oz) LMP 11/04/2010 SpO2 99% BMI 29.88 kg/m? Physical Exam Constitutional: General: She is not in acute distress. HENT: Mouth/Throat: Mouth: Mucous membranes are moist. Eyes: Extraocular Movements: Extraocular movements intact. Conjunctiva/sclera: Conjunctivae normal. Pupils: Pupils are equal, round, and reactive to light. Cardiovascular: Rate and Rhythm: Normal rate and regular rhythm. Heart sounds: No murmur heard. Pulmonary: Effort: No respiratory distress. Breath sounds: No wheezing, rhonchi or rales. Comments: No midline spinous pain. Tenderness along the right lower ribs from paraspinal to lateral. Abdominal: Palpations: There is no mass. Tenderness: There is no abdominal tenderness. There is no right CVA tenderness or left CVA tenderness. Musculoskeletal: Cervical back: Neck supple. Neurological: Mental Status: She is alert. {ASSESSMENT/PLAN: 1. Mid back pain on right side - ICD9: 724.5, ICD10: M54.9 (primary diagnosis) Suspect musculoskeletal right rib pain. Last night's spasm may be secondary to recent chiropractic adjustment. Continue acetaminophen as needed for pain since it was effective. Differential includes renal calculus. Proceed to the emergency room with persistent severe pain, fever, or shortness of breath. 2. Urinary frequency - ICD9: 788.41, ICD10: R35.0 3. Glycosuria - ICD9: 791.5, ICD10: R81 4. Microhematuria - ICD9: 599.72, ICD10: R31.29 - UA DIP, URINE (POC) -greater than 1000 glucose, trace blood, trace ketone. Urinary frequency is related to glycosuria. Advised symptom improvement would require improved sugar control. She is starting a continuous glucose monitor. I did recommend follow-up with primary care for recheck of blood in the urine. Gaurang Car MD Differential Diagnoses - Musculoskeletal mid back pain is more likely for the following reason(s): suggested by HANDP - Glycosuria secondary to uncontrolled diabetes mellitus is more likely for the following reason(s): suggested by HANDP and consistent with laboratory studies - possible renal calculus is more likely for the following reason(s): Unable to be evaluated without imaging - Pyelonephritis is less likely for the following reason(s): laboratory studies not suggestive and HANDP not suggestive - Cholecystitis is less likely for the following reason(s): No abdominal pain, normal abdominal exam Procedures [facility] 06-12-2024 History of Present illness Narrative [facility] Subjective Kira Uribe is a 68 year old female. Patient presents with: Back Pain: X2 days Patient [facility] with multiple concerns. She primarily decided to come because she had significant right mid back pain last night. The pain was sharp and intense enough to make her yell out in pain. It subsided with taking acetaminophen. She was unable to attend a today out of concern she might have the pain returned. Pain radiates out to her right rib. She has had similar pain multiple times throughout the years and has been bothering her for few weeks. She had chiropractic adjustment 2 days ago for this out of place rib issue; chiropractor felt she might have a problem with her right shoulder blade also. She has also had treatment for multiple issues with her primary physician over the last few weeks. She has been treated for sinusitis, bronchitis, and dysuria. She was placed on Cipro for urinary frequency 06/01. She then developed a yeast infection. She was informed that her urine culture did not end up showing an infection. She did have glucose in her urine and is scheduled to start a continuous glucose monitor. She has no known history of kidney stones. Denies shortness of breath, abdominal pain, fever, chills, or cough. Back Pain Review of Systems Musculoskeletal: Positive for back pain. Objective BP 154/76 Pulse 78 Temp 36.7 C (98.1 F) (Right Tympanic) Resp 16 Wt 76.5 kg (168 lb 10.4 oz) LMP 11/04/2010 SpO2 99% BMI 29.88 kg/m Physical Exam Constitutional: General: She is not in acute distress. HENT: Mouth/Throat: Mouth: Mucous membranes are moist. Eyes: Extraocular Movements: Extraocular movements intact. Conjunctiva/sclera: Conjunctivae normal. Pupils: Pupils are equal, round, and reactive to light. Cardiovascular: Rate and Rhythm: Normal rate and regular rhythm. Heart sounds: No murmur heard. Pulmonary: Effort: No respiratory distress. Breath sounds: No wheezing, rhonchi or rales. Comments: No midline spinous pain. Tenderness along the right lower ribs from paraspinal to lateral. Abdominal: Palpations: There is no mass. Tenderness: There is no abdominal tenderness. There is no right CVA tenderness or left CVA tenderness. Musculoskeletal: Cervical back: Neck supple. Neurological: Mental Status: She is alert. {ASSESSMENT/PLAN: 1. Mid back pain on right side - ICD9: 724.5, ICD10: M54.9 (primary diagnosis) Suspect musculoskeletal right rib pain. Last night's spasm may be secondary to recent chiropractic adjustment. Continue acetaminophen as needed for pain since it was effective. Differential includes renal calculus. Proceed to the emergency room with persistent severe pain, fever, or shortness of breath. 2. Urinary frequency - ICD9: 788.41, ICD10: R35.0 3. Glycosuria - ICD9: 791.5, ICD10: R81 4. Microhematuria - ICD9: 599.72, ICD10: R31.29 - UA DIP, URINE (POC) -greater than 1000 glucose, trace blood, trace ketone. Urinary frequency is related to glycosuria. Advised symptom improvement would require improved sugar control. She is starting a continuous glucose monitor. I did recommend follow-up with primary care for recheck of blood in the urine. Gaurang Car MD Differential Diagnoses - Musculoskeletal mid back pain is more likely for the following reason(s): suggested by H&P - Glycosuria secondary to uncontrolled diabetes mellitus is more likely for the following reason(s): suggested by H&P and consistent with laboratory studies - possible renal calculus is more likely for the following reason(s): Unable to be evaluated without imaging - Pyelonephritis is less likely for the following reason(s): laboratory studies not suggestive and H&P not suggestive - Cholecystitis is less likely for the following reason(s): No abdominal pain, normal abdominal exam Procedures documented in this encounter [facility] 06-09-2024 Evaluation note Diagnosis Onset Date Resolution Vaginal yeast infection acute A 2024 11:15am Diabetes chronic June 09 11:15am High cholesterol chronic June 11:15am Hypertension chronic June 09 025 11:15am Overweight chronic June 09 11:15am [facility] Work Phone: 1(442) 123-485604-09-2025 Evaluation note* Diagnosis Onset Date Resolution Status Admit Date Vaginal yeast infection acute A pril 2024 11:15am Diabetes chronic June 09 11:15am High cholesterol chronic June 11:15am Hypertension chronic June 09, 025 11:15am Overweight chronic June 09 11:15am Diabetes chronic August 12 10:16am High cholesterol chronic August 10:16am Hypertension chronic August 12, 025 10:16am Hypothyroid chronic August 12 10:16am Overweight chronic August 12 10:16am Chest pain acute August 31, 2024 2:34pm Diabetes chronic August 31, 2024 2:34pm High cholesterol chronic August 2:34pm Hypertension chronic August 31 2:34pm [facility] Work Phone: 1(275) 484-622302-03-2025 Evaluation note* Diagnosis Onset Date Resolution Status Admit Date Diabetes chronic April 05, 2024 1:36pm High cholesterol chronic April 05, 2024 1:36pm Hypertension chronic April 1:36pm Nonspecific chest pain chronic Fe bru2024 1:36pm Obesity chronic April 05, 2024 1:36pm Vitamin D insufficiency chronic F eb2024 1:36pm [facility] Work Phone: 1(595) 272-177902-03-2025 Evaluation note* Diagnosis Onset Date Resolution Status Admit Date Diabetes chronic April 05, 2024 1:36pm High cholesterol chronic April 05, 2024 1:36pm Hypertension chronic April 1:36pm Nonspecific chest pain chronic 2024 1:36pm Obesity chronic April 05, 2024 1:36pm Vitamin D insufficiency chronic F eb2024 1:36pm Vaginal yeast infection acute A pril 2024 11:15am Diabetes chronic June 09 11:15am High cholesterol chronic June 11:15am Hypertension chronic June 09 025 11:15am Overweight chronic June 09 11:15am [facility] Work Phone: 1(588) 487-329307-11-2022 History of Present illness Narrative* Aydee Caldera MD - 09/10/2021 2:13 PM EDT This is a 65-year-old who was first [...] outpatient hysteroscopy visually directed polypectomy D&C under generalanesthesia with the final results as noted below but revealing benign endometrial polyp. She had a uncomplicated intraoperative and postoperative state. 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 Patient referred todayfor hysteroscopy and endometrial biopsy. Ultrasound 04/16/21 Indication [...] cm near the right lateral wall and alower polyp that was clear in its appearance [...] of the hysteroscopic procedure, the risks and benefitsof the alternatives to the procedure and the roles and tasks of the personnel to be involved were discussed with the patient and she additional risks benefits have also been reviewed with the patientincluding potential for blood transfusion, deep venous vein thrombosis, respiratory infections, infectious morbidity, anesthetic complications, injury to bowel bladder, intra-abdominal organs, and . Risk of a 2 stage procedure incomplete hysteroscopic resection, fluid overload, uterine perforation, hysterectomy, and recurrence of her current medical problem. The patient also understands that the procedure may require additional intra- operative consultationor additional intraoperative surgical procedures.The patient was also [...] Close/Procedure End Time: 12:11 PM Surgeon(s) and Videographer(s): Surgeon(s) and Role: * Aydee Caldera MD [...] assume her well woman checkups with her wire transfer clerk. This is a telephone postop visit. Aydee Caldera MD Cc: send copy to patient and requested to send to Dr. Elenita Lobo, [address] , [place], [place] [address] [facility] Miscellaneous Notes* Telephone Encounter - Yovana Campo RN - 08/17/2021 10:07 AM EDT Yes, this is the correct advice to provide. I will follow up with her this weekend. Aydee Caldera MD Message text Noted. Yovana Campo RN * Telephone Encounter - Yovana Campo RN - 08/17/2021 9:[address] Caldera reports left ankle/foot swelling, [...] to go to local ED (lives in [place]). Advised to call office back with update. Sending to Dr. Caldera for FYI. Gives verbal understanding. Yovana Campo RN * Telephone Encounter - Gema Urban [facility] - 08/17/2021 9:03 AM EDT Patient of Dr. Werner, Pain Patient status post surgery concerned one side of her body the leg and foot is swollen and painful. 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 Caldera - hysteroscopy polypectomy 08/03. Patient on estrace cream twice weekly and primrose oil. Please advise nursing if she should stop or continue. Yovana Campo RN * Telephone Encounter - Yovana Campo RN - 07/27/2021 12:17 PM EDT Triage voicemail - Has surgery with Dr. Caldera on 08/03. Is asking when or if needs to stop estrace vaginal cream. * Telephone Encounter - Lacey Blackwood RN - 07/27/2021 11:15 AM EDT Called patient, verified name/. Informed patient that I sent information in a direct message to her my chart. Waited as patient confirmed that she received the information. Patient thankful for the call. Lacey Blackwood RN July 27, 2021 11:19 AM * Telephone Encounter - Roslyn Austin - 07/27/2021 10:55 AM EDT Pt called in stating that she had a telephone visit with Lacey Blackwood RN yesterday and was supposed to receive additional information from Lacey after the visit about her upcoming surgery. Pt claimsshe never received this information and is asking if it can be sent through a new [employer] message. Roslyn Barclay documented [facility] Miscellaneous Notes* Telephone Encounter - Annika Donato RN - 07/26/2021 4:25 PM EDT Patient needs estrogen cream to be transferred to new pharmacy. Please order in Dr. Brett esqueda if appropriate. Annika Donato RN documented [facility] History of Present illness Narrative* Lacey Blackwood RN - 07/26/2021 2:00 PM EDT DATE OF SERVICE: 07/26/2021 PROBLEM: Kira Kimo Uribe presents for pre-op teaching. PRE-OP DIAGNOSIS: Postmenopausal [...] patient have an advanced directive: No Does [facility] have a copy of the patient's advanced [...] prescribed by anesthesia, internal medicine, surgeon, or WIRE TWISTER Stop NSAIDs, Aspirin (ASA), vitamins, herbal supplements, [...] jewelry, body piercing, makeup, contacts, lotions, nail croatian on fingers, or anything in hair on arrival to surgery Wear low healed shoes and loose fitting clothing Leave all valuables at home or with a family member Directions to [facility] and the [facility] Parking/parking validation on the day prior [...] number given to patient, if after hours patientinstructed to call vac press operator and ask for transportation driver carbonation equipment tender onc resident. SATINDER program offered to patient: [...] None Educator: Lacey Blackwood RN [facility] documented [facility] this [facility] Instructions* Patient Instructions* Lacey Blackwood RN - 07/25/2021 3:22 PM EDT Images from the original note were not included. MINIMALLY INVASIVE GYNECOLOGIC SURGERY (MIGS)/BENIGN GYNECOLOGY CONTACTS: Surgeons: Dr. Aydee Caldera Dr. Selina Nguyen Dr. Irma Stover Dr. Mitchel Mcknight Dr. Milana Peralta Dr. Tamar Lane Dr. Annika Carney [facility] Nurse Practitioners: Jenn Rankin, PUBLIC BATH ATTENDANT.HULL MOLDER Abby Wright, PUBLIC BATH ATTENDANT.HULL MOLDER Kaycee Gore, PUBLIC BATH ATTENDANT.HULL MOLDER Philly Watson, PUBLIC BATH ATTENDANT.HULL MOLDER Surgery Scheduling Office: Call the day before surgery after 2pm for your surgery arrival time After hours phone number: or toll free Ask the vac press operator to page the carbonation equipment tender transportation driver.' Business hours are Friday - Friday from [...] THESE MEDICATIONS 7 DAYS PRIOR TO SURGERY: (Motrin/ibuprofen/Naproxen/Aleve/Advil), Aspirin, vitamin E, herbal medications, diet pills, and [id number] medications. Tylenol (acetaminophen) is okay. I will not wear jewelry, body piercing(s), makeup, nail croatian, hairpins, or contacts on the day ofsurgery. I am to leave valuables and money [...] not I should stop them before surgery withmy surgeon. Discuss medication changes with your truck railroad and bus motor mechanic or primary care physician as well. If I stopped taking my blood-thinning medication, I will ask the surgeon when to resume taking it. If I am an outpatient, a responsible person will drive me home and it was suggested that someone stay with me for 24 hours. I understand that a chief business officer or cabdriver is NOT a responsible caregiver. Patients with diabetes,I will not take my morning diabetes medication (pills) on the morning of surgery. If I am on insulin, someone has gone over those instructions with me for the morning of surgery. I understand if my surgery is delayed, I will notify the check in desk that I have diabetes. See the Diabetic GuidelinesBefore Surgery in the patient education section. If I have Obstructive Sleep Apnea and use a CPAP/BiPAP machine, I will bring my mask, tubing, and machine with me on the day of surgery. Pain management education material found in Your Surgical Guide was reviewed with me. To find out my arrival time for surgery, I must call my surgical appliances salesperson after 2pm the day beforesurgery. Pre-operative instructions given by: PREOP INSTRUCTIONS THE DAY OF SURGERY/CHECK IN - [facility] [place], [address] INFECTION PREVENTION - Please notify your doctor [...] be able to eat/drink, urinate, and have yourpain controlled with oral medication. Your surgeon or [...] Your Surgical Guide Book for more information. [facility] TEAM - At the [facility], we have a multidisciplinary team of caregivers that includes fellows, residents, nurse practitioners, physician assistants, clinical nurse specialists, nurses, medical assistants, patient care nursing assistants, social workers, case making machine operator and many others. We all have different [...] day prior to surgery. Phone number: or [facility] [phone]. - No alcohol on the day before [...] - Do not wear any jewelry, nail croatian, makeup, lotions, contact lenses, or anything in [...] breath or chest pain. documented in this encounter[facility] History and physical note * Jacinda Ramirez APRN.HULL MOLDER - 07/20/2021 10:23 AM EDT HISTORY AND PHYSICAL EXAMINATION SERVICE DATE: 07/20/2021 SERVICE TIME: 10:23 AM PRIMARY CARE PHYSICIAN: Tarik Lobo MD REASON FOR VISIT: Kira Uribe is a 65 year old female who [...] had excessively heavy menstrual cycles. Patient referred todayfor hysteroscopy and endometrial biopsy. Ultrasound 04/16/21 Indication [...] fevers. Neurological: No history of TIA's, stroke, ECCLESIASTICAL WORKER tumor, impaired sensorium, hemiplegia, paraplegia orquadraplegia. No neurological symptoms or problems. Respiratory: Positive for: asthma (childhood). Cardiovascular: Positive for: hyperlipidemia (on rx) and hypertension (on rx) Negative for: anticoagulation therapy, arrhythmia, atrial fibrillation, CAD, chest pain, CHF, congenital heart defect, DVT/PE, recent OR, murmur/valvular heart disease, open heart surgery and valve surgery. GI: Positive for: GERD (on rx) and irritable bowel syndrome Negative for: abdominal pain, dysphagia, hepatitis, inflammatory bowel disease, liver disease, nausea, pancreatitis, vomiting and ETOH >2 drinks/day. : No history of dysuria, frequency or incontinence, stones or chronic kidney disease. No difficulty urinating, nocturia > 1 time per night or hematuria. BELT SEWER: See HPI. Endocrine: Positive for: diabetes mellitus [...] mouth at bedtime 2 nights prior to procedureand take 2 tablets by mouth at bedtime [...] the strenths of medcations today. Mai Alcaraz Meal Room Hand ALLERGIES Allergen Reactions Codeine Other: See Comments [place] out of body Dynacin [Minocyclin* Other: See [...] or any previous visit (from the past 93498 hour(s)). Assessment Anxiety and depression Assessment: stable [...] large neck Non-male patient STOP-Bang Score: 1 [id number] Score: Age: 65-74 Sex: female CHF history: No Hypertension history: Yes Stroke/TIA/thromboembolism history: No Vascular disease history: No Diabetes history: Yes [id number] Score: 4 ARISCAT Score: Age: 51-80 Preoperative [...] DENTAL Dental findings: teeth intact. Additional comments: [place]/back. II - ANESTHESIA PLAN ASA Score: 2 [...] SIGNATURE: Jacinda Ramirez APRN.CNP PATIENT NAME: Kira Uribe DATE: July 20, 2021 TIME: 10:23 AM PAGER/CONTACT #: documented in this encounterSelect [facility] Instructions* Patient Instructions* Jacinda Ramirez APRN.BRIELLE - 07/20/2021 10:22 AM EDT PATIENT PREOPERATIVE INSTRUCTIONS Aydee Caldera MD has scheduled you for your procedure at this surgery center: [facility] [phone] -- [place] [phone]. Please read below carefully for your personalized [...] Procedures: - YOU MUST HAVE A RESPONSIBLE TARIFF INSPECTOR TAKE YOU HOME. A BOOMSWING OPERATOR OR CERTIFIED INDOOR ENVIRONMENTALIST CANNOT BE MADE A RESPONSIBLE TARIFF INSPECTOR. - We recommend that a responsible person stays with you overnight to take care of you. - You cannot stay in a hotel alone after outpatient surgery. You will not be permitted to have yoursurgery, if you do not have someone to [...] Advance Directive, please fax a copy to [phone] or email to for it to be added to your chart. If you do not have an Advance Directive, you can find the appropriate form and more information at [email or web address]. We recommend that youcomplete the Advance Directive form found on the website and bring it with you the day of your surgery. It can be witnessed and scanned into your chart that day. Jacinda Ramirez APRN.BRIELLE documented in this encounterSelect [facility] History of Present illness Narrative* Aydee Caldera MD - 05/23/2021 9:30 AM EDT Kira Caojagdeep presents for hysteroscopy. Indication: Postmenopausal bleeding. This [...] had excessively heavy menstrual cycles. Patient referred todayfor hysteroscopy and endometrial biopsy. Ultrasound 04/16/21 Indication [...] cm near the right lateral wall and alower polyp that was clear in its appearance [...] of the hysteroscopic procedure, the risks and benefitsof the alternatives to the procedure and the roles and tasks of the personnel to be involved were discussed with the patient and she additional risks benefits have also been reviewed with the patientincluding potential for blood transfusion, deep venous vein thrombosis, respiratory infections, infectious morbidity, anesthetic complications, injury to bowel bladder, intra-abdominal organs, and . Risk of a 2 stage procedure incomplete hysteroscopic resection, fluid overload, uterine perforation, hysterectomy, and recurrence of her current medical problem. The patient also understands that the procedure may require additional intra- operative consultationor additional intraoperative surgical procedures.The patient was also informed of the ancillary staff that would work with me which might include medical students, residents, nursing staff, and anesthesia staff.The patient consents to the procedure and agrees to proceed. I verify that I personally obtained the consent. MD Aydee Vanessa MD [facility]* Diagnosis PMB (postmenopausal bleeding)- Primary Postmenopausal bleeding Encounter for gynecological examination (general) (routine) without abnormal findings documented in [facility] encounter [facility] noteNo assessment information availableWDunlap Memorial Hospital Work Phone: Evaluation note* Diagnosis Pre-operative examination- Primary Preoperative examination, unspecified PMB (postmenopausal bleeding) Postmenopausal bleeding Anxiety and depression Dysthymic disorder Essential hypertension, benign Unspecified sleep apnea Hypothyroidism, unspecified type Basal cell carcinoma (BCC), unspecified site Childhood asthma without complication, unspecified asthma severity, unspecified whether persistent PMB (postmenopausal bleeding) Postmenopausal bleeding [facility]* Diagnosis Educational circumstances- Primary Educational circumstance PMB (postmenopausal bleeding) Postmenopausal bleeding [facility] Encounter for screening mammogram for malignant neoplasm of breast- Primary Other screening mammogram [facility] Diagnosis Onset Date Resolution Status Influenza due to influenza virus, type A, human [facility] Work Phone: Evaluation note* Diagnosis Pre-operative examination- Primary Preoperative examination, unspecified PMB (postmenopausal bleeding) Postmenopausal bleeding Anxiety and depression Dysthymic disorder Essential hypertension, benign Unspecified sleep apnea Hypothyroidism, unspecified type Basal cell carcinoma (BCC), unspecified site Childhood asthma without complication, unspecified asthma severity, unspecified whether persistent (HCC) Mid back pain on right side- Primary Urinary frequency Glycosuria Microhematuria Microscopic hematuria documented in this encounter [facility] for referral (narrative)* Diagnostic Procedure Only (Routine) - Pending Review Specialty Diagnoses / Procedures Referred By Will sánchez Referred To Contact [facility] Diagnoses Encounter for screening mammogram for malignant neoplasm of breast Procedures CIERRA SCREENING W SD SCREENING DIGITAL BREAST TOMOSYNTHESIS BI SCREENING MAMMOGRAPHY BI 2-VIEW BREAST INC CAD Aydee Caldera MD [address] [place] [address] [facility] Imaging [facility] [place] [address] Referral ID Status Reason Start Date Expiration Date Visits Requested Visits Authorized [id number] Pending Review Auto-Generat ed Referral 09/10/2021 10/10/2022 1 1 [facility] for referral (narrative)No reason for referral information [facility] Work Phone: Chief Complaint and Reason for Visit Chief Complaint CHILLS Chief Complaint CHILLES Chief Complaint CHILLES RIGHT ANKLE SWELLING Chief Complaint CHILLES RIGHT ANKLE SWELLING LABWORK Chief Complaint CHILLES RIGHT ANKLE SWELLING LABWORK R68.83 Chief Complaint VIRAL SYMPTOMS CONCERN FOR SINUS INFECTION VIRAL SYMPTOMS Reason for Visit Influenza due to inf luenza virus, type A, human Chief Complaint CHILLS WITHOUT FEVER CHILLS WITHOUT FEVER Chief Complaint CHILLS WITHOUT FEVER Chief Complaint RT FOOT/LEG/SHOULDER .RX HERE Chief Complaint Admit Date Diabetes April 05, 2024 1 :36pm Reason for Visit Admit Date Diabetes April 05, 2024 1 :36pm High cholesterol April 05, 2024 1 :36pm Hypertension April 05, 2024 1 :36pm Nonspecific chest pain April 05 1:36pm Obesity April 05, 2024 1 :36pm Vitamin D insufficiency April 05 1:36pm Chief Complaint Admit Date Diabetes April 05, 2024 1 :36pm 9 Wk FU, RS 06/02June 09, 2024 11:1 5am Reason for Visit Admit Date Diabetes April 05, 2024 1 :36pm High cholesterol April 05, 2024 1 :36pm Hypertension April 05, 2024 1 :36pm Nonspecific chest pain April 05 1:36pm Obesity April 05, 2024 1 :36pm Vitamin D insufficiency April 05 1:36pm Vaginal yeast infection June 09, 2024 11:15am Diabetes June 09, 2024 11:1 5am High cholesterol June 09, 2024 11:1 5am Hypertension June 09, 2024 11:1 5am Overweight June 09, 2024 11:1 5am Chief Complaint Admit Date 9 Wk FU, RS 06/02June 09, 2024 11:1 5am THORACIC BACK PN/RX HERE August 10, 2024 12:00pm 8 Wk FU August 12, 2024 10:1 6am Reason for Visit Admit Date Vaginal yeast infection June 09, 2024 11:15am Diabetes June 09, 2024 11:1 5am High cholesterol June 09, 2024 11:1 5am Hypertension June 09, 2024 11:1 5am Overweight June 09, 2024 11:1 5am Chief Complaint Admit Date 9 Wk FU, RS 06/02June 09, 2024 11:1 5am 8 Wk FU August 12, 2024 10:1 6am THORACIC BACK PN/RX HERE August 31, 2024 11:30am RE-EST (Yamil) August 31, 2024 2:34p m Reason for Visit Admit Date Vaginal yeast infection June 09, 2024 11:15am Diabetes June 09, 2024 11:1 5am High cholesterol June 09, 2024 11:1 5am Hypertension June 09, 2024 11:1 5am Overweight June 09, 2024 11:1 5am Diabetes August 12, 2024 10:1 6am High cholesterol August 12, 2024 10:1 6am Hypertension August 12, 2024 10:1 6am Hypothyroid August 12, 2024 10:1 6am Overweight August 12, 2024 10:1 6am Chest pain August 31, 2024 2:34p m Diabetes August 31, 2024 2:34p m High cholesterol August 31, 2024 2:34p m Hypertension August 31, 2024 2:34p m Advance Directives No Advanced Directives Records Found Advance Directive Response Recorded Date/ Time Living Will No April 19 022 9:51am Power of Commercial Solar Sales Consultant No April 19, 2021 9:51am Documents on File Type Date Recorded Patient Rac Specialist Expl anation Advance Directive(s) 07/19/2021 10:29 AM Advance Directive Response Recorded Date/ Time Living Will No August 17, 2021 11:42am Power of Commercial Solar Sales Consultant No August 17 11:42am Documents on File Type Date Recorded Patient Rac Specialist Expl anation Advance Directive(s) 07/19/2021 10:29 AM Advance Directive Response Recorded Date/ Time Living Will No August 17, 2021 10:42am Power of Commercial Solar Sales Consultant No August 17 10:42am Summary Purpose Family History No Family History Records Found Relationship Condition Age at Onset Recorded Date/T tiffanie mother Anemia Unknown Complication of anesthesia Unknown Asthma Unknown Arthritis Unknown Diabetes mellitus Unknown Depression Unknown Hyperlipidemia Unknown Hypertension Unknown Cerebrovascular accident (CVA) Unknown Disorder of thyroid Unknown father Parkinson's disease Unknown Cardiac disease Unknown grandmother Depression Unknown grandfather Malignant neoplasm of lung Unknown Additional Source Comments Source Comments (unrecognize d section and content) In the event this informatio n is protected by the Federal Confidentiality of Alcohol and Drug Abuse Patient Records regulations: The Federal rules restrict any use of the information to criminally investigate or prosecute any alcohol or drug abuse patient.[facility] the event this information is protected by the Federal Confidentiality of Alcohol and Drug Abuse Patient Records regulations: The Federal rules restrict any use of the information to criminally investigate or prosecute any alcohol or drug abuse patient.[facility] the event this information is protected by the Federal Confidentiality of Alcohol and Drug Abuse Patient Records regulations: The Federal rules restrict any use of the information to criminally investigate or prosecute any alcohol or drug abuse patient.[facility] the event this information is protected by the Federal Confidentiality of Alcohol and Drug Abuse Patient Records regulations: The Federal rules restrict any use of the information to criminally investigate or prosecute any alcohol or drug abuse patient.[facility] the event this information is protected by the Federal Confidentiality of Alcohol and Drug Abuse Patient Records regulations: The Federal rules restrict any use of the information to criminally investigate or prosecute any alcohol or drug abuse patient.[facility] the event this information is protected by the Federal Confidentiality of Alcohol and Drug Abuse Patient Records regulations: The Federal rules restrict any use of the information to criminally investigate or prosecute any alcohol or drug abuse patient.[facility] the event this information is protected by the Federal Confidentiality of Alcohol and Drug Abuse Patient Records regulations: The Federal rules restrict any use of the information to criminally investigate or prosecute any alcohol or drug abuse patient.[facility] the event this information is protected by the Federal Confidentiality of Alcohol and Drug Abuse Patient Records regulations: The Federal rules restrict any use of the information to criminally investigate or prosecute any alcohol or drug abuse patient.[facility] the event this information is protected by the Federal Confidentiality of Alcohol and Drug Abuse Patient Records regulations: The Federal rules restrict any use of the information to criminally investigate or prosecute any alcohol or drug abuse patient.[facility] the event this information is protected by the Federal Confidentiality of Alcohol and Drug Abuse Patient Records regulations: The Federal rules restrict any use of the information to criminally investigate or prosecute any alcohol or drug abuse patient.[facility] Reason for Visit (unrecogniz ed section and content) Reason Comments Procedure Reason Comments Consult Reason Onset Date Comments Pre-Op Teaching 07/25/2021 Reason Onset Date Comments Refill Request 07/26/2021 Reason Comments Patient Question Reason Comments Pain Reason Comments Post Op Reason Comments Back Pain X2 days Care Teams (unrecognized sec tion and content) Manager Actuarial Relationship Specialty Start Date End Date Tarik Lobo Chi [address] [place] [address] PCP - General Gerontology 04/20/21 Manager Actuarial Relationship Specialty Start Date End Date Tarik Lobo Chi [address] [place] [address] PCP - General Gerontology 04/20/21 Manager Actuarial Relationship Specialty Start Date End Date Tarik Lobo Chi [address] [place] [address] PCP - General Gerontology 04/20/21 Manager Actuarial Relationship Specialty Start Date End Date Tarik Lobo Chi [address] [place] [address] PCP - General Gerontology 04/20/21 Manager Actuarial Relationship Specialty Start Date End Date Tarik Lobo Chi [address] [place] [address] PCP - General Gerontology 04/20/21 Manager Actuarial Relationship Specialty Start Date End Date Tarik Lobo Chi [address] [place], [place] [id number] PCP - General Gerontology 04/20/21 Manager Actuarial Relationship Specialty Start Date End Date Tarik Lobo Chi [address] [place], [place] [id number] PCP - General Gerontology 04/20/21 Manager Actuarial Relationship Specialty Start Date End Date Tarik Lobo Chi [address] [place], [place] [id number] PCP - General Gerontology 04/20/21 Team Status: Active Member Role Status Dates Dr. Tarik Lobo MD Family Provider Active Dr. Tarik Lobo MD Primary Care Provider Active Team Status: Inactive Member Role Status Dates Dr. Tarik Lobo MD Primary Care Provider, Referring Provider Active Jomar SETHI, PA Attending Provider Active Team Status: Inactive Member Role Status Dates Dr. Tarik Lobo MD Primary Care Provi ken, Attending Provider, Referring Provider Active Team Status: Inactive Member Role Status Dates Dr. Tarik Lobo MD Primary Care Provider, Attending Provider Active Team Status: Active Member Role Status Dates Dr. Tarik Lobo MD Primary Care Provider Active Dr. Rei Kramer DPM Attending Provider, Referring Provider Active Dr. Rafal Rivera MD Other Provider Active Team Status: Active Member Role Status Dates Dr. Tarik Lobo MD Primary Care Provider Active Team Status: Inactive Member Role Status Dates Dr. Tarik Lobo MD Primary Care Provider Active Start: February 05, 2024 End: February 05, 2024 Dr. Tarik Lobo MD Attending Provider Active Start: February 05, 2024 End: February 05, 2024 Team Status: Inactive Member Role Status Dates Dr. Tarik Lobo MD Primary Care Provider Active Start: February 18, 2024 End: February 18, 2024 Dr. Tarik Lobo MD Attending Provider Active Start: February 18, 2024 End: February 18, 2024 Team Status: Inactive Member Role Status Dates Dr. Tarik Lobo MD Primary Care Provider Active Start: March 29, 2024 End: March 29, 2024 Dr. Tarik Lobo MD Attending Provider Active Start: March 29, 2024 End: March 29, 2024 Dr. Tarik Lobo MD Referring Provider Active Start: March 29, 2024 End: March 29, 2024 Team Status: Inactive Member Role Status Dates Dr. Tarik Lobo MD Primary Care Provider Active Start: April 05, 2024 End: April 05, 2024 Dr. Tarik Lobo MD Referring Provider Active Start: April 05, 2024 End: April 05, 2024 MIGUEL Armstrong Attending Provider Active Start: April 05, 2024 End: April 05, 2024 Team Status: Inactive Member Role Status Dates Dr. Tarik Lobo MD Primary Care Provider Active Start: May 25, 2024 End: May 25, 2024 Dr. Tarik Lobo MD Attending Provider Active Start: May 25, 2024 End: May 25, 2024 Dr. Tarik Lobo MD Referring Provider Active Start: May 25, 2024 End: May 25, 2024 Team Status: Inactive Member Role Status Dates Dr. Tarik Lobo MD Primary Care Provider Active Start: June 02, 2024 End: June 02, 2024 Dr. Tarik Lobo MD Attending Provider Active Start: June 02, 2024 End: June 02, 2024 Manager Actuarial Relationship Specialty Start Date End Date Tarik Lobo Chi [address] [place] [id number] PCP - General Gerontology 04/20/21 Team Status: Inactive Member Role Status Dates Dr. Tarik Lobo MD Primary Care Provider Active Start: June 09, 2024 End: June 09, 2024 Dr. Tarik Lobo MD Referring Provider Active Start: June 09, 2024 End: June 09, 2024 MIGUEL Armstrong Attending Provider Active Start: June 09, 2024 End: June 09, 2024 Team Status: Inactive Member Role Status Dates Dr. Tarik Lobo MD Primary Care Provider Active Start: June 14, 2024 End: June 14, 2024 Dr. Tarik Lobo MD Attending Provider Active Start: June 14, 2024 End: June 14, 2024 Dr. Tarik Lobo MD Referring Provider Active Start: June 14, 2024 End: June 14, 2024 Team Status: Inactive Member Role Status Dates Dr. Tarik Lobo MD Primary Care Provider Active Start: June 30, 2024 End: June 30, 2024 Dr. Tarik Lobo MD Attending Provider Active Start: June 30, 2024 End: June 30, 2024 Dr. Tarik Lobo MD Referring Provider Active Start: June 30, 2024 End: June 30, 2024 Team Status: Active Member Role Status Dates Dr. Tarik Lobo MD Primary Care Provider Active Start: August 10, 2024 Dr. Tarik Lobo MD Attending Provider Active Start: August 10, 2024 Dr. Tarik Lobo MD Referring Provider Active Start: August 10, 2024 Team Status: Inactive Member Role Status Dates Dr. Tarik Lobo MD Primary Care Provider Active Start: August 12, 2024 End: August 12, 2024 Dr. Tarik Lobo MD Referring Provider Active Start: August 12, 2024 End: August 12, 2024 MIGUEL Armstrong Attending Provider Active Start: August 12, 2024 End: August 12, 2024 Team Status: Active Member Role/Relationship Status Dates Dr. Tarik Lobo MD Primary Care Provider Active Team Status: Inactive Member Role/Relationship Status Dates Dr. Tarik Lobo MD Primary Care Provider Active Start: May 25, 2024 End: May 25, 2024 Dr. Tarik Lobo MD Attending Provider Active Start: May 25, 2024 End: May 25, 2024 Dr. Tarik Lobo MD Referring Provider Active Start: May 25, 2024 End: May 25, 2024 Team Status: Inactive Member Role/Relationship Status Dates Dr. Tarik Lobo MD Primary Care Provider Active Start: June 02, 2024 End: June 02, 2024 Dr. Tarik Lobo MD Attending Provider Active Start: June 02, 2024 End: June 02, 2024 Team Status: Inactive Member Role/Relationship Status Dates Dr. Tarik Lobo MD Primary Care Provider Active Start: June 09, 2024 End: June 09, 2024 Dr. Tarik oLbo MD Referring Provider Active Start: June 09, 2024 End: June 09, 2024 MIGUEL Armstrong Attending Provider Active Start: June 09, 2024 End: June 09, 2024 Team Status: Inactive Member Role/Relationship Status Dates Dr. Tarik Lobo MD Primary Care Provider Active Start: June 14, 2024 End: June 14, 2024 Dr. Tarik Lobo MD Attending Provider Active Start: June 14, 2024 End: June 14, 2024 Dr. Tarik Lobo MD Referring Provider Active Start: June 14, 2024 End: June 14, 2024 Team Status: Inactive Member Role/Relationship Status Dates Dr. Tarik Lobo MD Primary Care Provider Active Start: June 30, 2024 End: June 30, 2024 Dr. Tarik Lobo MD Attending Provider Active Start: June 30, 2024 End: June 30, 2024 Dr. Tarik Lobo MD Referring Provider Active Start: June 30, 2024 End: June 30, 2024 Team Status: Inactive Member Role/Relationship Status Dates Dr. Tarik Lobo MD Primary Care Provider Active Start: August 12, 2024 End: August 12, 2024 Dr. Tarik Lobo MD Referring Provider Active Start: August 12, 2024 End: August 12, 2024 MIGUEL Armstrong Attending Provider Active Start: August 12, 2024 End: August 12, 2024 Team Status: Active Member Role/Relationship Status Dates Dr. Tarik Lobo MD Primary Care Provider Active Start: August 31, 2024 Dr. Tarik Lobo MD Attending Provider Active Start: August 31, 2024 Dr. Tarik Lobo MD Referring Provider Active Start: August 31, 2024 Team Status: Inactive Member Role/Relationship Status Dates Dr. Tarik Lobo MD Primary Care Provider Active Start: August 31, 2024 End: August 31, 2024 Dr. Tarik Lobo MD Referring Provider Active Start: August 31, 2024 End: August 31, 2024 Dr. Heath Pettit MD Attending Provider Active Start: August 31, 2024 End: August 31, 2024 Goals (unrecognized section and content) Goals may be documented in a n alternate sectionGoals may be documented in an alternate sectionGoals may be documented in an alternate sectionGoals may be documented in an alternate sectionGoals may be documented in an alternate sectionGoals may be documented in an alternate sectionGoals may be documented in an alternate sectionGoals may be documented in an alternate sectionGoals may be documented in an alternate sectionGoals may be documented in an alternate sectionGoals may be documented in an alternate sectionGoals may be documented in an alternate sectionGoals may be documented in an alternate sectionGoals may be documented in an alternate section INFORMATION SOURCE (unrecogn ized section and content) DATE CREATED AUTHOR 08/08/[address] [facility] DATE CREATED AUTHOR AUTHOR'S ORGANIZ ATION 06/13/2024 [facility] DATE CREATED AUTHOR AUTHOR'S ORGANIZ ATION 09/23/2024 [facility] FOR RECORDS PERTAINING TO PATIENTS WHO [...] BE BASED ON THE PRIMARY CLINICAL RECORDS. [employer] provides no warranty or guarantee of the accuracy or completeness of information in this document.
[2024-10-20 23:09] LABS: Xtra Tube Kwok EXTRA TUBE
== END | disposition home or self-care (01) ==
LOC: POLAB3 15:07
PROVIDERS: PCP Family Medicine Geriatric Medicine; Visit Provider Family Medicine Geriatric Medicine
DX: E11.65 Type 2 diabetes mellitus with hyperglycemia (principal); E55.9 Vitamin D deficiency, unspecified; I10 Essential (primary) hypertension
CPT/HCPCS: 36415; 80053; 82306; 84443; 85025

== ENCOUNTER → 2024-12-22 | Outpatient (CLI) | payer MEDICARE, OTHER, SELFPAY ==
--- NOTE | 2024-12-22 15:08 | RAD_ITS ---
PROCEDURE: HIP, UNI W/ PELVIS 2-3 VIEWS 12/22/2024 REASON FOR EXAM: PAIN TECHNIQUE: Procedure Code: RAD Modality: DX Procedure: HIP, UNI W/ PELVIS 2-3 VIEWS Laterality: Left COMPARISON: None FINDINGS: The bony pelvis is intact. The SI joints are normal. There is no significant Dr. Carmona RA RV right thereby degenerative disc disease, L3-4 through L5-S1. There are no soft tissue abnormalities. AP view of the right hip demonstrates no evidence of fracture or dislocation. There is no significant arthropathy normal. The periarticular soft tissues are normal. AP and lateral views of the left hip demonstrate no evidence of fracture or dislocation. There is no significant arthropathy. The periarticular soft tissues are normal. RAD/HIP, UNI W/ Pelvis 2-3 Views IMPRESSION: No significant abnormality of the left hip. Other findings as noted. Reading Location: [place] [id number]
--- NOTE | 2024-12-22 15:08 | RAD_ITS ---
PROCEDURE: L/S SPINE MIN 4 VIEWS 12/22/2024 REASON FOR EXAM: PAIN TECHNIQUE: Procedure Code: RADSPLS Modality: DX Procedure: L/S SPINE MIN 4 VIEWS COMPARISON: None FINDINGS: There is anatomic alignment of the lumbar spine in the lateral view with a mild dextroscoliosis noted in the AP view. No acute fracture or suspicious osseous lesion. Mild disc space narrowing noted throughout the lumbar spine with sclerotic endplate changes. No pars defect or spondylolisthesis Peripheral calcifications in the abdominal aorta without aneurysm. RAD/L/S Spine Min 4 Views IMPRESSION: Age consistent degenerative changes, no acute findings Reading Location: [id number]
--- NOTE | 2024-12-22 15:08 | RAD_ITS ---
PROCEDURE: CERV SPINE 2 OR 3 VIEWS 12/22/2024 REASON FOR EXAM: CDD TECHNIQUE: Procedure Code: RADSPCL Modality: DX Procedure: CERV SPINE 2 OR 3 VIEWS COMPARISON: None FINDINGS: Vertebrae: No demonstrated fracture disc spaces: Disc space narrowing noted throughout the cervical spine. Alignment: Alignment is anatomic, there is loss of the natural lordotic curvature which is likely positional or due to pain soft tissues: Unremarkable Other: Normal relationship between C7 and T1. RAD/Cerv Spine 2 or 3 Views IMPRESSION: Multilevel degenerative changes, no acute findings Disclaimer: Reading Location: [id number]
--- NOTE | 2024-12-22 15:08 | RAD_ITS ---
PROCEDURE: SCAPULA 12/22/2024 REASON FOR EXAM: PAIN TECHNIQUE: Procedure Code: RADSC Modality: DX Procedure: SCAPULA Laterality: Right COMPARISON: None FINDINGS: There is no evidence of fracture. The glenohumeral and acromioclavicular joints appear unremarkable. There are no significant soft tissue abnormalities. RAD/Scapula IMPRESSION: NO ACUTE FRACTURE OR DISLOCATION. Reading Location: [place] [id number]
--- NOTE | 2024-12-22 15:08 | RAD_ITS ---
PROCEDURE: THORACIC SPINE 3 VIEWS 12/22/2024 REASON FOR EXAM: PAIN TECHNIQUE: Procedure Code: RADSPT Modality: DX Procedure: THORACIC SPINE 3 VIEWS COMPARISON: None. FINDINGS: Vertebrae: No acute bony abnormalities. Discs: Mild disc disease at the midthoracic spine of disc space narrowing, sclerosis and marginal osteophytes. Alignment: Normal. RAD/Thoracic Spine 3 Views IMPRESSION: Unremarkable x-ray of the thoracic spine except for mild degenerate changes in the middle. Reading Location: [id number]
== END | disposition home or self-care (01) ==
LOC: RAD 14:46
PROVIDERS: PCP Family Medicine Geriatric Medicine; Referring Provider Family Medicine Geriatric Medicine; Visit Provider Family Medicine Geriatric Medicine
DX: M50.90 Cervical disc disorder, unspecified, unspecified cervical region (principal); M54.6 Pain in thoracic spine; M54.50 Low back pain, unspecified; M25.552 Pain in left hip; M89.8X1 Other specified disorders of bone, shoulder
CPT/HCPCS: 72040; 72072; 72110; 73010; 73502

== ENCOUNTER 2025-01-28 08:30 | Outpatient (RCR) | payer MEDICARE, OTHER, SELFPAY ==
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
--- NOTE | 2025-01-28 09:27 | HP.PTDCSUM ---
Discharge Summary D/C summary: It has been my pleasure to treat MIROSLAVA URIBE referred by Dr. Tarik Lobo MD, with the diagnosis of neck pain, thoracic pain for a total of 7 visit(s). Discharge Date: 01/28/25 Please see the following information for a summary of their discharge status. Subjective Subjective: Was gtting better. Missed last week with sickness. Hip stretches and orgiinal exercises really helped. Was feeling a lot better but lying on couch got tight in neck and thoracic. Went back to haridresser adn positioninng was much better. Pain Neck: Pain Intensity (Out of 10): 0 mid back: Pain Intensity (Out of 10): 0 Left Hip: Pain Intensity (Out of 10): 0 Overall Improvement % Improvement: 85 Objective Objective/Function: 70 B rotation in cervical with slgiht L tightness feeling, 70 extension is much improved. UE aROM WFL and symmetrical. Goals Goal 1:: Pain in neck and R thoracic 99% better and 1/10 at worst Goal Progress: 85% at one point Goal 2:: neck oswestry score 5 or better Goal Progress: Progressing Goal 3:: I appropriate HEP to manage condition. Goal Progress: Goal Met Goal 4:: Lift 20# without pain or far of hurting self Goal Progress: fearful Plan Plan: d/c, pt to doctor for next step as she is still annoyed with the discomfort/limitations in carrying. D/C Information Discharge Comments: Pt back to doctor for next step. d/c sentence: If there are questions or concerns regarding this patient's physical therapy, please feel free to call me at [phone]. Thank you for the referral of this patient. Sincerely, Ilya Rao, DPT, OCS, CSCS Balance/Gait/Functional tests Balance/Special Test Scores Oswestry Neck Score: 8 Improvement % Improvement: 85
== END 2025-01-28 09:53 | disposition home or self-care (01) ==
LOC: PT 08:30
PROVIDERS: PCP Family Medicine Geriatric Medicine; Referring Provider Family Medicine Geriatric Medicine; Visit Provider Family Medicine Geriatric Medicine
DX: M54.2 Cervicalgia (principal); M54.6 Pain in thoracic spine
CPT/HCPCS: 97110; 97140; 97161; 97164